=== PATIENT | female | born 1950 | race Hispanic/Latino ===

== ENCOUNTER 2016-07-07 10:51 | Day surgery (SDC) | payer BC ==
[2016-07-06 17:26] LABS: Hemoglobin 7.6 gm/dl (10.1-14.3)
[2016-07-07] MEDS ORDERED: NACL 0.9% 250ML 250 ML IV ONE (11:03)
[2016-07-07] MEDS ORDERED: TYLENOL PO ONE ×2 (11:04→11:33)
[2016-07-07] MEDS ORDERED: BENADRYL PO ONE (11:04)
[2016-07-07 16:21] VITALS: BP 124/46
== END 2016-07-07 16:40 | disposition home or self-care (01) ==
LOC: OPU 10:51
PROVIDERS: ATTEND Internal Medicine Hematology & Oncology
DX: D64.9 Anemia, unspecified (principal)
CPT/HCPCS: 36415; 36430; 85014; 85018; 86850; 86900; 86901; 86920; J7050; P9016

== ENCOUNTER 2016-07-09 19:21 | Emergency (ER) | payer BC ==
[2016-07-09 20:49] LABS: Alanine Aminotransferase 12 units/L (7-56); Albumin 3.3 g/dL (3.9-5); Albumin/Globulin Ratio 0.8 %; Alkaline Phosphatase 36 units/L (35-129); Anion Gap 19 mmol/L; BUN/Creatinine Ratio 11.66; Bilirubin,Total 0.4 mg/dL (0.1-1.2); Blood Urea Nitrogen 7 mg/dL (7-17); Calcium 8.3 mg/dL (8.4-10.2); Carbon Dioxide 25 mmol/L (22-30); Chloride 97.1 mmol/L (98-107); Glucose 100 mg/dL (65-100); Lipase 20 units/L (13-60); Sodium 138 mmol/L (137-145); Total Protein 7.3 g/dL (6.3-8.2)
[2016-07-09 20:59] LABS: Hematocrit 34.3 % (30.3-42.9); Hemoglobin 11.1 gm/dl (10.1-14.3); Mean Corpuscular HGB Conc 33 % (30-34); Mean Corpuscular Volume 77 fl (79-97); Platelet Count 396 K/mm3 (140-440); Red Blood Count 4.46 M/mm3 (3.65-5.03); Red Cell Distribution Width 16.5 % (13.2-15.2); White Blood Count 16.1 K/mm3 (4.5-11.0)
[2016-07-09 21:02] LABS: Mean Corpuscular Hemoglobin 25 pg (28-32)
[2016-07-09 21:05] LABS: Potassium 2.8 mmol/L (3.6-5.0)
[2016-07-09] MEDS ORDERED: NACL 0.9% 1000 ML 1,000 ML IV ONE (21:55)
[2016-07-09] MEDS ORDERED: ZOFRAN IV ONE (21:55)
[2016-07-09] MEDS ORDERED: K-DUR PO ONE (21:59)
[2016-07-09] MEDS ORDERED: NACL ONE (22:01)
--- NOTE | 2016-07-09 22:11 | Emergency Department Report ---
HPI - General Chief Complaint: Nausea/Vomiting/Diarrhea Time Seen by Provider: 07/09/16 21:43 - HPI HPI: Room 6 The patient is 66-year-old female presenting with a chief complaint of nausea. The patient states for the past 4.5 days she has had nausea with occasional vomiting. The patient states she felt too ill to follow-up with her oven builder for her iron transfusion. The patient states she contacted her helicopter pilot instructor over Dr. Merida today who recommended she come to the ED for evaluation. Patient denies abdominal pain or fever. Patient denies dysuria or hematuria but has noticed decreased urinary output due to her lack of appetite and oral intake. Patient states she has rectal bleeding from ulcerative colitis but was started on a new medication 1 month ago which has decreased this bleeding. However the patient states she's had increased rectal bleeding yesterday and today. Location: Gastrointestinal system Duration: 4.5 days Quality: Nausea Severity: Moderate Modifying factors: [see above] Context: [see above] Mode of transportation: [not driving] ED Past Medical Hx - Past Medical History Additional medical history: Left bundle branch block, ulcerative colitis. OSTEOPENIA - Surgical History Additional Surgical History: COLONOSCOPY - Family History Family history: no significant - Social History Smoking Status: Never Smoker Substance Use Type: None - Medications Home Medications: Home Medications Medication Instructions Recorded Confirmed Last Taken Type Mesalamine [Rowasa] 4 gm MI HS 30 Days 03/23/16 07/09/16 07/08/16 Rx Mesalamine [LiALDA] 1.2 gm PO DAILY 07/07/16 07/09/16 07/08/16 History Ciprofloxacin HCl [Ciprofloxacin 500 mg PO Q12HR #14 tab 07/10/16 Unknown Rx TAB] Promethazine [Phenergan TAB] 25 mg PO Q6HR PRN #20 tab 07/10/16 Unknown Rx Promethazine [Phenergan] 25 mg [place] Q6HR PRN #5 supp.rect 07/10/16 Unknown Rx metroNIDAZOLE [Flagyl] 500 mg PO Q8HR #21 tablet 07/10/16 Unknown Rx ED Review of Systems ROS: Stated complaint: NAUSEA X 5 DAYS, NOT EATING Other details as noted in HPI Comment: All other systems reviewed and negative Constitutional: malaise Eyes: denies: eye pain, eye discharge, vision change ENT: denies: ear pain, throat pain Respiratory: denies: cough, shortness of breath, wheezing Cardiovascular: denies: chest pain, palpitations Endocrine: no symptoms reported Gastrointestinal: nausea, vomiting, hematochezia. denies: diarrhea Genitourinary: denies: urgency, dysuria, discharge Musculoskeletal: denies: back pain, joint swelling, arthralgia Skin: denies: rash, lesions Neurological: denies: headache, weakness, paresthesias Psychiatric: denies: anxiety, depression Hematological/Lymphatic: denies: easy bleeding, easy bruising Physical Exam - Physical Exam Vital Signs: Vital Signs 07/09/16 19:56 Temperature 99 F Pulse Rate 89 Respiratory 18 Rate Blood Pressure 122/68 O2 Sat by Pulse 98 Oximetry Physical Exam: GENERAL: The patient is well-developed well-nourished female lying on stretcher not appearing to be in acute distress. [] HEENT: Normocephalic. Atraumatic. Extraocular motions are intact. NECK: Supple. Trachea midline CHEST/LUNGS: Clear to auscultation. There is no respiratory distress noted. HEART/CARDIOVASCULAR: Regular. There is no tachycardia. There is no gallop rub or murmur. ABDOMEN: Abdomen is soft, with mild discomfort to palpation in the epigastric region. Patient has normal bowel sounds. There is no abdominal distention. SKIN: There is no rash. There is no edema. There is no diaphoresis. NEURO: The patient is awake, alert, and oriented. The patient is cooperative. The patient has normal speech MUSCULOSKELETAL: There is no evidence of acute injury. ED Course Vital Signs 07/09/16 19:56 Temperature 99 F Pulse Rate 89 Respiratory 18 Rate Blood Pressure 122/68 O2 Sat by Pulse 98 Oximetry - Reevaluation(s) Reevaluation #1: 07/10/16 02:37 Patient tolerating po and states she feels improved, ready to go home 07/10/16 02:37 - Consultations Consultation #1: 07/09/16 22:11 Gastroenterology called Consultation #2: 07/10/16 01:24 Gastroenterology paged ED Medical Decision Making - Lab Data Result diagrams: 07/09/16 20:14 07/09/16 20:14 Laboratory Tests 07/09/16 07/09/16 07/09/16 20:14 20:14 22:37 WBC 16.1 H RBC 4.46 Hgb 11.1 Hct 34.3 MCV 77 L MCH 25 L MCHC 33 RDW 16.5 H Plt Count 396 Sodium 138 Potassium 2.8 L* Chloride 97.1 L Carbon Dioxide 25 Anion Gap 19 BUN 7 Creatinine 0.6 L Estimated GFR > 60 BUN/Creatinine Ratio 11.66 Glucose 100 Calcium 8.3 L Total Bilirubin 0.4 AST 16 ALT 12 Alkaline Phosphatase 36 Total Protein 7.3 Albumin 3.3 L Albumin/Globulin Ratio 0.8 Lipase 20 Urine Color Jud Urine Turbidity Clear Urine pH 6.0 Ur Specific [place] 1.023 Urine Protein 100 mg/dl Urine Glucose (UA) Neg Urine Ketones 20 Urine Blood Neg Urine Nitrite Neg Urine Bilirubin Neg Urine Urobilinogen < 2.0 Ur Leukocyte Esterase Sm Urine WBC (Auto) 21.0 H Urine RBC (Auto) 2.0 U Epithel Cells (Auto) 1.0 Urine Bacteria (Auto) 1+ Urine Mucus 3+ - Differential Diagnosis ulcerative colitis, SBO, gastritis, UTI Critical care attestation.: If time is entered above; I have spent that time in minutes in the direct care of this critically ill patient, excluding procedure time. ED Disposition Clinical Impression: Nausea & vomiting, Colitis, UTI (urinary tract infection) Disposition: DISCHARGED TO HOME OR SELFCARE Is pt being admited?: No Does the pt Need Aspirin: No Condition: Stable Instructions: Ulcerative Colitis (ED), Rectal Bleeding (ED), Urinary Tract Infection in Women (ED) Additional Instructions: Return to the emergency department immediately should you develop worsening symptoms, fever, inability to tolerate food or liquid or any other concerns. Prescriptions: Ciprofloxacin HCl [Ciprofloxacin TAB] 500 mg PO Q12HR #14 tab metroNIDAZOLE [Flagyl] 500 mg PO Q8HR #21 tablet Promethazine [Phenergan TAB] 25 mg PO Q6HR PRN #20 tab PRN Reason: Nausea Promethazine [Phenergan] 25 mg [place] Q6HR PRN #5 supp.rect PRN Reason: Vomiting Referrals: RHODA REYES [Other] - 3-5 Days LINDA SIMPSON MD [Staff Physician] - 07/11/16 Time of Disposition: 02:44
--- NOTE | 2016-07-09 23:05 | Cat Scan Report ---
FINAL REPORT PROCEDURE: CT ABDOMEN PELVIS W CON TECHNIQUE: Computerized axial tomography of the abdomen and pelvis was performed after the IV injection of iodinated nonionic contrast. HISTORY: epigastric abd pain, nausea vomiting, leukocytosis COMPARISON: No prior studies are available for comparison. FINDINGS: Liver, spleen, pancreas and adrenal glands are within normal limits. Bilateral kidneys demonstrate uniform enhancement without hydronephrosis. Aorta is of normal caliber. There is no free fluid or free air. Gallbladder is unremarkable. Small bowel loops are within normal limits. There is diffuse moderate degree thickening of colonic and rectal slaughter without dilatation. Appendix is normal. Mild degree degenerative changes are noted involving the lumbar spine.. IMPRESSION: Findings are consistent with diffuse colitis
[2016-07-09 23:23] LABS: Bacteria,Urine 1+ /HPF (Negative); Bilirubin,Urine NEG (Negative); Blood,Urine NEG (Negative); Ketones,Urine 20 mg/dL (Negative); Leukocyte Esterase,Urine SM (Negative); Mucus,Urine 3+ /HPF; Nitrite,Urine NEG (Negative); Urobilinogen,Urine < 2.0 mg/dL (<2.0)
[2016-07-10] MEDS ORDERED: K-DUR PO ONE (01:07)
[2016-07-10 03:41] VITALS: BP 116/53
== END 2016-07-10 03:00 | disposition home or self-care (01) ==
LOC: ED 19:21
DX: K52.9 Noninfective gastroenteritis and colitis, unspecified (principal); N39.0 Urinary tract infection, site not specified; K92.1 Melena
CPT/HCPCS: 36415; 74177; 80053; 81001; 83690; 85027; 96361; 96374; 99284; J2405; J7030; Q9967

== ENCOUNTER 2016-07-13 15:47 | Inpatient (IN) | payer BC ==
[2016-07-13 17:05] LABS: Basophils % (Auto) 0.4 % (0.0-1.8); Eosinophils % (Auto) 0.7 % (0.0-4.3); Hematocrit 34.1 % (30.3-42.9); Mean Corpuscular HGB Conc 32 % (30-34); Mean Corpuscular Volume 76 fl (79-97); Platelet Count 428 K/mm3 (140-440); Red Blood Count 4.47 M/mm3 (3.65-5.03); Red Cell Distribution Width 16.4 % (13.2-15.2); White Blood Count 14.6 K/mm3 (4.5-11.0)
[2016-07-13 17:19] LABS: Mean Corpuscular Hemoglobin 25 pg (28-32)
[2016-07-13 17:22] LABS: Anion Gap 19 mmol/L; BUN/Creatinine Ratio 13.33; Blood Urea Nitrogen 8 mg/dL (7-17); Calcium 8.2 mg/dL (8.4-10.2); Carbon Dioxide 26 mmol/L (22-30); Glucose 124 mg/dL (65-100); Sodium 134 mmol/L (137-145)
[2016-07-13 17:30] LABS: Potassium 2.6 mmol/L (3.6-5.0)
[2016-07-13] MEDS ORDERED: K-DUR PO ONE (18:08)
[2016-07-13] MEDS ORDERED: NACL 0.9% 1000 ML 1,000 ML IV ONE ×2 (18:28→18:29)
[2016-07-13] MEDS ORDERED: ZOFRAN IV ONE (18:28)
[2016-07-13] MEDS ORDERED: BENTYL IM ONE (18:28)
[2016-07-13] MEDS ORDERED: LEVAQUIN PO ONE (18:28)
--- NOTE | 2016-07-13 18:30 | Emergency Department Report ---
ED General Adult HPI - General Chief complaint: Urogenital-Female Stated complaint: WEAKNESS/ DEHYDRATION Time Seen by Provider: 07/13/16 18:06 Source: patient Mode of arrival: Ambulatory Limitations: No Limitations - History of Present Illness Initial comments: This is a 66-year-old female. She is previously unknown to me. Her primary care doctor is Dr. Bah. Her furniture servicer is Dr. Luis A Stovall. The patient has a past medical history of ulcerative colitis. She was seen in the hospital on July 08, had a CT scan with IV contrast that demonstrated diffuse colitis. Patient was discharged with ciprofloxacin, Flagyl, and promethazine. She presents to the ER with generalized weakness, nausea, decreased appetite, bloody stools since February. Nausea, decreased appetite, malaise, decreased appetite have been presents for a few weeks, they're gradually getting worse. She denies dysuria, and urinary frequency, but does endorse some urinary hesitancy. She complains of generalized weakness. There is no chest pain. There is no shortness of breath. Symptoms worse with physical exertion and when she attempts to eat. She reports that she is not having any chest pain or abdominal pain at this time. She is endorsing brown/bloody stools. -: Gradual, week(s) Consistency: constant Improves with: rest Worsens with: eating, movement Associated Symptoms: loss of appetite, malaise, weakness - Related Data Home Medications Medication Instructions Recorded Confirmed Last Taken Mesalamine [LiALDA] 1.2 gm PO DAILY 07/07/16 07/09/16 07/08/16 Previous Rx's Medication Instructions Recorded Last Taken Type Mesalamine [Rowasa] 4 gm [place] HS 30 Days 03/23/16 07/08/16 Rx Ciprofloxacin HCl [Ciprofloxacin 500 mg PO Q12HR #14 tab 07/10/16 Unknown Rx TAB] Promethazine [Phenergan TAB] 25 mg PO Q6HR PRN #20 tab 07/10/16 Unknown Rx Promethazine [Phenergan] 25 mg [place] Q6HR PRN #5 supp.rect 07/10/16 Unknown Rx metroNIDAZOLE [Flagyl] 500 mg PO Q8HR #21 tablet 07/10/16 Unknown Rx Allergies Allergy/AdvReac Type Severity Reaction Status Date / Time Latex, Natural Rubber Allergy Itching Verified 03/23/16 09:55 nitrofurantoin Allergy Nausea Verified 01/13/15 19:27 macrocrystalline [From Macrodantin] ED Review of Systems ROS: Stated complaint: WEAKNESS/ DEHYDRATION Other details as noted in HPI Constitutional: malaise, weakness Eyes: denies: eye discharge ENT: denies: epistaxis Respiratory: denies: cough Cardiovascular: denies: chest pain Gastrointestinal: nausea, diarrhea Genitourinary: frequency Musculoskeletal: back pain Skin: denies: lesions Neurological: weakness Psychiatric: anxiety ED Past Medical Hx - Past Medical History Hx Congestive Heart Failure: No Hx Diabetes: No Hx Headaches / Migraines: Yes Hx Asthma: No Hx COPD: No Additional medical history: Left bundle branch block, ulcerative colitis. OSTEOPENIA - Surgical History Additional Surgical History: COLONOSCOPY - Social History Smoking Status: Never Smoker Substance Use Type: None - Medications Home Medications: Home Medications Medication Instructions Recorded Confirmed Last Taken Type Mesalamine [Rowasa] 4 gm IL HS 30 Days 03/23/16 07/09/16 07/08/16 Rx Mesalamine [LiALDA] 1.2 gm PO DAILY 07/07/16 07/09/16 07/08/16 History Ciprofloxacin HCl [Ciprofloxacin 500 mg PO Q12HR #14 tab 07/10/16 Unknown Rx TAB] Promethazine [Phenergan TAB] 25 mg PO Q6HR PRN #20 tab 07/10/16 Unknown Rx Promethazine [Phenergan] 25 mg [place] Q6HR PRN #5 supp.rect 07/10/16 Unknown Rx metroNIDAZOLE [Flagyl] 500 mg PO Q8HR #21 tablet 07/10/16 Unknown Rx ED Physical Exam - General Limitations: No Limitations General appearance: alert, in no apparent distress - Head Head exam: Present: atraumatic, normocephalic - Eye Eye exam: Present: normal appearance, EOMI. Absent: nystagmus - ENT ENT exam: Present: mucous membranes dry - Neck Neck exam: Present: normal inspection, full ROM. Absent: tenderness, meningismus - Respiratory Respiratory exam: Present: normal lung sounds bilaterally. Absent: respiratory distress, wheezes, rales, rhonchi, stridor, decreased breath sounds - Cardiovascular Cardiovascular Exam: Present: normal rhythm, tachycardia, normal heart sounds. Absent: systolic murmur, diastolic murmur, rubs, gallop - GI/Abdominal GI/Abdominal exam: Present: soft, tenderness, normal bowel sounds. Absent: distended, guarding, rebound, rigid, pulsatile mass - Rectal Rectal exam: Present: normal rectal tone, heme (+) stool, bloody stool, other ( during rectal examination, I am escorted by nurse Capri Med[place]) - Extremities Exam Extremities exam: Present: normal inspection, full ROM, normal capillary refill. Absent: pedal edema, joint swelling, calf tenderness - Back Exam Back exam: Present: normal inspection, full ROM. Absent: tenderness, CVA tenderness (R), CVA tenderness (L), muscle spasm, paraspinal tenderness, vertebral tenderness - Neurological Exam Neurological exam: Present: alert, oriented X3, normal gait, other (Extraocular movements intact. Tongue midline. No facial droop. Facial sensation intact to light touch in the V1, V2, V3 distribution bilaterally. 5 and 5 strength in 4 extremities.. Sensation is intact to light touch in 4 extremities.). Absent : motor sensory deficit - Psychiatric Psychiatric exam: Present: normal affect, normal mood - Skin Skin exam: Present: warm, dry, intact, normal color. Absent: rash ED Course Vital Signs 07/13/16 07/13/16 07/13/16 16:18 17:48 17:49 Temperature 97.6 F Pulse Rate 103 H Respiratory 20 Rate Blood Pressure 109/73 112/68 O2 Sat by Pulse 99 98 98 Oximetry 07/13/16 07/13/16 07/13/16 17:51 17:53 17:55 Temperature Pulse Rate 97 H 96 H 90 Respiratory 16 17 7 L Rate Blood Pressure 112/68 112/68 112/68 O2 Sat by Pulse 98 98 97 Oximetry 07/13/16 07/13/16 07/13/16 17:57 17:59 18:00 Temperature Pulse Rate 89 89 88 Respiratory 11 L 10 L 11 L Rate Blood Pressure 112/68 112/68 106/60 O2 Sat by Pulse 95 97 95 Oximetry 07/13/16 07/13/16 07/13/16 18:01 18:03 18:05 Temperature Pulse Rate 94 H 92 H 87 Respiratory 21 15 11 L Rate Blood Pressure 106/60 106/60 106/60 O2 Sat by Pulse 94 98 98 Oximetry 07/13/16 07/13/16 07/13/16 18:07 18:09 18:11 Temperature Pulse Rate 88 93 H 88 Respiratory 11 L 13 11 L Rate Blood Pressure 106/60 106/60 106/60 O2 Sat by Pulse 97 94 97 Oximetry 07/13/16 07/13/16 07/13/16 18:13 18:15 18:17 Temperature Pulse Rate 90 90 94 H Respiratory 10 L 11 L 11 L Rate Blood Pressure 106/60 106/60 106/60 O2 Sat by Pulse 94 95 98 Oximetry 07/13/16 07/13/16 07/13/16 18:19 18:20 18:31 Temperature Pulse Rate 106 H 108 H 94 H Respiratory 19 13 16 Rate Blood Pressure 106/60 106/60 106/60 O2 Sat by Pulse 98 96 97 Oximetry 07/13/16 07/13/16 07/13/16 19:00 19:31 20:00 Temperature Pulse Rate 84 91 H Respiratory 12 13 Rate Blood Pressure 118/58 118/58 115/58 O2 Sat by Pulse 100 98 99 Oximetry 07/13/16 07/13/16 07/13/16 20:31 21:00 21:31 Temperature Pulse Rate 93 H 86 85 Respiratory 18 11 L 12 Rate Blood Pressure 118/58 105/55 105/55 O2 Sat by Pulse 98 96 97 Oximetry 07/13/16 07/13/16 07/13/16 22:00 22:31 23:01 Temperature Pulse Rate 86 90 84 Respiratory 16 12 20 Rate Blood Pressure 99/46 99/46 99/46 O2 Sat by Pulse 94 96 95 Oximetry 07/13/16 23:31 Temperature Pulse Rate 91 H Respiratory 24 Rate Blood Pressure 99/46 O2 Sat by Pulse 96 Oximetry - Reevaluation(s) Reevaluation #1: 07/13/16 19:53 Differential diagnosis: Ulcerative colitis flare, dehydration, electrolyte derangement, orthostasis, urinary tract infection Assessment and plan: 66-year-old female who 4 days ago had a CAT scan at this facility that demonstrated diffuse colitis, with subacute malaise, weakness, fatigue, bloody diarrhea since February, does not require packed red blood cell transfusion at this time. She is afebrile with slight tachycardia. She will be given IV fluids, nausea medication, nonnarcotic pain medication, we will attempt oral challenge, and reassess. Urinalysis is pending at this time. I will also discuss with her furniture servicer. I don't believe she requires admission to the hospital at this time. Reevaluation #2: 07/13/16 20:24 patient actively vomiting, having difficulty tolerating liquid feeds. Case is discussed with gastroenterology on-call, Dr. Pedro. Agrees with plan for admission. Recommend C. difficile assay, this is been ordered. States GI will decide tomorrow whether or not to initiate steroid therapy. Patient has been having persistent weakness, rectal bleeding, nausea, difficulty tolerating liquid feeds. She will be admitted for failure of outpatient therapy. Hospital physician is paged Reevaluation #3: 07/13/16 22:31 Urinalysis consistent with urinary tract infection. Case is discussed with Hospital physician, Dr. Milligan, who accepts the patient to his service. ED Medical Decision Making - Lab Data Result diagrams: 07/15/16 05:45 07/15/16 05:45 Vital Signs 07/13/16 07/13/16 07/13/16 16:18 17:48 17:49 Temperature 97.6 F Pulse Rate 103 H Respiratory 20 Rate Blood Pressure 109/73 112/68 O2 Sat by Pulse 99 98 98 Oximetry 07/13/16 07/13/16 07/13/16 17:51 17:53 17:55 Temperature Pulse Rate 97 H 96 H 90 Respiratory 16 17 7 L Rate Blood Pressure 112/68 112/68 112/68 O2 Sat by Pulse 98 98 97 Oximetry 07/13/16 07/13/16 07/13/16 17:57 17:59 18:00 Temperature Pulse Rate 89 89 88 Respiratory 11 L 10 L 11 L Rate Blood Pressure 112/68 112/68 106/60 O2 Sat by Pulse 95 97 95 Oximetry 07/13/16 07/13/16 07/13/16 18:01 18:03 18:05 Temperature Pulse Rate 94 H 92 H 87 Respiratory 21 15 11 L Rate Blood Pressure 106/60 106/60 106/60 O2 Sat by Pulse 94 98 98 Oximetry 07/13/16 07/13/16 07/13/16 18:07 18:09 18:11 Temperature Pulse Rate 88 93 H 88 Respiratory 11 L 13 11 L Rate Blood Pressure 106/60 106/60 106/60 O2 Sat by Pulse 97 94 97 Oximetry 07/13/16 07/13/16 07/13/16 18:13 18:15 18:17 Temperature Pulse Rate 90 90 94 H Respiratory 10 L 11 L 11 L Rate Blood Pressure 106/60 106/60 106/60 O2 Sat by Pulse 94 95 98 Oximetry 07/13/16 07/13/16 18:19 18:20 Temperature Pulse Rate 106 H 108 H Respiratory 19 13 Rate Blood Pressure 106/60 106/60 O2 Sat by Pulse 98 96 Oximetry Lab Results 07/13/16 07/13/16 07/13/16 Range/Units 16:41 16:41 16:45 WBC 14.6 H (4.5-11.0) K/mm3 RBC 4.47 (3.65-5.03) M/mm3 Hgb 11.0 (10.1-14.3) gm/dl Hct 34.1 (30.3-42.9) % MCV 76 L (79-97) fl MCH 25 L (28-32) pg MCHC 32 (30-34) % RDW 16.4 H (13.2-15.2) % Plt Count 428 (140-440) K/mm3 Lymph % (Auto) 20.1 (13.4-35.0) % [place] % (Auto) 8.2 H (0.0-7.3) % Eos % (Auto) 0.7 (0.0-4.3) % Baso % (Auto) 0.4 (0.0-1.8) % Lymph # 2.9 (1.2-5.4) K/mm3 [place] # 1.2 H (0.0-0.8) K/mm3 Eos # 0.1 (0.0-0.4) K/mm3 Baso # 0.1 (0.0-0.1) K/mm3 Seg Neutrophils % 70.6 H (40.0-70.0) % Seg Neutrophils # 10.3 H (1.8-7.7) K/mm3 Sodium 134 L (137-145) mmol/L Potassium 2.6 L* (3.6-5.0) mmol/L Chloride 92.0 L (98-107) mmol/L Carbon Dioxide 26 (22-30) mmol/L Anion Gap 19 mmol/L BUN 8 (7-17) mg/dL Creatinine 0.6 L (0.7-1.2) mg/dL Estimated GFR > 60 ml/min BUN/Creatinine Ratio 13.33 % Glucose 124 H (65-100) mg/dL Calcium 8.2 L (8.4-10.2) mg/dL Magnesium 1.8 (1.7-2.3) mg/dL Critical care attestation.: If time is entered above; I have spent that time in minutes in the direct care of this critically ill patient, excluding procedure time. ED Disposition Clinical Impression: Rectal bleeding, Colitis, Nausea & vomiting, Lightheadedness Disposition: OP ADMITTED IP TO THIS HOSP Is pt being admited?: Yes Does the pt Need Aspirin: No Condition: Good
[2016-07-13] MEDS: KCL 10MEQ/100ML 10 MEQ/100 ML BAG IV SCH ×4 (19:00→23:57)
[2016-07-13] MEDS ORDERED: NACL 0.9% 500 ML IV SCH (19:00)
[2016-07-13] MEDS ORDERED: FLAGYL 500 MG/100 ML 500 MG/100 ML BAG IV SCH (19:00)
[2016-07-13] MEDS ORDERED: REGLAN IV ONE (20:04)
[2016-07-13] MEDS ORDERED: LEVAQUIN 500MG/100ML 500 MG/100 ML BAG IV ONE (20:05)
[2016-07-13 20:28] LABS: Bilirubin,Urine NEG (Negative); Blood,Urine NEG (Negative); Ketones,Urine 20 mg/dL (Negative); Leukocyte Esterase,Urine TR (Negative); Mucus,Urine 2+ /HPF; Nitrite,Urine POS (Negative); Urobilinogen,Urine < 2.0 mg/dL (<2.0)
--- NOTE | 2016-07-13 20:56 | Admit Criteria Form ---
Admission Criteria Documentation: GASTROENTEROLOGY GRG Clinical Indications for Admission to Inpatient Care (Place 'X' for any and all applicable criteria): Hospital admission is needed for appropriate care of the patient because of ANY ONE of the following: [ ]I. Hemoperitoneum(7) [ ]II. Ascites requiring acute treatment indicated by ANY ONE of the following( 8)(9): [ ]a) Hemodynamic instability remaining after emergency or observation level care (as appropriate) [ ]b) Peritoneal signs present (eg, abdominal rigidity, rebound tenderness, absent bowel sounds) [ ]c) Tachypnea, Hypoxemia, or other respiratory symptoms remain after emergency or observation level care (as appropriate) [ ]d) Suspected infected ascites as indicated by ANY ONE of the following: [ ]i) Temperature greater than 100 degrees F (37.8 degrees C) [ ]ii) Abdominal pain or tenderness not relieved by paracentesis [ ]iii) Systemic signs of infection (eg, elevated WBC count, fever) [ ]iv) Ascitic fluid analysis consistent with infection ( eg, elevated WBC count): [ ]v) Vital sign abnormality [ ]III. Suspected acute intra-abdominal process indicated by ANY ONE of the following(1)(2)(3)(4)(5): [ ]a) Hemodynamic instability [ ]b) Peritoneal signs present (eg, abdominal rigidity, rebound tenderness, absent bowel sounds) [ ]c) Bowel obstruction suspected (eg, severe vomiting, abdominal distension) [ ]d) Suspected mesenteric ischemia or ischemic colitis(6) [ ]e) Other signs or symptoms of acute abdominal disease (eg, severe pain, free air): [ ]IV. Severe liver disease indicated by ANY ONE of the following(8)(9)(10)(11)( 12)(13)(14): [ ]a) Acute hepatitis (eg, transaminase level greater than 1000 IU/L) [ ]b) Acute elevation of prothrombin time to more than 50% above normal or INR greater than 1.5 [ ]c) Bilirubin greater than 20 mg/dL (342 micromoles/L) (15) [ ]d) New-onset or worsening hepatic encephalopathy [ ]e) Acute liver necrosis [ ]f) Vomiting or dehydration that is severe of persistent [ ]g) Hemodynamic instability due to liver disease [ ]h) Acute renal failure [ ]i) Hepatic abscess [ ]j) Dehydration that is severe or persistent [ ]k) Hepatic hydrothorax(21) [ ]l) Other indications of severe liver disease (eg, persistent fever , ingestion of hepatotoxin) [ ]V. Severe diarrhea indicated by ANY ONE of the following(17)(18)(19)(20)(21)( 22)(23): [ ]a) High fever or other high-risk infection situation [ ]b) Intractable bloody diarrhea (eg, more than 6 bloody stools per day) [ ]c) Suspected Clostridium difficile-associated diarrhea(24) [ ]d) Change in mental status that persists after emergency or observation level care (as appropriate) [ ]e) Severe dehydration (eg, greater than 9% loss of body weight in children) [ ]f) Inability to maintain hydration [ ]g) Peritoneal signs present (eg, abdominal rigidity, rebound tenderness, absent bowel sounds) [ ]h) Abdominal ischemia suspected(6) [ ]i) Hemodynamic instability that persists after emergency or observation level care (as appropriate) [ ]j) Severe electrolyte abnormalities requiring inpatient care [ ]k) Acute renal failure [ ]. Suspected toxic megacolon(5)(6) [ ]VII.Severe dysphagia indicated by ANY ONE of the following(25)(26): [ ]a) Suspected esophageal perforation or fistula(27) [ ]b) Suspected cause that requires inpatient care (eg, caustic ingestion, severe esophagitis) (28) [ ]c) Severe dehydration (eg, greater than 9% loss of body weight in children) [ ]d) Inability to manage secretions or maintain hydration [ ]e) Hemodynamic instability that persists after emergency or observation level care (as appropriate) [ ]f) Severe electrolyte abnormalities requiring inpatient care [ ]g) Acute renal failure [ ]VIII.Vomiting and ANY ONE of the following (29)(30)(31)(32): [ ]a) High fever or other high-risk infection situation [ ]b) Change in mental status that persists after emergency or observation level care (as appropriate) [ ]c) Severe dehydration (e.g., greater than 9% loss of body weight in children) [ ]d) Peritoneal signs present (e.g., abdominal rigidity, rebound tenderness, absent bowel sounds) [ ]e) Hemodynamic instability that persists after emergency or observation level care (as appropriate) [ ]f) Severe electrolyte abnormalities requiring inpatient care [ ]g) Acute renal failure [ ]h) Bowel obstruction suspected (e.g., severe vomiting, abdominal distension) [ ]i) Vomiting that is severe or persistent after medical treatment [ ]IX. Significant dehydration indicated by ANY ONE of the following(23)(24)(25) [ ]a) Clinical findings of severe dehydration indicated by ANY ONE of the following: [ ]i) Acute loss of weight from baseline (5% of body weight in adults, 9% in pediatric patients) [ ]ii) Hemodynamic instability [ ]iii) Acute renal failure [ ]iv) Serum sodium greater than 150 mEq/L (mmol/L) [ ]b) Dehydration that is persistent indicated by ALL of the following: [ ]i) Oral rehydration therapy not tolerated or insufficient to adequately correct dehydration [ ]ii) Appropriate intravenous treatment (eg, fluids) does not readily correct dehydration hours of (ie, after 12 to 24 of treatment) [ ]X. Gastroparesis and ANY ONE of the following(37)(38)(39): [ ]a) Dehydration that is severe or persistent [ ]b) Severe electrolyte abnormalities requiring inpatient care [ ]c) Acute renal failure [ ]d) Vomiting that is severe or persistent [ ]XI. Complications of transplanted liver indicated by ANY ONE of the following (40)(41): [ ]a) Acute graft rejection requiring inpatient management (eg, intravenous immunosuppression)(42) [ ]b) Failure of transplanted liver as indicated by ANY ONE of the following: [ ]i) Acute hepatitis (eg, transaminase level greater than 1000 International Units per liter (IU/L)) [ ]ii) Acute elevation of prothrombin time to more than 50% above baseline or INR greater than 1.5 [ ]iii) Bilirubin greater than 20 mg/dL (342 micromoles/L) [ ]iv) New-onset or worsening hepatic encephalopathy [ ]v) Acute elevation of serum ammonia level (eg, greater than 210 mcg/dL (150 micromoles/L)) [ ]vi) Acute liver necrosis [ ]c) Infection requiring inpatient management (eg, Hemodynamic instability, need for intravenous antimicrobial treatment)(43)(44)(45)(46)(47)(48)(49)(50) [ ]d) Other complication of transplanted liver (eg, thrombosis, autoimmune hepatitis, variceal bleeding) requiring inpatient management(51)(52) [ ]XII Complications of transplanted pancreas indicated by ANY ONE of the following(53): [ ]a) Acute graft rejection requiring inpatient management (eg, intravenous immunosuppression)(42)(54) [ ]b) Failure of transplanted pancreas as indicated by ANY ONE of the following: [ ]i) Serum amylase greater than 3 times the upper limit of normal or baseline [ ]ii) Serum lipase greater than 3 times the upper limit of normal or baseline [ ]iii) Imaging findings consistent with pancreatic inflammation or necrosis [ ]c) Infection requiring inpatient management (eg, Hemodynamic instability, need for intravenous antimicrobial treatment)(43)(44)(45)(46)(47)(48)(49)(50) [ ]d) Other complication of transplanted liver (eg, thrombosis, autoimmune hepatitis, variceal bleeding) requiring inpatient management(51)(52) [X ]X. Gastroenterology condition and ALL of the following: [ X]a) Symptom or finding for which emergency and observation care have failed or are not considered appropriate (Also use General Criteria: Observation Care as appropriate) [ X]b) Presence of ANY ONE of the following: [X ]i) A General Admission Criteria [ ]ii) A Pediatric General Admission Criteria. The original [facility] content created by [facility] has been revised. The portions of the content which have been revised are identified through the use of italic text or in bold,and [facility] has neither reviewed nor approved the modified material. All other unmodified content is copyright [facility]. Please see references footnoted in the original [facility] edition 2016 Admission Criteria Met: Yes
[2016-07-13] MEDS ORDERED: NACL 0.9% 1000 ML 1,000 ML ONE (21:31)
[2016-07-13] MEDS ORDERED: MORPHINE IV PRN (21:54)
--- NOTE | 2016-07-13 22:02 | History and Physical Report ---
History of Present Illness Date of examination: 07/13/16 Chief complaint: Nausea and vomiting History of present illness: 66-year-old female with past medical history significant for ulcerative colitis, rectal bleeding, anemia presented to the emergency department because of complaints of generalized weakness, nausea and vomiting. Patient she had abdominal pain that subsided. Patient denied bloody stool on the current presentation. She denied fevers, chills. Patient was discharged from this hospital recently after she was treated for colitis with antibiotics. She has follow-up with GI doctors. GI was consulted in the emergency department and they said they will decide whether to start steroid or not tomorrow. REVIEW OF SYSTEMS: GENERAL: no weight change, no fatigue, no fever HEAD: no head ache EYES: no blurry vision, no acute visual loss EARS: no hearing loss, no discharge, no earache NOSE: no stuffiness, no sneezing, no discharge MOUTH, THROAT AND NECK: no bleeding gums, no sore throat, no swollen neck CARDIAC: no palpitations, no dyspnea on exertion, no orthopnea, no PND, no edema , no chest pain RESPIRATORY: no shortness of breath, no wheeze, no cough, no sputum, no hemoptysis, no asthma GI: + decreased appetite, + nausea, +vomiting, no dysphagia, no diarrhea, no constipation, no abdominal pain URINARY: no change in frequency, no urgency, no polyuria, no hematuria, no incontinence MUSCULOSKELETAL: no muscle weakness, no pain, no joint stiffness NEUROLOGIC: no loss of sensation/numbness, no tingling, no tremors, no weakness/ paralysis HEMATOLOGIC: no anemia, no easy bruising SKIN: no rashes ENDOCRINE: no heat/cold intolerance, no polyuria, no polydipsia, no thyroid problems, no diabetes PSYCHIATRIC: no anxiety, no depression, no suicidal ideations Past History Past Medical History: anemia, other (ulcerative colitis) Past Surgical History: No surgical history Social history: full code. denies: smoking, alcohol abuse, IV drug use Family history: other (mother ulcerative colitis) Medications and Allergies Allergies Allergy/AdvReac Type Severity Reaction Status Date / Time Latex, Natural Rubber Allergy Itching Verified 03/23/16 09:55 nitrofurantoin Allergy Nausea Verified 01/13/15 19:27 macrocrystalline [From Macrodantin] Home Medications Medication Instructions Recorded Confirmed Last Taken Type Mesalamine [Rowasa] 4 gm [place] HS 30 Days 03/23/16 07/09/16 07/08/16 Rx Mesalamine [LiALDA] 1.2 gm PO DAILY 07/07/16 07/09/16 07/08/16 History Ciprofloxacin HCl [Ciprofloxacin 500 mg PO Q12HR #14 tab 07/10/16 Unknown Rx TAB] Promethazine [Phenergan TAB] 25 mg PO Q6HR PRN #20 tab 07/10/16 Unknown Rx Promethazine [Phenergan] 25 mg [place] Q6HR PRN #5 supp.rect 07/10/16 Unknown Rx metroNIDAZOLE [Flagyl] 500 mg PO Q8HR #21 tablet 07/10/16 Unknown Rx Active Meds: Active Medications Potassium Chloride (Kcl 10meq/100ml) 10 meq in 100 mls @ 100 mls/hr IV Q1H TOBI Stop: 07/13/16 22:59 Last Admin: 07/13/16 21:40 Dose: 100 mls/hr Metronidazole (Flagyl 500 Mg/100 Ml) 500 mg in 100 mls @ 200 mls/hr IV ONCE TOBI Levofloxacin/Dextrose (Levaquin 750mg/150ml) 750 mg in 150 mls @ 100 mls/hr IV Q24HR TOBI PRN Reason: Protocol Metronidazole (Flagyl 500 Mg/100 Ml) 500 mg in 100 mls @ 100 mls/hr IV Q8HR TOBI Potassium Chloride/Sodium Chloride (Ns/Kcl 40meq) 40 meq in 1,000 mls @ 100 mls /hr IV DIRECT TOBI Morphine Sulfate (Morphine) 2 mg IV Q4H PRN PRN Reason: Pain, Moderate (4-6) Exam - Physical Exam Narrative exam: Not in cardiopulmonary distress. The patient is emaciated. Vital signs as documented. Head exam is unremarkable. No scleral icterus . Neck is without jugular venous distension, thyromegaly, or carotid bruits. Lungs are clear to auscultation. Cardiac exam reveals regular rate and Rhythm. First and second heart sounds normal. No murmurs, rubs or gallops. Abdominal exam reveals normal bowel sounds, no masses, no organomegaly and no aortic enlargement. Extremities are nonedematous and both femoral and pedal pulses are normal. [employer]: Alert and oriented 3. No focal weakness. - Constitutional Vitals: Temp Pulse Resp BP Pulse Ox 97.6 F 86 11 L 105/55 96 07/13/16 16:18 07/13/16 21:00 07/13/16 21:00 07/13/16 21:00 07/13/16 21:00 Results - Labs CBC & Chem 7: 07/13/16 16:41 07/13/16 16:41 Labs: Laboratory Last Values WBC 14.6 K/mm3 (4.5-11.0) H 07/13/16 16:41 RBC 4.47 M/mm3 (3.65-5.03) 07/13/16 16:41 Hgb 11.0 gm/dl (10.1-14.3) 07/13/16 16:41 Hct 34.1 % (30.3-42.9) 07/13/16 16:41 MCV 76 fl (79-97) L 07/13/16 16:41 MCH 25 pg (28-32) L 07/13/16 16:41 MCHC 32 % (30-34) 07/13/16 16:41 RDW 16.4 % (13.2-15.2) H 07/13/16 16:41 Plt Count 428 K/mm3 (140-440) 07/13/16 16:41 Lymph % (Auto) 20.1 % (13.4-35.0) 07/13/16 16:41 [place] % (Auto) 8.2 % (0.0-7.3) H 07/13/16 16:41 Eos % (Auto) 0.7 % (0.0-4.3) 07/13/16 16:41 Baso % (Auto) 0.4 % (0.0-1.8) 07/13/16 16:41 Lymph # 2.9 K/mm3 (1.2-5.4) 07/13/16 16:41 [place] # 1.2 K/mm3 (0.0-0.8) H 07/13/16 16:41 Eos # 0.1 K/mm3 (0.0-0.4) 07/13/16 16:41 Baso # 0.1 K/mm3 (0.0-0.1) 07/13/16 16:41 Seg Neutrophils % 70.6 % (40.0-70.0) H 07/13/16 16:41 Seg Neutrophils # 10.3 K/mm3 (1.8-7.7) H 07/13/16 16:41 Sodium 134 mmol/L (137-145) L 07/13/16 16:41 Potassium 2.6 mmol/L (3.6-5.0) L* 07/13/16 16:41 Chloride 92.0 mmol/L (98-107) L 07/13/16 16:41 Carbon Dioxide 26 mmol/L (22-30) 07/13/16 16:41 Anion Gap 19 mmol/L 07/13/16 16:41 BUN 8 mg/dL (7-17) 07/13/16 16:41 Creatinine 0.6 mg/dL (0.7-1.2) L 07/13/16 16:41 Estimated GFR > 60 ml/min 07/13/16 16:41 BUN/Creatinine Ratio 13.33 % 07/13/16 16:41 Glucose 124 mg/dL (65-100) H 07/13/16 16:41 Calcium 8.2 mg/dL (8.4-10.2) L 07/13/16 16:41 Magnesium 1.8 mg/dL (1.7-2.3) 07/13/16 16:45 Urine Color Jud (Yellow) 07/13/16 19:30 Urine Turbidity Clear (Clear) 07/13/16 19:30 Urine pH 6.0 (5.0-7.0) 07/13/16 19:30 Ur Specific [place] 1.020 (1.003-1.030) 07/13/16 19:30 Urine Protein 100 mg/dl mg/dL (Negative) 07/13/16 19:30 Urine Glucose (UA) Neg mg/dL (Negative) 07/13/16 19:30 Urine Ketones 20 mg/dL (Negative) 07/13/16 19:30 Urine Blood Neg (Negative) 07/13/16 19:30 Urine Nitrite Pos (Negative) 07/13/16 19:30 Urine Bilirubin Neg (Negative) 07/13/16 19:30 Urine Urobilinogen < 2.0 mg/dL (<2.0) 07/13/16 19:30 Ur Leukocyte Esterase Tr (Negative) 07/13/16 19:30 Urine WBC (Auto) 9.0 /HPF (0.0-6.0) H 07/13/16 19:30 Urine RBC (Auto) 4.0 /HPF (0.0-6.0) 07/13/16 19:30 U Epithel Cells (Auto) 1.0 /HPF (0-13.0) 07/13/16 19:30 Urine Mucus 2+ /HPF 07/13/16 19:30 Assessment and Plan Assessment and plan: Diffuse colitis - Going to start her with IV Levaquin and Flagyl - GI consulted by emergency physician and they said they were going to decide whether to start with steroids tomorrow - Elevated WBC count Intractable nausea and vomiting - IV fluids - Antiemetics Hypokalemia - Repleted - Follow BMP Prophylaxis - SCD because of her previous rectal bleeding Disposition - Admit to the floor Advance Directives: Yes (code) VTE prophylaxis?: Mechanical Plan of care discussed with patient/family: Yes
[2016-07-13] MEDS ORDERED: KCL 10MEQ/100ML 10 MEQ/100 ML BAG IV ONE ×2 (22:30→23:50)
[2016-07-13] MEDS ORDERED: REGLAN IV PRN (22:40)
[2016-07-14] MEDS: NS/KCL 40MEQ 40 MEQ/1,000 ML BAG IV SCH ×2 (02:01→21:54)
[2016-07-14] MEDS: FLAGYL 500 MG/100 ML 500 MG/100 ML BAG IV SCH ×3 (06:33→21:54)
[2016-07-14 06:40] LABS: Basophils % (Auto) 0.3 % (0.0-1.8); Eosinophils % (Auto) 0.7 % (0.0-4.3); Hematocrit 27.3 % (30.3-42.9); Hemoglobin 8.8 gm/dl (10.1-14.3); Mean Corpuscular HGB Conc 32 % (30-34); Mean Corpuscular Volume 76 fl (79-97); Platelet Count 334 K/mm3 (140-440); Red Blood Count 3.59 M/mm3 (3.65-5.03); Red Cell Distribution Width 16.3 % (13.2-15.2); White Blood Count 14.9 K/mm3 (4.5-11.0)
[2016-07-14 06:41] LABS: Mean Corpuscular Hemoglobin 25 pg (28-32)
[2016-07-14 07:03] LABS: Anion Gap 16 mmol/L; Blood Urea Nitrogen 5 mg/dL (7-17); Calcium 6.8 mg/dL (8.4-10.2); Carbon Dioxide 20 mmol/L (22-30); Chloride 101.4 mmol/L (98-107); Glucose 96 mg/dL (65-100); Sodium 135 mmol/L (137-145)
[2016-07-14 07:21] LABS: Potassium 2.5 mmol/L (3.6-5.0)
--- NOTE | 2016-07-14 08:47 | Progress Note ---
Assessment and Plan Assessment and plan: 1. Ulcerative colitis. Continued IV antibiotics and await GI consultation for further recommendations. ?steroids. Continue to follow H&H. 2. Intractable nausea and vomiting. Continue IV fluids and antiemetics. Continue supportive care. 3. Hypokalemia. Replete potassium. Follow-up BMP. 4. Sepsis. Present on admission. Patient with significant leukocytosis and tachycardia. Start sepsis pathway and follow blood cultures/lactic acid levels. 5. Acute blood loss anemia. H&H stable. Transfuse for hemoglobin less than 7.0. 6. DVT prophylaxis. Continue SCDs given the recent rectal bleeding. History Interval history: No new episodes overnight. Hospitalist Physical - Constitutional Vitals: Temp Pulse Resp BP Pulse Ox 98.7 F 91 H 18 94/56 96 07/14/16 00:45 07/14/16 00:45 07/14/16 00:45 07/14/16 00:45 07/14/16 00:45 General appearance: Present: no acute distress, well-nourished - EENT Eyes: Present: PERRL, EOM intact ENT: hearing intact, clear oral mucosa, dentition normal - Neck Neck: Present: supple, normal ROM - Respiratory Respiratory effort: normal Respiratory: bilateral: CTA - Cardiovascular Rhythm: regular Heart Sounds: Present: S1 & S2. Absent: gallop, rub - Extremities Extremities: no ischemia, No edema, Full ROM - Abdominal General gastrointestinal: soft, non-tender, non-distended, normal bowel sounds - Integumentary Integumentary: Present: clear, warm, dry - Neurologic Neurologic: CNII-XII intact, moves all extremities Results - Labs CBC & Chem 7: 07/14/16 05:57 07/14/16 05:57 Labs: Laboratory Last Values WBC 14.9 K/mm3 (4.5-11.0) H 07/14/16 05:57 RBC 3.59 M/mm3 (3.65-5.03) L 07/14/16 05:57 Hgb 8.8 gm/dl (10.1-14.3) L 07/14/16 05:57 Hct 27.3 % (30.3-42.9) L D 07/14/16 05:57 MCV 76 fl (79-97) L 07/14/16 05:57 MCH 25 pg (28-32) L 07/14/16 05:57 MCHC 32 % (30-34) 07/14/16 05:57 RDW 16.3 % (13.2-15.2) H 07/14/16 05:57 Plt Count 334 K/mm3 (140-440) 07/14/16 05:57 Lymph % (Auto) 13.2 % (13.4-35.0) L 07/14/16 05:57 [place] % (Auto) 10.4 % (0.0-7.3) H 07/14/16 05:57 Eos % (Auto) 0.7 % (0.0-4.3) 07/14/16 05:57 Baso % (Auto) 0.3 % (0.0-1.8) 07/14/16 05:57 Lymph # 2.0 K/mm3 (1.2-5.4) 07/14/16 05:57 [place] # 1.5 K/mm3 (0.0-0.8) H 07/14/16 05:57 Eos # 0.1 K/mm3 (0.0-0.4) 07/14/16 05:57 Baso # 0.0 K/mm3 (0.0-0.1) 07/14/16 05:57 Seg Neutrophils % 75.4 % (40.0-70.0) H 07/14/16 05:57 Seg Neutrophils # 11.2 K/mm3 (1.8-7.7) H 07/14/16 05:57 Sodium 135 mmol/L (137-145) L 07/14/16 05:57 Potassium 2.5 mmol/L (3.6-5.0) L* 07/14/16 05:57 Chloride 101.4 mmol/L (98-107) 07/14/16 05:57 Carbon Dioxide 20 mmol/L (22-30) L 07/14/16 05:57 Anion Gap 16 mmol/L 07/14/16 05:57 BUN 5 mg/dL (7-17) L 07/14/16 05:57 Creatinine 0.5 mg/dL (0.7-1.2) L 07/14/16 05:57 Estimated GFR > 60 ml/min 07/14/16 05:57 BUN/Creatinine Ratio 10.00 % 07/14/16 05:57 Glucose 96 mg/dL (65-100) 07/14/16 05:57 Calcium 6.8 mg/dL (8.4-10.2) L D 07/14/16 05:57 Magnesium 1.6 mg/dL (1.7-2.3) L 07/13/16 22:59 Urine Color Jud (Yellow) 07/13/16 19:30 Urine Turbidity Clear (Clear) 07/13/16 19:30 Urine pH 6.0 (5.0-7.0) 07/13/16 19:30 Ur Specific [place] 1.020 (1.003-1.030) 07/13/16 19:30 Urine Protein 100 mg/dl mg/dL (Negative) 07/13/16 19:30 Urine Glucose (UA) Neg mg/dL (Negative) 07/13/16 19:30 Urine Ketones 20 mg/dL (Negative) 07/13/16 19:30 Urine Blood Neg (Negative) 07/13/16 19:30 Urine Nitrite Pos (Negative) 07/13/16 19:30 Urine Bilirubin Neg (Negative) 07/13/16 19:30 Urine Urobilinogen < 2.0 mg/dL (<2.0) 07/13/16 19:30 Ur Leukocyte Esterase Tr (Negative) 07/13/16 19:30 Urine WBC (Auto) 9.0 /HPF (0.0-6.0) H 07/13/16 19:30 Urine RBC (Auto) 4.0 /HPF (0.0-6.0) 07/13/16 19:30 U Epithel Cells (Auto) 1.0 /HPF (0-13.0) 07/13/16 19:30 Urine Mucus 2+ /HPF 07/13/16 19:30
[2016-07-14] MEDS ORDERED: KCL 10MEQ/100ML 10 MEQ/100 ML BAG IV ONE ×2 (09:00→11:00)
[2016-07-14] MEDS: LEVAQUIN 750MG/150ML 750 MG/150 ML BAG IV SCH (11:58)
--- NOTE | 2016-07-14 13:57 | Gastroenterology Consultation ---
History of Present Illness - Reason for Consult Consult date: 07/14/16 UC Requesting physician: KACEY HERCULES - History of Present Illness Ms. Felix is a 36 y/o female admitted with increased N/V, weakness, diarrhea and blood per stool Ms. Felix was diagnosed with UC in 02/2016 per colonoscopy ( Dr Stovall) She has had diarrhea since that time with multiple episodes of blood per stool. She was seen in clinic in 05/2016 and started on Lialda. Previously on Mesalmine enemas, not controlled. She has had extensive N/V since starting Lialda, unable to keep anything down. She presented to the ED on 07/09/[address] notable for diffuse colitis. She was started on Cipro/ Flagyl and discharged. She feels her Lialda is resulting in extreme N/V and took herself off this past weekend. She had blood transfusion 1 week ago and Hgb on admission to ED noted at 11, now 8.8. Past History Past Medical History: anemia, other (ulcerative colitis) Past Surgical History: No surgical history Social history: full code. denies: smoking, alcohol abuse, IV drug use Family history: other (mother ulcerative colitis) Medications and Allergies Allergies Allergy/AdvReac Type Severity Reaction Status Date / Time Latex, Natural Rubber Allergy Itching Verified 03/23/16 09:55 nitrofurantoin Allergy Nausea Verified 01/13/15 19:27 macrocrystalline [From Macrodantin] Home Medications Medication Instructions Recorded Confirmed Last Taken Type Mesalamine [Rowasa] 4 gm [place] HS 30 Days 03/23/16 07/09/16 07/08/16 Rx Mesalamine [LiALDA] 1.2 gm PO DAILY 07/07/16 07/09/16 07/08/16 History Ciprofloxacin HCl [Ciprofloxacin 500 mg PO Q12HR #14 tab 07/10/16 Unknown Rx TAB] Promethazine [Phenergan TAB] 25 mg PO Q6HR PRN #20 tab 07/10/16 Unknown Rx Promethazine [Phenergan] 25 mg [place] Q6HR PRN #5 supp.rect 07/10/16 Unknown Rx metroNIDAZOLE [Flagyl] 500 mg PO Q8HR #21 tablet 07/10/16 Unknown Rx Active Meds: Active Medications Levofloxacin/Dextrose (Levaquin 750mg/150ml) 750 mg in 150 mls @ 100 mls/hr IV Q24HR TOBI PRN Reason: Protocol Last Admin: 07/14/16 11:58 Dose: 100 mls/hr Metronidazole (Flagyl 500 Mg/100 Ml) 500 mg in 100 mls @ 100 mls/hr IV Q8HR [facility] Last Admin: 07/14/16 13:29 Dose: 100 mls/hr Potassium Chloride/Sodium Chloride (Ns/Kcl 40meq) 40 meq in 1,000 mls @ 100 mls /hr IV DIRECT [facility] Last Admin: 07/14/16 02:01 Dose: 100 mls/hr Metoclopramide HCl (Reglan) 10 mg IV Q6H PRN PRN Reason: Nausea And Vomiting Morphine Sulfate (Morphine) 2 mg IV Q4H PRN PRN Reason: Pain, Moderate (4-6) Review of Systems - Review of Systems All systems: negative Constitutional: weakness Gastrointestinal: abdominal pain, nausea, vomiting, diarrhea, BRBPR, loss of appetite Exam - Constitutional Vital Signs: Temp Pulse Resp BP Pulse Ox 98.5 F 89 18 98/49 94 07/14/16 08:00 07/14/16 08:00 07/14/16 08:00 07/14/16 08:00 07/14/16 08:00 General appearance: no acute distress - EENT Eyes: EOM intact ENT: hearing intact - Neck Neck: supple - Respiratory Respiratory: bilateral: CTA - Cardiovascular Rhythm: regular Heart Sounds: Present: S1 & S2 Extremities: No edema, Full ROM - Gastrointestinal General gastrointestinal: Present: soft, non-tender, normal bowel sounds - Integumentary Integumentary: Present: warm, dry, pale - Neurologic Neurological: alert and oriented x3 - Psychiatric Psychiatric: appropriate mood/affect, cooperative - Labs CBC & Chem 7: 07/14/16 05:57 07/14/16 05:57 Lab Results: Laboratory Results - last 24 hr 07/13/16 07/14/16 07/14/16 22:59 05:57 05:57 WBC 14.9 H RBC 3.59 L Hgb 8.8 L Hct 27.3 L D MCV 76 L MCH 25 L MCHC 32 RDW 16.3 H Plt Count 334 Lymph % (Auto) 13.2 L [place] % (Auto) 10.4 H Eos % (Auto) 0.7 Baso % (Auto) 0.3 Lymph # 2.0 [place] # 1.5 H Eos # 0.1 Baso # 0.0 Seg Neutrophils % 75.4 H Seg Neutrophils # 11.2 H Sodium 135 L Potassium 2.5 L* Chloride 101.4 Carbon Dioxide 20 L Anion Gap 16 BUN 5 L Creatinine 0.5 L Estimated GFR > 60 BUN/Creatinine Ratio 10.00 Glucose 96 Lactic Acid Calcium 6.8 L D Magnesium 1.6 L 07/14/16 07/14/16 07/14/16 10:08 10:08 12:05 WBC RBC Hgb Hct MCV MCH MCHC RDW Plt Count Lymph % (Auto) [place] % (Auto) Eos % (Auto) Baso % (Auto) Lymph # [place] # Eos # Baso # Seg Neutrophils % Seg Neutrophils # Sodium Potassium Chloride Carbon Dioxide Anion Gap BUN Creatinine Estimated GFR BUN/Creatinine Ratio Glucose Lactic Acid 0.8 0.9 Calcium Magnesium 1.7 Assessment and Plan 1. N/V/D 2. Abdominal Pain 3. BRBPR -Likely UC excerbation vs adverse reaction to Lialda vs infection. -Patient feels Lialda is causing her N/V. She continues to have diarrhea daily with blood per stool. Currently on Levaquin/ Flagyl IV. -Check Stool studies including C diff. -Hold on steriods until infection ruled out -If infection is ruled out will start on IV steroids. -Ok for clear liquids. -CT on 07/09/16 c/w diffuse colitis. WBC noted at 14K. -Will follow.
[2016-07-15] MEDS: FLAGYL 500 MG/100 ML 500 MG/100 ML BAG IV SCH ×2 (05:17→13:35)
[2016-07-15 06:05] LABS: Basophils % (Auto) 0.3 % (0.0-1.8); Eosinophils % (Auto) 0.9 % (0.0-4.3); Hematocrit 28.5 % (30.3-42.9); Mean Corpuscular HGB Conc 32 % (30-34); Mean Corpuscular Volume 78 fl (79-97); Platelet Count 355 K/mm3 (140-440); Red Blood Count 3.67 M/mm3 (3.65-5.03); Red Cell Distribution Width 16.4 % (13.2-15.2); White Blood Count 15.4 K/mm3 (4.5-11.0)
[2016-07-15 06:06] LABS: Mean Corpuscular Hemoglobin 24 pg (28-32)
[2016-07-15 06:18] LABS: Anion Gap 15 mmol/L; Blood Urea Nitrogen 4 mg/dL (7-17); Calcium 7.1 mg/dL (8.4-10.2); Carbon Dioxide 23 mmol/L (22-30); Chloride 99.8 mmol/L (98-107); Glucose 100 mg/dL (65-100); Sodium 135 mmol/L (137-145)
[2016-07-15 06:39] LABS: Potassium 2.8 mmol/L (3.6-5.0)
[2016-07-15] MEDS: LEVAQUIN 750MG/150ML 750 MG/150 ML BAG IV SCH (09:21)
[2016-07-15] MEDS ORDERED: K-DUR PO ONE ×2 (10:26→14:00)
--- NOTE | 2016-07-15 10:26 | Progress Note ---
Assessment and Plan Assessment and plan: 1. Ulcerative colitis. Continued IV antibiotics and await GI consultation for further recommendations. We will hold on steroids until infection is ruled out per GI recommendations. Continue clear liquids. Check C. difficile. Continue to follow H&H. 2. Intractable nausea and vomiting. Continue IV fluids and antiemetics. Continue supportive care. 3. Hypokalemia. Replete potassium. Follow-up BMP. 4. Sepsis. Present on admission. Patient with significant leukocytosis and tachycardia. Start sepsis pathway and follow blood cultures/lactic acid levels. 5. Acute blood loss anemia. H&H stable. Transfuse for hemoglobin less than 7.0. 6. DVT prophylaxis. Continue SCDs given the recent rectal bleeding. History Interval history: No new episodes overnight. Hospitalist Physical - Constitutional Vitals: Temp Pulse Resp BP Pulse Ox 98.8 F 94 H 18 97/60 95 07/15/16 07:00 07/15/16 07:00 07/15/16 07:00 07/15/16 07:00 07/15/16 07:00 General appearance: Present: no acute distress, well-nourished - EENT Eyes: Present: PERRL, EOM intact ENT: hearing intact, clear oral mucosa, dentition normal - Neck Neck: Present: supple, normal ROM - Respiratory Respiratory effort: normal Respiratory: bilateral: CTA - Cardiovascular Rhythm: regular Heart Sounds: Present: S1 & S2. Absent: gallop, rub - Extremities Extremities: no ischemia, No edema, Full ROM - Abdominal General gastrointestinal: soft, non-tender, non-distended, normal bowel sounds - Integumentary Integumentary: Present: clear, warm, dry - Neurologic Neurologic: CNII-XII intact, moves all extremities Results - Labs CBC & Chem 7: 07/15/16 05:45 07/15/16 05:45 Labs: Laboratory Last Values WBC 15.4 K/mm3 (4.5-11.0) H 07/15/16 05:45 RBC 3.67 M/mm3 (3.65-5.03) 07/15/16 05:45 Hgb 9.0 gm/dl (10.1-14.3) L 07/15/16 05:45 Hct 28.5 % (30.3-42.9) L 07/15/16 05:45 MCV 78 fl (79-97) L 07/15/16 05:45 MCH 24 pg (28-32) L 07/15/16 05:45 MCHC 32 % (30-34) 07/15/16 05:45 RDW 16.4 % (13.2-15.2) H 07/15/16 05:45 Plt Count 355 K/mm3 (140-440) 07/15/16 05:45 Lymph % (Auto) 17.4 % (13.4-35.0) 07/15/16 05:45 [place] % (Auto) 8.4 % (0.0-7.3) H 07/15/16 05:45 Eos % (Auto) 0.9 % (0.0-4.3) 07/15/16 05:45 Baso % (Auto) 0.3 % (0.0-1.8) 07/15/16 05:45 Lymph # 2.7 K/mm3 (1.2-5.4) 07/15/16 05:45 [place] # 1.3 K/mm3 (0.0-0.8) H 07/15/16 05:45 Eos # 0.1 K/mm3 (0.0-0.4) 07/15/16 05:45 Baso # 0.0 K/mm3 (0.0-0.1) 07/15/16 05:45 Seg Neutrophils % 73.0 % (40.0-70.0) H 07/15/16 05:45 Seg Neutrophils # 11.3 K/mm3 (1.8-7.7) H 07/15/16 05:45 Sodium 135 mmol/L (137-145) L 07/15/16 05:45 Potassium 2.8 mmol/L (3.6-5.0) L* 07/15/16 05:45 Chloride 99.8 mmol/L (98-107) 07/15/16 05:45 Carbon Dioxide 23 mmol/L (22-30) 07/15/16 05:45 Anion Gap 15 mmol/L 07/15/16 05:45 BUN 4 mg/dL (7-17) L 07/15/16 05:45 Creatinine 0.5 mg/dL (0.7-1.2) L 07/15/16 05:45 Estimated GFR > 60 ml/min 07/15/16 05:45 BUN/Creatinine Ratio 8.00 % 07/15/16 05:45 Glucose 100 mg/dL (65-100) 07/15/16 05:45 Lactic Acid 0.9 mmol/L (0.7-2.0) 07/14/16 12:05 Calcium 7.1 mg/dL (8.4-10.2) L 07/15/16 05:45 Magnesium 1.7 mg/dL (1.7-2.3) 07/14/16 10:08 Urine Color Jud (Yellow) 07/13/16 19:30 Urine Turbidity Clear (Clear) 07/13/16 19:30 Urine pH 6.0 (5.0-7.0) 07/13/16 19:30 Ur Specific [place] 1.020 (1.003-1.030) 07/13/16 19:30 Urine Protein 100 mg/dl mg/dL (Negative) 07/13/16 19:30 Urine Glucose (UA) Neg mg/dL (Negative) 07/13/16 19: Urine Ketones 20 mg/dL (Negative) 07/13/16 19:30 Urine Blood Neg (Negative) 07/13/16 19:30 Urine Nitrite Pos (Negative) 07/13/16 19:30 Urine Bilirubin Neg (Negative) 07/13/16 19:30 Urine Urobilinogen < 2.0 mg/dL (<2.0) 07/13/16 19:30 Ur Leukocyte Esterase Tr (Negative) 07/13/16 19:30 Urine WBC (Auto) 9.0 /HPF (0.0-6.0) H 07/13/16 19:30 Urine RBC (Auto) 4.0 /HPF (0.0-6.0) 07/13/16 19:30 U Epithel Cells (Auto) 1.0 /HPF (0-13.0) 07/13/16 19:30 Urine Mucus 2+ /HPF 07/13/16 19:30
--- NOTE | 2016-07-15 14:06 | Progress Note ---
Assessment and Plan 1. N/V - ?etiol. May be due to [place] vs. ongoing colitis. - tx symptomatically 2. Ulcerative proctosigmoiditis - poorly controlled. Will give IV steroids as well as abx. - f/u stool studies, jesús C diff Subjective Date of service: 07/15/16 Interval history: Pt had 5 bloody BMs this AM that tapered off, her usual. Less nausea. Mild lower abd pain. Objective - Constitutional Vitals: Vital Signs - 12hr 07/15/16 07:00 Temperature 98.8 F Pulse Rate [ 94 H Left Radial] Respiratory 18 Rate Blood Pressure 97/60 [Left Arm] O2 Sat by Pulse 95 Oximetry General appearance: Present: no acute distress - EENT Eyes: PERRL, EOM intact ENT: hearing intact - Respiratory Respiratory effort: normal Respiratory: bilateral: CTA - Cardiovascular Rhythm: regular Heart Sounds: Present: S1 & S2 - Gastrointestinal General gastrointestinal: Present: soft, tender (Mild jesús in lower abd) - Labs CBC & Chem 7: 07/15/16 05:45 07/15/16 05:45 Labs: Abnormal lab results 07/15/16 07/15/16 Range/Units 05:45 05:45 WBC 15.4 H (4.5-11.0) K/mm3 Hgb 9.0 L (10.1-14.3) gm/dl Hct 28.5 L (30.3-42.9) % MCV 78 L (79-97) fl MCH 24 L (28-32) pg RDW 16.4 H (13.2-15.2) % [place] % (Auto) 8.4 H (0.0-7.3) % [place] # 1.3 H (0.0-0.8) K/mm3 Seg Neutrophils % 73.0 H (40.0-70.0) % Seg Neutrophils # 11.3 H (1.8-7.7) K/mm3 Sodium 135 L (137-145) mmol/L Potassium 2.8 L* (3.6-5.0) mmol/L BUN 4 L (7-17) mg/dL Creatinine 0.5 L (0.7-1.2) mg/dL Calcium 7.1 L (8.4-10.2) mg/dL
[2016-07-15] MEDS: ZOFRAN IV PRN (14:20)
[2016-07-15] MEDS: NS/KCL 40MEQ 40 MEQ/1,000 ML BAG IV SCH (14:39)
[2016-07-16] MEDS: FLAGYL 500 MG/100 ML 500 MG/100 ML BAG IV SCH ×4 (04:47→23:52)
[2016-07-16] MEDS: NS/KCL 40MEQ 40 MEQ/1,000 ML BAG IV SCH ×2 (04:50→17:45)
--- NOTE | 2016-07-16 11:51 | Gastroenterology Progress Note ---
Assessment and Plan GI: h/o UC presented w/ nausea, vomiting now improved - advance diet to soft - change IV to po steroids (prednisone 40mg po qd) - K management per primary team - probably d/c am if stable Subjective Date of service: 07/16/16 Interval history: - reports nausea, vomiting improved, denies other GI symptoms Objective - Constitutional Vitals: Temp Pulse Resp BP Pulse Ox 97.3 F L 71 18 101/64 95 07/16/16 08:00 07/16/16 08:00 07/16/16 08:00 07/16/16 08:00 07/16/16 08:00 General appearance: no acute distress - EENT Eyes: PERRL - Respiratory Respiratory: bilateral: CTA - Cardiovascular Rhythm: regular Heart Sounds: Present: S1 & S2 - Gastrointestinal General gastrointestinal: Present: soft - Labs CBC & Chem 7: 07/15/16 05:45 07/15/16 05:45
--- NOTE | 2016-07-16 15:41 | Progress Note ---
Assessment and Plan Assessment and plan: 1. Ulcerative colitis. Continued IV antibiotics and await GI consultation for further recommendations. Pt. started on steroids yesterday. GI to transition to po prednisone. Continue clear liquids and advance diet as [place]. Check C. difficile. Continue to follow H&H. Check prealbumin 2. Intractable nausea and vomiting. Resolved. Continue IV fluids and antiemetics. Continue supportive care. 3. Hypokalemia. Replete potassium. Follow-up BMP. 4. Sepsis. Present on admission. Patient with significant leukocytosis and tachycardia. Start sepsis pathway and follow blood cultures/lactic acid levels. Improving 5. Acute blood loss anemia. H&H stable. Transfuse for hemoglobin less than 7.0. 6. DVT prophylaxis. Continue SCDs given the recent rectal bleeding. History Interval history: Diarrhea last night but no episodes today. Pt. tolerated [place] Hospitalist Physical - Constitutional Vitals: Temp Pulse Resp BP Pulse Ox 97.3 F L 71 18 101/64 95 07/16/16 08:00 07/16/16 08:00 07/16/16 08:00 07/16/16 08:00 07/16/16 08:00 General appearance: Present: no acute distress - EENT Eyes: Present: PERRL, EOM intact ENT: hearing intact, clear oral mucosa, dentition normal - Neck Neck: Present: supple, normal ROM - Respiratory Respiratory effort: normal Respiratory: bilateral: CTA - Cardiovascular Rhythm: regular Heart Sounds: Present: S1 & S2. Absent: gallop, rub - Extremities Extremities: no ischemia, No edema, Full ROM - Abdominal General gastrointestinal: soft, non-tender, non-distended, normal bowel sounds - Integumentary Integumentary: Present: clear, warm, dry - Neurologic Neurologic: CNII-XII intact, moves all extremities Results - Labs CBC & Chem 7: 07/15/16 05:45 07/15/16 05:45 Labs: Laboratory Last Values WBC 15.4 K/mm3 (4.5-11.0) H 07/15/16 05:45 RBC 3.67 M/mm3 (3.65-5.03) 07/15/16 05:45 Hgb 9.0 gm/dl (10.1-14.3) L 07/15/16 05:45 Hct 28.5 % (30.3-42.9) L 07/15/16 05:45 MCV 78 fl (79-97) L 07/15/16 05:45 MCH 24 pg (28-32) L 07/15/16 05:45 MCHC 32 % (30-34) 07/15/16 05:45 RDW 16.4 % (13.2-15.2) H 07/15/16 05:45 Plt Count 355 K/mm3 (140-440) 07/15/16 05:45 Lymph % (Auto) 17.4 % (13.4-35.0) 07/15/16 05:45 [place] % (Auto) 8.4 % (0.0-7.3) H 07/15/16 05:45 Eos % (Auto) 0.9 % (0.0-4.3) 07/15/16 05:45 Baso % (Auto) 0.3 % (0.0-1.8) 07/15/16 05:45 Lymph # 2.7 K/mm3 (1.2-5.4) 07/15/16 05:45 [place] # 1.3 K/mm3 (0.0-0.8) H 07/15/16 05:45 Eos # 0.1 K/mm3 (0.0-0.4) 07/15/16 05:45 Baso # 0.0 K/mm3 (0.0-0.1) 07/15/16 05:45 Seg Neutrophils % 73.0 % (40.0-70.0) H 07/15/16 05:45 Seg Neutrophils # 11.3 K/mm3 (1.8-7.7) H 07/15/16 05:45 Sodium 135 mmol/L (137-145) L 07/15/16 05:45 Potassium 2.8 mmol/L (3.6-5.0) L* 07/15/16 05:45 Chloride 99.8 mmol/L (98-107) 07/15/16 05:45 Carbon Dioxide 23 mmol/L (22-30) 07/15/16 05:45 Anion Gap 15 mmol/L 07/15/16 05:45 BUN 4 mg/dL (7-17) L 07/15/16 05:45 Creatinine 0.5 mg/dL (0.7-1.2) L 07/15/16 05:45 Estimated GFR > 60 ml/min 07/15/16 05:45 BUN/Creatinine Ratio 8.00 % 07/15/16 05:45 Glucose 100 mg/dL (65-100) 07/15/16 05:45 Lactic Acid 0.9 mmol/L (0.7-2.0) 07/14/16 12:05 Calcium 7.1 mg/dL (8.4-10.2) L 07/15/16 05:45 Magnesium 1.7 mg/dL (1.7-2.3) 07/14/16 10:08 Urine Color Jud (Yellow) 07/13/16 19:30 Urine Turbidity Clear (Clear) 07/13/16 19:30 Urine pH 6.0 (5.0-7.0) 07/13/16 19:30 Ur Specific [place] 1.020 (1.003-1.030) 07/13/16 19:30 Urine Protein 100 mg/dl mg/dL (Negative) 07/13/16 19:30 Urine Glucose (UA) Neg mg/dL (Negative) 07/13/16 19:30 Urine Ketones 20 mg/dL (Negative) 07/13/16 19:30 Urine Blood Neg (Negative) 07/13/16 19:30 Urine Nitrite Pos (Negative) 07/13/16 19:30 Urine Bilirubin Neg (Negative) 07/13/16 19:30 Urine Urobilinogen < 2.0 mg/dL (<2.0) 07/13/16 19:30 Ur Leukocyte Esterase Tr (Negative) 07/13/16 19:30 Urine WBC (Auto) 9.0 /HPF (0.0-6.0) H 07/13/16 19:30 Urine RBC (Auto) 4.0 /HPF (0.0-6.0) 07/13/16 19:30 U Epithel Cells (Auto) 1.0 /HPF (0-13.0) 07/13/16 19:30 Urine Mucus 2+ /HPF 07/13/16 19:30
[2016-07-16] MEDS: LEVAQUIN 750MG/150ML 750 MG/150 ML BAG IV SCH (16:00)
[2016-07-16 17:07] LABS: Anion Gap 13 mmol/L; Basophils % (Auto) 0.2 % (0.0-1.8); Blood Urea Nitrogen 6 mg/dL (7-17); Carbon Dioxide 23 mmol/L (22-30); Chloride 100.9 mmol/L (98-107); Glucose 220 mg/dL (65-100); Hematocrit 31.4 % (30.3-42.9); Hemoglobin 9.9 gm/dl (10.1-14.3); Mean Corpuscular HGB Conc 31 % (30-34); Mean Corpuscular Volume 78 fl (79-97); Platelet Count 465 K/mm3 (140-440); Potassium 3.3 mmol/L (3.6-5.0); Red Blood Count 4.04 M/mm3 (3.65-5.03); Red Cell Distribution Width 16.4 % (13.2-15.2); Sodium 134 mmol/L (137-145); White Blood Count 17.1 K/mm3 (4.5-11.0)
[2016-07-16 17:14] LABS: Mean Corpuscular Hemoglobin 24 pg (28-32)
[2016-07-17 05:45] LABS: Hemoglobin 8.5 gm/dl (10.1-14.3); Mean Corpuscular HGB Conc 31 % (30-34); Mean Corpuscular Volume 78 fl (79-97); Platelet Count 390 K/mm3 (140-440); Red Blood Count 3.48 M/mm3 (3.65-5.03); Red Cell Distribution Width 16.5 % (13.2-15.2); White Blood Count 17.1 K/mm3 (4.5-11.0)
[2016-07-17 05:46] LABS: Mean Corpuscular Hemoglobin 24 pg (28-32)
[2016-07-17] MEDS: FLAGYL 500 MG/100 ML 500 MG/100 ML BAG IV SCH ×3 (05:51→21:38)
[2016-07-17 06:02] LABS: Blood Urea Nitrogen 6 mg/dL (7-17); Calcium 7.4 mg/dL (8.4-10.2); Carbon Dioxide 20 mmol/L (22-30); Chloride 106.6 mmol/L (98-107); Glucose 154 mg/dL (65-100); Sodium 139 mmol/L (137-145)
[2016-07-17 06:56] LABS: Anion Gap 16 mmol/L; Potassium 3.7 mmol/L (3.6-5.0)
[2016-07-17] MEDS: NS/KCL 40MEQ 40 MEQ/1,000 ML BAG IV SCH ×2 (08:15→22:39)
[2016-07-17] MEDS: ZOFRAN IV PRN (08:15)
[2016-07-17 08:49] LABS: Anisocytosis 1+; Basophils % (Manual) 0 % (0.0-1.8); Blastocytes % (Manual) 0 %
[2016-07-17 08:51] LABS: Diff Status Complete; Hypochromasia 1+
--- NOTE | 2016-07-17 10:04 | Progress Note ---
Assessment and Plan Assessment and plan: 1. Ulcerative colitis. Continue IV antibiotics. Cont. po prednisone. Continue clear liquids and advance diet as [place]. C. difficile negative. Continue to follow H&H. 2. Intractable nausea and vomiting. Resolving. Continue IV fluids and antiemetics. Continue supportive care. 3. Hypokalemia. Replete potassium. Follow-up BMP. 4. Sepsis. Present on admission. Patient with significant leukocytosis and tachycardia. Continue sepsis pathway and follow blood cultures/lactic acid levels. Improving 5. Acute blood loss anemia. H&H stable. Transfuse for hemoglobin less than 7.0. 6. Hematochezia. Etiology secondary to #1. 7. DVT prophylaxis. Continue SCDs given the recent rectal bleeding. History Interval history: Diarrhea last night but no episodes today. Pt. a full diet for lunch and dinner. However, patient had 2 episodes of BRBPR this morning at approximately 4 AM and 4:30 AM. Also, she states she had an episode of diarrhea of brown liquid at approximately 7 AM. She denies abdominal pain. Occasional nausea but no vomiting. Hospitalist Physical - Constitutional Vitals: Temp Pulse Resp BP Pulse Ox 98.4 F 83 20 96/58 96 07/17/16 07:54 07/17/16 07:54 07/17/16 07:54 07/17/16 07:54 07/17/16 07:54 General appearance: Present: no acute distress - EENT Eyes: Present: PERRL, EOM intact ENT: hearing intact, clear oral mucosa, dentition normal - Neck Neck: Present: supple, normal ROM - Respiratory Respiratory effort: normal Respiratory: bilateral: CTA - Cardiovascular Rhythm: regular Heart Sounds: Present: S1 & S2. Absent: gallop, rub - Extremities Extremities: no ischemia, No edema, Full ROM - Abdominal General gastrointestinal: soft, non-tender, non-distended, normal bowel sounds - Integumentary Integumentary: Present: clear, warm, dry - Neurologic Neurologic: CNII-XII intact, moves all extremities Results - Labs CBC & Chem 7: 07/17/16 05:04 07/17/16 05:04 Labs: Laboratory Last Values WBC 17.1 K/mm3 (4.5-11.0) H 07/17/16 05:04 RBC 3.48 M/mm3 (3.65-5.03) L 07/17/16 05:04 Hgb 8.5 gm/dl (10.1-14.3) L 07/17/16 05:04 Hct 27.0 % (30.3-42.9) L 07/17/16 05:04 MCV 78 fl (79-97) L 07/17/16 05:04 MCH 24 pg (28-32) L 07/17/16 05:04 MCHC 31 % (30-34) 07/17/16 05:04 RDW 16.5 % (13.2-15.2) H 07/17/16 05:04 Plt Count 390 K/mm3 (140-440) 07/17/16 05:04 Lymph % (Auto) 8.1 % (13.4-35.0) L 07/16/16 16:37 [place] % (Auto) 4.2 % (0.0-7.3) 07/16/16 16:37 Eos % (Auto) 0.0 % (0.0-4.3) 07/16/16 16:37 Baso % (Auto) 0.2 % (0.0-1.8) 07/16/16 16:37 Lymph # 1.4 K/mm3 (1.2-5.4) 07/16/16 16:37 [place] # 0.7 K/mm3 (0.0-0.8) 07/16/16 16:37 Eos # 0.0 K/mm3 (0.0-0.4) 07/16/16 16:37 Baso # 0.0 K/mm3 (0.0-0.1) 07/16/16 16:37 Add Manual Diff Complete 07/17/16 05:04 Total Counted 100 07/17/16 05:04 Seg Neutrophils % 87.5 % (40.0-70.0) H 07/16/16 16:37 Seg Neuts % (Manual) 37.0 % (40.0-70.0) L 07/17/16 05:04 Band Neutrophils % 42.0 % 07/17/16 05:04 Lymphocytes % (Manual) 16.0 % (13.4-35.0) 07/17/16 05:04 Reactive Lymphs % (Man) 0 % 07/17/16 05:04 Monocytes % (Manual) 5.0 % (0.0-7.3) 07/17/16 05:04 Basophils % (Manual) 0 % (0.0-1.8) 07/17/16 05:04 Metamyelocytes % 0 % 07/17/16 05:04 Myelocytes % 0 % 07/17/16 05:04 Promyelocytes % 0 % 07/17/16 05:04 Blast Cells % 0 % 07/17/16 05:04 Nucleated RBC % Not Reportable 07/17/16 05:04 Seg Neutrophils # 15.0 K/mm3 (1.8-7.7) H 07/16/16 16:37 Seg Neutrophils # Man 6.3 K/mm3 (1.8-7.7) 07/17/16 05:04 Band Neutrophils # 7.2 K/mm3 07/17/16 05:04 Lymphocytes # (Manual) 2.7 K/mm3 (1.2-5.4) 07/17/16 05:04 Abs React Lymphs (Man) 0.0 K/mm3 07/17/16 05:04 Monocytes # (Manual) 0.9 K/mm3 (0.0-0.8) H 07/17/16 05:04 Eosinophils # (Manual) 0.0 K/mm3 (0.0-0.4) 07/17/16 05:04 Basophils # (Manual) 0.0 K/mm3 (0.0-0.1) 07/17/16 05:04 Metamyelocytes # 0.0 K/mm3 07/17/16 05:04 Myelocytes # 0.0 K/mm3 07/17/16 05:04 Promyelocytes # 0.0 K/mm3 07/17/16 05:04 Blast Cells # 0.0 K/mm3 07/17/16 05:04 WBC Morphology Not Reportable 07/17/16 05:04 Hypersegmented Neuts Not Reportable 07/17/16 05:04 Hyposegmented Neuts Not Reportable 07/17/16 05:04 Hypogranular Neuts Not Reportable 07/17/16 05:04 Smudge Cells Not Reportable 07/17/16 05:04 Toxic Granulation Not Reportable 07/17/16 05:04 Toxic Vacuolation Not Reportable 07/17/16 05:04 Dohle Bodies Not Reportable 07/17/16 05:04 Pelger-Huet Anomaly Not Reportable 07/17/16 05:04 Sisi Rods Not Reportable 07/17/16 05:04 Platelet Estimate Appears normal 07/17/16 05:04 Clumped Platelets Not Reportable 07/17/16 05:04 Plt Clumps, EDTA Not Reportable 07/17/16 05:04 Large Platelets Not Reportable 07/17/16 05:04 Giant Platelets Not Reportable 07/17/16 05:04 Platelet Satelliting Not Reportable 07/17/16 05:04 Plt Morphology Comment Not Reportable 07/17/16 05:04 RBC Morphology Not Reportable 07/17/16 05:04 Dimorphic RBCs Not Reportable 07/17/16 05:04 Polychromasia Not Reportable 07/17/16 05:04 Hypochromasia 1+ 07/17/16 05:04 Poikilocytosis Not Reportable 07/17/16 05:04 Anisocytosis 1+ 07/17/16 05:04 Microcytosis Not Reportable 07/17/16 05:04 Macrocytosis Not Reportable 07/17/16 05:04 Spherocytes Not Reportable 07/17/16 05:04 Pappenheimer Bodies Not Reportable 07/17/16 05:04 Sickle Cells Not Reportable 07/17/16 05:04 Target Cells Not Reportable 07/17/16 05:04 Tear Drop Cells Not Reportable 07/17/16 05:04 Ovalocytes Not Reportable 07/17/16 05:04 Helmet Cells Not Reportable 07/17/16 05:04 Fung-[place] Bodies Not Reportable 07/17/16 05:04 [place] Rings Not Reportable 07/17/16 05:04 [place] Cells Not Reportable 07/17/16 05:04 Bite Cells Not Reportable 07/17/16 05:04 Crenated Cell Not Reportable 07/17/16 05:04 Elliptocytes Not Reportable 07/17/16 05:04 Acanthocytes (Spur) Not Reportable 07/17/16 05:04 Rouleaux Not Reportable 07/17/16 05:04 Hemoglobin C Crystals Not Reportable 07/17/16 05:04 Schistocytes Not Reportable 07/17/16 05:04 Malaria parasites Not Reportable 07/17/16 05:04 Renny Bodies Not Reportable 07/17/16 05:04 Hem Pathologist Commnt No 07/17/16 05:04 Sodium 139 mmol/L (137-145) 07/17/16 05:04 Potassium 3.7 mmol/L (3.6-5.0) 07/17/16 05:04 Chloride 106.6 mmol/L (98-107) 07/17/16 05:04 Carbon Dioxide 20 mmol/L (22-30) L 07/17/16 05:04 Anion Gap 16 mmol/L 07/17/16 05:04 BUN 6 mg/dL (7-17) L 07/17/16 05:04 Creatinine 0.4 mg/dL (0.7-1.2) L 07/17/16 05:04 Estimated GFR > 60 ml/min 07/17/16 05:04 BUN/Creatinine Ratio 15.00 % 07/17/16 05:04 Glucose 154 mg/dL (65-100) H 07/17/16 05:04 Lactic Acid 0.9 mmol/L (0.7-2.0) 07/14/16 12:05 Calcium 7.4 mg/dL (8.4-10.2) L 07/17/16 05:04 Magnesium 1.7 mg/dL (1.7-2.3) 07/14/16 10:08 Prealbumin 0.050 g/L (0.200-0.400) L 07/16/16 16:37 Urine Color Jud (Yellow) 07/13/16 19:30 Urine Turbidity Clear (Clear) 07/13/16 19:30 Urine pH 6.0 (5.0-7.0) 07/13/16 19:30 Ur Specific [place] 1.020 (1.003-1.030) 07/13/16 19:30 Urine Protein 100 mg/dl mg/dL (Negative) 07/13/16 19:30 Urine Glucose (UA) Neg mg/dL (Negative) 07/13/16 19:30 Urine Ketones 20 mg/dL (Negative) 07/13/16 19:30 Urine Blood Neg (Negative) 07/13/16 19:30 Urine Nitrite Pos (Negative) 07/13/16 19:30 Urine Bilirubin Neg (Negative) 07/13/16 19:30 Urine Urobilinogen < 2.0 mg/dL (<2.0) 07/13/16 19:30 Ur Leukocyte Esterase Tr (Negative) 07/13/16 19:30 Urine WBC (Auto) 9.0 /HPF (0.0-6.0) H 07/13/16 19:30 Urine RBC (Auto) 4.0 /HPF (0.0-6.0) 07/13/16 19:30 U Epithel Cells (Auto) 1.0 /HPF (0-13.0) 07/13/16 19:30 Urine Mucus 2+ /HPF 07/13/16 19:30
[2016-07-17] MEDS: LEVAQUIN 750MG/150ML 750 MG/150 ML BAG IV SCH (10:44)
[2016-07-17] MEDS ORDERED: BENTYL PO PRN (11:34)
--- NOTE | 2016-07-17 11:34 | Gastroenterology Progress Note ---
Assessment and Plan GI: pt slow improvement with some nausea and loose stools overnight - continue clear liquid, advance as tolerated - continue po steroids - add Bentyl 20mg po q8h prn for cramping - hopefully d/c tomorrow Subjective Date of service: 07/17/16 Interval history: - reports some nausea this am, denies other complaints. Overall slow improvement Objective - Constitutional Vitals: Temp Pulse Resp BP Pulse Ox 98.4 F 83 20 96/58 96 07/17/16 07:54 07/17/16 07:54 07/17/16 07:54 07/17/16 07:54 07/17/16 07:54 General appearance: no acute distress - Respiratory Respiratory: bilateral: CTA - Cardiovascular Rhythm: regular Heart Sounds: Present: S1 & S2 - Gastrointestinal General gastrointestinal: Present: soft, non-tender - Labs CBC & Chem 7: 07/17/16 05:04 07/17/16 05:04 Labs: Laboratory Results - last 24 hr 07/16/16 07/16/16 07/16/16 16:37 16:37 16:37 WBC 17.1 H RBC 4.04 Hgb 9.9 L Hct 31.4 MCV 78 L MCH 24 L MCHC 31 RDW 16.4 H Plt Count 465 H Lymph % (Auto) 8.1 L [place] % (Auto) 4.2 Eos % (Auto) 0.0 Baso % (Auto) 0.2 Lymph # 1.4 [place] # 0.7 Eos # 0.0 Baso # 0.0 Add Manual Diff Total Counted Seg Neutrophils % 87.5 H Seg Neuts % (Manual) Band Neutrophils % Lymphocytes % (Manual) Reactive Lymphs % (Man) Monocytes % (Manual) Basophils % (Manual) Metamyelocytes % Myelocytes % Promyelocytes % Blast Cells % Nucleated RBC % Seg Neutrophils # 15.0 H Seg Neutrophils # Man Band Neutrophils # Lymphocytes # (Manual) Abs React Lymphs (Man) Monocytes # (Manual) Eosinophils # (Manual) Basophils # (Manual) Metamyelocytes # Myelocytes # Promyelocytes # Blast Cells # WBC Morphology Hypersegmented Neuts Hyposegmented Neuts Hypogranular Neuts Smudge Cells Toxic Granulation Toxic Vacuolation Dohle Bodies Pelger-Huet Anomaly Sisi Rods Platelet Estimate Clumped Platelets Plt Clumps, EDTA Large Platelets Giant Platelets Platelet Satelliting Plt Morphology Comment RBC Morphology Dimorphic RBCs Polychromasia Hypochromasia Poikilocytosis Anisocytosis Microcytosis Macrocytosis Spherocytes Pappenheimer Bodies Sickle Cells Target Cells Tear Drop Cells Ovalocytes Helmet Cells Fung-[place] Bodies [place] Rings [place] Cells Bite Cells Crenated Cell Elliptocytes Acanthocytes (Spur) Rouleaux Hemoglobin C Crystals Schistocytes Malaria parasites Renny Bodies Hem Pathologist Commnt Sodium 134 L Potassium 3.3 L Chloride 100.9 Carbon Dioxide 23 Anion Gap 13 BUN 6 L Creatinine 0.5 L Estimated GFR > 60 BUN/Creatinine Ratio 12.00 Glucose 220 H Calcium 8.0 L Prealbumin 0.050 L 07/17/16 07/17/16 05:04 05:04 WBC 17.1 H RBC 3.48 L Hgb 8.5 L Hct 27.0 L MCV 78 L MCH 24 L MCHC 31 RDW 16.5 H Plt Count 390 Lymph % (Auto) [place] % (Auto) Eos % (Auto) Baso % (Auto) Lymph # [place] # Eos # Baso # Add Manual Diff Complete Total Counted 100 Seg Neutrophils % Seg Neuts % (Manual) 37.0 L Band Neutrophils % 42.0 Lymphocytes % (Manual) 16.0 Reactive Lymphs % (Man) 0 Monocytes % (Manual) 5.0 Basophils % (Manual) 0 Metamyelocytes % 0 Myelocytes % 0 Promyelocytes % 0 Blast Cells % 0 Nucleated RBC % Not Reportable Seg Neutrophils # Seg Neutrophils # Man 6.3 Band Neutrophils # 7.2 Lymphocytes # (Manual) 2.7 Abs React Lymphs (Man) 0.0 Monocytes # (Manual) 0.9 H Eosinophils # (Manual) 0.0 Basophils # (Manual) 0.0 Metamyelocytes # 0.0 Myelocytes # 0.0 Promyelocytes # 0.0 Blast Cells # 0.0 WBC Morphology Not Reportable Hypersegmented Neuts Not Reportable Hyposegmented Neuts Not Reportable Hypogranular Neuts Not Reportable Smudge Cells Not Reportable Toxic Granulation Not Reportable Toxic Vacuolation Not Reportable Dohle Bodies Not Reportable Pelger-Huet Anomaly Not Reportable Sisi Rods Not Reportable Platelet Estimate Appears normal Clumped Platelets Not Reportable Plt Clumps, EDTA Not Reportable Large Platelets Not Reportable Giant Platelets Not Reportable Platelet Satelliting Not Reportable Plt Morphology Comment Not Reportable RBC Morphology Not Reportable Dimorphic RBCs Not Reportable Polychromasia Not Reportable Hypochromasia 1+ Poikilocytosis Not Reportable Anisocytosis 1+ Microcytosis Not Reportable Macrocytosis Not Reportable Spherocytes Not Reportable Pappenheimer Bodies Not Reportable Sickle Cells Not Reportable Target Cells Not Reportable Tear Drop Cells Not Reportable Ovalocytes Not Reportable Helmet Cells Not Reportable [place] Bodies Not Reportable [place] Rings Not Reportable Elsie Cells Not Reportable Bite Cells Not Reportable Crenated Cell Not Reportable Elliptocytes Not Reportable Acanthocytes ([place]) Not Reportable Rouleaux Not Reportable Hemoglobin C Crystals Not Reportable Schistocytes Not Reportable Malaria parasites Not Reportable Renny Bodies Not Reportable Hem Pathologist Commnt No Sodium 139 Potassium 3.7 Chloride 106.6 Carbon Dioxide 20 L Anion Gap 16 BUN 6 L Creatinine 0.4 L Estimated GFR > 60 BUN/Creatinine Ratio 15.00 Glucose 154 H Calcium 7.4 L Prealbumin
[2016-07-17] MEDS: DELTASONE PO SCH (14:15)
[2016-07-18] MEDS: FLAGYL 500 MG/100 ML 500 MG/100 ML BAG IV SCH (06:00)
[2016-07-18 06:36] LABS: Basophils % (Auto) 0.1 % (0.0-1.8); Hematocrit 25.5 % (30.3-42.9); Hemoglobin 8.1 gm/dl (10.1-14.3); Mean Corpuscular HGB Conc 32 % (30-34); Mean Corpuscular Volume 77 fl (79-97); Platelet Count 353 K/mm3 (140-440); Red Blood Count 3.32 M/mm3 (3.65-5.03); Red Cell Distribution Width 16.6 % (13.2-15.2); White Blood Count 14.1 K/mm3 (4.5-11.0)
[2016-07-18 06:40] LABS: Alanine Aminotransferase 8 units/L (7-56); Albumin 1.9 g/dL (3.9-5); Albumin/Globulin Ratio 0.6 %; Alkaline Phosphatase 33 units/L (35-129); Anion Gap 14 mmol/L; Bilirubin,Total 0.2 mg/dL (0.1-1.2); Blood Urea Nitrogen 3 mg/dL (7-17); Calcium 7.2 mg/dL (8.4-10.2); Carbon Dioxide 23 mmol/L (22-30); Chloride 106.2 mmol/L (98-107); Glucose 139 mg/dL (65-100); Potassium 3.8 mmol/L (3.6-5.0); Sodium 139 mmol/L (137-145); Total Protein 5.3 g/dL (6.3-8.2)
[2016-07-18 06:43] LABS: Anion Gap 14 mmol/L; Blood Urea Nitrogen 3 mg/dL (7-17); Calcium 7.3 mg/dL (8.4-10.2); Carbon Dioxide 23 mmol/L (22-30); Chloride 107.8 mmol/L (98-107); Glucose 140 mg/dL (65-100); Potassium 3.9 mmol/L (3.6-5.0); Sodium 141 mmol/L (137-145)
[2016-07-18 06:49] LABS: Mean Corpuscular Hemoglobin 24 pg (28-32)
[2016-07-18 08:16] VITALS: BP 97/57
[2016-07-18] MEDS: DELTASONE PO SCH (09:08)
[2016-07-18] MEDS: LEVAQUIN 750MG/150ML 750 MG/150 ML BAG IV SCH (09:22)
--- NOTE | 2016-07-18 09:43 | Query- Nutrition ---
Emely Mccain Sidney Date: 07/18/16 Manual Arts Teacher/CDS:___Judyileana Dave Phone#: [phone] Exercise your independent professional judgment when responding to query. Questions asked do not imply a particular answer is desired or expected. We greatly appreciate your clarification on this issue. Clinical Documentation States: 66 year old female was admitted on 07/13/16. The progress note (07/17/16) states " Ulcerative colitis. Continue IV antibiotics. Cont. po prednisone. Continue clear liquids and advance diet as diego. C. difficile negative. Continue to follow H&H. Intractable nausea and vomiting. Resolving. Continue IV fluids and antiemetics. Continue supportive care. " Clinical Findings Show: Albumin: 1.9 Please select the most appropriate option 3 [] Mild Malnutrition [x] Mild - Moderate Malnutrition [] Moderate - Severe Malnutrition [] Severe Malnutrition Serum Albumin 2.8 to 3.4 g/dl or Pre-albumin 5 to 17 mg/dl1,2 Inadequate nutritional intake1,2,3,4 NPO > 5 days Weight loss: 5% in 1 month or 7.5% in 3 months or 10% in 6 months1, 3,4 BMI 16 to 18.4 or Weight <90% of ideal body weight1,2,3,4 Serum Albumin < 2.8 g/ dl1,2 Lymphocytes < 1500/ L2 Inadequate nutritional intake3, high stress e.g. major trauma, sepsis,pancreatitis, mendez etc. Decubitus ulcers1,2, , skin breakdown2, easy hair pluckability2 Weight <80% standard for height2 Triceps skin fold <3 mm2 Mid-arm muscle circumference <15 cm2 Creatinine-height index <60% standard2 [ ] Cachexia [ ] Emaciated w/Malnutrition [ ] Other: [ ] Unable to determine [ ] Comment/Explanation: Present on Admission: [ x] Yes (Y) [ ] Clinically undeterminable (W) [ ] No (N) Please also document response in your Progress Notes and/or Discharge Summary and indicate if the condition was present on admission. ARIC
--- NOTE | 2016-07-18 09:56 | Discharge Summary ---
Providers - Providers Date of Admission: 07/13/16 21:49 Date of discharge: 07/18/16 Attending physician: LILIANA DAVALOS Hospitalization Reason for admission: abd pain Condition: Good Hospital course: Ms. Felix is a 36 y/o female admitted with increased N/V, weakness, diarrhea and blood per stool Ms. Felix was diagnosed with UC in 02/2016 per colonoscopy ( Dr Stovall) She has had diarrhea since that time with multiple episodes of blood per stool. She was seen in clinic in 05/2016 and started on Lialda. Previously on Mesalmine enemas, not controlled. She has had extensive N/V since starting Lialda, unable to keep anything down. She presented to the ED on 07/09/[address] notable for diffuse colitis. She was started on Cipro/ Flagyl and discharged. She feels her Lialda is resulting in extreme N/V and took herself off this past weekend. She had blood transfusion 1 week ago and Hgb on admission to ED noted at 11, now 8.8. Patient was seen by GI in consultation on this hospitalization. Patient has slow improvement with nausea and diarrhea progressing to loose stools. Patient was advance from a clear liquid diet to regular diet which she tolerated. Patient was treated with both IV antibiotics and by mouth steroids. Patient was also noted to have hypokalemia secondary to the diarrhea. Potassium was repleted and normalized at the time of discharge. Patient was felt to have received maximal hospital benefit for discharge. Dedicated discharged home 32 minutes. Disposition: DISCHARGED TO HOME OR SELFCARE Time spent for discharge: 32 - Discharge Diagnoses (1) Colitis Status: Acute (2) Nausea & vomiting Status: Acute Qualifiers: Vomiting type: V Vomiting Intractability: V (3) Rectal bleeding Status: Acute (4) Iron deficiency anemia due to chronic blood loss Status: Acute Core Measure Documentation - Palliative Care Palliative Care/ Comfort Measures: Not Applicable - Core Measures Any of the following diagnoses?: none Exam - Constitutional Vitals: Temp Pulse Resp BP Pulse Ox 97.7 F 68 18 97/57 96 07/18/16 07:30 07/18/16 07:30 07/18/16 07:30 07/18/16 07:30 07/18/16 07:30 General appearance: Present: no acute distress, well-nourished - EENT Eyes: Present: PERRL ENT: hearing intact, clear oral mucosa - Neck Neck: Present: supple, normal ROM - Respiratory Respiratory effort: normal Respiratory: bilateral: CTA - Cardiovascular Heart Sounds: Present: S1 & S2. Absent: rub, click - Extremities Extremities: pulses symmetrical, No edema Peripheral Pulses: within normal limits - Abdominal General gastrointestinal: Present: soft, non-tender, non-distended, normal bowel sounds Female genitourinary: Present: normal - Integumentary Integumentary: Present: clear, warm, dry - Musculoskeletal Musculoskeletal: gait normal, strength equal bilaterally - Psychiatric Psychiatric: appropriate mood/affect, intact judgment & insight - Neurologic Neurologic: CNII-XII intact, moves all extremities Plan Activity: no restrictions Weight Bearing Status: Full Weight Bearing Diet: regular Follow up with: DR RHODA [Other] - 3-5 Days RAUL HINES MD [Staff Physician] - 7 Days Prescriptions: Ciprofloxacin HCl [Ciprofloxacin TAB] 500 mg PO Q12HR #14 tab Dicyclomine [Bentyl] 20 mg PO TID PRN #90 tablet PRN Reason: Gas Pain Ondansetron [Zofran TAB] 4 mg PO Q8HR PRN #30 tablet PRN Reason: Nausea Prednisone [predniSONE 10 mg (6-Day Pack, 21 Tabs)] 10 mg PO .TAPER #1 tab.ds.pk Promethazine [Phenergan TAB] 25 mg PO Q6HR PRN #20 tab PRN Reason: Nausea Promethazine [Phenergan SUPPOS] 25 mg [place] Q6HR PRN #5 supp.rect PRN Reason: Vomiting
--- NOTE | 2016-07-18 13:30 | Gastroenterology Progress Note ---
Assessment and Plan GI: stable overnight, tolerating po - continue po steroids as outpt - ok to d/c w/ follow up Dr. Stovall as outpt Subjective Date of service: 07/18/16 Interval history: pt stable overnight Objective - Constitutional Vitals: Temp Pulse Resp BP Pulse Ox 97.7 F 68 18 97/57 96 07/18/16 07:30 07/18/16 07:30 07/18/16 07:30 07/18/16 07:30 07/18/16 07:30 General appearance: no acute distress - EENT Eyes: PERRL - Respiratory Respiratory: bilateral: CTA - Cardiovascular Rhythm: regular Heart Sounds: Present: S1 & S2 - Gastrointestinal General gastrointestinal: Present: soft, non-tender, non-distended - Labs CBC & Chem 7: 07/18/16 05:39 07/18/16 05:39 Labs: Laboratory Results - last 24 hr 07/18/16 07/18/16 07/18/16 05:39 05:39 05:39 WBC 14.1 H RBC 3.32 L Hgb 8.1 L Hct 25.5 L MCV 77 L MCH 24 L MCHC 32 RDW 16.6 H Plt Count 353 Lymph % (Auto) 9.4 L [place] % (Auto) 6.2 Eos % (Auto) 0.0 Baso % (Auto) 0.1 Lymph # 1.3 Jess[place] # 0.9 H Eos # 0.0 Baso # 0.0 Seg Neutrophils % 84.3 H Seg Neutrophils # 11.9 H Sodium 139 141 Potassium 3.8 3.9 Chloride 106.2 107.8 H Carbon Dioxide 23 23 Anion Gap 14 14 BUN 3 L 3 L Creatinine 0.4 L 0.4 L Estimated GFR > 60 > 60 BUN/Creatinine Ratio 7.50 7.50 Glucose 139 H 140 H Calcium 7.2 L 7.3 L Total Bilirubin 0.2 AST 12 ALT 8 Alkaline Phosphatase 33 L Total Protein 5.3 L Albumin 1.9 L Albumin/Globulin Ratio 0.6
== END 2016-07-18 14:00 | disposition home or self-care (01) | DRG 872 ==
LOC: ED 15:47 → 3A 21:49 → 2B-SURG 23:23
PROVIDERS: ADMIT Internal Medicine; ATTEND Hospitalist
DX: A41.9 Sepsis, unspecified organism (principal); K62.5 Hemorrhage of anus and rectum; D62 Acute posthemorrhagic anemia; K51.90 Ulcerative colitis, unspecified, without complications; E44.0 Moderate protein-calorie malnutrition; K51.30 Ulcerative (chronic) rectosigmoiditis without complications; R11.2 Nausea with vomiting, unspecified; E87.6 Hypokalemia; R19.7 Diarrhea, unspecified; M85.80 Other specified disorders of bone density and structure, unspecified site; G43.909 Migraine, unspecified, not intractable, without status migrainosus; Z91.040 Latex allergy status; Z91.048 Other nonmedicinal substance allergy status; Z79.899 Other long term (current) drug therapy; Z68.21 Body mass index [BMI] 21.0-21.9, adult
CPT/HCPCS: 36415; 80048; 80053; 81001; 82140; 82271; 83735; 84134; 85007; 85025; 85027; 87045; 87086; 87177; 87493; 96372; 96374; 96375; J0500; J1956; J2270; J2405; J2765; J2920; J3480; J7030; J7512

== ENCOUNTER 2016-07-24 12:12 | Inpatient (IN) | payer BC ==
[2016-07-24 13:04] LABS: Albumin 2.5 g/dL (3.9-5); Albumin/Globulin Ratio 0.7 %; Bilirubin,Total 0.5 mg/dL (0.1-1.2); Calcium 7.3 mg/dL (8.4-10.2); Chloride 88.8 mmol/L (98-107); Total Protein 6.1 g/dL (6.3-8.2)
[2016-07-24] MEDS ORDERED: NACL 0.9% 1000 ML 1,000 ML ONE (13:05)
--- NOTE | 2016-07-24 13:07 | Emergency Department Report ---
- General Chief complaint: Weakness Stated complaint: BLOOD TRANSFUSION Time Seen by Provider: 07/24/16 12:56 Source: patient, family Mode of arrival: Wheelchair Limitations: Physical Limitation - History of Present Illness Initial comments: This is a very pleasant 66-year-old female who reports persistent and worsening weakness since Monday. She indicates she was just hospitalized for approximately one week and discharged on Monday. She reports reason for that hospitalization was due to exacerbation of her colitis. She has been recently diagnosed with ulcerative colitis. She has been on a couple of different medications for this. She has not tolerated them well. While she was in the hospital this last admission she was placed on steroids which she indicated were modestly helpful. She indicates throughout the week she continues to have bloody diarrhea approximately every 30 minutes it's only a small amount. She indicates very poor oral intake and increased fatigue. She did follow up with her primary doctor this week he was very upset that she did not receive blood transfusion while in the hospital. She is apparently set up as an outpatient to get blood transfusion tomorrow. Patient states due to her fatigue and weakness she doesn't feel that she can make it until that point however. She is here now for further evaluation and care. She denies significant abdominal pain with this states that she gets some cramping but otherwise the pain is tolerable. She denies nausea as well. MD Complaint: generalized weakness -: Gradual Severity scale (0 -10): 5 Consistency: constant Improves with: none Worsens with: none Associated Symptoms: dark stools. denies: fever/chills - Related Data Previous Rx's Medication Instructions Recorded Last Taken Type Ciprofloxacin HCl [Ciprofloxacin 500 mg PO Q12HR #14 tab 07/18/16 Unknown Rx TAB] Dicyclomine [Bentyl] 20 mg PO TID PRN #90 tablet 07/18/16 Unknown Rx Ondansetron [Zofran TAB] 4 mg PO Q8HR PRN #30 tablet 07/18/16 Unknown Rx Prednisone [predniSONE 10 mg 10 mg PO .TAPER #1 tab.ds.pk 07/18/16 Unknown Rx (6-Day Pack, 21 Tabs)] Promethazine [Phenergan SUPPOS] 25 mg [place] Q6HR PRN #5 supp.rect 07/18/16 Unknown Rx Promethazine [Phenergan TAB] 25 mg PO Q6HR PRN #20 tab 07/18/16 Unknown Rx Allergies Allergy/AdvReac Type Severity Reaction Status Date / Time Latex, Natural Rubber Allergy Itching Verified 03/23/16 09:55 nitrofurantoin Allergy Nausea Verified 01/13/15 19:27 macrocrystalline [From Macrodantin] ED Review of Systems ROS: Stated complaint: BLOOD TRANSFUSION Other details as noted in HPI Comment: All other systems reviewed and negative Constitutional: weakness. denies: chills, fever Eyes: denies: eye pain, eye discharge, vision change ENT: denies: ear pain, throat pain Respiratory: denies: cough, shortness of breath, wheezing Cardiovascular: denies: chest pain, palpitations Endocrine: no symptoms reported Gastrointestinal: diarrhea, hematochezia. denies: abdominal pain, nausea Genitourinary: denies: urgency, dysuria, discharge Musculoskeletal: denies: back pain, joint swelling, arthralgia Skin: denies: rash, lesions Neurological: denies: headache, weakness, paresthesias Psychiatric: denies: anxiety, depression Hematological/Lymphatic: denies: easy bleeding, easy bruising ED Past Medical Hx - Past Medical History Previous Medical History?: Yes Hx Congestive Heart Failure: No Hx Diabetes: No Hx Headaches / Migraines: Yes Hx Asthma: No Hx COPD: No Additional medical history: Left bundle branch block, ulcerative colitis. OSTEOPENIA - Surgical History Past Surgical History?: Yes Additional Surgical History: COLONOSCOPY - Social History Smoking Status: Never Smoker Substance Use Type: Prescribed - Medications Home Medications: Home Medications Medication Instructions Recorded Confirmed Last Taken Type Ciprofloxacin HCl [Ciprofloxacin 500 mg PO Q12HR #14 tab 07/18/16 Unknown Rx TAB] Dicyclomine [Bentyl] 20 mg PO TID PRN #90 tablet 07/18/16 Unknown Rx Ondansetron [Zofran TAB] 4 mg PO Q8HR PRN #30 tablet 07/18/16 Unknown Rx Prednisone [predniSONE 10 mg 10 mg PO .TAPER #1 tab.ds.pk 07/18/16 Unknown Rx (6-Day Pack, 21 Tabs)] Promethazine [Phenergan SUPPOS] 25 mg [place] Q6HR PRN #5 supp.rect 07/18/16 Unknown Rx Promethazine [Phenergan TAB] 25 mg PO Q6HR PRN #20 tab 07/18/16 Unknown Rx ED Physical Exam - General Limitations: Physical Limitation General appearance: alert, in distress, other (frail and weak appearing) - Head Head exam: Present: atraumatic, normocephalic - Eye Eye exam: Present: normal appearance, EOMI, other (conjunctival palor) - ENT ENT exam: Present: normal orophraynx, mucous membranes moist - Neck Neck exam: Present: normal inspection. Absent: tenderness, lymphadenopathy - Respiratory Respiratory exam: Present: normal lung sounds bilaterally. Absent: respiratory distress, wheezes - Cardiovascular Cardiovascular Exam: Present: normal rhythm, tachycardia. Absent: systolic murmur, diastolic murmur, rubs, gallop - GI/Abdominal GI/Abdominal exam: Present: soft, normal bowel sounds. Absent: distended, tenderness, guarding - Extremities Exam Extremities exam: Present: normal inspection, full ROM. Absent: tenderness, joint swelling, calf tenderness - Back Exam Back exam: Present: normal inspection - Neurological Exam Neurological exam: Present: alert, oriented X3, other (global weakness noted). Absent: motor sensory deficit - Psychiatric Psychiatric exam: Present: normal affect, normal mood - Skin Skin exam: Present: warm, dry, intact, pallor. Absent: rash ED Course Vital Signs 07/24/16 07/24/16 07/24/16 12:19 12:34 12:47 Temperature 98 F Pulse Rate 104 H Respiratory 20 Rate Blood Pressure 89/55 O2 Sat by Pulse 100 98 97 Oximetry 07/24/16 07/24/16 07/24/16 13:00 13:15 13:30 Temperature Pulse Rate 85 74 73 Respiratory 10 L 13 8 L Rate Blood Pressure 104/64 101/58 99/53 O2 Sat by Pulse 96 93 Oximetry 07/24/16 07/24/16 07/24/16 13:45 14:00 14:15 Temperature Pulse Rate 67 69 67 Respiratory 9 L 11 L 11 L Rate Blood Pressure 97/58 98/55 98/52 O2 Sat by Pulse 94 99 96 Oximetry 07/24/16 14:21 Temperature Pulse Rate Respiratory 11 L Rate Blood Pressure O2 Sat by Pulse 96 Oximetry - Reevaluation(s) Reevaluation #1: 07/24/16 12:57 ECG at 1250 with normal sinus rhythm at 79 bpm with a normal TN. A large QRS noted at 142 with left bundle branch block noted. Left axis is noted as well otherwise no acute STEMI is noted. Negative for Sgarbosa criteria. Reevaluation #2: 07/24/16 13:54 Hemoglobin noted at 8.8. Patient is mildly hypotensive as well here as well as tachycardic. I feel she will elevate from volume replacement as well as blood replacement. Both been initiated. Y studies to demonstrate significant hypokalemia. CT does not show specific concerning findings for her consistent left bundle branch block. We'll start the patient on a potassium rider. I will contact the hospitalist for admission and continued care. Patient was given oral steroids here well and an effort to try to slow down her colitis. Reevaluation #3: 07/24/16 14:24 Dr. Rosas contacted and accepts pt. ED Medical Decision Making - Lab Data Result diagrams: 07/24/16 12:33 07/24/16 12:33 Critical care attestation.: If time is entered above; I have spent that time in minutes in the direct care of this critically ill patient, excluding procedure time. ED Disposition Clinical Impression: Hypokalemia due to loss of potassium, Colitis, Weakness Anemia Qualifiers: Iron deficiency anemia type: chronic blood loss Disposition: OP ADMITTED IP TO THIS HOSP Is pt being admited?: Yes Does the pt Need Aspirin: No Condition: Stable Time of Disposition: 13:57
[2016-07-24] MEDS ORDERED: NACL 0.9% 500 ML 500 ML IV ONE (13:09)
[2016-07-24] MEDS ORDERED: NACL 0.9% 1000 ML 1,000 ML IV ONE ×2 (13:09→14:23)
[2016-07-24] MEDS ORDERED: DELTASONE PO ONE (13:09)
[2016-07-24 13:10] LABS: Hematocrit 27.5 % (30.3-42.9); Hemoglobin 8.8 gm/dl (10.1-14.3); Mean Corpuscular HGB Conc 32 % (30-34); Mean Corpuscular Volume 76 fl (79-97); Platelet Count 303 K/mm3 (140-440); Red Blood Count 3.62 M/mm3 (3.65-5.03); Red Cell Distribution Width 18.7 % (13.2-15.2); White Blood Count 14.4 K/mm3 (4.5-11.0)
[2016-07-24 13:12] LABS: Mean Corpuscular Hemoglobin 24 pg (28-32)
--- NOTE | 2016-07-24 13:16 | XRay Report ---
Chest 2 views: History: Shortness of breath, anemia. Findings: Normal cardiomediastinal silhouette. Trachea is midline. No consolidation, pneumothorax or pleural effusion. Impression: No acute cardiopulmonary findings.
[2016-07-24 13:21] LABS: Potassium 2.4 mmol/L (3.6-5.0)
[2016-07-24] MEDS: KCL 10MEQ/100ML 10 MEQ/100 ML BAG IV SCH ×4 (14:12→22:40)
[2016-07-24] MEDS ORDERED: BENTYL PO PRN (14:20)
--- NOTE | 2016-07-24 14:37 | History and Physical Report ---
History of Present Illness Date of examination: 07/24/16 Date of admission: 07/24/16 Chief complaint: Rectal bleeding and generalized weakness and fatigue History of present illness: Primary care physician Dr. Stevens Primary general farmer Dr. Luis A Stovall Very pleasant 66-year-old female patient with significant past medical history of ulcerative colitis follows with Dr. Stovall recently was admitted and discharged presented to the emergency room with bloody diarrhea , rectal bleeding and fatigue. patient has been continuously having rectal bleeding Patient did not receive blood transfusion during previous admission and her primary care physician initially recommended outpatient blood transfusion however since the patient was feeling very weak and tired with continuous rectal bleeding patient presented to the emergency room today for further evaluation . Patient's hemoglobin during last admission was 8.8 Patient denies any chest pain or shortness of breath Denies headache dizziness Complains of generalized weakness and fatigue No nausea vomiting or hematemesis. Patient was noted to be hypotensive received 2 fluid boluses with the mild improvement H&H is 8.8 and 27.5, patient received 1 unit transfusion in the emergency room Past History Past Medical History: anemia, other (ulcerative colitis/anemia). denies: diabetes, hyperlipidemia Past Surgical History: Other (colonoscopy) Social history: lives with family, full code. denies: smoking, alcohol abuse, prescription drug abuse Family history: hypertension Medications and Allergies Allergies Allergy/AdvReac Type Severity Reaction Status Date / Time Latex, Natural Rubber Allergy Itching Verified 03/23/16 09:55 nitrofurantoin Allergy Nausea Verified 01/13/15 19:27 macrocrystalline [From Macrodantin] Home Medications Medication Instructions Recorded Confirmed Last Taken Type Ciprofloxacin HCl [Ciprofloxacin 500 mg PO Q12HR #14 tab 07/18/16 07/24/16 Unknown Rx TAB] Dicyclomine [Bentyl] 20 mg PO TID PRN #90 tablet 07/18/16 07/24/16 Unknown Rx Ondansetron [Zofran TAB] 4 mg PO Q8HR PRN #30 tablet 07/18/16 07/24/16 Unknown Rx Prednisone [predniSONE 10 mg 10 mg PO .TAPER #1 tab.ds.pk 07/18/16 07/24/16 Unknown Rx (6-Day Pack, 21 Tabs)] Promethazine [Phenergan SUPPOS] 25 mg [place] Q6HR PRN #5 supp.rect 07/18/16 Unknown Rx Promethazine [Phenergan TAB] 25 mg PO Q6HR PRN #20 tab 07/18/16 07/24/16 Unknown Rx Active Meds: Active Medications Dicyclomine HCl (Bentyl) 20 mg PO TID PRN PRN Reason: Gas pain Potassium Chloride (Kcl 10meq/100ml) 10 meq in 100 mls @ 100 mls/hr IV Q1H TOBI Stop: 07/24/16 17:59 Last Admin: 07/24/16 14:12 Dose: 100 mls/hr Sodium Chloride (Nacl 0.9% 1000 Ml) 1,000 mls @ 999 mls/hr IV BOLUS ONE Stop: 07/24/16 15:23 Review of Systems Constitutional: fatigue, weakness, no weight loss, no weight gain Ears, nose, mouth and throat: no nasal congestion, no nasal discharge Cardiovascular: no chest pain, no orthopnea, no palpitations, no shortness of breath Respiratory: no cough, no shortness of breath Gastrointestinal: nausea, melena, no vomiting, no diarrhea Genitourinary Female: no pelvic pain, no dysuria Rectal: bleeding Musculoskeletal: no myalgias, no arthritis Integumentary: no rash, no lesions Neurological: no seizures, no syncope Psychiatric: no anxiety, no depression Endocrine: no cold intolerance, no heat intolerance Hematologic/Lymphatic: no easy bruising, no easy bleeding Allergic/Immunologic: no urticaria, no allergic rhinitis Exam - Constitutional Vitals: Temp Pulse Resp BP Pulse Ox 98 F 67 11 L 98/52 96 07/24/16 12:19 07/24/16 14:15 07/24/16 14:21 07/24/16 14:15 07/24/16 14:21 General appearance: Present: mild distress, well-nourished, disheveled - EENT Eyes: Present: PERRL, EOM intact, scleral icterus, conjunctival injection ENT: hearing intact, clear oral mucosa - Neck Neck: Present: supple, normal ROM - Respiratory Respiratory effort: normal Respiratory: negative: rales, rhonchi, wheezing - Cardiovascular Rhythm: regular Heart Sounds: Present: S1 & S2 - Extremities Extremities: no ischemia, pulses intact, pulses symmetrical Peripheral Pulses: within normal limits - Abdominal General gastrointestinal: Present: soft, non-tender, non-distended, normal bowel sounds - Integumentary Integumentary: Present: clear, warm - Musculoskeletal Musculoskeletal: strength equal bilaterally, generalized weakness - Psychiatric Psychiatric: appropriate mood/affect, cooperative - Neurologic Neurologic: CNII-XII intact, moves all extremities Results - Labs CBC & Chem 7: 07/24/16 21:55 07/24/16 20:52 Labs: Abnormal lab results 07/22/16 07/24/16 07/24/16 Range/Units 15:48 12:33 12:33 WBC 14.4 H (4.5-11.0) K/mm3 RBC 3.62 L (3.65-5.03) M/mm3 Hgb 8.8 L (10.1-14.3) gm/dl Hct 27.5 L (30.3-42.9) % MCV 76 L (79-97) fl MCH 24 L (28-32) pg RDW 18.7 H (13.2-15.2) % Sodium 130 L (137-145) mmol/L Potassium 2.4 L* (3.6-5.0) mmol/L Chloride 88.8 L (98-107) mmol/L Glucose 124 H (65-100) mg/dL Calcium 7.3 L (8.4-10.2) mg/dL Alkaline Phosphatase 29 L (35-129) units/L Total Protein 6.1 L (6.3-8.2) g/dL Albumin 2.5 L (3.9-5) g/dL Crossmatch See Detail Assessment and Plan --Rectal bleeding Secondary to exacerbation of ulcerative colitis Closely monitor H&H transfuse as needed Pain medications. IV Protonix GI consultation --Acute exacerbation of ulcerative colitis IV Levaquin, Protonix, clear liquid diet advance as tolerated GI consultation --Severe hypokalemia Replenish per protocol and monitor levels, check magnesium and phosphate --Hypo-phophotemia Replace with IV k phos and monitor levels closely --Anemia secondary to chronic blood loss Hemoglobin is 8.8, patient received 1 unit of PRBC Closely monitor H&H and transfuse as needed --Hyponatremia Replacement therapy, closely monitor sodium levels --Hypotension Secondary to hypovolemia and blood loss Fluid boluses, blood transfusion If no improvement consider pressors Encourages plenty oral fluids --DVT prophylaxis No pharmacologic anticoagulation in view of rectal bleeding Will use SCDs --Full CODE STATUS Closely monitor the patient and adjust the management as needed Follow GI evaluation and consultation Patient's condition treatment plan discussed in detail with the patient and family member at the bedside as well as the nurse and ER physician
[2016-07-24] MEDS ORDERED: MORPHINE IV PRN (15:04)
[2016-07-24] MEDS ORDERED: TYLENOL PO PRN (15:04)
[2016-07-24] MEDS ORDERED: AMBIEN PO PRN (15:04)
[2016-07-24 15:17] LABS: Basophils % (Manual) 0 % (0.0-1.8); Blastocytes % (Manual) 0 %; Eosinophils % (Manual) 0 % (0.0-4.3)
[2016-07-24 15:18] LABS: Anisocytosis 1+; Diff Status Complete; Hypochromasia 1+; Platelet Estimate Consistent w Auto
[2016-07-24 16:38] LABS: Magnesium 1.7 mg/dL (1.7-2.3); Phosphorous 1.6 mg/dL (2.5-4.5)
[2016-07-24] MEDS ORDERED: KPHOS 40 MMOL in NACL 0.9% 500 ML 500 ML IV ONE (17:07)
[2016-07-24] MEDS ORDERED: K-DUR PO ONE (17:36)
[2016-07-24] MEDS ORDERED: K-DUR PO STA (17:42)
[2016-07-24] MEDS ORDERED: NACL 0.9% 1000 ML 1,000 ML IV SCH (18:00)
[2016-07-24] MEDS: LEVAQUIN 750MG/150ML 750 MG/150 ML BAG IV SCH (20:33)
[2016-07-24 22:27] LABS: Hematocrit 28.3 % (30.3-42.9); Hemoglobin 9.3 gm/dl (10.1-14.3)
[2016-07-24] MEDS: PROTONIX IV SCH (22:43)
[2016-07-25 08:48] LABS: Anion Gap 15 mmol/L; BUN/Creatinine Ratio 11.42; Blood Urea Nitrogen 8 mg/dL (7-17); Calcium 6.3 mg/dL (8.4-10.2); Carbon Dioxide 24 mmol/L (22-30); Chloride 104.2 mmol/L (98-107); Glucose 136 mg/dL (65-100); Magnesium 1.6 mg/dL (1.7-2.3); Phosphorous 3.9 mg/dL (2.5-4.5); Potassium 3.3 mmol/L (3.6-5.0); Sodium 140 mmol/L (137-145)
[2016-07-25] MEDS ORDERED: LOVENOX SUB-Q SCH (10:00)
[2016-07-25] MEDS: PROTONIX IV SCH ×2 (10:35→22:45)
[2016-07-25 10:45] LABS: Hematocrit 28.4 % (30.3-42.9); Hemoglobin 9.4 gm/dl (10.1-14.3)
--- NOTE | 2016-07-25 11:26 | Admit Criteria Form ---
Admission Criteria Documentation: HYPONATREMIA; HYPERNATREMIA; HYPOKALEMIA; HYPERKALEMIA; HYPOCALCEMIA; HYPERCALCEMIA Clinical Indications for Inpatient Care (Place 'X' for any and all applicable criteria): Ongoing inpatient care may be indicated for ANY ONE of the following [G](1)(2)(3 )(5): [ ]I. Hyponatremia with ANY ONE of the following: [ ]a) Sodium less than 130 mEq/L (mmol/L) (new) (6)(22) [ ]b) Sodium less than 135 mEq/L (mmol/L) with ANY ONE of the following: [ ]i) Severe medical etiology requiring inpatient management (eg, heart failure, hypovolemia) [ ]ii) Altered mental status [ ]iii) Seizures [ ]II. Hypernatremia with ANY ONE of the following: [ ]a) Sodium greater than 155 mEq/L (mmol/L) [ ]b) Sodium greater than 150 mEq/L (mmol/L) with ANY ONE of the following: [ ] i) Altered mental status [ ]ii) Seizures [ ]iii) Severe medical etiology (eg, hypovolemia, diabetes insipidus) [ ]iv) Severe weakness [ ]v) Severe medical etiology (eg, hemolysis, infection, drug overdose) [X]III. Hypokalemia with ANY ONE of the following: [ ]a) Potassium less than 2.5 mEq/L (mmol/L) despite outpatient and emergency treatment [X]b) Potassium less than 3.0 mEq/L (mmol/L) with ANY ONE of the following: [X]i) Weakness [ ]ii) Cardiac abnormality (eg, arrhythmia, conduction disturbance) [ ]iii) Cardiac ischemia [ ]iv) Ileus [ ]v) Ongoing medical cause requiring inpatient management. ( e.g., acute renal wasting, SIADH) [X]vi) Other severe symptoms [ ] IV. Hyperkalemia with ANY ONE of the following: [ ]a) Potassium greater than 6.5 mEq/L (mmol/L) [ ]b) Potassium greater than 5 mEq/L (mmol/L) with ANY ONE of the following: [ ]i) Severe ECG findings [H] [ ]ii) Acute worsening of renal failure (creatinine greater than 2.5 mg/dL (221 micromoles/L) or significant elevation for age and size) [ ] V. Hypocalcemia with ANY ONE of the following: [ ]a) Calcium less than 7 mg/dL (1.75 mmol/L) despite outpatient and emergency treatment(19) [ ]b) Calcium less than 8 mg/dL (2 mmol/L) with significant symptoms or findings; examples include: [ ]i) Cardiac abnormality (eg, arrhythmia or conduction disturbance) [ ]ii) Altered mental status [ ]iii) Seizures [ ]iv) Breathing difficulty [ ]v) Muscle spasms [ ]. Hypercalcemia with ANY ONE of the following: [ ]a) Calcium greater than 14 mg/dL (3.5 mmol/L) [ ]b) Calcium greater than 12 mg/dL (3 mmol/L) with ANY ONE of the following: [ ]i) Significant dehydration or hypovolemia as indicated by ANY ONE of the following(2): [ ]1. Clinically significant dehydration as indicated by ANY ONE of the following: [ ]A. Acute loss of weight from baseline (5% of body weight in adults, 9% in pediatric patients) [ ]B. Hemodynamic instability [ ]C. Acute renal failure [ ]D. Serum sodium greater than 150 mEq/L (mmol/L) [ ]2) Dehydration that is persistent indicated by ALL of the following: [ ]A. Oral rehydration therapy not tolerated or insufficient to adequately correct dehydration [ ]B. Appropriate intravenous treatment (eg, fluids ) does not readily correct dehydration ie, after 12 to 24 hours of treatment) [ ]ii) Significant symptoms or findings; examples include: [ ]1) Altered mental status [ ]2) Cardiac abnormality (eg, arrhythmia, conduction disturbance) [ ]3) Cardiac abnormality (eg, arrhythmia, conduction disturbance) The original [facility] content created by [employer] has been revised. The portions of the content which have been revised are identified through the use of italic text or in bold, and [facility] has neither reviewed nor approved the modified material. All other unmodified content is copyright [facility] Please see references footnoted in the original [facility] edition 2016 Admission Criteria Met: Yes
--- NOTE | 2016-07-25 12:20 | Progress Note ---
Assessment and Plan Assessment and plan: Severe diarrhea due to ulcerative colitis flare. GI on case. Hypokalemia. On admission, K was 2.4. It is now 3.3. Continue potassium replacement. Hypomagnesemia. Mg is 1.6. Replace with 2 g IV magnesium rider Ulcerative colitis flare. GI Physician consulted. Levaquin, iv fluid,steroids. DVT prophylaxis. SCDs only since bleeding per rectum. Full code status History Interval history: Diarrhea, Blood per rectum, Generalized weakness Hospitalist Physical - Physical exam Narrative exam: Gen: Not in acute distress, Neck:supple, no JVD HEENT: Normocephalic, atraumatic Lungs:Clear to auscultation bilaterally, no rales or wheeze Heart:S1 and S2 reg, no murmurs,rubs or gallop Abdomen:soft, mild tender, non distended, normal bowel sounds Ext: No edema, clubbing or cyanosis Neuro:Awake,alert,oriented x 3. no facial asymmetry, normal speech, Psych:normal mood - Constitutional Vitals: Temp Pulse Resp BP Pulse Ox 98.1 F 52 L 18 110/63 97 07/25/16 08:00 07/25/16 08:00 07/25/16 08:00 07/25/16 08:00 07/25/16 08:00 Results - Labs CBC & Chem 7: 07/25/16 10:14 07/25/16 07:53 Labs: Laboratory Last Values WBC 14.4 K/mm3 (4.5-11.0) H 07/24/16 12:33 RBC 3.62 M/mm3 (3.65-5.03) L 07/24/16 12:33 Hgb 9.4 gm/dl (10.1-14.3) L 07/25/16 10:14 Hct 28.4 % (30.3-42.9) L 07/25/16 10:14 MCV 76 fl (79-97) L 07/24/16 12:33 MCH 24 pg (28-32) L 07/24/16 12:33 MCHC 32 % (30-34) 07/24/16 12:33 RDW 18.7 % (13.2-15.2) H 07/24/16 12:33 Plt Count 303 K/mm3 (140-440) 07/24/16 12:33 Add Manual Diff Complete 07/24/16 12:33 Total Counted 100 07/24/16 12:33 Seg Neuts % (Manual) 80.0 % (40.0-70.0) H 07/24/16 12:33 Band Neutrophils % 2.0 % 07/24/16 12:33 Lymphocytes % (Manual) 8.0 % (13.4-35.0) L 07/24/16 12:33 Reactive Lymphs % (Man) 0 % 07/24/16 12:33 Monocytes % (Manual) 10.0 % (0.0-7.3) H 07/24/16 12:33 Eosinophils % (Manual) 0 % (0.0-4.3) 07/24/16 12:33 Basophils % (Manual) 0 % (0.0-1.8) 07/24/16 12:33 Metamyelocytes % 0 % 07/24/16 12:33 Myelocytes % 0 % 07/24/16 12:33 Promyelocytes % 0 % 07/24/16 12:33 Blast Cells % 0 % 07/24/16 12:33 Nucleated RBC % Not Reportable 07/24/16 12:33 Seg Neutrophils # Man 11.5 K/mm3 (1.8-7.7) H 07/24/16 12:33 Band Neutrophils # 0.3 K/mm3 07/24/16 12:33 Lymphocytes # (Manual) 1.2 K/mm3 (1.2-5.4) 07/24/16 12:33 Abs React Lymphs (Man) 0.0 K/mm3 07/24/16 12:33 Monocytes # (Manual) 1.4 K/mm3 (0.0-0.8) H 07/24/16 12:33 Eosinophils # (Manual) 0.0 K/mm3 (0.0-0.4) 07/24/16 12:33 Basophils # (Manual) 0.0 K/mm3 (0.0-0.1) 07/24/16 12:33 Metamyelocytes # 0.0 K/mm3 07/24/16 12:33 Myelocytes # 0.0 K/mm3 07/24/16 12:33 Promyelocytes # 0.0 K/mm3 07/24/16 12:33 Blast Cells # 0.0 K/mm3 07/24/16 12:33 WBC Morphology Not Reportable 07/24/16 12:33 Hypersegmented Neuts Not Reportable 07/24/16 12:33 Hyposegmented Neuts Not Reportable 07/24/16 12:33 Hypogranular Neuts Not Reportable 07/24/16 12:33 Smudge Cells Not Reportable 07/24/16 12:33 Toxic Granulation Not Reportable 07/24/16 12:33 Toxic Vacuolation Not Reportable 07/24/16 12:33 Dohle Bodies Not Reportable 07/24/16 12:33 Pelger-Huet Anomaly Not Reportable 07/24/16 12:33 Sisi Rods Not Reportable 07/24/16 12:33 Platelet Estimate Consistent w auto 07/24/16 12:33 Clumped Platelets Not Reportable 07/24/16 12:33 Plt Clumps, EDTA Not Reportable 07/24/16 12:33 Large Platelets Not Reportable 07/24/16 12:33 Giant Platelets Not Reportable 07/24/16 12:33 Platelet Satelliting Not Reportable 07/24/16 12:33 Plt Morphology Comment Not Reportable 07/24/16 12:33 RBC Morphology Not Reportable 07/24/16 12:33 Dimorphic RBCs Not Reportable 07/24/16 12:33 Polychromasia Not Reportable 07/24/16 12:33 Hypochromasia 1+ 07/24/16 12:33 Poikilocytosis Not Reportable 07/24/16 12:33 Anisocytosis 1+ 07/24/16 12:33 Microcytosis Not Reportable 07/24/16 12:33 Macrocytosis Not Reportable 07/24/16 12:33 Spherocytes Not Reportable 07/24/16 12:33 Pappenheimer Bodies Not Reportable 07/24/16 12:33 Sickle Cells Not Reportable 07/24/16 12:33 Target Cells Not Reportable 07/24/16 12:33 Tear Drop Cells Not Reportable 07/24/16 12:33 Ovalocytes Not Reportable 07/24/16 12:33 Helmet Cells Not Reportable 07/24/16 12:33 Fung-[place] Bodies Not Reportable 07/24/16 12:33 [place] Rings Not Reportable 07/24/16 12:33 Courtney Cells Not Reportable 07/24/16 12:33 Bite Cells Not Reportable 07/24/16 12:33 Crenated Cell Not Reportable 07/24/16 12:33 Elliptocytes Not Reportable 07/24/16 12:33 Acanthocytes (Spur) Not Reportable 07/24/16 12:33 Rouleaux Not Reportable 07/24/16 12:33 Hemoglobin C Crystals Not Reportable 07/24/16 12:33 Schistocytes Not Reportable 07/24/16 12:33 Malaria parasites Not Reportable 07/24/16 12:33 Renny Bodies Not Reportable 07/24/16 12:33 Hem Pathologist Commnt No 07/24/16 12:33 Sodium 140 mmol/L (137-145) D 07/25/16 07:53 Potassium 3.3 mmol/L (3.6-5.0) L 07/25/16 07:53 Chloride 104.2 mmol/L (98-107) 07/25/16 07:53 Carbon Dioxide 24 mmol/L (22-30) 07/25/16 07:53 Anion Gap 15 mmol/L 07/25/16 07:53 BUN 8 mg/dL (7-17) 07/25/16 07:53 Creatinine 0.7 mg/dL (0.7-1.2) 07/25/16 07:53 Estimated GFR > 60 ml/min 07/25/16 07:53 BUN/Creatinine Ratio 11.42 % 07/25/16 07:53 Glucose 136 mg/dL (65-100) H 07/25/16 07:53 Calcium 6.3 mg/dL (8.4-10.2) L 07/25/16 07:53 Phosphorus 3.9 mg/dL (2.5-4.5) D 07/25/16 07:53 Magnesium 1.6 mg/dL (1.7-2.3) L 07/25/16 07:53 Total Bilirubin 0.5 mg/dL (0.1-1.2) 07/24/16 12:33 AST 20 units/L (5-40) 07/24/16 12:33 ALT 15 units/L (7-56) 07/24/16 12:33 Alkaline Phosphatase 29 units/L (35-129) L 07/24/16 12:33 Total Protein 6.1 g/dL (6.3-8.2) L 07/24/16 12:33 Albumin 2.5 g/dL (3.9-5) L 07/24/16 12:33 Albumin/Globulin Ratio 0.7 % 07/24/16 12:33 Blood Type A POSITIVE 07/22/16 15:48 Antibody Screen Negative 07/22/16 15:48 Crossmatch See Detail 07/22/16 15:48
[2016-07-25] MEDS ORDERED: MAGNESIUM SULFATE 2GM/50ML 2 GM/50 ML BAG IV ONE (14:00)
[2016-07-25] MEDS: KCL 10MEQ/100ML 10 MEQ/100 ML BAG IV SCH ×2 (14:28→16:54)
[2016-07-25] MEDS: NS/KCL 20MEQ 20 MEQ/1,000 ML BAG IV SCH (19:13)
[2016-07-25] MEDS: LEVAQUIN 750MG/150ML 750 MG/150 ML BAG IV SCH (20:02)
[2016-07-25 20:58] LABS: Magnesium 1.5 mg/dL (1.7-2.3)
[2016-07-26 06:21] LABS: Hemoglobin 9.6 gm/dl (10.1-14.3); Mean Corpuscular HGB Conc 33 % (30-34); Mean Corpuscular Hemoglobin 26 pg (28-32); Mean Corpuscular Volume 79 fl (79-97); Platelet Count 205 K/mm3 (140-440); Red Blood Count 3.66 M/mm3 (3.65-5.03); Red Cell Distribution Width 19.1 % (13.2-15.2); White Blood Count 9.1 K/mm3 (4.5-11.0)
[2016-07-26 06:31] LABS: Anion Gap 14 mmol/L; BUN/Creatinine Ratio 6.25; Blood Urea Nitrogen 5 mg/dL (7-17); Calcium 6.4 mg/dL (8.4-10.2); Carbon Dioxide 23 mmol/L (22-30); Chloride 101.3 mmol/L (98-107); Glucose 83 mg/dL (65-100); Sodium 135 mmol/L (137-145)
[2016-07-26 06:52] LABS: Potassium 2.9 mmol/L (3.6-5.0)
[2016-07-26] MEDS ORDERED: K-DUR PO ONE ×2 (07:30→12:00)
[2016-07-26] MEDS ORDERED: KCL 10MEQ/100ML 10 MEQ/100 ML BAG IV ONE ×2 (09:00→10:00)
[2016-07-26] MEDS ORDERED: DELTASONE PO SCH (10:00)
--- NOTE | 2016-07-26 10:21 | Query- Nutrition ---
Dear Date:_07/26/16 Osteology Teacher/CDS:Raza Lynne Phone#:[phone] Exercise your independent professional judgment when responding to query. Questions asked do not imply a particular answer is desired or expected. We greatly appreciate your clarification on this issue. Clinical Documentation States: Very pleasant 66-year-old female patient with significant past medical history of ulcerative colitis follows with Dr. Stovall recently was admitted and discharged presented to the emergency room with bloody diarrhea , rectal bleeding and fatigue. Clinical Findings Show: She indicates very poor oral intake and increased fatigue. Albumin: 2.5 Total Protein: 6.1 Lymphocytes: 1200 sodium:130 Potassium: 2.4 Please select the most appropriate option 3 [] Mild Malnutrition [] Mild - Moderate Malnutrition [] Moderate - Severe Malnutrition [x] Severe Malnutrition Serum Albumin 2.8 to 3.4 g/dl or Pre-albumin 5 to 17 mg/dl1,2 Inadequate nutritional intake1,2,3,4 NPO > 5 days Weight loss: 5% in 1 month or 7.5% in 3 months or 10% in 6 months1, 3,4 BMI 16 to 18.4 or Weight <90% of ideal body weight1,2,3,4 Serum Albumin < 2.8 g/ dl1,2 Lymphocytes < 1500/ L2 Inadequate nutritional intake3, high stress e.g. major trauma, sepsis,pancreatitis, mendez etc. Decubitus ulcers1,2, , skin breakdown2, easy hair pluckability2 Weight <80% standard for height2 Triceps skin fold <3 mm2 Mid-arm muscle circumference <15 cm2 Creatinine-height index <60% standard2 [ ] Cachexia [ ] Emaciated w/Malnutrition [ ] Other: [ ] Unable to determine [ ] Comment/Explanation: Present on Admission: [ x] Yes (Y) [ ] Clinically undeterminable (W) [ ] No (N) Please also document response in your Progress Notes and/or Discharge Summary and indicate if the condition was present on admission. MTDD
[2016-07-26] MEDS: NS/KCL 20MEQ 20 MEQ/1,000 ML BAG IV SCH (10:52)
[2016-07-26] MEDS: PROTONIX IV SCH (10:53)
--- NOTE | 2016-07-26 13:18 | Gastroenterology Progress Note ---
Addendum entered and electronically signed by EDMOND MARTIN NP 07/26/16 16:09: Entocort not on formulary. Will restart Prednisone 20 mg daily. Addendum entered and electronically signed by EDMOND MARTIN NP 07/26/16 13:36: Currently on Levaquin, will add Flagyl. Increase diet to full liquids. Original Note: Assessment and Plan 1. UC exacerbation -Recently seen in consult and discharged on steroid taper. Diagnosed per DR. Stovall last year. Tried on Masalamine with no improvement and then Lialda, but was not able to tolerate due to N/V. She returned with continued diarrhea with blood in stool. -Started on 40 mg of prednisone yesterday. Will change to Entocort to try and avoid side effects if possible. -H/H currently stable. She was transfused during last admission -Denies abdominal pain -Stool studies checked during prior admission. 2. Hypokalemia' -Mag and K= being replaced per primary. Subjective Date of service: 07/26/16 Interval history: Patient reports she continues to have diarrhea with blood in stool. Objective - Constitutional Vitals: Temp Pulse Resp BP Pulse Ox 98.2 F 80 18 116/69 95 07/26/16 08:00 07/26/16 08:00 07/26/16 08:00 07/26/16 08:00 07/26/16 08:00 General appearance: no acute distress - EENT ENT: hearing intact - Neck Neck: supple - Respiratory Respiratory: bilateral: CTA - Cardiovascular Rhythm: regular Heart Sounds: Present: S1 & S2 - Extremities Extremities: No edema - Gastrointestinal General gastrointestinal: Present: soft, tender (mild TTP throughout) - Integumentary Integumentary: Present: warm, dry - Neurologic Neurological: alert and oriented x3 - Psychiatric Psychiatric: cooperative - Labs CBC & Chem 7: 07/26/16 05:47 07/26/16 05:47 Labs: Laboratory Results - last 24 hr 07/25/16 07/26/16 07/26/16 20:21 05:47 05:47 WBC 9.1 RBC 3.66 Hgb 9.6 L Hct 29.0 L MCV 79 D MCH 26 L MCHC 33 RDW 19.1 H Plt Count 205 Sodium 135 L Potassium 3.0 L 2.9 L* Chloride 101.3 Carbon Dioxide 23 Anion Gap 14 BUN 5 L Creatinine 0.8 Estimated GFR > 60 BUN/Creatinine Ratio 6.25 Glucose 83 Calcium 6.4 L Magnesium 1.5 L 2.0
--- NOTE | 2016-07-26 13:40 | Progress Note ---
Assessment and Plan Assessment and plan: bloody diarrhea secondary to ulcerative colitis Anemia secondary to bloody diarrhea Severe hypokalemia Weakness - on IV fluids, Zofran - Potassium and magnesium replacement - H&H stable - Continue steroids - GI consult placed Disposition - Continue inpatient care History Interval history: Patient still complains bloody diarrhea. Hospitalist Physical - Physical exam Narrative exam: Not in cardiopulmonary distress. The patient appeared well nourished and normally developed. Vital signs as documented. Head exam is unremarkable. No scleral icterus . Neck is without jugular venous distension, thyromegaly, or carotid bruits. Lungs are clear to auscultation. Cardiac exam reveals regular rate and Rhythm. First and second heart sounds normal. No murmurs, rubs or gallops. Abdominal exam reveals normal bowel sounds, no masses, no organomegaly and no aortic enlargement. Extremities are nonedematous and both femoral and pedal pulses are normal. FINANCIAL PLANNER: Alert and oriented 3. No focal weakness. - Constitutional Vitals: Temp Pulse Resp BP Pulse Ox 98.2 F 80 18 116/69 95 07/26/16 08:00 07/26/16 08:00 07/26/16 08:00 07/26/16 08:00 07/26/16 08:00 General appearance: Present: mild distress, well-nourished, disheveled Results - Labs CBC & Chem 7: 07/26/16 05:47 07/26/16 05:47 Labs: Laboratory Last Values WBC 9.1 K/mm3 (4.5-11.0) 07/26/16 05:47 RBC 3.66 M/mm3 (3.65-5.03) 07/26/16 05:47 Hgb 9.6 gm/dl (10.1-14.3) L 07/26/16 05:47 Hct 29.0 % (30.3-42.9) L 07/26/16 05:47 MCV 79 fl (79-97) D 07/26/16 05:47 MCH 26 pg (28-32) L 07/26/16 05:47 MCHC 33 % (30-34) 07/26/16 05:47 RDW 19.1 % (13.2-15.2) H 07/26/16 05:47 Plt Count 205 K/mm3 (140-440) 07/26/16 05:47 Add Manual Diff Complete 07/24/16 12:33 Total Counted 100 07/24/16 12:33 Seg Neuts % (Manual) 80.0 % (40.0-70.0) H 07/24/16 12:33 Band Neutrophils % 2.0 % 07/24/16 12:33 Lymphocytes % (Manual) 8.0 % (13.4-35.0) L 07/24/16 12:33 Reactive Lymphs % (Man) 0 % 07/24/16 12:33 Monocytes % (Manual) 10.0 % (0.0-7.3) H 07/24/16 12:33 Eosinophils % (Manual) 0 % (0.0-4.3) 07/24/16 12:33 Basophils % (Manual) 0 % (0.0-1.8) 07/24/16 12:33 Metamyelocytes % 0 % 07/24/16 12:33 Myelocytes % 0 % 07/24/16 12:33 Promyelocytes % 0 % 07/24/16 12:33 Blast Cells % 0 % 07/24/16 12:33 Nucleated RBC % Not Reportable 07/24/16 12:33 Seg Neutrophils # Man 11.5 K/mm3 (1.8-7.7) H 07/24/16 12:33 Band Neutrophils # 0.3 K/mm3 07/24/16 12:33 Lymphocytes # (Manual) 1.2 K/mm3 (1.2-5.4) 07/24/16 12:33 Abs React Lymphs (Man) 0.0 K/mm3 07/24/16 12:33 Monocytes # (Manual) 1.4 K/mm3 (0.0-0.8) H 07/24/16 12:33 Eosinophils # (Manual) 0.0 K/mm3 (0.0-0.4) 07/24/16 12:33 Basophils # (Manual) 0.0 K/mm3 (0.0-0.1) 07/24/16 12:33 Metamyelocytes # 0.0 K/mm3 07/24/16 12:33 Myelocytes # 0.0 K/mm3 07/24/16 12:33 Promyelocytes # 0.0 K/mm3 07/24/16 12:33 Blast Cells # 0.0 K/mm3 07/24/16 12:33 WBC Morphology Not Reportable 07/24/16 12:33 Hypersegmented Neuts Not Reportable 07/24/16 12:33 Hyposegmented Neuts Not Reportable 07/24/16 12:33 Hypogranular Neuts Not Reportable 07/24/16 12:33 Smudge Cells Not Reportable 07/24/16 12:33 Toxic Granulation Not Reportable 07/24/16 12:33 Toxic Vacuolation Not Reportable 07/24/16 12:33 Dohle Bodies Not Reportable 07/24/16 12:33 Pelger-Huet Anomaly Not Reportable 07/24/16 12:33 Sisi Rods Not Reportable 07/24/16 12:33 Platelet Estimate Consistent w auto 07/24/16 12:33 Clumped Platelets Not Reportable 07/24/16 12:33 Plt Clumps, EDTA Not Reportable 07/24/16 12:33 Large Platelets Not Reportable 07/24/16 12:33 Giant Platelets Not Reportable 07/24/16 12:33 Platelet Satelliting Not Reportable 07/24/16 12:33 Plt Morphology Comment Not Reportable 07/24/16 12:33 RBC Morphology Not Reportable 07/24/16 12:33 Dimorphic RBCs Not Reportable 07/24/16 12:33 Polychromasia Not Reportable 07/24/16 12:33 Hypochromasia 1+ 07/24/16 12:33 Poikilocytosis Not Reportable 07/24/16 12:33 Anisocytosis 1+ 07/24/16 12:33 Microcytosis Not Reportable 07/24/16 12:33 Macrocytosis Not Reportable 07/24/16 12:33 Spherocytes Not Reportable 07/24/16 12:33 Pappenheimer Bodies Not Reportable 07/24/16 12:33 Sickle Cells Not Reportable 07/24/16 12:33 Target Cells Not Reportable 07/24/16 12:33 Tear Drop Cells Not Reportable 07/24/16 12:33 Ovalocytes Not Reportable 07/24/16 12:33 Helmet Cells Not Reportable 07/24/16 12:33 Fung-[place] Bodies Not Reportable 07/24/16 12:33 [place] Rings Not Reportable 07/24/16 12:33 [place] Cells Not Reportable 07/24/16 12:33 Bite Cells Not Reportable 07/24/16 12:33 Crenated Cell Not Reportable 07/24/16 12:33 Elliptocytes Not Reportable 07/24/16 12:33 Acanthocytes (Spur) Not Reportable 07/24/16 12:33 Rouleaux Not Reportable 07/24/16 12:33 Hemoglobin C Crystals Not Reportable 07/24/16 12:33 Schistocytes Not Reportable 07/24/16 12:33 Malaria parasites Not Reportable 07/24/16 12:33 Renny Bodies Not Reportable 07/24/16 12:33 Hem Pathologist Commnt No 07/24/16 12:33 Sodium 135 mmol/L (137-145) L 07/26/16 05:47 Potassium 2.9 mmol/L (3.6-5.0) L* 07/26/16 05:47 Chloride 101.3 mmol/L (98-107) 07/26/16 05:47 Carbon Dioxide 23 mmol/L (22-30) 07/26/16 05:47 Anion Gap 14 mmol/L 07/26/16 05:47 BUN 5 mg/dL (7-17) L 07/26/16 05:47 Creatinine 0.8 mg/dL (0.7-1.2) 07/26/16 05:47 Estimated GFR > 60 ml/min 07/26/16 05:47 BUN/Creatinine Ratio 6.25 % 07/26/16 05:47 Glucose 83 mg/dL (65-100) 07/26/16 05:47 Calcium 6.4 mg/dL (8.4-10.2) L 07/26/16 05:47 Phosphorus 3.9 mg/dL (2.5-4.5) D 07/25/16 07:53 Magnesium 2.0 mg/dL (1.7-2.3) 07/26/16 05:47 Total Bilirubin 0.5 mg/dL (0.1-1.2) 07/24/16 12:33 AST 20 units/L (5-40) 07/24/16 12:33 ALT 15 units/L (7-56) 07/24/16 12:33 Alkaline Phosphatase 29 units/L (35-129) L 07/24/16 12:33 Total Protein 6.1 g/dL (6.3-8.2) L 07/24/16 12:33 Albumin 2.5 g/dL (3.9-5) L 07/24/16 12:33 Albumin/Globulin Ratio 0.7 % 07/24/16 12:33 Blood Type A POSITIVE 07/22/16 15:48 Antibody Screen Negative 07/22/16 15:48 Crossmatch See Detail 07/22/16 15:48 Hypokalemia
[2016-07-26 14:16] LABS: Anion Gap 14 mmol/L; BUN/Creatinine Ratio 6.25; Blood Urea Nitrogen 5 mg/dL (7-17); Calcium 6.6 mg/dL (8.4-10.2); Carbon Dioxide 23 mmol/L (22-30); Chloride 98.4 mmol/L (98-107); Glucose 107 mg/dL (65-100); Potassium 3.3 mmol/L (3.6-5.0); Sodium 132 mmol/L (137-145)
[2016-07-26] MEDS: NACL 0.9% 1000 ML 1,000 ML IV SCH (14:43)
[2016-07-26] MEDS: FLAGYL 250 MG/50 ML 250 MG in VIAFLEX EMPTY CONTAINER 0 ML IV SCH ×2 (16:13→21:49)
[2016-07-26] MEDS: LEVAQUIN 750MG/150ML 750 MG/150 ML BAG IV SCH (16:14)
[2016-07-26] MEDS: KCL 10MEQ/100ML 10 MEQ/100 ML BAG IV SCH ×3 (17:57→21:48)
[2016-07-26] MEDS ORDERED: MORPHINE IV PRN (19:00)
[2016-07-26] MEDS: PEPCID PO SCH (21:49)
[2016-07-26] MEDS: IMURAN PO SCH (21:56)
[2016-07-27] MEDS: KCL 10MEQ/100ML 10 MEQ/100 ML BAG IV SCH (01:34)
[2016-07-27] MEDS: FLAGYL 250 MG/50 ML 250 MG in VIAFLEX EMPTY CONTAINER 0 ML IV SCH ×3 (06:02→22:06)
[2016-07-27 07:35] LABS: Basophils % (Auto) 0.1 % (0.0-1.8); Hemoglobin 9.6 gm/dl (10.1-14.3); Mean Corpuscular HGB Conc 33 % (30-34); Mean Corpuscular Hemoglobin 26 pg (28-32); Mean Corpuscular Volume 79 fl (79-97); Platelet Count 208 K/mm3 (140-440); Red Blood Count 3.67 M/mm3 (3.65-5.03); Red Cell Distribution Width 19.5 % (13.2-15.2); White Blood Count 9.4 K/mm3 (4.5-11.0)
[2016-07-27 07:54] LABS: Alanine Aminotransferase 11 units/L (7-56); Albumin 2.1 g/dL (3.9-5); Albumin/Globulin Ratio 0.6 %; Anion Gap 14 mmol/L; BUN/Creatinine Ratio 8.57; Bilirubin,Total 0.4 mg/dL (0.1-1.2); Blood Urea Nitrogen 6 mg/dL (7-17); Carbon Dioxide 22 mmol/L (22-30); Glucose 119 mg/dL (65-100); Lipase 17 units/L (13-60); Potassium 3.3 mmol/L (3.6-5.0); Sodium 135 mmol/L (137-145); Total Protein 5.5 g/dL (6.3-8.2)
[2016-07-27 10:15] LABS: Alkaline Phosphatase 38 units/L (35-129)
[2016-07-27] MEDS: PEPCID PO SCH ×2 (10:39→22:03)
[2016-07-27] MEDS: IMURAN PO SCH (10:39)
[2016-07-27] MEDS: DELTASONE PO SCH (10:39)
[2016-07-27] MEDS: NACL 0.9% 1000 ML 1,000 ML IV SCH ×2 (10:43→22:02)
--- NOTE | 2016-07-27 13:04 | Progress Note ---
Assessment and Plan Assessment and plan: bloody diarrhea secondary to ulcerative colitis Anemia secondary to bloody diarrhea Severe hypokalemia Weakness - on IV fluids, Zofran - Potassium and magnesium replacement - H&H stable - Continue steroids - GI consult placed Disposition - Continue inpatient care History Interval history: Patient still complains bloody diarrhea. Hospitalist Physical - Physical exam Narrative exam: Not in cardiopulmonary distress. The patient appeared well nourished and normally developed. Vital signs as documented. Head exam is unremarkable. No scleral icterus . Neck is without jugular venous distension, thyromegaly, or carotid bruits. Lungs are clear to auscultation. Cardiac exam reveals regular rate and Rhythm. First and second heart sounds normal. No murmurs, rubs or gallops. Abdominal exam reveals normal bowel sounds, no masses, no organomegaly and no aortic enlargement. Extremities are nonedematous and both femoral and pedal pulses are normal. HEALTH PROGRAM MANAGER: Alert and oriented 3. No focal weakness. - Constitutional Vitals: Temp Pulse Resp BP Pulse Ox 98.2 F 64 18 113/69 94 07/27/16 07:00 07/27/16 07:00 07/27/16 07:00 07/27/16 07:00 07/27/16 07:00 General appearance: Present: mild distress, well-nourished, disheveled Results - Labs CBC & Chem 7: 07/27/16 06:42 07/27/16 06:42 Labs: Laboratory Last Values WBC 9.4 K/mm3 (4.5-11.0) 07/27/16 06:42 RBC 3.67 M/mm3 (3.65-5.03) 07/27/16 06:42 Hgb 9.6 gm/dl (10.1-14.3) L 07/27/16 06:42 Hct 29.0 % (30.3-42.9) L 07/27/16 06:42 MCV 79 fl (79-97) 07/27/16 06:42 MCH 26 pg (28-32) L 07/27/16 06:42 MCHC 33 % (30-34) 07/27/16 06:42 RDW 19.5 % (13.2-15.2) H 07/27/16 06:42 Plt Count 208 K/mm3 (140-440) 07/27/16 06:42 Lymph % (Auto) 11.2 % (13.4-35.0) L 07/27/16 06:42 [place] % (Auto) 6.6 % (0.0-7.3) 07/27/16 06:42 Eos % (Auto) 0.0 % (0.0-4.3) 07/27/16 06:42 Baso % (Auto) 0.1 % (0.0-1.8) 07/27/16 06:42 Lymph # 1.1 K/mm3 (1.2-5.4) L 07/27/16 06:42 [place] # 0.6 K/mm3 (0.0-0.8) 07/27/16 06:42 Eos # 0.0 K/mm3 (0.0-0.4) 07/27/16 06:42 Baso # 0.0 K/mm3 (0.0-0.1) 07/27/16 06:42 Add Manual Diff Complete 07/24/16 12:33 Total Counted 100 07/24/16 12:33 Seg Neutrophils % 82.1 % (40.0-70.0) H 07/27/16 06:42 Seg Neuts % (Manual) 80.0 % (40.0-70.0) H 07/24/16 12:33 Band Neutrophils % 2.0 % 07/24/16 12:33 Lymphocytes % (Manual) 8.0 % (13.4-35.0) L 07/24/16 12:33 Reactive Lymphs % (Man) 0 % 07/24/16 12:33 Monocytes % (Manual) 10.0 % (0.0-7.3) H 07/24/16 12:33 Eosinophils % (Manual) 0 % (0.0-4.3) 07/24/16 12:33 Basophils % (Manual) 0 % (0.0-1.8) 07/24/16 12:33 Metamyelocytes % 0 % 07/24/16 12:33 Myelocytes % 0 % 07/24/16 12:33 Promyelocytes % 0 % 07/24/16 12:33 Blast Cells % 0 % 07/24/16 12:33 Nucleated RBC % Not Reportable 07/24/16 12:33 Seg Neutrophils # 7.7 K/mm3 (1.8-7.7) 07/27/16 06:42 Seg Neutrophils # Man 11.5 K/mm3 (1.8-7.7) H 07/24/16 12:33 Band Neutrophils # 0.3 K/mm3 07/24/16 12:33 Lymphocytes # (Manual) 1.2 K/mm3 (1.2-5.4) 07/24/16 12:33 Abs React Lymphs (Man) 0.0 K/mm3 07/24/16 12:33 Monocytes # (Manual) 1.4 K/mm3 (0.0-0.8) H 07/24/16 12:33 Eosinophils # (Manual) 0.0 K/mm3 (0.0-0.4) 07/24/16 12:33 Basophils # (Manual) 0.0 K/mm3 (0.0-0.1) 07/24/16 12:33 Metamyelocytes # 0.0 K/mm3 07/24/16 12:33 Myelocytes # 0.0 K/mm3 07/24/16 12:33 Promyelocytes # 0.0 K/mm3 07/24/16 12:33 Blast Cells # 0.0 K/mm3 07/24/16 12:33 WBC Morphology Not Reportable 07/24/16 12:33 Hypersegmented Neuts Not Reportable 07/24/16 12:33 Hyposegmented Neuts Not Reportable 07/24/16 12:33 Hypogranular Neuts Not Reportable 07/24/16 12:33 Smudge Cells Not Reportable 07/24/16 12:33 Toxic Granulation Not Reportable 07/24/16 12:33 Toxic Vacuolation Not Reportable 07/24/16 12:33 Dohle Bodies Not Reportable 07/24/16 12:33 Pelger-Huet Anomaly Not Reportable 07/24/16 12:33 Sisi Rods Not Reportable 07/24/16 12:33 Platelet Estimate Consistent w auto 07/24/16 12:33 Clumped Platelets Not Reportable 07/24/16 12:33 Plt Clumps, EDTA Not Reportable 07/24/16 12:33 Large Platelets Not Reportable 07/24/16 12:33 Giant Platelets Not Reportable 07/24/16 12:33 Platelet Satelliting Not Reportable 07/24/16 12:33 Plt Morphology Comment Not Reportable 07/24/16 12:33 RBC Morphology Not Reportable 07/24/16 12:33 Dimorphic RBCs Not Reportable 07/24/16 12:33 Polychromasia Not Reportable 07/24/16 12:33 Hypochromasia 1+ 07/24/16 12:33 Poikilocytosis Not Reportable 07/24/16 12:33 Anisocytosis 1+ 07/24/16 12:33 Microcytosis Not Reportable 07/24/16 12:33 Macrocytosis Not Reportable 07/24/16 12:33 Spherocytes Not Reportable 07/24/16 12:33 Pappenheimer Bodies Not Reportable 07/24/16 12:33 Sickle Cells Not Reportable 07/24/16 12:33 Target Cells Not Reportable 07/24/16 12:33 Tear Drop Cells Not Reportable 07/24/16 12:33 Ovalocytes Not Reportable 07/24/16 12:33 Helmet Cells Not Reportable 07/24/16 12:33 Fung-[place] Bodies Not Reportable 07/24/16 12:33 [place] Rings Not Reportable 07/24/16 12:33 [place] Cells Not Reportable 07/24/16 12:33 Bite Cells Not Reportable 07/24/16 12:33 Crenated Cell Not Reportable 07/24/16 12:33 Elliptocytes Not Reportable 07/24/16 12:33 Acanthocytes (Spur) Not Reportable 07/24/16 12:33 Rouleaux Not Reportable 07/24/16 12:33 Hemoglobin C Crystals Not Reportable 07/24/16 12:33 Schistocytes Not Reportable 07/24/16 12:33 Malaria parasites Not Reportable 07/24/16 12:33 Renny Bodies Not Reportable 07/24/16 12:33 Hem Pathologist Commnt No 07/24/16 12:33 Sodium 135 mmol/L (137-145) L 07/27/16 06:42 Potassium 3.3 mmol/L (3.6-5.0) L 07/27/16 06:42 Chloride 102.0 mmol/L (98-107) 07/27/16 06:42 Carbon Dioxide 22 mmol/L (22-30) 07/27/16 06:42 Anion Gap 14 mmol/L 07/27/16 06:42 BUN 6 mg/dL (7-17) L 07/27/16 06:42 Creatinine 0.7 mg/dL (0.7-1.2) 07/27/16 06:42 Estimated GFR > 60 ml/min 07/27/16 06:42 BUN/Creatinine Ratio 8.57 % 07/27/16 06:42 Glucose 119 mg/dL (65-100) H 07/27/16 06:42 Calcium 7.0 mg/dL (8.4-10.2) L 07/27/16 06:42 Phosphorus 3.9 mg/dL (2.5-4.5) D 07/25/16 07:53 Magnesium 2.0 mg/dL (1.7-2.3) 07/26/16 05:47 Total Bilirubin 0.4 mg/dL (0.1-1.2) 07/27/16 06:42 AST 12 units/L (5-40) 07/27/16 06:42 ALT 11 units/L (7-56) 07/27/16 06:42 Alkaline Phosphatase 38 units/L (35-129) 07/27/16 06:42 Total Protein 5.5 g/dL (6.3-8.2) L 07/27/16 06:42 Albumin 2.1 g/dL (3.9-5) L 07/27/16 06:42 Albumin/Globulin Ratio 0.6 % 07/27/16 06:42 Lipase 17 units/L (13-60) 07/27/16 06:42 Blood Type A POSITIVE 07/22/16 15:48 Antibody Screen Negative 07/22/16 15:48 Crossmatch See Detail 07/22/16 15:48
[2016-07-27] MEDS ORDERED: ZOFRAN IV PRN (14:36)
--- NOTE | 2016-07-27 14:40 | Gastroenterology Progress Note ---
Assessment and Plan 1. UC exacerbation -Recently seen in consult and discharged on steroid taper. Diagnosed per DR. Stovall last year. Tried on Masalamine with no improvement and then Lialda, but was not able to tolerate due to N/V. She returned with continued diarrhea with blood in stool. -Pt currently on Prednisone 20mg po qd and started Imuran yesterday -H/H currently stable. She was transfused during last admission - reports some nausea today, Zofran prn ordered -Denies abdominal pain - encouraged po - if stable next 1-2 days and tolerating po ok to d/c w/ follow up Dr. Stovall outpt Subjective Date of service: 07/27/16 Interval history: - reports some nausea overnight and today. Reports no bloody diarrhea Objective - Constitutional Vitals: Temp Pulse Resp BP Pulse Ox 98.2 F 64 18 113/69 94 07/27/16 07:00 07/27/16 07:00 07/27/16 07:00 07/27/16 07:00 07/27/16 07:00 General appearance: no acute distress - Neck Neck: supple - Respiratory Respiratory: bilateral: CTA - Cardiovascular Rhythm: regular Heart Sounds: Present: S1 & S2 - Gastrointestinal General gastrointestinal: Present: soft, non-tender, non-distended - Labs CBC & Chem 7: 07/27/16 06:42 07/27/16 06:42 Labs: Laboratory Results - last 24 hr 07/27/16 07/27/16 06:42 06:42 WBC 9.4 RBC 3.67 Hgb 9.6 L Hct 29.0 L MCV 79 MCH 26 L MCHC 33 RDW 19.5 H Plt Count 208 Lymph % (Auto) 11.2 L [place] % (Auto) 6.6 Eos % (Auto) 0.0 Baso % (Auto) 0.1 Lymph # 1.1 L [place] # 0.6 Eos # 0.0 Baso # 0.0 Seg Neutrophils % 82.1 H Seg Neutrophils # 7.7 Sodium 135 L Potassium 3.3 L Chloride 102.0 Carbon Dioxide 22 Anion Gap 14 BUN 6 L Creatinine 0.7 Estimated GFR > 60 BUN/Creatinine Ratio 8.57 Glucose 119 H Calcium 7.0 L Total Bilirubin 0.4 AST 12 ALT 11 Alkaline Phosphatase 38 Total Protein 5.5 L Albumin 2.1 L Albumin/Globulin Ratio 0.6 Lipase 17
[2016-07-27] MEDS: REGLAN IV PRN (22:03)
[2016-07-28 05:36] LABS: Hematocrit 27.8 % (30.3-42.9); Hemoglobin 9.1 gm/dl (10.1-14.3)
[2016-07-28 05:43] LABS: Anion Gap 14 mmol/L; BUN/Creatinine Ratio 7.14; Blood Urea Nitrogen 5 mg/dL (7-17); Calcium 6.9 mg/dL (8.4-10.2); Carbon Dioxide 22 mmol/L (22-30); Chloride 102.6 mmol/L (98-107); Glucose 79 mg/dL (65-100); Sodium 136 mmol/L (137-145)
[2016-07-28] MEDS: FLAGYL 250 MG/50 ML 250 MG in VIAFLEX EMPTY CONTAINER 0 ML IV SCH ×2 (05:53→13:29)
[2016-07-28] MEDS: KCL 10MEQ/100ML 10 MEQ/100 ML BAG IV SCH ×4 (09:53→22:30)
[2016-07-28] MEDS: PEPCID PO SCH ×2 (09:54→22:30)
[2016-07-28] MEDS: IMURAN PO SCH (09:54)
[2016-07-28] MEDS: DELTASONE PO SCH (09:54)
[2016-07-28] MEDS: NACL 0.9% 1000 ML 1,000 ML IV SCH (12:40)
[2016-07-28] MEDS: MIRACLE MIXTURE PO SCH ×2 (13:28→20:44)
[2016-07-28] MEDS ORDERED: MYCELEX MM SCH (14:00)
--- NOTE | 2016-07-28 14:27 | Progress Note ---
Assessment and Plan Assessment and plan: bloody diarrhea secondary to ulcerative colitis Anemia secondary to bloody diarrhea Severe hypokalemia Weakness - on IV fluids, Zofran - Potassium and magnesium replacement - Potassium was 3 this morning and was repleted - We'll check BMP and magnesium level - H&H stable - Continue steroids and added imuran - GI consult appreciated Disposition - Continue inpatient care History Interval history: Patient still complains frequent bloody diarrhea, generalized weakness. Denied any abdominal pain. Hospitalist Physical - Physical exam Narrative exam: Not in cardiopulmonary distress. The patient appeared well nourished and normally developed. Vital signs as documented. Head exam is unremarkable. No scleral icterus . Neck is without jugular venous distension, thyromegaly, or carotid bruits. Lungs are clear to auscultation. Cardiac exam reveals regular rate and Rhythm. First and second heart sounds normal. No murmurs, rubs or gallops. Abdominal exam reveals normal bowel sounds, no masses, no organomegaly and no aortic enlargement. Extremities are nonedematous and both femoral and pedal pulses are normal. CHURN TENDER: Alert and oriented 3. No focal weakness. - Constitutional Vitals: Temp Pulse Resp BP Pulse Ox 97.6 F 73 20 127/72 97 07/28/16 07:35 07/28/16 07:35 07/28/16 07:35 07/28/16 07:35 07/27/16 22:50 General appearance: Present: mild distress, well-nourished, disheveled Results - Labs CBC & Chem 7: 07/28/16 05:05 07/28/16 05:05 Labs: Laboratory Last Values WBC 9.4 K/mm3 (4.5-11.0) 07/27/16 06:42 RBC 3.67 M/mm3 (3.65-5.03) 07/27/16 06:42 Hgb 9.1 gm/dl (10.1-14.3) L 07/28/16 05:05 Hct 27.8 % (30.3-42.9) L 07/28/16 05:05 MCV 79 fl (79-97) 07/27/16 06:42 MCH 26 pg (28-32) L 07/27/16 06:42 MCHC 33 % (30-34) 07/27/16 06:42 RDW 19.5 % (13.2-15.2) H 07/27/16 06:42 Plt Count 208 K/mm3 (140-440) 07/27/16 06:42 Lymph % (Auto) 11.2 % (13.4-35.0) L 07/27/16 06:42 [place] % (Auto) 6.6 % (0.0-7.3) 07/27/16 06:42 Eos % (Auto) 0.0 % (0.0-4.3) 07/27/16 06:42 Baso % (Auto) 0.1 % (0.0-1.8) 07/27/16 06:42 Lymph # 1.1 K/mm3 (1.2-5.4) L 07/27/16 06:42 [place] # 0.6 K/mm3 (0.0-0.8) 07/27/16 06:42 Eos # 0.0 K/mm3 (0.0-0.4) 07/27/16 06:42 Baso # 0.0 K/mm3 (0.0-0.1) 07/27/16 06:42 Add Manual Diff Complete 07/24/16 12:33 Total Counted 100 07/24/16 12:33 Seg Neutrophils % 82.1 % (40.0-70.0) H 07/27/16 06:42 Seg Neuts % (Manual) 80.0 % (40.0-70.0) H 07/24/16 12:33 Band Neutrophils % 2.0 % 07/24/16 12:33 Lymphocytes % (Manual) 8.0 % (13.4-35.0) L 07/24/16 12:33 Reactive Lymphs % (Man) 0 % 07/24/16 12:33 Monocytes % (Manual) 10.0 % (0.0-7.3) H 07/24/16 12:33 Eosinophils % (Manual) 0 % (0.0-4.3) 07/24/16 12:33 Basophils % (Manual) 0 % (0.0-1.8) 07/24/16 12:33 Metamyelocytes % 0 % 07/24/16 12:33 Myelocytes % 0 % 07/24/16 12:33 Promyelocytes % 0 % 07/24/16 12:33 Blast Cells % 0 % 07/24/16 12:33 Nucleated RBC % Not Reportable 07/24/16 12:33 Seg Neutrophils # 7.7 K/mm3 (1.8-7.7) 07/27/16 06:42 Seg Neutrophils # Man 11.5 K/mm3 (1.8-7.7) H 07/24/16 12:33 Band Neutrophils # 0.3 K/mm3 07/24/16 12:33 Lymphocytes # (Manual) 1.2 K/mm3 (1.2-5.4) 07/24/16 12:33 Abs React Lymphs (Man) 0.0 K/mm3 07/24/16 12:33 Monocytes # (Manual) 1.4 K/mm3 (0.0-0.8) H 07/24/16 12:33 Eosinophils # (Manual) 0.0 K/mm3 (0.0-0.4) 07/24/16 12:33 Basophils # (Manual) 0.0 K/mm3 (0.0-0.1) 07/24/16 12:33 Metamyelocytes # 0.0 K/mm3 07/24/16 12:33 Myelocytes # 0.0 K/mm3 07/24/16 12:33 Promyelocytes # 0.0 K/mm3 07/24/16 12:33 Blast Cells # 0.0 K/mm3 07/24/16 12:33 WBC Morphology Not Reportable 07/24/16 12:33 Hypersegmented Neuts Not Reportable 07/24/16 12:33 Hyposegmented Neuts Not Reportable 07/24/16 12:33 Hypogranular Neuts Not Reportable 07/24/16 12:33 Smudge Cells Not Reportable 07/24/16 12:33 Toxic Granulation Not Reportable 07/24/16 12:33 Toxic Vacuolation Not Reportable 07/24/16 12:33 Dohle Bodies Not Reportable 07/24/16 12:33 Pelger-Huet Anomaly Not Reportable 07/24/16 12:33 Sisi Rods Not Reportable 07/24/16 12:33 Platelet Estimate Consistent w auto 07/24/16 12:33 Clumped Platelets Not Reportable 07/24/16 12:33 Plt Clumps, EDTA Not Reportable 07/24/16 12:33 Large Platelets Not Reportable 07/24/16 12:33 Giant Platelets Not Reportable 07/24/16 12:33 Platelet Satelliting Not Reportable 07/24/16 12:33 Plt Morphology Comment Not Reportable 07/24/16 12:33 RBC Morphology Not Reportable 07/24/16 12:33 Dimorphic RBCs Not Reportable 07/24/16 12:33 Polychromasia Not Reportable 07/24/16 12:33 Hypochromasia 1+ 07/24/16 12:33 Poikilocytosis Not Reportable 07/24/16 12:33 Anisocytosis 1+ 07/24/16 12:33 Microcytosis Not Reportable 07/24/16 12:33 Macrocytosis Not Reportable 07/24/16 12:33 Spherocytes Not Reportable 07/24/16 12:33 Pappenheimer Bodies Not Reportable 07/24/16 12:33 Sickle Cells Not Reportable 07/24/16 12:33 Target Cells Not Reportable 07/24/16 12:33 Tear Drop Cells Not Reportable 07/24/16 12:33 Ovalocytes Not Reportable 07/24/16 12:33 Helmet Cells Not Reportable 07/24/16 12:33 Fung-[place] Bodies Not Reportable 07/24/16 12:33 [place] Rings Not Reportable 07/24/16 12:33 [place] Cells Not Reportable 07/24/16 12:33 Bite Cells Not Reportable 07/24/16 12:33 Crenated Cell Not Reportable 07/24/16 12:33 Elliptocytes Not Reportable 07/24/16 12:33 Acanthocytes (Spur) Not Reportable 07/24/16 12:33 Rouleaux Not Reportable 07/24/16 12:33 Hemoglobin C Crystals Not Reportable 07/24/16 12:33 Schistocytes Not Reportable 07/24/16 12:33 Malaria parasites Not Reportable 07/24/16 12:33 [place] Bodies Not Reportable 07/24/16 12:33 Hem Pathologist Commnt No 07/24/16 12:33 Sodium 136 mmol/L (137-145) L 07/28/16 05:05 Potassium 3.0 mmol/L (3.6-5.0) L 07/28/16 05:05 Chloride 102.6 mmol/L (98-107) 07/28/16 05:05 Carbon Dioxide 22 mmol/L (22-30) 07/28/16 05:05 Anion Gap 14 mmol/L 07/28/16 05:05 BUN 5 mg/dL (7-17) L 07/28/16 05:05 Creatinine 0.7 mg/dL (0.7-1.2) 07/28/16 05:05 Estimated GFR > 60 ml/min 07/28/16 05:05 BUN/Creatinine Ratio 7.14 % 07/28/16 05:05 Glucose 79 mg/dL (65-100) 07/28/16 05:05 Calcium 6.9 mg/dL (8.4-10.2) L 07/28/16 05:05 Phosphorus 3.9 mg/dL (2.5-4.5) D 07/25/16 07:53 Magnesium 2.0 mg/dL (1.7-2.3) 07/26/16 05:47 Total Bilirubin 0.4 mg/dL (0.1-1.2) 07/27/16 06:42 AST 12 units/L (5-40) 07/27/16 06:42 ALT 11 units/L (7-56) 07/27/16 06:42 Alkaline Phosphatase 38 units/L (35-129) 07/27/16 06:42 Total Protein 5.5 g/dL (6.3-8.2) L 07/27/16 06:42 Albumin 2.1 g/dL (3.9-5) L 07/27/16 06:42 Albumin/Globulin Ratio 0.6 % 07/27/16 06:42 Lipase 17 units/L (13-60) 07/27/16 06:42 Blood Type A POSITIVE 07/22/16 15:48 Antibody Screen Negative 07/22/16 15:48 Crossmatch See Detail 07/22/16 15:48 Hypokalemia
[2016-07-28 17:38] LABS: Anion Gap 14 mmol/L; BUN/Creatinine Ratio 7.14; Blood Urea Nitrogen 5 mg/dL (7-17); Calcium 7.4 mg/dL (8.4-10.2); Carbon Dioxide 23 mmol/L (22-30); Chloride 97.7 mmol/L (98-107); Glucose 110 mg/dL (65-100); Potassium 3.2 mmol/L (3.6-5.0); Sodium 131 mmol/L (137-145)
--- NOTE | 2016-07-28 17:46 | Gastroenterology Progress Note ---
Assessment and Plan - Patient Problems (1) Ulcerative colitis with rectal bleeding Current Visit: Yes Status: Acute Qualifiers: Ulcerative colitis location: U Plan to address problem: - Dx 2016 and steroid dependent. Did not tolerate Lialda. - Day 3 of Imuran; if labs OK and stable K/hct tomorrow, can d/c home. - If no better or side effect to Imuran, would start Entyvio. - Will also d/c flagyl and mycelex at present Subjective Date of service: 07/28/16 Principal diagnosis: Ulcerative Colitis Interval history: The patient continues to have loose stools with blood, but no worsening, and was able to tolerate a regular diet. No abdominal pain nor vomiting. No F/C. Objective - Constitutional Vitals: Temp Pulse Resp BP Pulse Ox 97.6 F 73 20 127/72 97 07/28/16 07:35 07/28/16 07:35 07/28/16 07:35 07/28/16 07:35 07/27/16 22:50 General appearance: no acute distress - EENT Eyes: PERRL, EOM intact ENT: hearing intact - Respiratory Respiratory effort: normal Respiratory: bilateral: CTA - Cardiovascular Rhythm: regular Heart Sounds: Present: S1 & S2 - Gastrointestinal General gastrointestinal: Present: soft, non-tender, non-distended - Labs CBC & Chem 7: 07/28/16 05:05 07/28/16 15:53 Labs: Laboratory Results - last 24 hr 07/28/16 07/28/16 07/28/16 05:05 05:05 15:53 Hgb 9.1 L Hct 27.8 L Sodium 136 L Potassium 3.0 L Chloride 102.6 Carbon Dioxide 22 Anion Gap 14 BUN 5 L Creatinine 0.7 Estimated GFR > 60 BUN/Creatinine Ratio 7.14 Glucose 79 Calcium 6.9 L Magnesium 1.8 07/28/16 15:53 Hgb Hct Sodium 131 L Potassium 3.2 L Chloride 97.7 L Carbon Dioxide 23 Anion Gap 14 BUN 5 L Creatinine 0.7 Estimated GFR > 60 BUN/Creatinine Ratio 7.14 Glucose 110 H Calcium 7.4 L Magnesium
[2016-07-29 07:38] LABS: Hematocrit 26.6 % (30.3-42.9); Hemoglobin 8.8 gm/dl (10.1-14.3)
[2016-07-29 07:41] LABS: Alanine Aminotransferase 7 units/L (7-56); Albumin/Globulin Ratio 0.6 %; Alkaline Phosphatase 28 units/L (35-129); BUN/Creatinine Ratio 5.71; Bilirubin,Total 0.4 mg/dL (0.1-1.2); Blood Urea Nitrogen 4 mg/dL (7-17); Calcium 7.4 mg/dL (8.4-10.2); Carbon Dioxide 24 mmol/L (22-30); Glucose 85 mg/dL (65-100); Lipase 20 units/L (13-60); Total Protein 5.1 g/dL (6.3-8.2)
[2016-07-29 07:42] LABS: Anion Gap 13 mmol/L; Chloride 95.4 mmol/L (98-107); Sodium 130 mmol/L (137-145)
[2016-07-29 07:45] LABS: Potassium 2.7 mmol/L (3.6-5.0)
[2016-07-29] MEDS ORDERED: K-DUR PO ONE (09:00)
[2016-07-29] MEDS: PEPCID PO SCH ×2 (09:21→16:07)
[2016-07-29] MEDS: THERAGRAN-M Tab PO SCH (09:21)
[2016-07-29] MEDS: DELTASONE PO SCH (09:21)
[2016-07-29] MEDS: REGLAN IV PRN (09:21)
[2016-07-29] MEDS: MIRACLE MIXTURE PO SCH ×3 (09:21→20:32)
[2016-07-29] MEDS: IMURAN PO SCH (09:22)
[2016-07-29] MEDS: K-DUR PO SCH (09:22)
[2016-07-29] MEDS: KCL 10MEQ/100ML 10 MEQ/100 ML BAG IV SCH ×4 (11:17→21:26)
--- NOTE | 2016-07-29 13:30 | Progress Note ---
Assessment and Plan Assessment and plan: bloody diarrhea secondary to ulcerative colitis Anemia secondary to bloody diarrhea Severe hypokalemia Weakness - on IV fluids, Zofran - Potassium and magnesium replacement - Potassium was 2.7 this morning and was repleted with IV and PO - We'll check BMP and magnesium level - H&H stable - Continue steroids and imuran - GI consult appreciated Disposition - Continue inpatient care History Interval history: Patient still complains frequent bloody diarrhea, generalized weakness. Denied any abdominal pain. Hospitalist Physical - Physical exam Narrative exam: Not in cardiopulmonary distress. The patient appeared well nourished and normally developed. Vital signs as documented. Head exam is unremarkable. No scleral icterus . Neck is without jugular venous distension, thyromegaly, or carotid bruits. Lungs are clear to auscultation. Cardiac exam reveals regular rate and Rhythm. First and second heart sounds normal. No murmurs, rubs or gallops. Abdominal exam reveals normal bowel sounds, no masses, no organomegaly and no aortic enlargement. Extremities are nonedematous and both femoral and pedal pulses are normal. FINANCIAL ADVOCATE: Alert and oriented 3. No focal weakness. - Constitutional Vitals: Temp Pulse Resp BP Pulse Ox 98.5 F 70 20 107/55 95 07/29/16 11:20 07/29/16 11:20 07/29/16 11:20 07/29/16 11:20 07/29/16 11:20 General appearance: Present: mild distress, well-nourished, disheveled Results - Labs CBC & Chem 7: 07/29/16 06:26 07/29/16 06:26 Labs: Laboratory Last Values WBC 9.4 K/mm3 (4.5-11.0) 07/27/16 06:42 RBC 3.67 M/mm3 (3.65-5.03) 07/27/16 06:42 Hgb 8.8 gm/dl (10.1-14.3) L 07/29/16 06:26 Hct 26.6 % (30.3-42.9) L 07/29/16 06:26 MCV 79 fl (79-97) 07/27/16 06:42 MCH 26 pg (28-32) L 07/27/16 06:42 MCHC 33 % (30-34) 07/27/16 06:42 RDW 19.5 % (13.2-15.2) H 07/27/16 06:42 Plt Count 208 K/mm3 (140-440) 07/27/16 06:42 Lymph % (Auto) 11.2 % (13.4-35.0) L 07/27/16 06:42 [place] % (Auto) 6.6 % (0.0-7.3) 07/27/16 06:42 Eos % (Auto) 0.0 % (0.0-4.3) 07/27/16 06:42 Baso % (Auto) 0.1 % (0.0-1.8) 07/27/16 06:42 Lymph # 1.1 K/mm3 (1.2-5.4) L 07/27/16 06:42 [place] # 0.6 K/mm3 (0.0-0.8) 07/27/16 06:42 Eos # 0.0 K/mm3 (0.0-0.4) 07/27/16 06:42 Baso # 0.0 K/mm3 (0.0-0.1) 07/27/16 06:42 Add Manual Diff Complete 07/24/16 12:33 Total Counted 100 07/24/16 12:33 Seg Neutrophils % 82.1 % (40.0-70.0) H 07/27/16 06:42 Seg Neuts % (Manual) 80.0 % (40.0-70.0) H 07/24/16 12:33 Band Neutrophils % 2.0 % 07/24/16 12:33 Lymphocytes % (Manual) 8.0 % (13.4-35.0) L 07/24/16 12:33 Reactive Lymphs % (Man) 0 % 07/24/16 12:33 Monocytes % (Manual) 10.0 % (0.0-7.3) H 07/24/16 12:33 Eosinophils % (Manual) 0 % (0.0-4.3) 07/24/16 12:33 Basophils % (Manual) 0 % (0.0-1.8) 07/24/16 12:33 Metamyelocytes % 0 % 07/24/16 12:33 Myelocytes % 0 % 07/24/16 12:33 Promyelocytes % 0 % 07/24/16 12:33 Blast Cells % 0 % 07/24/16 12:33 Nucleated RBC % Not Reportable 07/24/16 12:33 Seg Neutrophils # 7.7 K/mm3 (1.8-7.7) 07/27/16 06:42 Seg Neutrophils # Man 11.5 K/mm3 (1.8-7.7) H 07/24/16 12:33 Band Neutrophils # 0.3 K/mm3 07/24/16 12:33 Lymphocytes # (Manual) 1.2 K/mm3 (1.2-5.4) 07/24/16 12:33 Abs React Lymphs (Man) 0.0 K/mm3 07/24/16 12:33 Monocytes # (Manual) 1.4 K/mm3 (0.0-0.8) H 07/24/16 12:33 Eosinophils # (Manual) 0.0 K/mm3 (0.0-0.4) 07/24/16 12:33 Basophils # (Manual) 0.0 K/mm3 (0.0-0.1) 07/24/16 12:33 Metamyelocytes # 0.0 K/mm3 07/24/16 12:33 Myelocytes # 0.0 K/mm3 07/24/16 12:33 Promyelocytes # 0.0 K/mm3 07/24/16 12:33 Blast Cells # 0.0 K/mm3 07/24/16 12:33 WBC Morphology Not Reportable 07/24/16 12:33 Hypersegmented Neuts Not Reportable 07/24/16 12:33 Hyposegmented Neuts Not Reportable 07/24/16 12:33 Hypogranular Neuts Not Reportable 07/24/16 12:33 Smudge Cells Not Reportable 07/24/16 12:33 Toxic Granulation Not Reportable 07/24/16 12:33 Toxic Vacuolation Not Reportable 07/24/16 12:33 Dohle Bodies Not Reportable 07/24/16 12:33 Pelger-[place]uet Anomaly Not Reportable 07/24/16 12:33 Sisi Rods Not Reportable 07/24/16 12:33 Platelet Estimate Consistent w auto 07/24/16 12:33 Clumped Platelets Not Reportable 07/24/16 12:33 Plt Clumps, EDTA Not Reportable 07/24/16 12:33 Large Platelets Not Reportable 07/24/16 12:33 Giant Platelets Not Reportable 07/24/16 12:33 Platelet Satelliting Not Reportable 07/24/16 12:33 Plt Morphology Comment Not Reportable 07/24/16 12:33 RBC Morphology Not Reportable 07/24/16 12:33 Dimorphic RBCs Not Reportable 07/24/16 12:33 Polychromasia Not Reportable 07/24/16 12:33 Hypochromasia 1+ 07/24/16 12:33 Poikilocytosis Not Reportable 07/24/16 12:33 Anisocytosis 1+ 07/24/16 12:33 Microcytosis Not Reportable 07/24/16 12:33 Macrocytosis Not Reportable 07/24/16 12:33 Spherocytes Not Reportable 07/24/16 12:33 Pappenheimer Bodies Not Reportable 07/24/16 12:33 Sickle Cells Not Reportable 07/24/16 12:33 Target Cells Not Reportable 07/24/16 12:33 Tear Drop Cells Not Reportable 07/24/16 12:33 Ovalocytes Not Reportable 07/24/16 12:33 Helmet Cells Not Reportable 07/24/16 12:33 Fung-[place] Bodies Not Reportable 07/24/16 12:33 [place] Rings Not Reportable 07/24/16 12:33 [place] Cells Not Reportable 07/24/16 12:33 Bite Cells Not Reportable 07/24/16 12:33 Crenated Cell Not Reportable 07/24/16 12:33 Elliptocytes Not Reportable 07/24/16 12:33 Acanthocytes (Spur) Not Reportable 07/24/16 12:33 Rouleaux Not Reportable 07/24/16 12:33 Hemoglobin C Crystals Not Reportable 07/24/16 12:33 Schistocytes Not Reportable 07/24/16 12:33 Malaria parasites Not Reportable 07/24/16 12:33 Renny Bodies Not Reportable 07/24/16 12:33 Hem Pathologist Commnt No 07/24/16 12:33 Sodium 130 mmol/L (137-145) L 07/29/16 06:26 Potassium 2.7 mmol/L (3.6-5.0) L* 07/29/16 06:26 Chloride 95.4 mmol/L (98-107) L 07/29/16 06:26 Carbon Dioxide 24 mmol/L (22-30) 07/29/16 06:26 Anion Gap 13 mmol/L 07/29/16 06:26 BUN 4 mg/dL (7-17) L 07/29/16 06:26 Creatinine 0.7 mg/dL (0.7-1.2) 07/29/16 06:26 Estimated GFR > 60 ml/min 07/29/16 06:26 BUN/Creatinine Ratio 5.71 % 07/29/16 06:26 Glucose 85 mg/dL (65-100) 07/29/16 06:26 Calcium 7.4 mg/dL (8.4-10.2) L 07/29/16 06:26 Phosphorus 3.9 mg/dL (2.5-4.5) D 07/25/16 07:53 Magnesium 1.8 mg/dL (1.7-2.3) 07/28/16 15:53 Total Bilirubin 0.4 mg/dL (0.1-1.2) 07/29/16 06:26 AST 8 units/L (5-40) 07/29/16 06:26 ALT 7 units/L (7-56) 07/29/16 06:26 Alkaline Phosphatase 28 units/L (35-129) L 07/29/16 06:26 Total Protein 5.1 g/dL (6.3-8.2) L 07/29/16 06:26 Albumin 2.0 g/dL (3.9-5) L 07/29/16 06:26 Albumin/Globulin Ratio 0.6 % 07/29/16 06:26 Lipase 20 units/L (13-60) 07/29/16 06:26 Blood Type A POSITIVE 07/22/16 15:48 Antibody Screen Negative 07/22/16 15:48 Crossmatch See Detail 07/22/16 15:48 Hypokalemia
[2016-07-29] MEDS ORDERED: REGLAN IV PRN (13:57)
[2016-07-29] MEDS ORDERED: MAGNESIUM SULFATE 2GM/50ML 2 GM/50 ML BAG IV ONE (14:00)
--- NOTE | 2016-07-29 16:05 | Gastroenterology Progress Note ---
Assessment and Plan - Patient Problems (1) Ulcerative colitis with rectal bleeding Current Visit: Yes Status: Acute Qualifiers: Ulcerative colitis location: U Plan to address problem: - LFTs and lipase OK on new Imuran (may increase tomorrow to 100mg if labs OK). - Will continue prednisone at 40mg/day. - Will add sulfasalazine 500 BID (did not tolerate Lialda). - Continue nutritional support. Strongly encouraged PO. - Stool studies negative; waiting on CMV PCR but doubt as was not on immunosuppression other than steroids. - Consider Entyvio per Dr Stovall. Subjective Date of service: 07/29/16 Principal diagnosis: Ulcerative Colitis Interval history: The patient continues to eat very poorly (not because of pain or nausea, but because she is "has no appetite.") No fevers of chills. The BMs are still loose and streaked with blood. The patient has no CP or SOB. Not ambulating much. Objective - Constitutional Vitals: Temp Pulse Resp BP Pulse Ox 98.5 F 70 20 107/55 95 07/29/16 11:20 07/29/16 11:20 07/29/16 11:20 07/29/16 11:20 07/29/16 11:20 General appearance: no acute distress - EENT Eyes: PERRL, EOM intact ENT: hearing intact - Respiratory Respiratory effort: normal Respiratory: bilateral: CTA - Cardiovascular Rhythm: regular Heart Sounds: Present: S1 & S2 - Gastrointestinal General gastrointestinal: Present: soft, non-tender, non-distended - Labs CBC & Chem 7: 07/29/16 06:26 07/29/16 06:26 Labs: Laboratory Results - last 24 hr 07/28/16 07/28/16 07/29/16 15:53 15:53 06:26 Hgb 8.8 L Hct 26.6 L Sodium 131 L Potassium 3.2 L Chloride 97.7 L Carbon Dioxide 23 Anion Gap 14 BUN 5 L Creatinine 0.7 Estimated GFR > 60 BUN/Creatinine Ratio 7.14 Glucose 110 H Calcium 7.4 L Magnesium 1.8 Total Bilirubin AST ALT Alkaline Phosphatase Total Protein Albumin Albumin/Globulin Ratio Lipase 07/29/16 06:26 Hgb Hct Sodium 130 L Potassium 2.7 L* Chloride 95.4 L Carbon Dioxide 24 Anion Gap 13 BUN 4 L Creatinine 0.7 Estimated GFR > 60 BUN/Creatinine Ratio 5.71 Glucose 85 Calcium 7.4 L Magnesium Total Bilirubin 0.4 AST 8 ALT 7 Alkaline Phosphatase 28 L Total Protein 5.1 L Albumin 2.0 L Albumin/Globulin Ratio 0.6 Lipase 20
[2016-07-29] MEDS: MEGACE PO SCH (16:07)
[2016-07-29] MEDS: AZULFIDINE PO SCH (21:27)
[2016-07-30 08:00] LABS: Hematocrit 29.7 % (30.3-42.9); Hemoglobin 9.8 gm/dl (10.1-14.3); Mean Corpuscular HGB Conc 33 % (30-34); Mean Corpuscular Hemoglobin 26 pg (28-32); Mean Corpuscular Volume 79 fl (79-97); Platelet Count 197 K/mm3 (140-440); Red Blood Count 3.76 M/mm3 (3.65-5.03); White Blood Count 6.6 K/mm3 (4.5-11.0)
[2016-07-30 08:03] LABS: Alanine Aminotransferase 7 units/L (7-56); Albumin 2.2 g/dL (3.9-5); Albumin/Globulin Ratio 0.6 %; Alkaline Phosphatase 30 units/L (35-129); Anion Gap 16 mmol/L; BUN/Creatinine Ratio 5.71; Bilirubin,Total 0.4 mg/dL (0.1-1.2); Blood Urea Nitrogen 4 mg/dL (7-17); Calcium 7.3 mg/dL (8.4-10.2); Carbon Dioxide 23 mmol/L (22-30); Chloride 95.5 mmol/L (98-107); Glucose 102 mg/dL (65-100); Sodium 131 mmol/L (137-145); Total Protein 5.7 g/dL (6.3-8.2)
[2016-07-30 08:04] LABS: Red Cell Distribution Width 20.2 % (13.2-15.2)
[2016-07-30] MEDS ORDERED: K-DUR PO ONE (08:11)
[2016-07-30] MEDS: MIRACLE MIXTURE PO SCH ×3 (08:30→22:03)
--- NOTE | 2016-07-30 09:05 | Gastroenterology Progress Note ---
Assessment and Plan - Patient Problems (1) Left sided ulcerative colitis with rectal bleeding Current Visit: Yes Status: Acute Plan to address problem: Very slow to improve. Patient has not communicated the preceived lack of efficacy and sideffects in taking Lialda and mesalamine enemas in the past few months and stopped taking these. Appetite is poor, but no vomiting. I discussed with her that the hypokalemia was due to poor intake. Now on prednisone 40mg daily and Imuran 50mg daily. Sulfasalazine was started. She has a very depressed affect and feels amenable to starting an antidepressant for at least a few months. The endpoint of care is less bloody stools and improved PO intake at this point. Hopefully 1-2 days. (2) Iron deficiency anemia due to chronic blood loss Current Visit: No Status: Acute Plan to address problem: Previously recommended to shop service technician for IV iron as she was not taking her oral iron. (3) Nausea & vomiting Current Visit: No Status: Acute Qualifiers: Vomiting type: V Vomiting Intractability: V Plan to address problem: No real nausea or vomiting at present. Just poor appetite which may be due to depression vs colitis. Subjective Date of service: 07/30/16 Principal diagnosis: Ulcerative Colitis Interval history: Reports passage of multiple loose stools with blood overnight. Feels depressed that she is not getting better. Objective - Constitutional Vitals: Temp Pulse Resp BP Pulse Ox 98.1 F 69 18 108/61 98 07/29/16 23:00 07/29/16 23:00 07/29/16 23:00 07/29/16 23:00 07/29/16 23:00 General appearance: mild distress, other (Tearful) - EENT ENT: hearing intact, clear oral mucosa, dentition normal - Respiratory Respiratory effort: normal Respiratory: bilateral: CTA - Cardiovascular Rhythm: regular - Gastrointestinal General gastrointestinal: Present: soft, non-tender, non-distended, normal bowel sounds - Neurologic Neurological: alert and oriented x3 - Psychiatric Psychiatric: intact judgment & insight, cooperative, depressed - Labs CBC & Chem 7: 07/30/16 07:11 07/30/16 07:11 Labs: Laboratory Results - last 24 hr 07/30/16 07/30/16 07:11 07:11 WBC 6.6 RBC 3.76 Hgb 9.8 L Hct 29.7 L MCV 79 MCH 26 L MCHC 33 RDW 20.2 H Plt Count 197 Sodium 131 L Potassium 3.0 L Chloride 95.5 L Carbon Dioxide 23 Anion Gap 16 BUN 4 L Creatinine 0.7 Estimated GFR > 60 BUN/Creatinine Ratio 5.71 Glucose 102 H Calcium 7.3 L Total Bilirubin 0.4 AST 9 ALT 7 Alkaline Phosphatase 30 L Total Protein 5.7 L Albumin 2.2 L Albumin/Globulin Ratio 0.6
[2016-07-30 09:40] LABS: Basophils % (Manual) 0 % (0.0-1.8); Blastocytes % (Manual) 0 %; Eosinophils % (Manual) 0 % (0.0-4.3)
[2016-07-30 09:41] LABS: Anisocytosis 1+; Diff Status Complete
[2016-07-30] MEDS: PEPCID PO SCH (10:52)
[2016-07-30] MEDS: K-DUR PO SCH (10:52)
[2016-07-30] MEDS: THERAGRAN-M Tab PO SCH (10:52)
[2016-07-30] MEDS: DELTASONE PO SCH (10:52)
[2016-07-30] MEDS: AZULFIDINE PO SCH ×2 (10:52→22:01)
[2016-07-30] MEDS: IMURAN PO SCH (10:53)
[2016-07-30] MEDS: MEGACE PO SCH (10:53)
[2016-07-30] MEDS: ZOLOFT PO SCH (10:59)
--- NOTE | 2016-07-30 14:31 | Progress Note ---
Assessment and Plan Assessment and plan: bloody diarrhea secondary to ulcerative colitis Anemia secondary to bloody diarrhea Severe hypokalemia Weakness - on IV fluids, Zofran - Potassium and magnesium replacement - Potassium was 3 this morning and was repleted - We'll check BMP and magnesium level - H&H stable - Continue steroids and imuran - GI consult appreciated Disposition - Continue inpatient care History Interval history: Patient's frequency of diarrhea is getting better, still the appetite is poor. Hospitalist Physical - Physical exam Narrative exam: Not in cardiopulmonary distress. The patient appeared well nourished and normally developed. Vital signs as documented. Head exam is unremarkable. No scleral icterus . Neck is without jugular venous distension, thyromegaly, or carotid bruits. Lungs are clear to auscultation. Cardiac exam reveals regular rate and Rhythm. First and second heart sounds normal. No murmurs, rubs or gallops. Abdominal exam reveals normal bowel sounds, no masses, no organomegaly and no aortic enlargement. Extremities are nonedematous and both femoral and pedal pulses are normal. PET AMBASSADOR: Alert and oriented 3. No focal weakness. - Constitutional Vitals: Temp Pulse Resp BP Pulse Ox 98.3 F 89 18 116/58 96 07/30/16 12:30 07/30/16 08:00 07/30/16 08:00 07/30/16 08:00 07/30/16 08:00 General appearance: Present: mild distress, well-nourished, disheveled Results - Labs CBC & Chem 7: 07/30/16 07:11 07/30/16 07:11 Labs: Laboratory Last Values WBC 6.6 K/mm3 (4.5-11.0) 07/30/16 07:11 RBC 3.76 M/mm3 (3.65-5.03) 07/30/16 07:11 Hgb 9.8 gm/dl (10.1-14.3) L 07/30/16 07:11 Hct 29.7 % (30.3-42.9) L 07/30/16 07:11 MCV 79 fl (79-97) 07/30/16 07:11 MCH 26 pg (28-32) L 07/30/16 07:11 MCHC 33 % (30-34) 07/30/16 07:11 RDW 20.2 % (13.2-15.2) H 07/30/16 07:11 Plt Count 197 K/mm3 (140-440) 07/30/16 07:11 Lymph % (Auto) 11.2 % (13.4-35.0) L 07/27/16 06:42 [place] % (Auto) 6.6 % (0.0-7.3) 07/27/16 06:42 Eos % (Auto) 0.0 % (0.0-4.3) 07/27/16 06:42 Baso % (Auto) 0.1 % (0.0-1.8) 07/27/16 06:42 Lymph # 1.1 K/mm3 (1.2-5.4) L 07/27/16 06:42 [place] # 0.6 K/mm3 (0.0-0.8) 07/27/16 06:42 Eos # 0.0 K/mm3 (0.0-0.4) 07/27/16 06:42 Baso # 0.0 K/mm3 (0.0-0.1) 07/27/16 06:42 Add Manual Diff Complete 07/30/16 07:11 Total Counted 100 07/30/16 07:11 Seg Neutrophils % 82.1 % (40.0-70.0) H 07/27/16 06:42 Seg Neuts % (Manual) 50.0 % (40.0-70.0) 07/30/16 07:11 Band Neutrophils % 24.0 % 07/30/16 07:11 Lymphocytes % (Manual) 16 % (13.4-35.0) 07/30/16 07:11 Reactive Lymphs % (Man) 0 % 07/30/16 07:11 Monocytes % (Manual) 10 % (0.0-7.3) H 07/30/16 07:11 Eosinophils % (Manual) 0 % (0.0-4.3) 07/30/16 07:11 Basophils % (Manual) 0 % (0.0-1.8) 07/30/16 07:11 Metamyelocytes % 0 % 07/30/16 07:11 Myelocytes % 0 % 07/30/16 07:11 Promyelocytes % 0 % 07/30/16 07:11 Blast Cells % 0 % 07/30/16 07:11 Nucleated RBC % Not Reportable 07/30/16 07:11 Seg Neutrophils # 7.7 K/mm3 (1.8-7.7) 07/27/16 06:42 Seg Neutrophils # Man 3.3 K/mm3 (1.8-7.7) 07/30/16 07:11 Band Neutrophils # 1.6 K/mm3 07/30/16 07:11 Lymphocytes # (Manual) 0.7 K/mm3 (1.2-5.4) L 07/30/16 07:11 Abs React Lymphs (Man) 0.0 K/mm3 07/30/16 07:11 Monocytes # (Manual) 1.1 K/mm3 (0.0-0.8) H 07/30/16 07:11 Eosinophils # (Manual) 0.0 K/mm3 (0.0-0.4) 07/30/16 07:11 Basophils # (Manual) 0.0 K/mm3 (0.0-0.1) 07/30/16 07:11 Metamyelocytes # 0.0 K/mm3 07/30/16 07:11 Myelocytes # 0.0 K/mm3 07/30/16 07:11 Promyelocytes # 0.0 K/mm3 07/30/16 07:11 Blast Cells # 0.0 K/mm3 07/30/16 07:11 WBC Morphology Not Reportable 07/30/16 07:11 Hypersegmented Neuts Not Reportable 07/30/16 07:11 Hyposegmented Neuts Not Reportable 07/30/16 07:11 Hypogranular Neuts Not Reportable 07/30/16 07:11 Smudge Cells Not Reportable 07/30/16 07:11 Toxic Granulation Not Reportable 07/30/16 07:11 Toxic Vacuolation Not Reportable 07/30/16 07:11 Dohle Bodies Not Reportable 07/30/16 07:11 Pelger-Huet Anomaly Not Reportable 07/30/16 07:11 Sisi Rods Not Reportable 07/30/16 07:11 Platelet Estimate Not Reportable 07/30/16 07:11 Clumped Platelets Not Reportable 07/30/16 07:11 Plt Clumps, EDTA Not Reportable 07/30/16 07:11 Large Platelets Not Reportable 07/30/16 07:11 Giant Platelets Not Reportable 07/30/16 07:11 Platelet Satelliting Not Reportable 07/30/16 07:11 Plt Morphology Comment Not Reportable 07/30/16 07:11 RBC Morphology Not Reportable 07/30/16 07:11 Dimorphic RBCs Not Reportable 07/30/16 07:11 Polychromasia Not Reportable 07/30/16 07:11 Hypochromasia Not Reportable 07/30/16 07:11 Poikilocytosis Not Reportable 07/30/16 07:11 Anisocytosis 1+ 07/30/16 07:11 Microcytosis Not Reportable 07/30/16 07:11 Macrocytosis Not Reportable 07/30/16 07:11 Spherocytes Not Reportable 07/30/16 07:11 Pappenheimer Bodies Not Reportable 07/30/16 07:11 Sickle Cells Not Reportable 07/30/16 07:11 Target Cells Not Reportable 07/30/16 07:11 Tear Drop Cells Not Reportable 07/30/16 07:11 Ovalocytes Not Reportable 07/30/16 07:11 Helmet Cells Not Reportable 07/30/16 07:11 Fung-[place] Bodies Not Reportable 07/30/16 07:11 [place] Rings Not Reportable 07/30/16 07:11 [place] Cells Not Reportable 07/30/16 07:11 Bite Cells Not Reportable 07/30/16 07:11 Crenated Cell Not Reportable 07/30/16 07:11 Elliptocytes Not Reportable 07/30/16 07:11 Acanthocytes (Spur) Not Reportable 07/30/16 07:11 Rouleaux Not Reportable 07/30/16 07:11 Hemoglobin C Crystals Not Reportable 07/30/16 07:11 Schistocytes Not Reportable 07/30/16 07:11 Malaria parasites Not Reportable 07/30/16 07:11 Renny Bodies Not Reportable 07/30/16 07:11 Hem Pathologist Commnt No 07/30/16 07:11 Sodium 131 mmol/L (137-145) L 07/30/16 07:11 Potassium 3.0 mmol/L (3.6-5.0) L 07/30/16 07:11 Chloride 95.5 mmol/L (98-107) L 07/30/16 07:11 Carbon Dioxide 23 mmol/L (22-30) 07/30/16 07:11 Anion Gap 16 mmol/L 07/30/16 07:11 BUN 4 mg/dL (7-17) L 07/30/16 07:11 Creatinine 0.7 mg/dL (0.7-1.2) 07/30/16 07:11 Estimated GFR > 60 ml/min 07/30/16 07:11 BUN/Creatinine Ratio 5.71 % 07/30/16 07:11 Glucose 102 mg/dL (65-100) H 07/30/16 07:11 Calcium 7.3 mg/dL (8.4-10.2) L 07/30/16 07:11 Phosphorus 3.9 mg/dL (2.5-4.5) D 07/25/16 07:53 Magnesium 1.8 mg/dL (1.7-2.3) 07/28/16 15:53 Total Bilirubin 0.4 mg/dL (0.1-1.2) 07/30/16 07:11 AST 9 units/L (5-40) 07/30/16 07:11 ALT 7 units/L (7-56) 07/30/16 07:11 Alkaline Phosphatase 30 units/L (35-129) L 07/30/16 07:11 Total Protein 5.7 g/dL (6.3-8.2) L 07/30/16 07:11 Albumin 2.2 g/dL (3.9-5) L 07/30/16 07:11 Albumin/Globulin Ratio 0.6 % 07/30/16 07:11 Lipase 20 units/L (13-60) 07/29/16 06:26 Blood Type A POSITIVE 07/22/16 15:48 Antibody Screen Negative 07/22/16 15:48 Crossmatch See Detail 07/22/16 15:48
[2016-07-30] MEDS: REGLAN IV PRN (22:00)
[2016-07-31 05:35] LABS: Hematocrit 27.9 % (30.3-42.9); Hemoglobin 9.1 gm/dl (10.1-14.3)
[2016-07-31 06:39] LABS: Anion Gap 17 mmol/L; Blood Urea Nitrogen 9 mg/dL (7-17); Calcium 7.6 mg/dL (8.4-10.2); Carbon Dioxide 22 mmol/L (22-30); Chloride 97.6 mmol/L (98-107); Glucose 117 mg/dL (65-100); Sodium 133 mmol/L (137-145)
[2016-07-31] MEDS: MEGACE PO SCH (09:02)
[2016-07-31] MEDS: DELTASONE PO SCH (09:03)
[2016-07-31] MEDS: ZOLOFT PO SCH (09:03)
[2016-07-31] MEDS: THERAGRAN-M Tab PO SCH (09:03)
[2016-07-31] MEDS: K-DUR PO SCH (09:03)
[2016-07-31] MEDS: PEPCID PO SCH (09:06)
[2016-07-31] MEDS: IMURAN PO SCH (09:06)
[2016-07-31] MEDS: MIRACLE MIXTURE PO SCH ×3 (09:06→20:44)
[2016-07-31] MEDS: AZULFIDINE PO SCH ×2 (09:07→22:07)
--- NOTE | 2016-07-31 15:05 | Progress Note ---
Assessment and Plan Assessment and plan: bloody diarrhea secondary to ulcerative colitis Anemia secondary to bloody diarrhea Severe hypokalemia Weakness - on IV fluids, Zofran - Potassium and magnesium replacement - Potassium was 4 this morning - We'll check BMP in the morning - H&H stable - Continue steroids and imuran - GI consult appreciated Disposition - Continue inpatient care History Interval history: Patient's frequency of diarrhea is getting better, still the appetite is poor. Complains Nausea. Hospitalist Physical - Physical exam Narrative exam: Not in cardiopulmonary distress. The patient appeared well nourished and normally developed. Vital signs as documented. Head exam is unremarkable. No scleral icterus . Neck is without jugular venous distension, thyromegaly, or carotid bruits. Lungs are clear to auscultation. Cardiac exam reveals regular rate and Rhythm. First and second heart sounds normal. No murmurs, rubs or gallops. Abdominal exam reveals normal bowel sounds, no masses, no organomegaly and no aortic enlargement. Extremities are nonedematous and both femoral and pedal pulses are normal. QUALITY LIAISON: Alert and oriented 3. No focal weakness. - Constitutional Vitals: Temp Pulse Resp BP Pulse Ox 98.6 F 80 18 113/63 97 07/31/16 07:45 07/31/16 09:12 07/31/16 09:12 07/31/16 07:45 07/31/16 07:45 General appearance: Present: mild distress, well-nourished, disheveled Results - Labs CBC & Chem 7: 07/31/16 05:06 07/31/16 05:06 Labs: Laboratory Last Values WBC 6.6 K/mm3 (4.5-11.0) 07/30/16 07:11 RBC 3.76 M/mm3 (3.65-5.03) 07/30/16 07:11 Hgb 9.1 gm/dl (10.1-14.3) L 07/31/16 05:06 Hct 27.9 % (30.3-42.9) L 07/31/16 05:06 MCV 79 fl (79-97) 07/30/16 07:11 MCH 26 pg (28-32) L 07/30/16 07:11 MCHC 33 % (30-34) 07/30/16 07:11 RDW 20.2 % (13.2-15.2) H 07/30/16 07:11 Plt Count 197 K/mm3 (140-440) 07/30/16 07:11 Lymph % (Auto) 11.2 % (13.4-35.0) L 07/27/16 06:42 [place] % (Auto) 6.6 % (0.0-7.3) 07/27/16 06:42 Eos % (Auto) 0.0 % (0.0-4.3) 07/27/16 06:42 Baso % (Auto) 0.1 % (0.0-1.8) 07/27/16 06:42 Lymph # 1.1 K/mm3 (1.2-5.4) L 07/27/16 06:42 [place] # 0.6 K/mm3 (0.0-0.8) 07/27/16 06:42 Eos # 0.0 K/mm3 (0.0-0.4) 07/27/16 06:42 Baso # 0.0 K/mm3 (0.0-0.1) 07/27/16 06:42 Add Manual Diff Complete 07/30/16 07:11 Total Counted 100 07/30/16 07:11 Seg Neutrophils % 82.1 % (40.0-70.0) H 07/27/16 06:42 Seg Neuts % (Manual) 50.0 % (40.0-70.0) 07/30/16 07:11 Band Neutrophils % 24.0 % 07/30/16 07:11 Lymphocytes % (Manual) 16 % (13.4-35.0) 07/30/16 07:11 Reactive Lymphs % (Man) 0 % 07/30/16 07:11 Monocytes % (Manual) 10 % (0.0-7.3) H 07/30/16 07:11 Eosinophils % (Manual) 0 % (0.0-4.3) 07/30/16 07:11 Basophils % (Manual) 0 % (0.0-1.8) 07/30/16 07:11 Metamyelocytes % 0 % 07/30/16 07:11 Myelocytes % 0 % 07/30/16 07:11 Promyelocytes % 0 % 07/30/16 07:11 Blast Cells % 0 % 07/30/16 07:11 Nucleated RBC % Not Reportable 07/30/16 07:11 Seg Neutrophils # 7.7 K/mm3 (1.8-7.7) 07/27/16 06:42 Seg Neutrophils # Man 3.3 K/mm3 (1.8-7.7) 07/30/16 07:11 Band Neutrophils # 1.6 K/mm3 07/30/16 07:11 Lymphocytes # (Manual) 0.7 K/mm3 (1.2-5.4) L 07/30/16 07:11 Abs React Lymphs (Man) 0.0 K/mm3 07/30/16 07:11 Monocytes # (Manual) 1.1 K/mm3 (0.0-0.8) H 07/30/16 07:11 Eosinophils # (Manual) 0.0 K/mm3 (0.0-0.4) 07/30/16 07:11 Basophils # (Manual) 0.0 K/mm3 (0.0-0.1) 07/30/16 07:11 Metamyelocytes # 0.0 K/mm3 07/30/16 07:11 Myelocytes # 0.0 K/mm3 07/30/16 07:11 Promyelocytes # 0.0 K/mm3 07/30/16 07:11 Blast Cells # 0.0 K/mm3 07/30/16 07:11 WBC Morphology Not Reportable 07/30/16 07:11 Hypersegmented Neuts Not Reportable 07/30/16 07:11 Hyposegmented Neuts Not Reportable 07/30/16 07:11 Hypogranular Neuts Not Reportable 07/30/16 07:11 Smudge Cells Not Reportable 07/30/16 07:11 Toxic Granulation Not Reportable 07/30/16 07:11 Toxic Vacuolation Not Reportable 07/30/16 07:11 Dohle Bodies Not Reportable 07/30/16 07:11 Pelger-Huet Anomaly Not Reportable 07/30/16 07:11 Sisi Rods Not Reportable 07/30/16 07:11 Platelet Estimate Not Reportable 07/30/16 07:11 Clumped Platelets Not Reportable 07/30/16 07:11 Plt Clumps, EDTA Not Reportable 07/30/16 07:11 Large Platelets Not Reportable 07/30/16 07:11 Giant Platelets Not Reportable 07/30/16 07:11 Platelet Satelliting Not Reportable 07/30/16 07:11 Plt Morphology Comment Not Reportable 07/30/16 07:11 RBC Morphology Not Reportable 07/30/16 07:11 Dimorphic RBCs Not Reportable 07/30/16 07:11 Polychromasia Not Reportable 07/30/16 07:11 Hypochromasia Not Reportable 07/30/16 07:11 Poikilocytosis Not Reportable 07/30/16 07:11 Anisocytosis 1+ 07/30/16 07:11 Microcytosis Not Reportable 07/30/16 07:11 Macrocytosis Not Reportable 07/30/16 07:11 Spherocytes Not Reportable 07/30/16 07:11 Pappenheimer Bodies Not Reportable 07/30/16 07:11 Sickle Cells Not Reportable 07/30/16 07:11 Target Cells Not Reportable 07/30/16 07:11 Tear Drop Cells Not Reportable 07/30/16 07:11 Ovalocytes Not Reportable 07/30/16 07:11 Helmet Cells Not Reportable 07/30/16 07:11 Fung-[place] Bodies Not Reportable 07/30/16 07:11 [place] Rings Not Reportable 07/30/16 07:11 [place] Cells Not Reportable 07/30/16 07:11 Bite Cells Not Reportable 07/30/16 07:11 Crenated Cell Not Reportable 07/30/16 07:11 Elliptocytes Not Reportable 07/30/16 07:11 Acanthocytes (Spur) Not Reportable 07/30/16 07:11 Rouleaux Not Reportable 07/30/16 07:11 Hemoglobin C Crystals Not Reportable 07/30/16 07:11 Schistocytes Not Reportable 07/30/16 07:11 Malaria parasites Not Reportable 07/30/16 07:11 Renny Bodies Not Reportable 07/30/16 07:11 Hem Pathologist Commnt No 07/30/16 07:11 Sodium 133 mmol/L (137-145) L 07/31/16 05:06 Potassium 4.0 mmol/L (3.6-5.0) D 07/31/16 05:06 Chloride 97.6 mmol/L (98-107) L 07/31/16 05:06 Carbon Dioxide 22 mmol/L (22-30) 07/31/16 05:06 Anion Gap 17 mmol/L 07/31/16 05:06 BUN 9 mg/dL (7-17) 07/31/16 05:06 Creatinine 0.6 mg/dL (0.7-1.2) L 07/31/16 05:06 Estimated GFR > 60 ml/min 07/31/16 05:06 BUN/Creatinine Ratio 15.00 % 07/31/16 05:06 Glucose 117 mg/dL (65-100) H 07/31/16 05:06 Calcium 7.6 mg/dL (8.4-10.2) L 07/31/16 05:06 Phosphorus 3.9 mg/dL (2.5-4.5) D 07/25/16 07:53 Magnesium 1.8 mg/dL (1.7-2.3) 07/28/16 15:53 Total Bilirubin 0.4 mg/dL (0.1-1.2) 07/30/16 07:11 AST 9 units/L (5-40) 07/30/16 07:11 ALT 7 units/L (7-56) 07/30/16 07:11 Alkaline Phosphatase 30 units/L (35-129) L 07/30/16 07:11 Total Protein 5.7 g/dL (6.3-8.2) L 07/30/16 07:11 Albumin 2.2 g/dL (3.9-5) L 07/30/16 07:11 Albumin/Globulin Ratio 0.6 % 07/30/16 07:11 Lipase 20 units/L (13-60) 07/29/16 06:26 Blood Type A POSITIVE 07/22/16 15:48 Antibody Screen Negative 07/22/16 15:48 Crossmatch See Detail 07/22/16 15:48
[2016-07-31] MEDS: REGLAN IV PRN (15:50)
--- NOTE | 2016-07-31 15:57 | Gastroenterology Progress Note ---
Assessment and Plan - Patient Problems (1) Left sided ulcerative colitis with rectal bleeding Current Visit: Yes Status: Acute Plan to address problem: Failing to improve and failing to thrive. Very poor PO intake. Patient complains that Zofran is causing nausea and that Lialda caused nausea and iron caused nausea. She appears depressed and was started on Zoloft. Will try Ativan for nausea, place on higher dose IV steroids. Stool c. diff was ordered yesterday. (2) Iron deficiency anemia due to chronic blood loss Current Visit: No Status: Acute (3) Nausea & vomiting Current Visit: No Status: Acute Qualifiers: Vomiting type: V Vomiting Intractability: V Subjective Date of service: 07/31/16 Principal diagnosis: Ulcerative Colitis Interval history: The patient reports feeling extremely weak and not eating anything. C/o nausea and continued diarrhea with blood, approximately 12/past 24 hours. Objective - Constitutional Vitals: Temp Pulse Resp BP Pulse Ox 98.6 F 80 18 113/63 97 07/31/16 07:45 07/31/16 09:12 07/31/16 09:12 07/31/16 07:45 07/31/16 07:45 General appearance: no acute distress - EENT ENT: hearing intact, clear oral mucosa, dentition normal - Respiratory Respiratory effort: normal Respiratory: bilateral: CTA - Cardiovascular Rhythm: regular - Gastrointestinal General gastrointestinal: Present: soft, non-tender, non-distended, normal bowel sounds - Neurologic Neurological: alert and oriented x3 - Psychiatric Psychiatric: depressed - Labs CBC & Chem 7: 07/31/16 05:06 07/31/16 05:06 Labs: Laboratory Results - last 24 hr 07/31/16 07/31/16 05:06 05:06 Hgb 9.1 L Hct 27.9 L Sodium 133 L Potassium 4.0 D Chloride 97.6 L Carbon Dioxide 22 Anion Gap 17 BUN 9 Creatinine 0.6 L Estimated GFR > 60 BUN/Creatinine Ratio 15.00 Glucose 117 H Calcium 7.6 L
[2016-07-31] MEDS ORDERED: ATIVAN PO PRN (16:06)
[2016-08-01 05:41] LABS: Hematocrit 30.7 % (30.3-42.9); Hemoglobin 9.8 gm/dl (10.1-14.3)
[2016-08-01 05:55] LABS: Anion Gap 19 mmol/L; BUN/Creatinine Ratio 16.66; Blood Urea Nitrogen 10 mg/dL (7-17); Carbon Dioxide 22 mmol/L (22-30); Chloride 94.8 mmol/L (98-107); Glucose 116 mg/dL (65-100); Potassium 4.5 mmol/L (3.6-5.0); Sodium 131 mmol/L (137-145)
[2016-08-01] MEDS: MIRACLE MIXTURE PO SCH ×3 (10:10→21:10)
[2016-08-01] MEDS: PEPCID PO SCH (10:44)
[2016-08-01] MEDS: MEGACE PO SCH (10:44)
[2016-08-01] MEDS: IMURAN PO SCH (10:44)
[2016-08-01] MEDS: K-DUR PO SCH (10:45)
[2016-08-01] MEDS: ZOLOFT PO SCH (10:45)
[2016-08-01] MEDS: THERAGRAN-M Tab PO SCH (10:45)
--- NOTE | 2016-08-01 10:45 | Gastroenterology Progress Note ---
Assessment and Plan - Patient Problems (1) Left sided ulcerative colitis with rectal bleeding Current Visit: Yes Status: Acute Plan to address problem: Improving with IV solumedrol. Stool C. diff is negative. Possibly home tomorrow if stable. Outpatient Remicade will be planned. (2) Iron deficiency anemia due to chronic blood loss Current Visit: No Status: Acute (3) Nausea & vomiting Current Visit: No Status: Acute Qualifiers: Vomiting type: V Vomiting Intractability: V Subjective Date of service: 08/01/16 Principal diagnosis: Ulcerative Colitis Interval history: The patient reports less frequent stools and less bleeding. No appetite still Objective - Constitutional Vitals: Temp Pulse Resp BP Pulse Ox 98.5 F 66 18 109/62 96 08/01/16 07:56 08/01/16 07:56 08/01/16 07:56 08/01/16 07:56 08/01/16 07:56 General appearance: no acute distress - EENT ENT: hearing intact, clear oral mucosa, dentition normal - Respiratory Respiratory effort: normal Respiratory: bilateral: CTA - Cardiovascular Rhythm: regular - Gastrointestinal General gastrointestinal: Present: soft, non-tender, non-distended, normal bowel sounds - Neurologic Neurological: alert and oriented x3 - Labs CBC & Chem 7: 08/01/16 05:01 08/01/16 05:01 Labs: Laboratory Results - last 24 hr 08/01/16 08/01/16 05:01 05:01 Hgb 9.8 L Hct 30.7 Sodium 131 L Potassium 4.5 Chloride 94.8 L Carbon Dioxide 22 Anion Gap 19 BUN 10 Creatinine 0.6 L Estimated GFR > 60 BUN/Creatinine Ratio 16.66 Glucose 116 H Calcium 8.0 L
[2016-08-01] MEDS ORDERED: NACL 0.45% 500 ML IV SCH (11:00)
[2016-08-01] MEDS: AZULFIDINE PO SCH ×2 (11:05→21:10)
--- NOTE | 2016-08-01 12:56 | Progress Note ---
Assessment and Plan Assessment and plan: bloody diarrhea secondary to ulcerative colitis Anemia secondary to bloody diarrhea Severe hypokalemia Weakness Depression - on IV fluids, Zofran - Potassium supplement - Potassium was 4 this morning - We'll check BMP in the morning - H&H stable - Continue solumedrol,sulfasalazine and imuran - GI consult appreciated - Patient is on sertraline and magace Disposition - Continue inpatient care - If continue to improve discharge tomorrow. History Interval history: Patient is getting slightly better, still has nausea, diarrhea is getting better. Hospitalist Physical - Physical exam Narrative exam: Not in cardiopulmonary distress. The patient appeared well nourished and normally developed. Vital signs as documented. Head exam is unremarkable. No scleral icterus . Neck is without jugular venous distension, thyromegaly, or carotid bruits. Lungs are clear to auscultation. Cardiac exam reveals regular rate and Rhythm. First and second heart sounds normal. No murmurs, rubs or gallops. Abdominal exam reveals normal bowel sounds, no masses, no organomegaly and no aortic enlargement. Extremities are nonedematous and both femoral and pedal pulses are normal. BOAT FUELER: Alert and oriented 3. No focal weakness. - Constitutional Vitals: Temp Pulse Resp BP Pulse Ox 98.5 F 66 18 109/62 96 08/01/16 07:56 08/01/16 07:56 08/01/16 07:56 08/01/16 07:56 08/01/16 07:56 General appearance: Present: mild distress, well-nourished, disheveled Results - Labs CBC & Chem 7: 08/01/16 05:01 08/01/16 05:01 Labs: Laboratory Last Values WBC 6.6 K/mm3 (4.5-11.0) 07/30/16 07:11 RBC 3.76 M/mm3 (3.65-5.03) 07/30/16 07:11 Hgb 9.8 gm/dl (10.1-14.3) L 08/01/16 05:01 Hct 30.7 % (30.3-42.9) 08/01/16 05:01 MCV 79 fl (79-97) 07/30/16 07:11 MCH 26 pg (28-32) L 07/30/16 07:11 MCHC 33 % (30-34) 07/30/16 07:11 RDW 20.2 % (13.2-15.2) H 07/30/16 07:11 Plt Count 197 K/mm3 (140-440) 07/30/16 07:11 Lymph % (Auto) 11.2 % (13.4-35.0) L 07/27/16 06:42 [place] % (Auto) 6.6 % (0.0-7.3) 07/27/16 06:42 Eos % (Auto) 0.0 % (0.0-4.3) 07/27/16 06:42 Baso % (Auto) 0.1 % (0.0-1.8) 07/27/16 06:42 Lymph # 1.1 K/mm3 (1.2-5.4) L 07/27/16 06:42 [place] # 0.6 K/mm3 (0.0-0.8) 07/27/16 06:42 Eos # 0.0 K/mm3 (0.0-0.4) 07/27/16 06:42 Baso # 0.0 K/mm3 (0.0-0.1) 07/27/16 06:42 Add Manual Diff Complete 07/30/16 07:11 Total Counted 100 07/30/16 07:11 Seg Neutrophils % 82.1 % (40.0-70.0) H 07/27/16 06:42 Seg Neuts % (Manual) 50.0 % (40.0-70.0) 07/30/16 07:11 Band Neutrophils % 24.0 % 07/30/16 07:11 Lymphocytes % (Manual) 16 % (13.4-35.0) 07/30/16 07:11 Reactive Lymphs % (Man) 0 % 07/30/16 07:11 Monocytes % (Manual) 10 % (0.0-7.3) H 07/30/16 07:11 Eosinophils % (Manual) 0 % (0.0-4.3) 07/30/16 07:11 Basophils % (Manual) 0 % (0.0-1.8) 07/30/16 07:11 Metamyelocytes % 0 % 07/30/16 07:11 Myelocytes % 0 % 07/30/16 07:11 Promyelocytes % 0 % 07/30/16 07:11 Blast Cells % 0 % 07/30/16 07:11 Nucleated RBC % Not Reportable 07/30/16 07:11 Seg Neutrophils # 7.7 K/mm3 (1.8-7.7) 07/27/16 06:42 Seg Neutrophils # Man 3.3 K/mm3 (1.8-7.7) 07/30/16 07:11 Band Neutrophils # 1.6 K/mm3 07/30/16 07:11 Lymphocytes # (Manual) 0.7 K/mm3 (1.2-5.4) L 07/30/16 07:11 Abs React Lymphs (Man) 0.0 K/mm3 07/30/16 07:11 Monocytes # (Manual) 1.1 K/mm3 (0.0-0.8) H 07/30/16 07:11 Eosinophils # (Manual) 0.0 K/mm3 (0.0-0.4) 07/30/16 07:11 Basophils # (Manual) 0.0 K/mm3 (0.0-0.1) 07/30/16 07:11 Metamyelocytes # 0.0 K/mm3 07/30/16 07:11 Myelocytes # 0.0 K/mm3 07/30/16 07:11 Promyelocytes # 0.0 K/mm3 07/30/16 07:11 Blast Cells # 0.0 K/mm3 07/30/16 07:11 WBC Morphology Not Reportable 07/30/16 07:11 Hypersegmented Neuts Not Reportable 07/30/16 07:11 Hyposegmented Neuts Not Reportable 07/30/16 07:11 Hypogranular Neuts Not Reportable 07/30/16 07:11 Smudge Cells Not Reportable 07/30/16 07:11 Toxic Granulation Not Reportable 07/30/16 07:11 Toxic Vacuolation Not Reportable 07/30/16 07:11 Dohle Bodies Not Reportable 07/30/16 07:11 Pelger-Huet Anomaly Not Reportable 07/30/16 07:11 Sisi Rods Not Reportable 07/30/16 07:11 Platelet Estimate Not Reportable 07/30/16 07:11 Clumped Platelets Not Reportable 07/30/16 07:11 Plt Clumps, EDTA Not Reportable 07/30/16 07:11 Large Platelets Not Reportable 07/30/16 07:11 Giant Platelets Not Reportable 07/30/16 07:11 Platelet Satelliting Not Reportable 07/30/16 07:11 Plt Morphology Comment Not Reportable 07/30/16 07:11 RBC Morphology Not Reportable 07/30/16 07:11 Dimorphic RBCs Not Reportable 07/30/16 07:11 Polychromasia Not Reportable 07/30/16 07:11 Hypochromasia Not Reportable 07/30/16 07:11 Poikilocytosis Not Reportable 07/30/16 07:11 Anisocytosis 1+ 07/30/16 07:11 Microcytosis Not Reportable 07/30/16 07:11 Macrocytosis Not Reportable 07/30/16 07:11 Spherocytes Not Reportable 07/30/16 07:11 Pappenheimer Bodies Not Reportable 07/30/16 07:11 Sickle Cells Not Reportable 07/30/16 07:11 Target Cells Not Reportable 07/30/16 07:11 Tear Drop Cells Not Reportable 07/30/16 07:11 Ovalocytes Not Reportable 07/30/16 07:11 Helmet Cells Not Reportable 07/30/16 07:11 Fugn-Kittredge Bodies Not Reportable 07/30/16 07:11 [place] Rings Not Reportable 07/30/16 07:11 Courtney Cells Not Reportable 07/30/16 07:11 Bite Cells Not Reportable 07/30/16 07:11 Crenated Cell Not Reportable 07/30/16 07:11 Elliptocytes Not Reportable 07/30/16 07:11 Acanthocytes (Spur) Not Reportable 07/30/16 07:11 Rouleaux Not Reportable 07/30/16 07:11 Hemoglobin C Crystals Not Reportable 07/30/16 07:11 Schistocytes Not Reportable 07/30/16 07:11 Malaria parasites Not Reportable 07/30/16 07:11 Renny Bodies Not Reportable 07/30/16 07:11 Hem Pathologist Commnt No 07/30/16 07:11 Sodium 131 mmol/L (137-145) L 08/01/16 05:01 Potassium 4.5 mmol/L (3.6-5.0) 08/01/16 05:01 Chloride 94.8 mmol/L (98-107) L 08/01/16 05:01 Carbon Dioxide 22 mmol/L (22-30) 08/01/16 05:01 Anion Gap 19 mmol/L 08/01/16 05:01 BUN 10 mg/dL (7-17) 08/01/16 05:01 Creatinine 0.6 mg/dL (0.7-1.2) L 08/01/16 05:01 Estimated GFR > 60 ml/min 08/01/16 05:01 BUN/Creatinine Ratio 16.66 % 08/01/16 05:01 Glucose 116 mg/dL (65-100) H 08/01/16 05:01 Calcium 8.0 mg/dL (8.4-10.2) L 08/01/16 05:01 Phosphorus 3.9 mg/dL (2.5-4.5) D 07/25/16 07:53 Magnesium 1.8 mg/dL (1.7-2.3) 07/28/16 15:53 Total Bilirubin 0.4 mg/dL (0.1-1.2) 07/30/16 07:11 AST 9 units/L (5-40) 07/30/16 07:11 ALT 7 units/L (7-56) 07/30/16 07:11 Alkaline Phosphatase 30 units/L (35-129) L 07/30/16 07:11 Total Protein 5.7 g/dL (6.3-8.2) L 07/30/16 07:11 Albumin 2.2 g/dL (3.9-5) L 07/30/16 07:11 Albumin/Globulin Ratio 0.6 % 07/30/16 07:11 Lipase 20 units/L (13-60) 07/29/16 06:26 Blood Type A POSITIVE 07/22/16 15:48 Antibody Screen Negative 07/22/16 15:48 Crossmatch See Detail 07/22/16 15:48
[2016-08-01] MEDS: NACL 0.45% 1000 ML 1,000 ML IV SCH (14:23)
[2016-08-02] MEDS: NACL 0.45% 1000 ML 1,000 ML IV SCH (04:24)
[2016-08-02 06:14] LABS: Basophils % (Auto) 0.2 % (0.0-1.8); Hematocrit 28.8 % (30.3-42.9); Hemoglobin 9.3 gm/dl (10.1-14.3); Mean Corpuscular HGB Conc 32 % (30-34); Mean Corpuscular Hemoglobin 26 pg (28-32); Mean Corpuscular Volume 81 fl (79-97); Platelet Count 193 K/mm3 (140-440); Red Blood Count 3.55 M/mm3 (3.65-5.03); White Blood Count 10.6 K/mm3 (4.5-11.0)
[2016-08-02 06:21] LABS: Anion Gap 17 mmol/L; BUN/Creatinine Ratio 18.33; Blood Urea Nitrogen 11 mg/dL (7-17); Calcium 8.1 mg/dL (8.4-10.2); Carbon Dioxide 22 mmol/L (22-30); Chloride 95.5 mmol/L (98-107); Glucose 120 mg/dL (65-100); Potassium 4.3 mmol/L (3.6-5.0); Sodium 130 mmol/L (137-145)
[2016-08-02 06:30] LABS: Red Cell Distribution Width 20.4 % (13.2-15.2)
[2016-08-02] MEDS: PEPCID PO SCH (10:00)
[2016-08-02] MEDS: MIRACLE MIXTURE PO SCH (10:00)
[2016-08-02] MEDS: K-DUR PO SCH (10:01)
[2016-08-02] MEDS: MEGACE PO SCH (10:02)
--- NOTE | 2016-08-02 10:07 | Discharge Summary ---
Providers - Providers Date of Admission: 07/24/16 14:24 Attending physician: LOVELY TOBIAS MD 07/24/16 15:01 Consult to Physician [CONS] Routine Consulting Provider: RAUL HINES Reason For Exam: rectal bleeding/ulcerative colitis Place consult to:: DR.C. HINES Notified:: [facility] Phone number called:: [phone] Was contact made?: Yes If yes, spoke with:: IKE Time called:: 08:38 Comment:: LINDA NOTIFIED 07/28/16 14:28 Consult to Dietitian/Nutrition [CONS] Routine Physician Instructions: Reason For Exam: Reason for Consult: Malnutrition Primary care physician: MANAGER [employer] Hospitalization Condition: Stable Hospital course: bloody diarrhea secondary to ulcerative colitis Anemia secondary to bloody diarrhea Severe hypokalemia Weakness Depression - on IV fluids, Zofran - Potassium supplement - Potassium was 4 this morning - We'll check BMP in the morning - H&H stable - Continue solumedrol,sulfasalazine and imuran - GI consult appreciated - Patient is on sertraline and magace Disposition - Continue inpatient care - If continue to improve discharge tomorrow. Disposition: DISCHARGED TO HOME OR SELFCARE Time spent for discharge: 35 minutes Core Measure Documentation - Palliative Care Palliative Care/ Comfort Measures: Not Applicable - Core Measures Any of the following diagnoses?: none Exam - Constitutional Vitals: Temp Pulse Resp BP Pulse Ox 98.3 F 77 18 114/64 97 08/02/16 07:17 08/02/16 07:17 08/02/16 07:17 08/02/16 07:17 08/02/16 07:17 General appearance: Present: no acute distress, well-nourished - EENT Eyes: Present: PERRL ENT: hearing intact, clear oral mucosa - Neck Neck: Present: supple, normal ROM - Respiratory Respiratory effort: normal Respiratory: bilateral: CTA - Cardiovascular Heart Sounds: Present: S1 & S2. Absent: rub, click - Extremities Extremities: pulses symmetrical, No edema Peripheral Pulses: within normal limits - Abdominal General gastrointestinal: Present: soft, non-tender, non-distended, normal bowel sounds Female genitourinary: Present: normal - Integumentary Integumentary: Present: clear, warm, dry - Musculoskeletal Musculoskeletal: gait normal, strength equal bilaterally - Psychiatric Psychiatric: appropriate mood/affect, intact judgment & insight - Neurologic Neurologic: CNII-XII intact, moves all extremities Plan Follow up with: PRIMARY CARE,MD [Primary Care Provider] - 3-5 Days Prescriptions: azaTHIOprine [Imuran] 50 mg PO QDAY #30 tablet Megestrol [Megace] 400 mg PO QDAY #30 oral.liqd Multivitamin Tab W-MINERAL [Multiple Vitamin/Mineral (Theragran M)] 1 each PO QDAY #30 tablet Ondansetron [Zofran Odt] 4 mg PO Q8H PRN #30 tab.rapdis PRN Reason: Nausea Prednisone [predniSONE 10 mg (6-Day Pack, 21 Tabs)] 10 mg PO .TAPER #1 tab.ds.pk sulfaSALAzine [Azulfidine] 500 mg PO Q12HR #60 tablet
[2016-08-02] MEDS: AZULFIDINE PO SCH (11:22)
[2016-08-02] MEDS: THERAGRAN-M Tab PO SCH (11:22)
[2016-08-02] MEDS: ZOLOFT PO SCH (11:22)
[2016-08-02] MEDS: IMURAN PO SCH (11:23)
--- NOTE | 2016-08-02 11:53 | Gastroenterology Progress Note ---
Assessment and Plan - Patient Problems (1) Left sided ulcerative colitis with rectal bleeding Current Visit: Yes Status: Acute Plan to address problem: Improved. Care discussed with patient and hospitalist. She will go home today on Prednisone 40mg daily, Imuran 50mg daily, Azulfidine 500mg BID. Office f/u in 2 weeks. Remicade will be arranged from office visit. (2) Iron deficiency anemia due to chronic blood loss Current Visit: No Status: Acute (3) Nausea & vomiting Current Visit: No Status: Acute Qualifiers: Vomiting type: V Vomiting Intractability: V Subjective Date of service: 08/02/16 Principal diagnosis: Ulcerative Colitis Interval history: The patient reports a little improvement in intake, less diarrhea and bleeding. Appetite is still poor, but no vomiting. Objective - Constitutional Vitals: Temp Pulse Resp BP Pulse Ox 98.3 F 77 18 114/64 97 08/02/16 07:17 08/02/16 07:17 08/02/16 07:17 08/02/16 07:17 08/02/16 07:17 General appearance: no acute distress - EENT ENT: hearing intact, clear oral mucosa, dentition normal - Neck Neck: supple, normal ROM - Respiratory Respiratory effort: normal Respiratory: bilateral: CTA - Cardiovascular Rhythm: regular - Gastrointestinal General gastrointestinal: Present: soft, non-tender, non-distended, normal bowel sounds - Neurologic Neurological: alert and oriented x3 - Labs CBC & Chem 7: 08/02/16 05:41 08/02/16 05:41 Labs: Laboratory Results - last 24 hr 07/27/16 08/02/16 08/02/16 06:42 05:41 05:41 WBC 10.6 RBC 3.55 L Hgb 9.3 L Hct 28.8 L MCV 81 MCH 26 L MCHC 32 RDW 20.4 H Plt Count 193 Lymph % (Auto) 8.6 L [place] % (Auto) 5.5 Eos % (Auto) 0.0 Baso % (Auto) 0.2 Lymph # 0.9 L [place] # 0.6 Eos # 0.0 Baso # 0.0 Seg Neutrophils % 85.7 H Seg Neutrophils # 9.1 H Sodium 130 L Potassium 4.3 Chloride 95.5 L Carbon Dioxide 22 Anion Gap 17 BUN 11 Creatinine 0.6 L Estimated GFR > 60 BUN/Creatinine Ratio 18.33 Glucose 120 H Calcium 8.1 L CMV DNA PCR log pipe fitter soft copper/mL See scanned report
[2016-08-02 13:09] VITALS: BP 101/59
== END 2016-08-02 14:25 | disposition home or self-care (01) | DRG 385 ==
LOC: ED 12:12 → 3A 14:24 → EEVIPCON 14:24 → 3A 16:47
PROVIDERS: ADMIT Internal Medicine; ATTEND Internal Medicine
PROC: 30233N1 Transfusion of Nonautologous Red Blood Cells into Peripheral Vein, Percutaneous Approach (ICD-10-PCS; principal; 2016-07-24)
DX: K51.911 Ulcerative colitis, unspecified with rectal bleeding (principal); E43 Unspecified severe protein-calorie malnutrition; E87.1 Hypo-osmolality and hyponatremia; D62 Acute posthemorrhagic anemia; Z68.1 Body mass index [BMI] 19.9 or less, adult; I95.9 Hypotension, unspecified; R62.7 Adult failure to thrive; E87.6 Hypokalemia; M85.80 Other specified disorders of bone density and structure, unspecified site; E83.39 Other disorders of phosphorus metabolism; E83.42 Hypomagnesemia; F32.9 Major depressive disorder, single episode, unspecified; Z88.8 Allergy status to other drugs, medicaments and biological substances; Z91.040 Latex allergy status; Z82.49 Family history of ischemic heart disease and other diseases of the circulatory system; Z91.048 Other nonmedicinal substance allergy status; Z79.899 Other long term (current) drug therapy; T45.0X5A Adverse effect of antiallergic and antiemetic drugs, initial encounter; Y92.89 Other specified places as the place of occurrence of the external cause
CPT/HCPCS: 36415; 71020; 80048; 80053; 83690; 83735; 84100; 84132; 85007; 85014; 85018; 85025; 85027; 86850; 86900; 86901; 86920; 87493; 87497; 93005; 93010; 96360; 96361; C9113; J1956; J2405; J2765; J2920; J3475; J3480; J7030; J7040; J7500; J7512; P9040

== ENCOUNTER 2016-07-25 08:00 | Outpatient (CLI) | payer BC ==
[2016-07-22 15:52] LABS: Hematocrit 27.2 % (30.3-42.9); Hemoglobin 8.8 gm/dl (10.1-14.3)
[~2016-07-25 08:00] MED LIST: NACL 0.9% 1000 ML 1,000 ML ONE
--- NOTE | 2016-07-26 03:29 | Consultation ---
REFERRING PHYSICIAN: Antonio Johnson MD INDICATIONS: 1. Rectal bleeding. 2. Ulcerative colitis. HISTORY OF PRESENT ILLNESS: The patient is a 66-year-old white female with a history of ulcerative colitis and has been seen by Dr. Stovall in the past. The patient reports last colonoscopy was in March of last year. At that time, the patient was started on Lialda. Lialda seemingly helped with symptoms, but the patient developed nausea and vomiting, which she ascribed to the medications. She was recently admitted and discharged last week. The patient reports that she has continued to have some rectal bleeding with bowel movements. She reports about 5-10 bowel movements per day. The patient was discharged on prednisone taper which she tapered over 1 week to off. The initial plan was for her to taper by 10 mg per week. The patient subsequently came to Emergency Room because she felt weak and dizzy. Her hemoglobin was found to be 8.8. She was subsequently admitted and GI consulted. She reports her main concern right now for low potassium. She denies any fevers or chills. She reports no other specific complaints. PAST MEDICAL HISTORY: 1. Ulcerative colitis. 2. Anemia. MEDICATIONS: See chart. ALLERGIES: No known drug allergies. SOCIAL HISTORY: Denies alcohol, tobacco, or IV drug abuse. FAMILY HISTORY: Negative for colon cancer, IBD, or liver disease. REVIEW OF SYSTEMS: GENERAL: Reports mild weakness. HEENT: No visual complaints or tinnitus. PULMONARY: No shortness of breath. CARDIOVASCULAR: No chest pain. GASTROINTESTINAL: Reports rectal bleeding. All points of 13-point review of systems otherwise negative. PHYSICAL EXAMINATION: VITAL SIGNS: Temperature of 98.1, pulse 62, respirations 18, blood pressure 110/53. GENERAL: Fairly thin concerned-appearing white female, in no acute distress. HEENT: Pupils equal, round, reactive to light and accommodation. Extraocular muscles intact. PULMONARY: Clear to auscultation bilaterally. CARDIOVASCULAR: Regular rate and rhythm. Normal S1, S2. ABDOMEN: Positive bowel sounds. Soft. Mild lower abdominal discomfort, no guarding, no rebound. SKIN: No obvious rashes LABORATORY DATA: Pertinent for white count of 14.4, hemoglobin and hematocrit of 8.8 and 27.5, platelet count of 303. Chem-7 pertinent for initial potassium of 2.4, now 3.3, otherwise within normal limits. LFTs within normal limits. ASSESSMENT AND PLAN: A 66-year-old female with a history of ulcerative colitis who was admitted recently for complaints of nausea, vomiting which she ascribed to Lialda, now presents with weakness and continued rectal bleeding. The patient's rectal bleeding seems to be fairly stable. Her hemoglobin and hematocrit has not decreased, but has actually increased since being admitted. The patient may still be in a UC flare up. Management as noted below. PLAN: 1. We will review office chart especially for previous colonoscopy. 2. Continue current diet. 3. We would restart prednisone 40 mg p.o. daily. 4. Potassium management per primary team. 5. No plans to scope at this time. 6. Advance diet based on progress. 7. Continue Bentyl 12 mg p.o. q.8h. p.r.n. 8. Further recommendation based on progress. JOB# [id number] NADINE/JAVI CORBETT
== END 2016-07-25 15:13 | disposition home or self-care (01) ==
LOC: LAB 08:00
PROVIDERS: ATTEND Internal Medicine Hematology & Oncology
DX: D64.9 Anemia, unspecified (principal)
CPT/HCPCS: 36415; 85014; 85018; 86850; 86900; 86901; 86920; J7030

== ENCOUNTER 2016-08-08 19:38 | Emergency (ER) | payer BC ==
[2016-08-08 20:58] VITALS: BP 92/64
[2016-08-08 22:05] LABS: Alanine Aminotransferase 44 units/L (7-56); Albumin 2.5 g/dL (3.9-5); Albumin/Globulin Ratio 0.6 %; Alkaline Phosphatase 72 units/L (35-129); Anion Gap 21 mmol/L; Bilirubin,Total 0.4 mg/dL (0.1-1.2); Blood Urea Nitrogen 18 mg/dL (7-17); Calcium 8.5 mg/dL (8.4-10.2); Carbon Dioxide 23 mmol/L (22-30); Chloride 82.8 mmol/L (98-107); Glucose 130 mg/dL (65-100); Lipase 26 units/L (13-60); Potassium 3.8 mmol/L (3.6-5.0); Sodium 123 mmol/L (137-145); Total Protein 6.8 g/dL (6.3-8.2)
[2016-08-08 22:06] LABS: Basophils % (Auto) 0.1 % (0.0-1.8); Hematocrit 27.1 % (30.3-42.9); Hemoglobin 8.9 gm/dl (10.1-14.3); Mean Corpuscular HGB Conc 33 % (30-34); Mean Corpuscular Hemoglobin 26 pg (28-32); Mean Corpuscular Volume 79 fl (79-97); Platelet Count 243 K/mm3 (140-440); Red Blood Count 3.42 M/mm3 (3.65-5.03); Red Cell Distribution Width 21.1 % (13.2-15.2); White Blood Count 9.5 K/mm3 (4.5-11.0)
--- NOTE | 2016-08-09 14:14 | ED Elopement Review ---
ED Pt Elopement review - Results review Lab results: Laboratory Tests 08/08/16 08/08/16 21:11 21:11 WBC 9.5 RBC 3.42 L Hgb 8.9 L Hct 27.1 L MCV 79 MCH 26 L MCHC 33 RDW 21.1 H Plt Count 243 Lymph % (Auto) 11.0 L [place] % (Auto) 3.1 Eos % (Auto) 0.0 Baso % (Auto) 0.1 Lymph # 1.0 L [place] # 0.3 Eos # 0.0 Baso # 0.0 Seg Neutrophils % 85.8 H Seg Neutrophils # 8.2 H Sodium 123 L Potassium 3.8 Chloride 82.8 L Carbon Dioxide 23 Anion Gap 21 BUN 18 H Creatinine 0.8 Estimated GFR > 60 BUN/Creatinine Ratio 22.50 Glucose 130 H Calcium 8.5 Total Bilirubin 0.4 AST 25 ALT 44 Alkaline Phosphatase 72 Total Protein 6.8 Albumin 2.5 L Albumin/Globulin Ratio 0.6 Lipase 26 - Call Back decision Pt Call Back Decision: Call pt to return to ED [facility] (hypotension and hyponatremia should be addressed)
== END 2016-08-09 01:35 | disposition left against medical advice (07) ==
LOC: ED 19:38 → EEVIPCON 19:38 → ED 08-09 01:35
DX: R53.1 Weakness (principal); R06.02 Shortness of breath; Z53.21 Procedure and treatment not carried out due to patient leaving prior to being seen by health care provider
CPT/HCPCS: 36415; 80053; 83690; 85025

== ENCOUNTER 2016-10-14 10:46 | Outpatient (CLI) | payer BC ==
[2016-10-14 11:43] LABS: Mean Corpuscular HGB Conc 33 % (30-34); Mean Corpuscular Hemoglobin 31 pg (28-32); Mean Corpuscular Volume 93 fl (79-97); Platelet Count 402 K/mm3 (140-440); Red Blood Count 3.56 M/mm3 (3.65-5.03); White Blood Count 8.4 K/mm3 (4.5-11.0)
[2016-10-14 11:56] LABS: Alanine Aminotransferase 26 units/L (7-56); Albumin 2.6 g/dL (3.9-5); Albumin/Globulin Ratio 0.7 %; Alkaline Phosphatase 81 units/L (35-129); Anion Gap 16 mmol/L; Blood Urea Nitrogen 9 mg/dL (7-17); Calcium 8.2 mg/dL (8.4-10.2); Carbon Dioxide 22 mmol/L (22-30); Chloride 99.3 mmol/L (98-107); Glucose 85 mg/dL (65-100); Potassium 3.9 mmol/L (3.6-5.0); Sodium 133 mmol/L (137-145); Total Protein 6.3 g/dL (6.3-8.2)
== END 2016-10-14 10:47 | disposition home or self-care (01) ==
LOC: LAB 10:46
PROVIDERS: ATTEND Internal Medicine
DX: K52.9 Noninfective gastroenteritis and colitis, unspecified (principal); D64.9 Anemia, unspecified; Z79.899 Other long term (current) drug therapy
CPT/HCPCS: 36415; 80053; 84443; 85027

== ENCOUNTER 2016-10-31 12:47 | Outpatient (CLI) | payer BC ==
[2016-10-31 13:29] LABS: INR 0.87 (0.87-1.13)
[2016-10-31 13:30] LABS: Partial Thromboplastin Time 30.8 Sec. (24.2-36.6); Potassium 3.9 mmol/L (3.6-5.0)
== END 2016-10-31 12:48 | disposition home or self-care (01) ==
LOC: LAB 12:47
PROVIDERS: ATTEND Internal Medicine
DX: E11.65 Type 2 diabetes mellitus with hyperglycemia (principal); E87.6 Hypokalemia; E89.1 Postprocedural hypoinsulinemia; D64.9 Anemia, unspecified; Z79.01 Long term (current) use of anticoagulants
CPT/HCPCS: 36415; 83036; 84132; 84295; 85610; 85730

== ENCOUNTER 2016-11-21 09:07 | Outpatient (CLI) | payer BC ==
[2016-11-21 09:46] LABS: Hematocrit 28.9 % (30.3-42.9); Hemoglobin 9.8 gm/dl (10.1-14.3); Mean Corpuscular HGB Conc 34 % (30-34); Mean Corpuscular Hemoglobin 32 pg (28-32); Mean Corpuscular Volume 95 fl (79-97); Platelet Count 371 K/mm3 (140-440); Red Blood Count 3.05 M/mm3 (3.65-5.03); White Blood Count 8.9 K/mm3 (4.5-11.0)
[2016-11-21 09:56] LABS: Anion Gap 19 mmol/L; BUN/Creatinine Ratio 11.66; Blood Urea Nitrogen 7 mg/dL (7-17); Calcium 8.7 mg/dL (8.4-10.2); Carbon Dioxide 24 mmol/L (22-30); Chloride 95.9 mmol/L (98-107); Glucose 129 mg/dL (65-100); Potassium 3.8 mmol/L (3.6-5.0); Sodium 135 mmol/L (137-145)
== END 2016-11-21 09:08 | disposition home or self-care (01) ==
LOC: LAB 09:07
PROVIDERS: ATTEND Internal Medicine
DX: I82.402 Acute embolism and thrombosis of unspecified deep veins of left lower extremity (principal); E87.0 Hyperosmolality and hypernatremia; R53.83 Other fatigue; R19.7 Diarrhea, unspecified; D64.9 Anemia, unspecified
CPT/HCPCS: 36415; 80048; 85027; 85730

== ENCOUNTER 2016-12-02 20:26 | Inpatient (IN) | payer BC, OTHER ==
[2016-12-02] MEDS ORDERED: NACL 0.9% 1000 ML 1,000 ML IV ONE ×2 (20:53→20:54)
--- NOTE | 2016-12-02 21:00 | Emergency Department Report ---
HPI - General Chief Complaint: Weakness Time Seen by Provider: 12/02/16 20:40 - HPI HPI: This is a 66-year-old female presents to the emergency department from home with complaint of a low blood pressure, dizziness as if she is going to pass out, generalized weakness. Patient says she has a history of ulcerative colitis and it causes some chronic rectal bleeding. She also has a history of lower extremity DVT and is on Eloquist. Patient says that she has required multiple transfusions. She says she has been admitted about 7 times since June between [facility] and [facility] for different complaints and/or diagnosis. Her primary care physician is Dr. Luis and her sourcing associate is Dr. Stovall. She did not take anything for symptoms prior to presentation. No recent travel or sick contacts at home. ED Past Medical Hx - Past Medical History Hx Congestive Heart Failure: No Hx Diabetes: No Hx Headaches / Migraines: Yes Hx Asthma: No Hx COPD: No Additional medical history: Left bundle branch block, ulcerative colitis. OSTEOPENIA - Surgical History Additional Surgical History: COLONOSCOPY - Social History Smoking Status: Never Smoker Substance Use Type: None - Medications Home Medications: Home Medications Medication Instructions Recorded Confirmed Last Taken Type Megestrol [Megace] 400 mg PO QDAY #30 oral.liqd 08/02/16 10/06/16 Unknown Rx Multivitamin Tab W-MINERAL 1 each PO QDAY #30 tablet 08/02/16 10/06/16 Unknown Rx [Multiple Vitamin/Mineral (Theragran M)] Ondansetron [Zofran Odt] 4 mg PO Q8H PRN #30 tab.rapdis 08/02/16 10/06/16 Unknown Rx Sertraline [Zoloft] 25 mg PO QDAY tablet 08/02/16 10/06/16 Unknown Rx azaTHIOprine [Imuran] 50 mg PO QDAY #30 tablet 08/02/16 10/06/16 Unknown Rx sulfaSALAzine [Azulfidine] 500 mg PO Q12HR #60 tablet 08/02/16 10/06/16 Unknown Rx Cholecalciferol Vit D3 [Vitamin D3] 800 unit PO QDAY 09/29/16 10/06/16 1 Day Ago History 2 tab Dicyclomine [Bentyl] 10 mg PO QID PRN 09/29/16 10/06/16 1 Day Ago History metroNIDAZOLE [Flagyl TAB] 500 mg PO Q8HR #14 day 09/29/16 10/06/16 Unknown Rx predniSONE [Deltasone] 40 mg PO QDAY tablet 10/09/16 Unknown Rx Apixaban [Eliquis] 5 mg PO Q12HR #60 tablet 10/18/16 Unknown Rx ED Review of Systems ROS: Stated complaint: LOW B/P, NAUSEA, WEAK Other details as noted in HPI Comment: All other systems reviewed and negative Constitutional: weakness. denies: fever Eyes: denies: eye pain, eye discharge, vision change ENT: denies: ear pain, throat pain Respiratory: denies: cough, shortness of breath, wheezing Cardiovascular: denies: chest pain, palpitations Gastrointestinal: nausea, vomiting Genitourinary: denies: hematuria, discharge Musculoskeletal: denies: back pain, joint swelling, arthralgia Skin: denies: rash, lesions Neurological: weakness, other (dizziness). denies: headache, numbness, paresthesias Physical Exam - Physical Exam Vital Signs: Vital Signs 12/02/16 20:39 Temperature 97.4 F L Pulse Rate 132 H Respiratory 18 Rate Blood Pressure 109/66 Physical Exam: GENERAL: Patient appears frail and older than stated age. HEENT: Normocephalic. Atraumatic. Extraocular motions are intact. Patient has moist mucous membranes. Pupils equal reactive to light bilaterally. No nystagmus. NECK: Supple. Trachea is midline. CHEST/LUNGS: Clear to auscultation. There is no respiratory distress noted. HEART/CARDIOVASCULAR: Regular. There is mild to moderate tachycardia. There is no gallop rub or murmur. ABDOMEN: Abdomen is soft, nontender. Patient has normal bowel sounds. There is no abdominal distention. SKIN: Skin is warm and dry. NEURO: The patient is awake, alert, and oriented. The patient is cooperative. The patient has no focal neurologic deficits. The patient has normal speech. Cranial nerves II through XII grossly intact. MUSCULOSKELETAL: There is no tenderness or deformity. There is no limitation range of motion. There is no evidence of acute injury. Radial pulses 2 over 4 bilaterally. ED Course Vital Signs 12/02/16 20:39 Temperature 97.4 F L Pulse Rate 132 H Respiratory 18 Rate Blood Pressure 109/66 ED Medical Decision Making - Lab Data Result diagrams: 12/03/16 04:05 12/03/16 04:05 - EKG Data -: EKG Interpreted by Me EKG shows normal: sinus rhythm, axis (LAD), intervals, QRS complexes ( incomplete left bundle branch block) Rate: tachycardia (134 bpm) - EKG Data When compared to previous EKG there are: no significant change Interpretation: unchanged when compared t (10/16/16) - Radiology Data Radiology results: report reviewed, image reviewed interpreted by me: Chest x-ray did not show any acute process. Heart is normal shape and size. No effusions. No pneumothorax. No signs of pneumonia seen. CT of the head does not show any acute process including no hemorrhage, mass, shift, diffuse edema or skull fracture. - Medical Decision Making This is a 66-year-old female who presents to the emergency department with hypotension, tachycardia and complaints of some generalized weakness and dizziness. EKG does not show any signs of ST elevation [place], ischemia or dysrhythmia. CT of the head does not show any acute process. Her labs show a mild leukocytosis, anemia with hemoglobin of 9, hyponatremia, hypokalemia, lactic acidosis and eventually her urinalysis showed a very mild urinary tract infection. She presents with a fever and with the abnormal vitals and labs, the patient is Sirs criteria and his sepsis if you consider her urinary tract infection to be the source. Blood and urine cultures were sent and the patient was started on antibiotics. She was given multiple liters of IV fluid resuscitation for hypotension and for sepsis. The patient continued to have a labile blood pressure. Sometimes she will go into the high 70s and other time she will be in the high 90s but she never had any decreased mentation. The patient has been getting up multiple times to continue having a bowel movement secondary to her ulcerative colitis. The plan was going to be to place a central line for pressors but each time I spoke to the patient about it or went to sit up for the procedure, the patient's blood pressure was up in the high 90s with a map greater than 65 and given the patient's mentation it was not indicated to do a central line at this time. A repeat CBC was done around 4 AM that showed a hemoglobin of around 6.8. This is partially from dilution secondary to the 3 L of IV fluid given but also may be due to the patient's ulcerative colitis. 3 units of packed red blood cells were ordered by the hospitalist to be transfused that will most likely help with the patient's hypotension. She will go to the ICU for further evaluation. - Differential Diagnosis sepsis, Sirs criteria, UTI, pneumonia, TIA, [place] Critical Care Time: Yes Critical care time in (mins) excluding proc time.: 35 Critical care attestation.: If time is entered above; I have spent that time in minutes in the direct care of this critically ill patient, excluding procedure time. Critical care time spent on this patient and doing her initial evaluation, multiple re-evaluations , ordering and interpretation of labs, ordering and interpretation of imaging, IV fluid resuscitation, multiple discussions with the admitting hospitalist, discussions with the patient and family and disposition planning. Critical Care Time: 35 mins ED Disposition Clinical Impression: Dehydration, Hyponatremia, Hypokalemia, Dizziness Hypotension Qualifiers: Hypotension type: unspecified hypotension type Qualified Code(s): I95.9 - Hypotension, unspecified Sepsis Qualifiers: Sepsis type: sepsis due to unspecified organism Qualified Code(s): A41.9 - Sepsis, unspecified organism Anemia Qualifiers: Anemia type: unspecified type Qualified Code(s): D64.9 - Anemia, unspecified Ulcerative colitis Qualifiers: Ulcerative colitis location: unspecified ulcerative colitis location Digestive disease complication type: unspecified complication Qualified Code(s): K51.919 - Ulcerative colitis, unspecified with unspecified complications UTI (urinary tract infection) Qualifiers: Urinary tract infection type: acute cystitis Hematuria presence: without hematuria Qualified Code(s): N30.00 - Acute cystitis without hematuria Disposition: OP ADMIT IP TO THIS HOSP Is pt being admited?: Yes Condition: Serious Time of Disposition: 06:40
[2016-12-02 21:22] LABS: Hematocrit 27.6 % (30.3-42.9); Hemoglobin 9.2 gm/dl (10.1-14.3); Mean Corpuscular HGB Conc 33 % (30-34); Mean Corpuscular Hemoglobin 31 pg (28-32); Mean Corpuscular Volume 93 fl (79-97); Platelet Count 445 K/mm3 (140-440); Red Blood Count 2.98 M/mm3 (3.65-5.03); Red Cell Distribution Width 13.9 % (13.2-15.2); White Blood Count 12.9 K/mm3 (4.5-11.0)
[2016-12-02 21:36] LABS: Alanine Aminotransferase 11 units/L (7-56); Albumin 2.8 g/dL (3.9-5); Albumin/Globulin Ratio 0.6 %; Alkaline Phosphatase 114 units/L (35-129); Anion Gap 22 mmol/L; Blood Urea Nitrogen 10 mg/dL (7-17); Calcium 8.2 mg/dL (8.4-10.2); Carbon Dioxide 22 mmol/L (22-30); Chloride 84.1 mmol/L (98-107); Creatine Kinase 111 units/L (30-135); Glucose 135 mg/dL (65-100); Potassium 3.2 mmol/L (3.6-5.0); Sodium 125 mmol/L (137-145); Total Protein 7.2 g/dL (6.3-8.2)
[2016-12-02] MEDS ORDERED: K-DUR PO ONE (21:45)
[2016-12-02 21:58] LABS: Basophils % (Manual) 0 % (0.0-1.8); Blastocytes % (Manual) 0 %; Eosinophils % (Manual) 0 % (0.0-4.3)
[2016-12-02 21:59] LABS: Diff Status Complete; Platelet Estimate Consistent w Auto; RBC Morphology Normal
--- NOTE | 2016-12-02 22:03 | Cat Scan Report ---
FINAL REPORT EXAM: CT HEAD/BRAIN WO CON HISTORY: Dizzy TECHNIQUE: Noncontrast serial axial images from skull base to vertex PRIORS: None. FINDINGS: There is moderate atrophy. There is no mass effect or midline shift. There are no abnormal intra or extra-axial fluid collections. Lateral ventricles are within normal limits for size and configuration. Basilar cisterns are patent. No acute intracranial hemorrhage is identified. Areas of relative hypodensity are seen in the periventricular white matter. Atherosclerotic changes are noted. Some of the mastoid air cells on the left side are opacified. This may represent fluid or inflammatory debris. No osseous erosion seen associated with this time. No acute osseous abnormality is identified. IMPRESSION: 1. No abnormal mass or acute intracranial hemorrhage is identified. 2. Areas of relative hypodensity are seen in the periventricular white matter. This is a nonspecific finding. It may be related to chronic ischemic change from small vessel disease.
[2016-12-02] MEDS ORDERED: D5NS 1,000 ML IV SCH (23:00)
[2016-12-02] MEDS ORDERED: NACL 0.9% 1000 ML 2,000 ML IV ONE (23:20)
[2016-12-02] MEDS ORDERED: DULCOLAX PR PRN (23:21)
[2016-12-02] MEDS ORDERED: MORPHINE IV PRN (23:21)
[2016-12-02] MEDS ORDERED: ZOFRAN IV PRN (23:21)
[2016-12-02] MEDS ORDERED: TYLENOL PO PRN (23:21)
[2016-12-02] MEDS ORDERED: VANCOMYCIN VIAL IV ONE (23:26)
--- NOTE | 2016-12-02 23:31 | History and Physical Report ---
History of Present Illness Date of examination: 12/02/16 Date of admission: 12/02/16 Chief complaint: nausea, vomiting,diarrhea low blood pressure History of present illness: Is 66-year-old with history of severe ulcerative colitis. She presents with nausea vomiting diarrhea and low blood pressure. She has been ill for several days. She has been getting weaker and weaker. On day of admission it went to her blood pressure is low less than 90. Different therefore came to the emergency department for evaluation. In ED initial BP was 109/66 but few hours later blood pressure systolic less than's 80. Consult social hypernatremia hypokalemia and elevated lactic acidosis. Past History Past Medical History: DVT (left leg), other (ulcerative colitis) Past Surgical History: No surgical history Social history: full code. denies: smoking, alcohol abuse Family history: hypertension Medications and Allergies Allergies Allergy/AdvReac Type Severity Reaction Status Date / Time Latex, Natural Rubber Allergy Itching Verified 03/23/16 09:55 mesalamine [From Lialda] Allergy Nausea Verified 08/08/16 20:53 nitrofurantoin Allergy Nausea Verified 01/13/15 19:27 macrocrystalline [From Macrodantin] rivaroxaban [From Xarelto] Allergy Unknown Verified 12/02/16 20:39 warfarin Allergy Rash Verified 10/17/16 10:36 Home Medications Medication Instructions Recorded Confirmed Last Taken Type Megestrol [Megace] 400 mg PO QDAY #30 oral.liqd 08/02/16 10/06/16 Unknown Rx Multivitamin Tab W-MINERAL 1 each PO QDAY #30 tablet 08/02/16 10/06/16 Unknown Rx [Multiple Vitamin/Mineral (Theragran M)] Ondansetron [Zofran Odt] 4 mg PO Q8H PRN #30 tab.rapdis 08/02/16 10/06/16 Unknown Rx Sertraline [Zoloft] 25 mg PO QDAY tablet 08/02/16 10/06/16 Unknown Rx azaTHIOprine [Imuran] 50 mg PO QDAY #30 tablet 08/02/16 10/06/16 Unknown Rx sulfaSALAzine [Azulfidine] 500 mg PO Q12HR #60 tablet 08/02/16 10/06/16 Unknown Rx Cholecalciferol Vit D3 [Vitamin D3] 800 unit PO QDAY 09/29/16 10/06/16 1 Day Ago History 2 tab Dicyclomine [Bentyl] 10 mg PO QID PRN 09/29/16 10/06/16 1 Day Ago History metroNIDAZOLE [Flagyl TAB] 500 mg PO Q8HR #14 day 09/29/16 10/06/16 Unknown Rx predniSONE [Deltasone] 40 mg PO QDAY tablet 10/09/16 Unknown Rx Apixaban [Eliquis] 5 mg PO Q12HR #60 tablet 10/18/16 Unknown Rx Active Meds: Active Medications Acetaminophen (Tylenol) 650 mg PO Q4H PRN PRN Reason: Pain MILD(1-3)/Fever >100.5/DANIELS Bisacodyl (Dulcolax) 10 mg [place] QDAY PRN PRN Reason: Constipation unrelieved by MOM Sodium Chloride (Nacl 0.9% 1000 Ml) 1,000 mls @ 250 mls/hr IV ONCE ONE Stop: 12/03/16 00:53 Last Admin: 12/02/16 21:11 Dose: 250 mls/hr Sodium Chloride (Nacl 0.9% 1000 Ml) 2,000 mls @ 999 mls/hr IV BOLUS ONE Stop: 12/03/16 01:20 Last Admin: 12/02/16 23:30 Dose: 999 mls/hr Morphine Sulfate (Morphine) 2 mg IV Q4H PRN PRN Reason: Pain, Moderate (4-6) Ondansetron HCl (Zofran) 4 mg IV Q6H PRN PRN Reason: nausea or vomiting Review of Systems All systems: negative (no fever, no headache, no abdominal pain, or cough. All other systems reviewed and negative) Exam - Physical Exam Narrative exam: Gen appearance: Ill looking HEENT:tongue and mouth dry,head atraumatic Neck:supple, no JVD, Lungs: clear to auscultation bilaterally, no crackles or wheezes Heart :S1 and S2 regular, no murmurs, rubs or gallop Abdomen: Soft, non tender, non distended, normal bowel sounds Extremities :no edema no clubbing or cyanosis Neuro: Awake, alert oriented 3, normal speech,no focal neurological signs - Constitutional Vitals: Temp Pulse Resp BP Pulse Ox 97.4 F L 91 H 10 L 87/48 100 12/02/16 20:39 12/02/16 23:00 12/02/16 23:00 12/02/16 23:00 12/02/16 22:30 Results - Labs CBC & Chem 7: 12/03/16 04:05 12/03/16 04:05 Labs: Abnormal lab results 12/02/16 12/02/16 12/02/16 Range/Units 20:50 20:50 21:44 WBC 12.9 H (4.5-11.0) K/mm3 RBC 2.98 L (3.65-5.03) M/mm3 Hgb 9.2 L (10.1-14.3) gm/dl Hct 27.6 L (30.3-42.9) % Plt Count 445 H (140-440) K/mm3 Seg Neuts % (Manual) 29.0 L (40.0-70.0) % Monocytes % (Manual) 8.0 H (0.0-7.3) % Monocytes # (Manual) 1.0 H (0.0-0.8) K/mm3 Sodium 125 L (137-145) mmol/L Potassium 3.2 L (3.6-5.0) mmol/L Chloride 84.1 L (98-107) mmol/L Glucose 135 H (65-100) mg/dL Lactic Acid 3.40 H* (0.7-2.0) mmol/L Calcium 8.2 L (8.4-10.2) mg/dL Albumin 2.8 L (3.9-5) g/dL Assessment and Plan Sepsis,possibly. Admit to intensive care unit. Start sepsis protocol. Blood cultures ordered. Started on IV antibiotics. Lactic acid level elevated, will repeat. Hypotension. Patient has been given several of bolus of IV fluid. Levophed has been ordered and central line requested however patient has been reluctant to have central line placed Leukocytosis may be due to ulcerative colitis or sepsis Ulcerative colitis. Severe vomiting diarrhea. Continue IV fluids. Consult GI physician, Dr. Stovall Hyponatremia. Na 125 Started on iv fluids. Repeat later Hypokalemia. K 3.2Replace iv and repeat. History of DVT left leg. Resume Eliquis. Full code status
[2016-12-02] MEDS ORDERED: VANCOMYCIN PHARMACY TO DOSE IV SCH (23:45)
[2016-12-02 23:56] LABS: Magnesium 1.7 mg/dL (1.7-2.3); Phosphorous 3.2 mg/dL (2.5-4.5)
[2016-12-03] MEDS ORDERED: ZOSYN/NS 4.5GM/100ML 4.5 GM/100 ML VIAL IV ONE ×2 (00:19→09:16)
[2016-12-03] MEDS ORDERED: PEPCID IV ONE ×2 (00:19→10:56)
[2016-12-03] MEDS ORDERED: NACL 0.9% 1000 ML 1,000 ML ONE ×3 (00:19→10:55)
[2016-12-03] MEDS: PEPCID IV SCH ×3 (00:28→22:48)
[2016-12-03] MEDS: ZOSYN/NS 4.5GM/100ML 4.5 GM/100 ML VIAL IV SCH ×4 (00:28→23:57)
[2016-12-03] MEDS ORDERED: LEVOPHED DRIP 4 MG/NS 250 ML 4 MG/250 ML BAG IV SCH (02:00)
[2016-12-03] MEDS ORDERED: BENTYL PO PRN (02:46)
[2016-12-03] MEDS ORDERED: VANCOMYCIN/NS 1 GM/250 ML 1 GM/250 ML BAG IV ONE ×2 (02:58)
[2016-12-03 03:24] LABS: Bacteria,Urine 1+ /HPF (Negative); Bilirubin,Urine NEG (Negative); Blood,Urine NEG (Negative); Ketones,Urine NEG (Negative); Leukocyte Esterase,Urine NEG (Negative); Mucus,Urine 3+ /HPF; Nitrite,Urine POS (Negative)
[2016-12-03 04:20] LABS: Basophils % (Auto) 0.3 % (0.0-1.8); Eosinophils % (Auto) 0.3 % (0.0-4.3); Hematocrit 20.1 % (30.3-42.9); Hemoglobin 6.8 gm/dl (10.1-14.3); Mean Corpuscular HGB Conc 34 % (30-34); Mean Corpuscular Hemoglobin 31 pg (28-32); Mean Corpuscular Volume 91 fl (79-97); Platelet Count 313 K/mm3 (140-440); Red Cell Distribution Width 13.6 % (13.2-15.2); White Blood Count 8.1 K/mm3 (4.5-11.0)
[2016-12-03 04:52] LABS: Anion Gap 17 mmol/L; Blood Urea Nitrogen 7 mg/dL (7-17); Calcium 6.5 mg/dL (8.4-10.2); Carbon Dioxide 20 mmol/L (22-30); Chloride 98.4 mmol/L (98-107); Glucose 99 mg/dL (65-100); Sodium 132 mmol/L (137-145)
[2016-12-03] MEDS ORDERED: NACL 0.9% 500 ML 500 ML IV ONE ×2 (05:32→11:18)
[2016-12-03] MEDS ORDERED: KETALAR ONE (05:32)
[2016-12-03] MEDS ORDERED: KETALAR IV ONE (05:33)
[2016-12-03] MEDS ORDERED: KCL 10MEQ/100ML 10 MEQ/100 ML BAG IV ONE ×3 (06:01→14:48)
[2016-12-03] MEDS: KCL 10MEQ/100ML 10 MEQ/100 ML BAG IV SCH ×4 (06:03→14:52)
--- NOTE | 2016-12-03 09:18 | XRay Report ---
Single view chest: Compared to 10/06/16. History: Dizziness, low blood pressure. Findings: Normal cardiomediastinal silhouette. Trachea is midline. No consolidation, pneumothorax or pleural effusion. Impression: No acute cardiopulmonary findings.
[2016-12-03] MEDS ORDERED: DELTASONE PO SCH (10:00)
[2016-12-03] MEDS ORDERED: ELIQUIS PO SCH (10:00)
[2016-12-03] MEDS ORDERED: NACL 0.9% 500 ML 500 ML ONE (10:08)
[2016-12-03] MEDS ORDERED: DELTASONE ONE (10:55)
[2016-12-03] MEDS ORDERED: THERAGRAN Tab PO ONE (10:55)
[2016-12-03] MEDS ORDERED: TYLENOL ONE (10:56)
[2016-12-03] MEDS: THERAGRAN-M Tab PO SCH (11:05)
[2016-12-03] MEDS ORDERED: ZOFRAN ONE (11:11)
[2016-12-03] MEDS: AZULFIDINE PO SCH ×2 (12:10→22:47)
[2016-12-03] MEDS: IMURAN PO SCH (12:10)
[2016-12-03] MEDS: VITAMIN D3 PO SCH (12:11)
[2016-12-03] MEDS ORDERED: XYLOCAINE 1% 20 mL ONE (12:28)
[2016-12-03] MEDS: MEGACE PO SCH (12:40)
--- NOTE | 2016-12-03 13:05 | Consultation ---
History of Present Illness Consult date: 12/03/16 Requesting physician: JUSTICE ALANIS Reason for consult: other (Severe Sepsis) History of present illness: PULMONARY/CCM CONSULT NOTE (Full dictation # [id number]) Please see dictated notes for full details Past History Past Medical History: DVT (left leg), other (ulcerative colitis) Past Surgical History: No surgical history Social history: full code. denies: smoking, alcohol abuse Family history: hypertension Medications and Allergies Allergies Allergy/AdvReac Type Severity Reaction Status Date / Time Latex, Natural Rubber Allergy Itching Verified 03/23/16 09:55 mesalamine [From Lialda] Allergy Nausea Verified 08/08/16 20:53 nitrofurantoin Allergy Nausea Verified 01/13/15 19:27 macrocrystalline [From Macrodantin] rivaroxaban [From Xarelto] Allergy Unknown Verified 12/02/16 20:39 warfarin Allergy Rash Verified 10/17/16 10:36 Home Medications Medication Instructions Recorded Confirmed Last Taken Type Megestrol [Megace] 400 mg PO QDAY #30 oral.liqd 08/02/16 10/06/16 Unknown Rx Multivitamin Tab W-MINERAL 1 each PO QDAY #30 tablet 08/02/16 10/06/16 Unknown Rx [Multiple Vitamin/Mineral (Theragran M)] Ondansetron [Zofran Odt] 4 mg PO Q8H PRN #30 tab.rapdis 08/02/16 10/06/16 Unknown Rx Sertraline [Zoloft] 25 mg PO QDAY tablet 08/02/16 10/06/16 Unknown Rx azaTHIOprine [Imuran] 50 mg PO QDAY #30 tablet 08/02/16 10/06/16 Unknown Rx sulfaSALAzine [Azulfidine] 500 mg PO Q12HR #60 tablet 08/02/16 10/06/16 Unknown Rx Cholecalciferol Vit D3 [Vitamin D3] 800 unit PO QDAY 09/29/16 10/06/16 1 Day Ago History 2 tab Dicyclomine [Bentyl] 10 mg PO QID PRN 09/29/16 10/06/16 1 Day Ago History metroNIDAZOLE [Flagyl TAB] 500 mg PO Q8HR #14 day 09/29/16 10/06/16 Unknown Rx predniSONE [Deltasone] 40 mg PO QDAY tablet 10/09/16 Unknown Rx Apixaban [Eliquis] 5 mg PO Q12HR #60 tablet 10/18/16 Unknown Rx Active Meds: Active Medications Acetaminophen (Tylenol) 650 mg PO Q4H PRN PRN Reason: Pain MILD(1-3)/Fever >100.5/DANIELS Last Admin: 12/03/16 11:05 Dose: 650 mg Azathioprine (Imuran) 50 mg PO QDAY [facility] Last Admin: 12/03/16 12:10 Dose: 50 mg Bisacodyl (Dulcolax) 10 mg [place] QDAY PRN PRN Reason: Constipation unrelieved by MOM Cholecalciferol (Vitamin D3) 800 unit PO QDAY [facility] Last Admin: 12/03/16 12:11 Dose: 800 unit Dicyclomine HCl (Bentyl) 10 mg PO QID PRN PRN Reason: Gas pain Famotidine (Pepcid) 20 mg IV BID [facility] Last Admin: 12/03/16 00:28 Dose: 20 mg Piperacillin Sod/Tazobactam Sod (Zosyn/Ns 4.5gm/100ml) 4.5 gm in 100 mls @ 200 mls/hr IV Q8H TOBI PRN Reason: Protocol Last Admin: 12/03/16 09:37 Dose: 200 mls/hr Vancomycin HCl 750 mg/ Sodium (Chloride) 257.5 mls @ 166.667 mls/hr IV Q12H [facility] Norepinephrine (Levophed Drip 4 Mg/Ns 250 Ml) 4 mg in 250 mls @ 7.5 mls/hr IV TITR TOBI; 2 MCG/MIN PRN Reason: Protocol Sodium Chloride (Nacl 0.9% 1000 Ml) 1,000 mls @ 125 mls/hr IV DIRECT [facility]BI Potassium Chloride (Kcl 10meq/100ml) 10 meq in 100 mls @ 100 mls/hr IV Q1H [facility] Stop: 12/03/16 14:59 Megestrol Acetate (Megace) 400 mg PO QDAY [facility] Last Admin: 12/03/16 12:40 Dose: Not Given Morphine Sulfate (Morphine) 2 mg IV Q4H PRN PRN Reason: Pain, Moderate (4-6) Multivitamins/Minerals (Theragran-M Tab) 1 each PO QDAY [facility] Last Admin: 12/03/16 11:05 Dose: 1 each Ondansetron HCl (Zofran) 4 mg IV Q6H PRN PRN Reason: nausea or vomiting Prednisone (Deltasone) 40 mg PO QDAY [facility] Last Admin: 12/03/16 11:05 Dose: 40 mg Sulfasalazine (Azulfidine) 500 mg PO Q12HR [facility] Last Admin: 12/03/16 12:10 Dose: 500 mg Vancomycin HCl (Vancomycin Pharmacy To Dose) 1 each IV PKCONSULT [facility] PRN Reason: Protocol Physical Examination Vital signs: Vital Signs Temp Pulse Resp BP 97.4 F L 132 H 18 109/66 12/02/16 20:39 12/02/16 20:39 12/02/16 20:39 12/02/16 20:39 Results - Laboratory Findings CBC and BMP: 12/03/16 04:05 12/03/16 04:05 Abnormal lab findings: Abnormal Labs 12/03/16 12/03/16 12/03/16 04:05 04:05 04:05 RBC 2.20 L Hgb 6.8 L Hct 20.1 L D [place] % (Auto) 8.9 H Sodium 132 L D Potassium 3.0 L Carbon Dioxide 20 L Creatinine 0.5 L Lactic Acid 2.60 H* Calcium 6.5 L D Crossmatch 12/03/16 06:15 RBC Hgb Hct [place] % (Auto) Sodium Potassium Carbon Dioxide Creatinine Lactic Acid Calcium Crossmatch See Detail
[2016-12-03] MEDS: NACL 0.9% 1000 ML 1,000 ML IV SCH ×2 (13:45→23:57)
--- NOTE | 2016-12-03 14:18 | Emergency Department Report ---
Blank Doc - Documentation Documentation: I was asked by the nurse first assist to place a central line on this patient. Indications: Poor venous access. Transfusion in progress. Persistent hypotension. Need for pressors. Procedure: Triple-lumen placement right femoral vein The right inguinal area was prepped and draped in usual sterile fashion. Using Seldinger technique the femoral vein was cannulated without difficulty. There was no significant bleeding. The vein was dilated. A triple-lumen catheter was placed. Dark venous blood was identified. There was no pulsation or hematoma formation. The line was sutured to the skin in 2 places. Antibiotic disc and OpSite dressing was applied. The procedure was well-tolerated.
[2016-12-03] MEDS ORDERED: LEVOPHED DRIP 4 MG/NS 250 ML 4 MG/250 ML BAG IV ONE (14:25)
--- NOTE | 2016-12-03 14:55 | Progress Note ---
Assessment and Plan Sepsis, possibly from ulcerative colitis flare. Continue on sepsis protocol. Blood cultures ordered. Started on IV antibiotics. Monitor lactic acid level Septic shock. Patient has been given several of bolus of IV fluid. Levophed has been ordered and central line requested however patient was reluctant to have central line placed She was counseled and agreed to have central line placed Severe anemia likely from GI loss - Transfuse 2 units of packed RBC - Monitor H&H Leukocytosis - may be due to ulcerative colitis and underlying sepsis - Continue to monitor white count Ulcerative colitis. - Presented with Severe vomiting diarrhea. - Continue IV fluids. - Consulted GI physician, Dr. Stovall Hyponatremia. Na was 125 on admission Continue on iv fluids. Sodium level 130 today Hypokalemia. - K 3.o - Replace iv and repeat. History of DVT left leg. -We'll hold Eliquis for now for anemia. - We will get repeat Doppler ultrasound of the left leg Full code status Subjective Date of service: 12/03/16 Interval history: Patient seen and examined. Medical records and medication list reviewed. Her hemoglobin noted to be 6.6 and blood pressure also no. Patient denies any abdominal pain. States that she has continued to have bloody diarrhea Discussed plan of care at bedside with patient. Objective - Exam Narrative Exam: GENERAL: Malnourished frail white lady lying on bed appeared to be in no discomfort. HEENT: Normocephalic. Atraumatic. No conjunctival congestion or icterus. Patient has moist mucous membranes. NECK: Supple. Trachea midline. CHEST/LUNGS: Clear to auscultated bilaterally, breathing nonlabored. No wheezes crackles or rhonchi. HEART/CARDIOVASCULAR: Regular in rate and rhythm. S1 and S2 positive. ABDOMEN: Abdomen is soft, positive diffuse mild tenderness. Patient has hyperactive bowel sounds. SKIN: There is no rash. Warm and dry. NEURO: No focal motor deficit. Follows command. MUSCULOSKELETAL: No joint effusion or tenderness. EXTRIMITY: No edema, no cyanosis or clubbing. PSYCH: Cooperative. - Constitutional Vitals: Vital Signs - 12hr 12/03/16 12/03/16 12/03/16 03:00 03:30 04:00 Temperature Pulse Rate 87 83 85 Respiratory 13 20 19 Rate Blood Pressure 77/41 90/49 80/42 O2 Sat by Pulse 98 100 Oximetry 12/03/16 12/03/16 12/03/16 04:30 05:00 05:30 Temperature Pulse Rate 80 103 H 91 H Respiratory 15 15 13 Rate Blood Pressure 79/43 85/51 95/49 O2 Sat by Pulse 100 100 100 Oximetry 12/03/16 12/03/16 12/03/16 06:00 06:30 07:00 Temperature Pulse Rate 89 90 103 H Respiratory 16 17 11 L Rate Blood Pressure 83/39 95/45 102/54 O2 Sat by Pulse 100 100 Oximetry 12/03/16 12/03/16 12/03/16 07:16 07:30 07:46 Temperature Pulse Rate 91 H 95 H 87 Respiratory 15 19 15 Rate Blood Pressure 95/45 91/46 85/49 O2 Sat by Pulse 100 100 100 Oximetry 12/03/16 12/03/16 12/03/16 08:00 08:16 08:30 Temperature Pulse Rate 87 88 91 H Respiratory 13 23 16 Rate Blood Pressure 85/41 85/41 89/41 O2 Sat by Pulse 100 100 99 Oximetry 12/03/16 12/03/16 12/03/16 08:46 09:00 09:16 Temperature Pulse Rate 107 H 94 H 84 Respiratory 12 18 21 Rate Blood Pressure 85/41 98/48 98/48 O2 Sat by Pulse 100 99 Oximetry 12/03/16 12/03/16 12/03/16 09:30 09:46 10:00 Temperature Pulse Rate 88 98 H 91 H Respiratory 13 23 14 Rate Blood Pressure 89/44 89/44 92/39 O2 Sat by Pulse 99 100 100 Oximetry 12/03/16 12/03/16 12/03/16 10:15 10:30 10:39 Temperature 98.3 F Pulse Rate 90 89 92 H Respiratory 21 14 16 Rate Blood Pressure 81/41 79/44 69/38 O2 Sat by Pulse 100 97 100 Oximetry 12/03/16 12/03/16 12/03/16 11:00 11:30 12:00 Temperature Pulse Rate 97 H 88 86 Respiratory 23 12 16 Rate Blood Pressure 77/42 71/45 90/55 O2 Sat by Pulse 99 100 100 Oximetry 12/03/16 12/03/16 12/03/16 12:30 13:00 13:30 Temperature Pulse Rate 97 H 86 74 Respiratory 24 23 10 L Rate Blood Pressure 79/44 91/54 81/42 O2 Sat by Pulse 100 99 98 Oximetry 12/03/16 12/03/16 14:00 14:30 Temperature Pulse Rate 65 67 Respiratory 16 12 Rate Blood Pressure 79/42 85/47 O2 Sat by Pulse 98 99 Oximetry - Labs CBC & Chem 7: 12/04/16 04:50 12/04/16 04:50 Labs: Abnormal lab results 12/03/16 12/03/16 12/03/16 Range/Units 04:05 04:05 04:05 RBC 2.20 L (3.65-5.03) M/mm3 Hgb 6.8 L (10.1-14.3) gm/dl Hct 20.1 L D (30.3-42.9) % [place] % (Auto) 8.9 H (0.0-7.3) % Sodium 132 L D (137-145) mmol/L Potassium 3.0 L (3.6-5.0) mmol/L Carbon Dioxide 20 L (22-30) mmol/L Creatinine 0.5 L (0.7-1.2) mg/dL Lactic Acid 2.60 H* (0.7-2.0) mmol/L Calcium 6.5 L D (8.4-10.2) mg/dL Crossmatch 12/03/16 Range/Units 06:15 RBC (3.65-5.03) M/mm3 Hgb (10.1-14.3) gm/dl Hct (30.3-42.9) % [place] % (Auto) (0.0-7.3) % Sodium (137-145) mmol/L Potassium (3.6-5.0) mmol/L Carbon Dioxide (22-30) mmol/L Creatinine (0.7-1.2) mg/dL Lactic Acid (0.7-2.0) mmol/L Calcium (8.4-10.2) mg/dL Crossmatch See Detail
[2016-12-03] MEDS: VANCOMYCIN 750 MG in NACL 0.9% 250ML 250 ML IV SCH ×2 (17:08→23:58)
[2016-12-03] MEDS ORDERED: NACL 0.9% 500 ML 500 ML IV NR (18:25)
--- NOTE | 2016-12-03 22:55 | Consultation ---
PULMONARY CRITICAL CARE CONSULT NOTE CONSULTING PHYSICIAN: Dr. Johnson. REASON FOR CONSULTATION: Sepsis with hypotension, need for ICU admission. CHIEF COMPLAINT AND HISTORY OF PRESENT ILLNESS: As follows: The patient is a 66-year-old female with past medical history again significant amongst other things for a diagnosis of ulcerative colitis, which may imply some element of immunosuppression, unclear how she is being treated, came to the Emergency Room complaining of low blood pressures as well as dizziness, feeling like she was going to pass out. She also complained of generalized malaise. She does have a history of ulcerative colitis and it causes some chronic rectal bleeding. She has lower extremity DVT also and is on Eliquis. She stated she had had multiple transfusions in the past. According to her history, she has been admitted about 7 times this year and at [facility] for different complaints or diagnoses. She was evaluated, found to be hypotensive and Intensive Care Unit admission was asked for. , she was anemic, hemoglobin was 6.8, but she also remained persistently hypotensive. When I stopped by to see her, she was actually just trying to get back into bed from the bedside commode. She admitted to dizziness. She was hypotensive at the time I saw her, MAPs were in the low 50s. I helped her into the bed and told her to please not get up or go to the commode without getting a nurse into the room. She admitted to being still feeling weak. She denied any cough or expectoration. She denied any chest pain. She denied any fevers or chills prior to admission. Now with regards to tobacco use/abuse history, she is a never smoker. That really is as much of the history of presentation as I have. PAST MEDICAL HISTORY: Again, ulcerative colitis, DVT in the left lower extremity, a history of relatively low blood pressures according to her, a history of migraines, a history of left bundle branch block and osteopenia. PAST SURGICAL HISTORY: She has had colonoscopies in the past. MEDICATIONS: She was on at the time I stopped by to see her in the ER included the following: Tylenol 650 mg p.o. q. 4 hours p.r.n. mild pain, Imuran 50 mg p.o. daily, Dulcolax 10 mg per rectum p.r.n., vitamin D3 800 units p.o. daily, Bentyl 10 mg p.o. q.i.d., Pepcid 20 mg IV b.i.d., Megace 400 mg p.o. daily, morphine 2 mg IV q. 4 hours p.r.n. moderate pain, daily multivitamin. I had just requested a Levophed drip be started at 2 mcg per minute and titrated to keep mean arterial pressures greater than 60 mmHg. Zofran 4 mg IV q. 6 hours p.r.n. nausea and vomiting, Zosyn 4.5 g IV q. 8 hours, prednisone 40 mg p.o. daily. She had received about 3 liters of sodium chloride and had sodium chloride 125 mL an hour. She is also on sulfasalazine 500 mg p.o. q. 12 hours, vancomycin 750 mg IV q. 12 hours. Elibrendais, I believe is on hold. ALLERGIES: TO LATEX, TO NATURAL RUBBER, TO MESALAMINE. Nature of this allergy is unknown. DIET: Petite lady. She however denies significant weight loss or gain in the preceding few weeks to months. FAMILY AND SOCIAL HISTORY: Lives in the community. Denies alcohol, tobacco, or illicit drug use or abuse. There is a family history of hypertension. REVIEW OF SYSTEMS: She has a near syncope, but no overt loss of consciousness. No new onset seizures. No new onset focal weakness. No gross hematochezia, recently she has had this in the past or melena. No gross hematemesis. No hemoptysis. No palpitations. Complete 13-system review of systems was obtained. Pertinent positives and/or negatives as in the body of history above, otherwise they are noncontributory. PHYSICAL EXAMINATION: VITAL SIGNS: At presentation, she was afebrile, temperature was 97.4 Fahrenheit with a pulse of 132, respiratory rate of 18, blood pressure was 109/66, oxygen sats were 100%, inspired oxygen concentration was not recorded, blood pressure had dropped to about 77/33 at a point. HEAD, EYES, EARS, NOSE AND THROAT: Pupils are equal, round, about 3-4 mm, reactive to light. Extraocular muscle movements are intact. Oropharynx is a Mallampati #2 oropharynx. No significant posterior oropharyngeal erythema. NECK: No gross jugular venous distention. Grossly, there were no palpable lymph nodes in the supraclavicular or submandibular lymph node chains. LUNGS: Auscultation of both lung singh was unremarkable. Lungs were clear bilaterally. HEART: Heart sounds 1 and 2 are heard. They were regular in rate and rhythm at time of my evaluation. ABDOMEN: Soft, full, bowel sounds are positive, mildly tender. EXTREMITIES: Without overt digital clubbing, cyanosis, or pedal edema. She had a right femoral central line that had just been placed. NEUROLOGIC: The exam was grossly nonfocal. LABORATORY DATA: From my review are as follows: Admission white cell count 12,900 with a hemoglobin of 9.3, hematocrit of 27.6, platelet count 445. About 43% band neutrophils. Serum sodium was 125, potassium 3.2, chloride 84, bicarbonate 22, BUN was 10, creatinine was 0.8, glucose was 135. Lactic acid was 3.4, trending down, now 2.6 most recent. Magnesium, phosphorus within normal limits. LFTs essentially within normal limits except for albumin of 2.8. Troponin was within normal limits. Urinalysis was positive for nitrites and 18 white cells per high power field with 1+ bacteria. Blood cultures were sent, no growth to date. Radiographic studies have been reviewed. I am pulling up the interpretation I am. I will review the films. A CT of the brain did not show any acute intracranial process, but evidence of chronic small vessel disease. A chest x-ray was also done, it was read as no acute cardiopulmonary findings. I do agree with the chest x-ray, I am just reviewing it. ASSESSMENT AND PLAN: We have an elderly lady in with severe sepsis requiring vasopressors. She is anemic. It will seem like this may all be related to her ulcerative colitis. I do feel there also is an element of relative adrenal insufficiency. From a respiratory standpoint, she is doing well, oxygen will be given if her O2 sats drop below 90%. Aspiration precautions will be maintained. Bronchodilators will be p.r.n. From a cardiovascular standpoint, she has had volume resuscitation. Her BUN and creatinine does not suggest overt intravascular volume depletion or prerenal azotemia, but we will continue the IV fluids. I will keep 125 per hour. No additional boluses. A 2D echocardiogram will be ordered to better understand her cardiac function. The chest x-ray does not suggest cardiomegaly thankfully. I will get a BNP level also and continue gentle volume rehydration. Unfortunately, we were not able to measure central venous pressures, but I think that was due to the difficulty in placing the central line. We will follow her clinically and make further determinations down the road. I will plan to get a PICC line in place and then we will get an estimated SvO2 from that standpoint. From a GI and nutritional standpoint, blood transfusions have been ordered appropriately. It is unclear how blood dropped and if this is, it does seem to be chronic. GI evaluation certainly will be in order. She will be continued on GI prophylaxis, stool will be sent for occult blood. At this point, we will not be keeping her n.p.o. There is no evidence of gross acute GI bleeding except for the numbers and we will follow her clinically otherwise and as mentioned, I will put her on. She is on GI prophylaxis. From an infectious disease standpoint, we will continue empiric antibiotic therapy. I will start stress dose steroids, discontinue the prednisone and begin her on Solu-Cortef 100 mg IV q. 8 hours Anti-infectives will ultimately be deescalated based on results of clinical and microbiologic data. I will get a CRP level. We will trend lactic acid levels. From a WOMEN SPECIALIST standpoint, the exam is grossly nonfocal. Neuro imaging was relatively unremarkable. We will follow her clinically, treat the sepsis and expect her to improve. From a general and hospital-healthcare maintenance standpoint, she is on GI prophylaxis. DVT prophylaxis is going to be on the form of SCDs. Flu and pneumonia vaccination will be per protocol. Thank you very much for the consult, Dr. Johnson. We will follow along and make further recommendations as picture progresses/becomes clearer. At this point, I have spent about 35-40 minutes of critical care time without overlap, excluding any procedural time that may be necessary. She is critically ill on life-sustaining interventions including vasopressors at high risk for further deterioration including , especially with regards to her immunosuppressive state. JOB# [id number] LUIS/JAVI
[2016-12-04 05:09] LABS: Basophils % (Auto) 0.2 % (0.0-1.8); Hematocrit 29.6 % (30.3-42.9); Hemoglobin 10.1 gm/dl (10.1-14.3); Mean Corpuscular HGB Conc 34 % (30-34); Mean Corpuscular Hemoglobin 29 pg (28-32); Mean Corpuscular Volume 85 fl (79-97); Platelet Count 318 K/mm3 (140-440); Red Cell Distribution Width 19.7 % (13.2-15.2); White Blood Count 8.9 K/mm3 (4.5-11.0)
[2016-12-04 05:32] LABS: Anion Gap 15 mmol/L; Blood Urea Nitrogen 3 mg/dL (7-17); Calcium 6.5 mg/dL (8.4-10.2); Carbon Dioxide 19 mmol/L (22-30); Chloride 105.6 mmol/L (98-107); Glucose 148 mg/dL (65-100); Sodium 137 mmol/L (137-145)
[2016-12-04] MEDS: ZOSYN/NS 4.5GM/100ML 4.5 GM/100 ML VIAL IV SCH ×2 (08:34→15:35)
[2016-12-04] MEDS: KCL 10MEQ/100ML 10 MEQ/100 ML BAG IV SCH ×3 (08:46→10:38)
[2016-12-04] MEDS: PEPCID IV SCH ×2 (09:13→22:36)
[2016-12-04] MEDS: MEGACE PO SCH ×2 (09:13→09:23)
[2016-12-04] MEDS: AZULFIDINE PO SCH ×2 (09:13→22:36)
[2016-12-04] MEDS: IMURAN PO SCH (09:13)
[2016-12-04] MEDS: THERAGRAN-M Tab PO SCH (09:14)
[2016-12-04] MEDS: VITAMIN D3 PO SCH (09:21)
--- NOTE | 2016-12-04 11:29 | Consultation ---
History of Present Illness - Reason for Consult Consult date: 12/04/16 - History of Present Illness See Dictated Note. Past History Past Medical History: DVT (left leg), other (ulcerative colitis) Past Surgical History: No surgical history Social history: full code. denies: smoking, alcohol abuse Family history: hypertension Medications and Allergies Allergies Allergy/AdvReac Type Severity Reaction Status Date / Time Latex, Natural Rubber Allergy Itching Verified 03/23/16 09:55 mesalamine [From Lialda] Allergy Nausea Verified 08/08/16 20:53 nitrofurantoin Allergy Nausea Verified 01/13/15 19:27 macrocrystalline [From Macrodantin] rivaroxaban [From Xarelto] Allergy Unknown Verified 12/02/16 20:39 warfarin Allergy Rash Verified 10/17/16 10:36 Home Medications Medication Instructions Recorded Confirmed Last Taken Type Megestrol [Megace] 400 mg PO QDAY #30 oral.liqd 08/02/16 12/04/16 12/02/16 Rx Multivitamin Tab W-MINERAL 1 each PO QDAY #30 tablet 08/02/16 12/04/16 11/24/16 Rx [Multiple Vitamin/Mineral (Theragran M)] Sertraline [Zoloft] 25 mg PO QDAY tablet 08/02/16 12/04/16 11/27/16 Rx Cholecalciferol Vit D3 [Vitamin D3] 800 unit PO QDAY 09/29/16 12/04/16 11/20/16 History Apixaban [Eliquis] 5 mg PO Q12HR #60 tablet 10/18/16 12/04/16 12/03/16 10:00 Rx Active Meds: Active Medications Acetaminophen (Tylenol) 650 mg PO Q4H PRN PRN Reason: Pain MILD(1-3)/Fever >100.5/DANIELS Last Admin: 12/03/16 11:05 Dose: 650 mg Azathioprine (Imuran) 50 mg PO QDAY [facility] Last Admin: 12/04/16 09:13 Dose: 50 mg Bisacodyl (Dulcolax) 10 mg AK QDAY PRN PRN Reason: Constipation unrelieved by MOM Cholecalciferol (Vitamin D3) 800 unit PO QDAY [facility] Last Admin: 12/04/16 09:21 Dose: 800 unit Dicyclomine HCl (Bentyl) 10 mg PO QID PRN PRN Reason: Gas pain Famotidine (Pepcid) 20 mg IV BID [facility] Last Admin: 12/04/16 09:13 Dose: 20 mg Hydrocortisone Sodium Succinate (Solu-Cortef) 100 mg IV Q8HR [facility] Last Admin: 12/04/16 05:00 Dose: 100 mg Piperacillin Sod/Tazobactam Sod (Zosyn/Ns 4.5gm/100ml) 4.5 gm in 100 mls @ 200 mls/hr IV Q8H TOBI PRN Reason: Protocol Last Admin: 12/04/16 08:34 Dose: 200 mls/hr Vancomycin HCl 750 mg/ Sodium (Chloride) 257.5 mls @ 166.667 mls/hr IV Q12H [facility] Last Admin: 12/03/16 23:58 Dose: 166.667 mls/hr Norepinephrine (Levophed Drip 4 Mg/Ns 250 Ml) 4 mg in 250 mls @ 7.5 mls/hr IV TITR TOBI; 2 MCG/MIN PRN Reason: Protocol Last Titration: 12/04/16 09:39 Dose: 1 mcg/min, 3.75 mls/hr Sodium Chloride (Nacl 0.9% 1000 Ml) 1,000 mls @ 125 mls/hr IV DIRECT [facility] Last Admin: 12/03/16 23:57 Dose: 125 mls/hr Potassium Chloride (Kcl 10meq/100ml) 10 meq in 100 mls @ 100 mls/hr IV Q1H [facility] Stop: 12/04/16 11:59 Last Admin: 12/04/16 10:38 Dose: 100 mls/hr Megestrol Acetate (Megace) 400 mg PO QDAY [facility] Last Admin: 12/04/16 09:23 Dose: Not Given Morphine Sulfate (Morphine) 2 mg IV Q4H PRN PRN Reason: Pain, Moderate (4-6) Multivitamins/Minerals (Theragran-M Tab) 1 each PO QDAY [facility] Last Admin: 12/04/16 09:14 Dose: 1 each Ondansetron HCl (Zofran) 4 mg IV Q6H PRN PRN Reason: nausea or vomiting Last Admin: 12/03/16 13:48 Dose: 4 mg Sulfasalazine (Azulfidine) 500 mg PO Q12HR [facility] Last Admin: 12/04/16 09:13 Dose: 500 mg Vancomycin HCl (Vancomycin Pharmacy To Dose) 1 each IV PKCONSULT TOBI PRN Reason: Protocol Exam - Constitutional Vitals: Temp Pulse Resp BP Pulse Ox 97.4 F L 86 27 H 109/65 100 12/04/16 08:00 12/04/16 11:00 12/04/16 11:00 12/04/16 11:00 12/04/16 11:00 Results - Labs CBC & Chem 7: 12/04/16 04:50 12/04/16 04:50 Labs: Abnormal lab results 12/03/16 12/04/16 12/04/16 Range/Units 06:15 00:00 00:00 RBC (3.65-5.03) M/mm3 Hct (30.3-42.9) % RDW (13.2-15.2) % Seg Neutrophils % (40.0-70.0) % Potassium (3.6-5.0) mmol/L Carbon Dioxide (22-30) mmol/L BUN (7-17) mg/dL Creatinine (0.7-1.2) mg/dL Glucose (65-100) mg/dL Calcium (8.4-10.2) mg/dL C-Reactive Protein 3.90 H (0.00-1.30) mg/dL NT-Pro-B Natriuret Pep 1922 H (0-900) pg/mL Crossmatch See Detail 12/04/16 12/04/16 Range/Units 04:50 04:50 RBC 3.50 L (3.65-5.03) M/mm3 Hct 29.6 L D (30.3-42.9) % RDW 19.7 H (13.2-15.2) % Seg Neutrophils % 80.6 H (40.0-70.0) % Potassium 3.0 L (3.6-5.0) mmol/L Carbon Dioxide 19 L (22-30) mmol/L BUN 3 L (7-17) mg/dL Creatinine 0.4 L (0.7-1.2) mg/dL Glucose 148 H (65-100) mg/dL Calcium 6.5 L (8.4-10.2) mg/dL C-Reactive Protein (0.00-1.30) mg/dL NT-Pro-B Natriuret Pep (0-900) pg/mL Crossmatch Assessment and Plan Pt with UC x 1.5 yrs, poorly controlled on Remicade, with active diarrhea and bleeding, also on a blood thinner for DVT, who got sick over the last 2 wks with weakness, dizziness, admitted with N/V/D and anemia. Feeling much better now post transfusion. - would reevaluate need for anticoagulation, and possibly consider IVC filter if needed, as pt should not be on anticoagulation in face of active UC and GI bleeding. - as regards UC, pt received 3rd dose Remicade on 11/08/16, albeit delayed by 5 wks. She is no better, with upto 12 BMs/d. She did have C diff in past, though negative recently. Would recheck C diff, and then, as outpatient, may need to increase Remicade or check for efficacy. Ultimately, if pt continues to have problems with UC control and medical management is ineffective, colectomy may be the best option.
[2016-12-04] MEDS: VANCOMYCIN 750 MG in NACL 0.9% 250ML 250 ML IV SCH (12:14)
--- NOTE | 2016-12-04 12:21 | Progress Note ---
Assessment and Plan Sepsis, possibly from ulcerative colitis flare. Continue on sepsis protocol. follow Blood cultures Started on IV antibiotics. Monitor lactic acid level Septic shock. Patient has been given several of bolus of IV fluid. Levophed has been ordered wean off pressor as needed Severe anemia likely from GI loss - Transfused 2 units of packed RBC - Monitor H&H Leukocytosis - may be due to ulcerative colitis and underlying sepsis - Continue to monitor white count Ulcerative colitis. - Presented with Severe vomiting diarrhea. - Continue IV fluids. - GI FOLLOWING Hyponatremia. Na was 125 on admission Continue on iv fluids. Sodium level 137 today Hypokalemia. - K 3.o - Replace iv and repeat. History of DVT left leg. -We'll hold Eliquis for now for anemia. - We will get repeat Doppler ultrasound of the left leg and CTA chest - plan for ivc filter placement Full code status Subjective Date of service: 12/04/16 Interval history: Patient seen and examined. Medical records and medication list reviewed. Patient denies any abdominal pain. States that she has continued to have bloody diarrhea Discussed plan of care at bedside with patient. Objective - Exam Narrative Exam: GENERAL: Malnourished frail white lady lying on bed appeared to be in no discomfort. HEENT: Normocephalic. Atraumatic. No conjunctival congestion or icterus. Patient has moist mucous membranes. NECK: Supple. Trachea midline. CHEST/LUNGS: Clear to auscultated bilaterally, breathing nonlabored. No wheezes crackles or rhonchi. HEART/CARDIOVASCULAR: Regular in rate and rhythm. S1 and S2 positive. ABDOMEN: Abdomen is soft, positive diffuse mild tenderness. Patient has hyperactive bowel sounds. SKIN: There is no rash. Warm and dry. NEURO: No focal motor deficit. Follows command. MUSCULOSKELETAL: No joint effusion or tenderness. EXTRIMITY: No edema, no cyanosis or clubbing. PSYCH: Cooperative. - Constitutional Vitals: Vital Signs - 12hr 12/04/16 12/04/16 12/04/16 00:30 00:45 01:00 Temperature Pulse Rate 84 51 L 49 L Respiratory 15 13 17 Rate Blood Pressure 109/65 106/61 106/61 O2 Sat by Pulse 96 99 99 Oximetry 12/04/16 12/04/16 12/04/16 01:16 01:30 01:45 Temperature Pulse Rate 51 L 46 L 48 L Respiratory 16 17 14 Rate Blood Pressure 106/61 106/61 113/60 O2 Sat by Pulse 98 98 98 Oximetry 12/04/16 12/04/16 12/04/16 02:00 02:15 02:30 Temperature Pulse Rate 49 L 50 L 49 L Respiratory 16 15 11 L Rate Blood Pressure 113/60 105/70 109/64 O2 Sat by Pulse 98 99 98 Oximetry 12/04/16 12/04/16 12/04/16 02:45 03:00 03:16 Temperature Pulse Rate 45 L 44 L 48 L Respiratory 16 15 16 Rate Blood Pressure 107/64 114/61 113/63 O2 Sat by Pulse 100 98 99 Oximetry 12/04/16 12/04/16 12/04/16 03:30 03:45 04:00 Temperature 97.1 F L Pulse Rate 98 H 73 53 L Respiratory 26 H 16 11 L Rate Blood Pressure 113/63 121/72 114/63 O2 Sat by Pulse 91 100 100 Oximetry 12/04/16 12/04/16 12/04/16 04:15 04:30 04:45 Temperature Pulse Rate 51 L Respiratory 12 9 L 12 Rate Blood Pressure 110/61 114/64 118/55 O2 Sat by Pulse 100 99 100 Oximetry 12/04/16 12/04/16 12/04/16 05:00 05:15 05:30 Temperature Pulse Rate 51 L 49 L 50 L Respiratory 15 13 17 Rate Blood Pressure 120/57 118/52 101/58 O2 Sat by Pulse 100 98 97 Oximetry 12/04/16 12/04/16 12/04/16 05:45 06:00 06:15 Temperature Pulse Rate 48 L 48 L 47 L Respiratory 16 17 16 Rate Blood Pressure 102/57 100/53 102/56 O2 Sat by Pulse 97 97 97 Oximetry 12/04/16 12/04/16 12/04/16 06:30 06:45 07:00 Temperature Pulse Rate 67 53 L 47 L Respiratory 15 12 20 Rate Blood Pressure 115/66 109/61 109/61 O2 Sat by Pulse 98 99 100 Oximetry 12/04/16 12/04/16 12/04/16 07:15 07:30 07:45 Temperature Pulse Rate 45 L 45 L 47 L Respiratory 11 L 16 11 L Rate Blood Pressure 98/52 96/55 106/47 O2 Sat by Pulse 100 100 100 Oximetry 12/04/16 12/04/16 12/04/16 08:00 08:15 08:30 Temperature 97.4 F L Pulse Rate 49 L 47 L 69 Respiratory 12 20 19 Rate Blood Pressure 99/51 103/55 99/51 O2 Sat by Pulse 100 100 100 Oximetry 12/04/16 12/04/16 12/04/16 08:45 09:00 09:15 Temperature Pulse Rate 70 86 91 H Respiratory 18 20 23 Rate Blood Pressure 94/41 92/44 84/47 O2 Sat by Pulse 100 99 98 Oximetry 12/04/16 12/04/16 12/04/16 09:30 09:45 10:00 Temperature Pulse Rate 76 69 73 Respiratory 12 14 27 H Rate Blood Pressure 73/38 92/44 95/54 O2 Sat by Pulse 100 90 90 Oximetry 12/04/16 12/04/16 12/04/16 10:16 10:30 10:46 Temperature Pulse Rate 65 81 99 H Respiratory 18 21 24 Rate Blood Pressure 99/54 99/54 95/39 O2 Sat by Pulse 97 94 91 Oximetry 12/04/16 12/04/16 12/04/16 11:00 11:16 11:30 Temperature Pulse Rate 86 111 H 96 H Respiratory 27 H 35 H 26 H Rate Blood Pressure 109/65 109/65 115/73 O2 Sat by Pulse 100 100 100 Oximetry 12/04/16 12/04/16 11:45 12:00 Temperature Pulse Rate 77 81 Respiratory 13 16 Rate Blood Pressure 108/57 108/62 O2 Sat by Pulse 99 Oximetry - Labs CBC & Chem 7: 12/04/16 04:50 12/04/16 04:50 Labs: Abnormal lab results 12/03/16 12/04/16 12/04/16 Range/Units 06:15 00:00 00:00 RBC (3.65-5.03) M/mm3 Hct (30.3-42.9) % RDW (13.2-15.2) % Seg Neutrophils % (40.0-70.0) % Potassium (3.6-5.0) mmol/L Carbon Dioxide (22-30) mmol/L BUN (7-17) mg/dL Creatinine (0.7-1.2) mg/dL Glucose (65-100) mg/dL Calcium (8.4-10.2) mg/dL C-Reactive Protein 3.90 H (0.00-1.30) mg/dL NT-Pro-B Natriuret Pep 1922 H (0-900) pg/mL Crossmatch See Detail 12/04/16 12/04/16 Range/Units 04:50 04:50 RBC 3.50 L (3.65-5.03) M/mm3 Hct 29.6 L D (30.3-42.9) % RDW 19.7 H (13.2-15.2) % Seg Neutrophils % 80.6 H (40.0-70.0) % Potassium 3.0 L (3.6-5.0) mmol/L Carbon Dioxide 19 L (22-30) mmol/L BUN 3 L (7-17) mg/dL Creatinine 0.4 L (0.7-1.2) mg/dL Glucose 148 H (65-100) mg/dL Calcium 6.5 L (8.4-10.2) mg/dL C-Reactive Protein (0.00-1.30) mg/dL NT-Pro-B Natriuret Pep (0-900) pg/mL Crossmatch
--- NOTE | 2016-12-04 13:47 | Progress Note ---
Subjective Date of service: 12/04/16 Principal diagnosis: Severe Sepsis with Hypotension; Symptomatic Anemia Interval history: Seen and examined at bedside; 24 hour events reviewed; nursing and respiratory care staff consulted; no adverse overnight events reported to me; resting peacefully in bed; remains on low dose levophed; denies acute chest pains or increased SOB; no gross GI re-bleeding Objective Vital Signs - 12hr 12/04/16 12/04/16 12/04/16 02:00 02:15 02:30 Temperature Pulse Rate 49 L 50 L 49 L Respiratory 16 15 11 L Rate Blood Pressure 113/60 105/70 109/64 O2 Sat by Pulse 98 99 98 Oximetry 12/04/16 12/04/16 12/04/16 02:45 03:00 03:16 Temperature Pulse Rate 45 L 44 L 48 L Respiratory 16 15 16 Rate Blood Pressure 107/64 114/61 113/63 O2 Sat by Pulse 100 98 99 Oximetry 12/04/16 12/04/16 12/04/16 03:30 03:45 04:00 Temperature 97.1 F L Pulse Rate 98 H 73 53 L Respiratory 26 H 16 11 L Rate Blood Pressure 113/63 121/72 114/63 O2 Sat by Pulse 91 100 100 Oximetry 12/04/16 12/04/16 12/04/16 04:15 04:30 04:45 Temperature Pulse Rate 51 L Respiratory 12 9 L 12 Rate Blood Pressure 110/61 114/64 118/55 O2 Sat by Pulse 100 99 100 Oximetry 12/04/16 12/04/16 12/04/16 05:00 05:15 05:30 Temperature Pulse Rate 51 L 49 L 50 L Respiratory 15 13 17 Rate Blood Pressure 120/57 118/52 101/58 O2 Sat by Pulse 100 98 97 Oximetry 12/04/16 12/04/16 12/04/16 05:45 06:00 06:15 Temperature Pulse Rate 48 L 48 L 47 L Respiratory 16 17 16 Rate Blood Pressure 102/57 100/53 102/56 O2 Sat by Pulse 97 97 97 Oximetry 12/04/16 12/04/16 12/04/16 06:30 06:45 07:00 Temperature Pulse Rate 67 53 L 47 L Respiratory 15 12 20 Rate Blood Pressure 115/66 109/61 109/61 O2 Sat by Pulse 98 99 100 Oximetry 12/04/16 12/04/16 12/04/16 07:15 07:30 07:45 Temperature Pulse Rate 45 L 45 L 47 L Respiratory 11 L 16 11 L Rate Blood Pressure 98/52 96/55 106/47 O2 Sat by Pulse 100 100 100 Oximetry 12/04/16 12/04/16 12/04/16 08:00 08:15 08:30 Temperature 97.4 F L Pulse Rate 49 L 47 L 69 Respiratory 12 20 19 Rate Blood Pressure 99/51 103/55 99/51 O2 Sat by Pulse 100 100 100 Oximetry 12/04/16 12/04/16 12/04/16 08:45 09:00 09:15 Temperature Pulse Rate 70 86 91 H Respiratory 18 20 23 Rate Blood Pressure 94/41 92/44 84/47 O2 Sat by Pulse 100 99 98 Oximetry 12/04/16 12/04/16 12/04/16 09:30 09:45 10:00 Temperature Pulse Rate 76 69 73 Respiratory 12 14 27 H Rate Blood Pressure 73/38 92/44 95/54 O2 Sat by Pulse 100 90 90 Oximetry 12/04/16 12/04/16 12/04/16 10:16 10:30 10:46 Temperature Pulse Rate 65 81 99 H Respiratory 18 21 24 Rate Blood Pressure 99/54 99/54 95/39 O2 Sat by Pulse 97 94 91 Oximetry 12/04/16 12/04/16 12/04/16 11:00 11:16 11:30 Temperature Pulse Rate 86 111 H 96 H Respiratory 27 H 35 H 26 H Rate Blood Pressure 109/65 109/65 115/73 O2 Sat by Pulse 100 100 100 Oximetry 12/04/16 12/04/16 11:45 12:00 Temperature 97.5 F L Pulse Rate 77 81 Respiratory 13 16 Rate Blood Pressure 108/57 108/62 O2 Sat by Pulse 99 Oximetry Constitutional: no acute distress, alert Eyes: non-icteric ENT: oropharynx moist Neck: supple, no lymphadenopathy Effort: normal Ascultation: Bilateral: clear Cardiovascular: regular rate and rhythm, other (bradycardia) Gastrointestinal: normoactive bowel sounds, soft, non-tender, non-distended Integumentary: normal Extremities: no cyanosis, no edema, pink and warm, pulses normal Neurologic: normal mental status, non-focal exam, pupils equal and round, motor strength normal and Psychiatric: mood appropriate, affect normal CBC and BMP: 12/07/16 04:59 12/07/16 04:59 Abnormal lab findings: Abnormal Labs 12/03/16 12/03/16 12/03/16 04:05 04:05 04:05 RBC 2.20 L Hgb 6.8 L Hct 20.1 L D RDW Finney % (Auto) 8.9 H Seg Neutrophils % Sodium 132 L D Potassium 3.0 L Carbon Dioxide 20 L BUN Creatinine 0.5 L Glucose Lactic Acid 2.60 H* Calcium 6.5 L D C-Reactive Protein NT-Pro-B Natriuret Pep Crossmatch 12/03/16 12/04/16 12/04/16 06:15 00:00 00:00 RBC Hgb Hct RDW Finney % (Auto) Seg Neutrophils % Sodium Potassium Carbon Dioxide BUN Creatinine Glucose Lactic Acid Calcium C-Reactive Protein 3.90 H NT-Pro-B Natriuret Pep 1922 H Crossmatch See Detail 12/04/16 12/04/16 04:50 04:50 RBC 3.50 L Hgb Hct 29.6 L D RDW 19.7 H Finney % (Auto) Seg Neutrophils % 80.6 H Sodium Potassium 3.0 L Carbon Dioxide 19 L BUN 3 L Creatinine 0.4 L Glucose 148 H Lactic Acid Calcium 6.5 L C-Reactive Protein NT-Pro-B Natriuret Pep Crossmatch Chest x-ray: image reviewed
--- NOTE | 2016-12-04 13:59 | Consultation ---
History of Present Illness - Reason for Consult Consult date: 12/04/16 - History of Present Illness Asked to see patient with history of UC. Recent daily GI bledding without cramping or bloating. On anticoagulation for 7 weeks for treatment of Left LE DVT. No CP or SOB. IVC filter requested. Past History Past Medical History: DVT (left leg), other (ulcerative colitis) Past Surgical History: No surgical history Social history: full code. denies: smoking, alcohol abuse Family history: hypertension Medications and Allergies Allergies Allergy/AdvReac Type Severity Reaction Status Date / Time Latex, Natural Rubber Allergy Itching Verified 03/23/16 09:55 mesalamine [From Lialda] Allergy Nausea Verified 08/08/16 20:53 nitrofurantoin Allergy Nausea Verified 01/13/15 19:27 macrocrystalline [From Macrodantin] rivaroxaban [From Xarelto] Allergy Unknown Verified 12/02/16 20:39 warfarin Allergy Rash Verified 10/17/16 10:36 Home Medications Medication Instructions Recorded Confirmed Last Taken Type Megestrol [Megace] 400 mg PO QDAY #30 oral.liqd 08/02/16 12/04/16 12/02/16 Rx Multivitamin Tab W-MINERAL 1 each PO QDAY #30 tablet 08/02/16 12/04/16 11/24/16 Rx [Multiple Vitamin/Mineral (Theragran M)] Sertraline [Zoloft] 25 mg PO QDAY tablet 08/02/16 12/04/16 11/27/16 Rx Cholecalciferol Vit D3 [Vitamin D3] 800 unit PO QDAY 09/29/16 12/04/16 11/20/16 History Apixaban [Eliquis] 5 mg PO Q12HR #60 tablet 10/18/16 12/04/16 12/03/16 10:00 Rx Active Meds: Active Medications Acetaminophen (Tylenol) 650 mg PO Q4H PRN PRN Reason: Pain MILD(1-3)/Fever >100.5/DANIELS Last Admin: 12/03/16 11:05 Dose: 650 mg Azathioprine (Imuran) 50 mg PO QDAY TOBI Last Admin: 12/04/16 09:13 Dose: 50 mg Bisacodyl (Dulcolax) 10 mg GA QDAY PRN PRN Reason: Constipation unrelieved by MOM Cholecalciferol (Vitamin D3) 800 unit PO QDAY [facility] Last Admin: 12/04/16 09:21 Dose: 800 unit Dicyclomine HCl (Bentyl) 10 mg PO QID PRN PRN Reason: Gas pain Famotidine (Pepcid) 20 mg IV BID [facility] Last Admin: 12/04/16 09:13 Dose: 20 mg Hydrocortisone Sodium Succinate (Solu-Cortef) 100 mg IV Q8HR [facility] Last Admin: 12/04/16 05:00 Dose: 100 mg Piperacillin Sod/Tazobactam Sod (Zosyn/Ns 4.5gm/100ml) 4.5 gm in 100 mls @ 200 mls/hr IV Q8H TOBI PRN Reason: Protocol Last Admin: 12/04/16 08:34 Dose: 200 mls/hr Vancomycin HCl 750 mg/ Sodium (Chloride) 257.5 mls @ 166.667 mls/hr IV Q12H [facility] Last Admin: 12/04/16 12:14 Dose: 166.667 mls/hr Norepinephrine (Levophed Drip 4 Mg/Ns 250 Ml) 4 mg in 250 mls @ 7.5 mls/hr IV TITR TOBI; 2 MCG/MIN PRN Reason: Protocol Last Titration: 12/04/16 12:19 Dose: 0.5 mcg/min, 1.875 mls/hr Sodium Chloride (Nacl 0.9% 1000 Ml) 1,000 mls @ 125 mls/hr IV DIRECT [facility] Last Admin: 12/03/16 23:57 Dose: 125 mls/hr Megestrol Acetate (Megace) 400 mg PO QDAY [facility] Last Admin: 12/04/16 09:23 Dose: Not Given Morphine Sulfate (Morphine) 2 mg IV Q4H PRN PRN Reason: Pain, Moderate (4-6) Multivitamins/Minerals (Theragran-M Tab) 1 each PO QDAY [facility] Last Admin: 12/04/16 09:14 Dose: 1 each Ondansetron HCl (Zofran) 4 mg IV Q6H PRN PRN Reason: nausea or vomiting Last Admin: 12/03/16 13:48 Dose: 4 mg Sulfasalazine (Azulfidine) 500 mg PO Q12HR [facility] Last Admin: 12/04/16 09:13 Dose: 500 mg Vancomycin HCl (Vancomycin Pharmacy To Dose) 1 each IV PKCONSULT TOBI PRN Reason: Protocol Review of Systems Constitutional: weight loss, weight gain Ears, nose, mouth and throat: no ear pain, no ear discharge, no tinnitis, no epistaxis, no bleeding gums Breasts: deferred Cardiovascular: edema, no chest pain Respiratory: no congestion Gastrointestinal: BRBPR, no abdominal pain Musculoskeletal: no neck stiffness, no neck pain Exam - Constitutional Vitals: Temp Pulse Resp BP Pulse Ox 97.5 F L 81 16 108/62 99 12/04/16 12:00 12/04/16 12:00 12/04/16 12:00 12/04/16 12:00 12/04/16 12:00 General appearance: Present: no acute distress - EENT Eyes: Present: PERRL ENT: hearing intact, clear oral mucosa - Neck Neck: Present: supple, normal ROM - Respiratory Respiratory effort: normal Respiratory: bilateral: CTA - Cardiovascular Rhythm: regular Heart Sounds: Present: S1 & S2 - Extremities Extremities: no ischemia, pulses intact, pulses symmetrical, normal temperature , normal color Extremity abnormal: edema Peripheral Pulses: within normal limits - Abdominal General gastrointestinal: Present: soft, non-tender, non-distended Female genitourinary: Present: deferred - Rectal Rectal Exam: deferred - Integumentary Integumentary: Present: clear, warm, dry - Musculoskeletal Musculoskeletal: strength equal bilaterally - Psychiatric Psychiatric: intact judgment & insight, memory intact, cooperative Results - Labs CBC & Chem 7: 12/04/16 04:50 12/04/16 04:50 Labs: Abnormal lab results 12/03/16 12/04/16 12/04/16 Range/Units 06:15 00:00 00:00 RBC (3.65-5.03) M/mm3 Hct (30.3-42.9) % RDW (13.2-15.2) % Seg Neutrophils % (40.0-70.0) % Potassium (3.6-5.0) mmol/L Carbon Dioxide (22-30) mmol/L BUN (7-17) mg/dL Creatinine (0.7-1.2) mg/dL Glucose (65-100) mg/dL Calcium (8.4-10.2) mg/dL C-Reactive Protein 3.90 H (0.00-1.30) mg/dL NT-Pro-B Natriuret Pep 1922 H (0-900) pg/mL Crossmatch See Detail 12/04/16 12/04/16 Range/Units 04:50 04:50 RBC 3.50 L (3.65-5.03) M/mm3 Hct 29.6 L D (30.3-42.9) % RDW 19.7 H (13.2-15.2) % Seg Neutrophils % 80.6 H (40.0-70.0) % Potassium 3.0 L (3.6-5.0) mmol/L Carbon Dioxide 19 L (22-30) mmol/L BUN 3 L (7-17) mg/dL Creatinine 0.4 L (0.7-1.2) mg/dL Glucose 148 H (65-100) mg/dL Calcium 6.5 L (8.4-10.2) mg/dL C-Reactive Protein (0.00-1.30) mg/dL NT-Pro-B Natriuret Pep (0-900) pg/mL Crossmatch - Imaging and Cardiology Venous US: pending Assessment and Plan - Patient Problems (1) Anemia Current Visit: Yes Status: Acute Qualifiers: Anemia type: unspecified type Iron deficiency anemia type: I Vitamin B12 deficiency anemia type: V Folate deficiency anemia type: F Bone marrow failure anemia type: B Hemolytic anemia type: H Other causes of anemia: O Chronic kidney disease stage: C Qualified Code(s): D64.9 - Anemia, unspecified Plan to address problem: Observation, recently transfused. (2) Ulcerative colitis Current Visit: Yes Status: Acute Qualifiers: Ulcerative colitis location: unspecified ulcerative colitis location Digestive disease complication type: unspecified complication Qualified Code(s ): K51.919 - Ulcerative colitis, unspecified with unspecified complications Plan to address problem: Medical therapy, GI following. (3) Deep vein thrombosis (DVT) of left lower extremity Current Visit: No Status: Acute Qualifiers: Affected thrombotic vein of extremity: A Chronicity: C Plan to address problem: Patient is a candidate for IVC filter placement. Ultrasound not viewed. Repeat duplex today per patient. Will discuss final decision with primary team. Findings discussed with patient.
[2016-12-04] MEDS ORDERED: NACL ONE (16:13)
--- NOTE | 2016-12-04 18:47 | Cat Scan Report ---
FINAL REPORT EXAM: CT ANGIO CHEST HISTORY: possible PE TECHNIQUE: CT chest CT angiogram with reconstructions PRIORS: None. FINDINGS: There is no evidence of filling defect within the central pulmonary vasculature to suggest the presence of acute pulmonary embolus. No evidence of mediastinal pathologic lymph node enlargement Heart and great vessels are unremarkable. The aorta is normal in caliber. No focal pulmonary infiltrate identified. No pleural fluid collection seen. No acute pulmonary abnormality noted. Visualized portion of the upper abdomen demonstrates no acute change. IMPRESSION: Negative. No CT evidence of acute pulmonary embolus
[2016-12-05] MEDS: VANCOMYCIN 750 MG in NACL 0.9% 250ML 250 ML IV SCH (00:30)
[2016-12-05] MEDS: ZOSYN/NS 4.5GM/100ML 4.5 GM/100 ML VIAL IV SCH ×2 (00:52→08:38)
--- NOTE | 2016-12-05 01:19 | Admit Criteria Form ---
Admission Criteria Documentation: SEPSIS and OTHER FEBRILE ILLNESS, W/O FOCAL INFECTION Clinical Indications for Admission to Inpatient Care ( Place 'X' for any and all applicable criteria): Admission to inpatient status for two midnights or more is indicated for ANY ONE of the following (1)(2)(3): [ ] I. Bacteremia [X]II. Suspected or identified specific infection requiring hospitalization (eg, meningitis, endocarditis) [ ]III. Hemodynamic instability [ ]IV. Temperature > 104.9 0F (40.5 0C) (oral) [ ]V. Core (rectal) temperature < 95 0F (35 0C) (eg, thought to be due to infection) [ ]. Altered mental status that is severe or persistent [ ]VII. Failure or unavailability of outpatient antimicrobial treatment [ ]VIII. Hypoxemia [ ]IX. Seizures [ ]X. New coagulopathy (eg, reduced platelet count consistent with disseminated intravascular coagulation) [ ]XI. Inpatient admission required [B] rather than observation care because of 1 or more of the following 1) Tachypnea not responsive to outpatient or observation treatment 2) Metabolic disorder (eg, hypoglycemia, hyperglycemia, metabolic acidosis ) that persists despite outpatient and observation care treatment 3) Evidence of end-organ dysfunction (eg, rising creatinine, myocardial ischemia, rising liver function tests) that is severe or persists despite observation care treatment 4) Temperature > 103.1 0F (39.5 0C) (oral) that is not responsive to observation care treatment 5) Dehydration that is severe or persistent 6) Parenteral antimicrobial regimen that must be implemented on inpatient basis (eg, infusion or monitoring needs beyond capabilities of outpatient parenteral therapy) 7) Strict or protective (eg, laminar flow) isolation 8) Other condition, treatment or monitoring requiring inpatient admission Extended stay beyond goal length of stay may be needed for(1)(3) [ ]a) Persistent Hypotension [ ]b) Positive blood cultures [ ]c) Lack of improvement on antimicrobial treatment (eg, continued fever) [ ]d) Active comorbid illness (eg, heart failure, renal failure) [ ]e) High-risk febrile neutropenia [ ]f) Insufficient oral intake [ ]g) insufficient oral intake The original [employer] content created by [employer] has been revised. The portions of the content which have been revised are identified through the use of italic text or in bold, and [employer] has neither reviewed nor approved the modified material. All other unmodified content is copyright [facility] (formerly [facility])[3]. Please see references footnoted in the original [facility] 2017 Admission Criteria Met: Yes
--- NOTE | 2016-12-05 07:22 | Consultation ---
REASON FOR CONSULTATION: Ulcerative colitis and GI bleed. HISTORY OF PRESENT ILLNESS: The patient has a history of distal ulcerative colitis diagnosed in 02/[address] Stovall. She has had ongoing problems with control ever since then and has had numerous admissions here as well as apparently at [place]. Her course has been complicated with C. diff colitis in August. She has been on Remicade and after her first 2 doses, there was a delay of approximately 5 weeks due to C. diff infection. She received her last dose of Remicade on 11/08. Unfortunately, she continues to have problems with diarrhea up to 10-12 times a day with nocturnal symptoms as well. She notes that she has been having a lot of blood in her stool as she is on Eliquis. She has a reported history of a DVT and has been on anticoagulation since October 06 at least. There was a preliminary duplex Doppler showing acute DVT in the left popliteal vein. Regardless, the patient has been on anticoagulation since then and has dropped her hemoglobin. Over the last 2 weeks, the patient notes that she has been weak and dizzy and primarily bedbound. She developed nausea and vomiting as well and therefore presented to the hospital where she was noted to be anemic. She was found to be volume depleted and had low blood pressure. She was therefore admitted to the Intensive Care Unit for monitoring. Of note, the patient states that she was doing much better after her first 2 doses of Remicade with apparently no blood in the stool. However, potentially with a delay in the Remicade dose and with the anticoagulation that was started on October 06, she has had ongoing bleeding. Her hemoglobin has dropped approximately of 9 prior to the Eliquis to 6.8 on admission here after volume repletion. She has been transfused now at a hemoglobin of 10. The patient denies abdominal pain. She has had no hematemesis. She is feeling better now. ALLERGIES: SHE IS ALLERGIC TO MESALAMINE, NITROFURANTOIN, WARFARIN AND POSSIBLY XARELTO. MEDICATIONS: At home, she is on sertraline, Megace, Eliquis and Remicade - last dose November 08. PAST MEDICAL HISTORY: She has a history of: 1. Ulcerative colitis. 2. DVT of left lower extremity. 3. History of Clostridium difficile in the past. 4. Depression - worse after of her father on October 19 of this year. FAMILY HISTORY: Noncontributory. Maternal mother had UC. SOCIAL HISTORY: Negative for tobacco or ethanol. REVIEW OF SYSTEMS: Otherwise noncontributory. PHYSICAL EXAMINATION: GENERAL: This is a pale, middle-aged white female sitting in chair, in no apparent distress. She is afebrile with pulse of 86. VITAL SIGNS: Blood pressure 109/65. HEENT: She is anicteric. Pupils are round and reactive. Oropharynx is clear. ABDOMEN: Benign. EXTREMITIES: Reveal no edema. HEART AND LUNGS: Were not examined. LABORATORY DATA: White count is 8.9, hemoglobin 10.1, hematocrit 29.6, MCV of 85, platelet count of 318,000 - after transfusion. Sodium 137, potassium 3.0, chloride 106, bicarbonate 19, BUN 3, creatinine 0.4, glucose is 148. C-reactive protein is 3.9. AST and ALT are 20 and 11, alkaline phosphatase 114 and total bilirubin 0.3, albumin is 2.8. IMPRESSION: 1. Rectal bleed - due to known ulcerative colitis, which is not well controlled at present with bleeding due to anticoagulation. The patient is clearly not a good candidate for anticoagulation and alternative approach such as IVC filter should be considered. Meantime, monitor H and H and transfuse as needed. 2. Ulcerative colitis - currently poorly controlled. We will recheck C. diff. However, I suspect this will be negative. If it is, the Remicade may not be working as well, possibly due to delay. In that case, checking for antibodies and levels would be appropriate to decide whether or not to increase her to a 10 mg/kilo dosage versus switching to a different medication. Also, repeat evaluation of mucosa and then consideration of colectomy as a curative may be appropriate given the multiple complications the patient has had and the difficulties in getting her disease under control. These are considerations for an outpatient basis; however. If C. diff is negative, and prednisone has worked in the past for her, then I would put her on a prednisone taper at discharge. We will await C. diff levels. JOB# [id number] C/NTS
[2016-12-05 07:38] LABS: Blood Urea Nitrogen 2 mg/dL (7-17); Calcium 6.6 mg/dL (8.4-10.2); Carbon Dioxide 19 mmol/L (22-30); Glucose 154 mg/dL (65-100)
[2016-12-05 07:39] LABS: Anion Gap 15 mmol/L; Chloride 109.4 mmol/L (98-107); Sodium 141 mmol/L (137-145)
[2016-12-05 07:43] LABS: Potassium 2.6 mmol/L (3.6-5.0)
--- NOTE | 2016-12-05 07:46 | Vascular Lab Report ---
Left Lower Extremity Venous Duplex Study: Reason for Exam: Pain and swelling of the left lower extremity. Comments on the Right: A limited duplex study was done of the proximal veins of the right lower extremity. All veins visualized are freely compressible without evidence of internal echogenicity. Flow is spontaneous and phasic throughout. No evidence of acute or chronic thrombus is seen in any of the vessels visualized. Comments on the Left: Chronic recanalize clot is noted in the left posterior tibial vein. The remaining veins visualized are freely compressible without evidence of internal echogenicity. Spontaneous and phasic flow is present proximally. Impression: Chronic deep venous thrombosis in the left lower extremity
--- NOTE | 2016-12-05 10:26 | Consultation ---
History of Present Illness - Reason for Consult Consult date: 12/05/16 DVT - History of Present Illness Patient with a history of ulcerative colitis as well as a history of a left lower extremity DVT 7 weeks ago. By history, the patient states that DVT was extensive. She attributes her DVT to prolonged immobility. A repeat ultrasound performed during this hospitalization demonstrates only residual neck thrombus in her posterior tibial vein below the knee. The remaining veins are widely patent. A CTA of the chest was performed which demonstrates no evidence of pulmonary embolus. The patient had been on Eliquis but presented with symptomatic anemia. Past History Past Medical History: DVT (left leg), other (ulcerative colitis) Past Surgical History: No surgical history Social history: full code. denies: smoking, alcohol abuse Family history: hypertension Medications and Allergies Allergies Allergy/AdvReac Type Severity Reaction Status Date / Time Latex, Natural Rubber Allergy Itching Verified 03/23/16 09:55 mesalamine [From Lialda] Allergy Nausea Verified 08/08/16 20:53 nitrofurantoin Allergy Nausea Verified 01/13/15 19:27 macrocrystalline [From Macrodantin] rivaroxaban [From Xarelto] Allergy Unknown Verified 12/02/16 20:39 warfarin Allergy Rash Verified 10/17/16 10:36 Home Medications Medication Instructions Recorded Confirmed Last Taken Type Megestrol [Megace] 400 mg PO QDAY #30 oral.liqd 08/02/16 12/04/16 12/02/16 Rx Multivitamin Tab W-MINERAL 1 each PO QDAY #30 tablet 08/02/16 12/04/16 11/24/16 Rx [Multiple Vitamin/Mineral (Theragran M)] Sertraline [Zoloft] 25 mg PO QDAY tablet 08/02/16 12/04/16 11/27/16 Rx Cholecalciferol Vit D3 [Vitamin D3] 800 unit PO QDAY 09/29/16 12/04/16 11/20/16 History Apixaban [Eliquis] 5 mg PO Q12HR #60 tablet 10/18/16 12/04/16 12/03/16 10:00 Rx Active Meds: Active Medications Acetaminophen (Tylenol) 650 mg PO Q4H PRN PRN Reason: Pain MILD(1-3)/Fever >100.5/DANIELS Last Admin: 12/03/16 11:05 Dose: 650 mg Azathioprine (Imuran) 50 mg PO QDAY [facility] Last Admin: 12/04/16 09:13 Dose: 50 mg Bisacodyl (Dulcolax) 10 mg [place] QDAY PRN PRN Reason: Constipation unrelieved by MOM Cholecalciferol (Vitamin D3) 800 unit PO QDAY [facility] Last Admin: 12/04/16 09:21 Dose: 800 unit Dicyclomine HCl (Bentyl) 10 mg PO QID PRN PRN Reason: Gas pain Famotidine (Pepcid) 20 mg IV BID [facility] Last Admin: 12/04/16 22:36 Dose: 20 mg Hydrocortisone Sodium Succinate (Solu-Cortef) 100 mg IV Q8HR [facility] Last Admin: 12/05/16 05:43 Dose: 100 mg Piperacillin Sod/Tazobactam Sod (Zosyn/Ns 4.5gm/100ml) 4.5 gm in 100 mls @ 200 mls/hr IV Q8H TOBI PRN Reason: Protocol Last Admin: 12/05/16 08:38 Dose: 200 mls/hr Vancomycin HCl 750 mg/ Sodium (Chloride) 257.5 mls @ 166.667 mls/hr IV Q12H [facility] Last Admin: 12/05/16 00:30 Dose: 166.667 mls/hr Norepinephrine (Levophed Drip 4 Mg/Ns 250 Ml) 4 mg in 250 mls @ 7.5 mls/hr IV TITR TOBI; 2 MCG/MIN PRN Reason: Protocol Last Titration: 12/04/16 12:19 Dose: 0.5 mcg/min, 1.875 mls/hr Potassium Chloride/Dextrose/Sod Cl (D5w/0.45% Nacl/Kcl 30 Meq) 30 meq in 1,000 mls @ 75 mls/hr IV DIRECT TOBI Potassium Chloride (Kcl 10meq/100ml) 10 meq in 100 mls @ 100 mls/hr IV Q1H [facility] Stop: 12/05/16 13:59 Megestrol Acetate (Megace) 400 mg PO QDAY [facility] Last Admin: 12/04/16 09:23 Dose: Not Given Morphine Sulfate (Morphine) 2 mg IV Q4H PRN PRN Reason: Pain, Moderate (4-6) Multivitamins/Minerals (Theragran-M Tab) 1 each PO QDAY [facility] Last Admin: 12/04/16 09:14 Dose: 1 each Ondansetron HCl (Zofran) 4 mg IV Q6H PRN PRN Reason: nausea or vomiting Last Admin: 12/03/16 13:48 Dose: 4 mg Sulfasalazine (Azulfidine) 500 mg PO Q12HR [facility] Last Admin: 12/04/16 22:36 Dose: 500 mg Vancomycin HCl (Vancomycin Pharmacy To Dose) 1 each IV PKCONSULT [facility] PRN Reason: Protocol Review of Systems All systems: negative Exam - Constitutional Vitals: Temp Pulse Resp BP Pulse Ox 98.5 F 44 L 10 L 105/50 99 12/05/16 04:00 12/05/16 06:00 12/05/16 06:00 12/05/16 06:15 12/05/16 06:15 General appearance: Present: no acute distress - EENT Eyes: Present: PERRL, EOM intact ENT: hearing intact - Neck Neck: Present: supple, normal ROM - Respiratory Respiratory effort: normal - Extremities Extremities: no ischemia, No edema - Abdominal General gastrointestinal: Present: deferred Female genitourinary: Present: deferred - Rectal Rectal Exam: deferred - Psychiatric Psychiatric: appropriate mood/affect, cooperative Results - Labs CBC & Chem 7: 12/04/16 04:50 12/05/16 06:30 Labs: Abnormal lab results 12/05/16 Range/Units 06:30 Potassium 2.6 L* (3.6-5.0) mmol/L Carbon Dioxide 19 L (22-30) mmol/L BUN 2 L (7-17) mg/dL Creatinine 0.5 L (0.7-1.2) mg/dL Glucose 154 H (65-100) mg/dL Calcium 6.6 L (8.4-10.2) mg/dL - Imaging and Cardiology CT scan - chest: report reviewed Venous US: report reviewed Assessment and Plan Patient with left lower extremity DVT 7 weeks ago with cessation of anticoagulation secondary to symptomatic anemia attributed to bleeding secondary to ulcerative colitis. The patient at this time does not need a IVC filter for embolic protection as there is no acute thrombus. During her hospitalization, the patient may be placed in SCDs. On discharge, the patient will need further evaluation with a venous ultrasound with reflux. (This test not performed here). She may have a component of May Thurner which combined with immobility will predispose her to left-sided clots. On discharge, would recommend that the patient follow-up with our office for further evaluation and possible treatment.
[2016-12-05] MEDS: PEPCID IV SCH ×2 (10:43→23:52)
[2016-12-05] MEDS: AZULFIDINE PO SCH ×2 (10:43→23:51)
[2016-12-05] MEDS: VITAMIN D3 PO SCH (10:44)
[2016-12-05] MEDS: MEGACE PO SCH ×2 (10:44→10:47)
[2016-12-05] MEDS: THERAGRAN-M Tab PO SCH (10:44)
[2016-12-05] MEDS: KCL 10MEQ/100ML 10 MEQ/100 ML BAG IV SCH ×4 (10:45→14:54)
[2016-12-05] MEDS: IMURAN PO SCH (10:45)
[2016-12-05] MEDS: D5W/0.45% NACL/KCL 30 MEQ 30 MEQ/1,000 ML BAG IV SCH (11:02)
[2016-12-05] MEDS: LEVAQUIN 750MG/150ML 750 MG/150 ML BAG IV SCH (12:14)
--- NOTE | 2016-12-05 12:43 | Progress Note ---
Subjective Date of service: 12/05/16 Principal diagnosis: Severe Sepsis with Hypotension; Symptomatic Anemia Interval history: Seen and examined at bedside; 24 hour events reviewed; nursing and respiratory care staff consulted; no adverse overnight events reported to me; Objective Vital Signs - 12hr 12/05/16 12/05/16 12/05/16 00:45 01:00 01:15 Temperature Pulse Rate 49 L 45 L 45 L Respiratory 10 L 15 16 Rate Blood Pressure 99/55 99/58 99/55 O2 Sat by Pulse 99 98 96 Oximetry 12/05/16 12/05/16 12/05/16 01:30 01:45 02:00 Temperature Pulse Rate 47 L 45 L 42 L Respiratory 13 15 11 L Rate Blood Pressure 91/51 99/58 92/48 O2 Sat by Pulse 96 96 96 Oximetry 12/05/16 12/05/16 12/05/16 02:15 02:30 02:45 Temperature Pulse Rate 40 L 44 L 65 Respiratory 13 14 15 Rate Blood Pressure 91/51 91/47 98/52 O2 Sat by Pulse 99 96 100 Oximetry 12/05/16 12/05/16 12/05/16 03:00 03:15 03:30 Temperature Pulse Rate 41 L 47 L 43 L Respiratory 13 15 15 Rate Blood Pressure 99/58 91/47 98/57 O2 Sat by Pulse 98 98 97 Oximetry 12/05/16 12/05/16 12/05/16 03:45 04:00 04:01 Temperature 98.5 F Pulse Rate 41 L 48 L Respiratory 11 L 14 Rate Blood Pressure 98/57 118/60 O2 Sat by Pulse 98 97 Oximetry 12/05/16 12/05/16 12/05/16 04:15 04:30 04:45 Temperature Pulse Rate 49 L 48 L 47 L Respiratory 13 14 14 Rate Blood Pressure 118/60 103/56 103/56 O2 Sat by Pulse 96 96 95 Oximetry 12/05/16 12/05/16 12/05/16 05:00 05:15 05:30 Temperature Pulse Rate 49 L 53 L 41 L Respiratory 15 11 L 10 L Rate Blood Pressure 93/54 93/54 101/53 O2 Sat by Pulse 96 98 98 Oximetry 12/05/16 12/05/16 12/05/16 05:45 06:00 06:15 Temperature Pulse Rate 62 44 L Respiratory 14 10 L Rate Blood Pressure 101/53 105/50 105/50 O2 Sat by Pulse 100 100 99 Oximetry CBC and BMP: 12/04/16 04:50 12/05/16 06:30 Abnormal lab findings: Abnormal Labs 12/03/16 12/03/16 12/03/16 04:05 04:05 04:05 RBC 2.20 L Hgb 6.8 L Hct 20.1 L D RDW [place] % (Auto) 8.9 H Seg Neutrophils % Sodium 132 L D Potassium 3.0 L Carbon Dioxide 20 L BUN Creatinine 0.5 L Glucose Lactic Acid 2.60 H* Calcium 6.5 L D C-Reactive Protein NT-Pro-B Natriuret Pep Crossmatch 12/03/16 12/04/16 12/04/16 06:15 00:00 00:00 RBC Hgb Hct RDW [place] % (Auto) Seg Neutrophils % Sodium Potassium Carbon Dioxide BUN Creatinine Glucose Lactic Acid Calcium C-Reactive Protein 3.90 H NT-Pro-B Natriuret Pep 1922 H Crossmatch See Detail 12/04/16 12/04/16 12/05/16 04:50 04:50 06:30 RBC 3.50 L Hgb Hct 29.6 L D RDW 19.7 H [place] % (Auto) Seg Neutrophils % 80.6 H Sodium Potassium 3.0 L 2.6 L* Carbon Dioxide 19 L 19 L BUN 3 L 2 L Creatinine 0.4 L 0.5 L Glucose 148 H 154 H Lactic Acid Calcium 6.5 L 6.6 L C-Reactive Protein NT-Pro-B Natriuret Pep Crossmatch
--- NOTE | 2016-12-05 13:55 | Consultation ---
History of Present Illness Consult date: 12/05/16 Consult reason: hypotension, other (cardiomyopathy) History of present illness: The patient states 66-year-old woman who was admitted with diarrhea, poor appetite, and severe anemia with a hematocrit of 20, symptoms of ongoing flareup of her chronic ulcerative colitis. On presentation, she was found with low normal systolic blood pressures of 85-90. She has since been stabilized with fluids and blood transfusions. Her recent medical history also notable for acute lower extremity deep vein thrombosis, for which she was on Eliquis. Eliquis is currently on hold due to ongoing anemia. Cardiology consultation is requested for incidental finding of an abnormal echocardiogram. Echocardiogram was ordered due to the hypotension on presentation. The echo reports a mild cardiomyopathy with left ventricular ejection fraction estimated at 40%. No significant valvular lesions within noted. During my visit, the patient reports that the cardiomyopathy is not new. Her ejection fraction had previously been reported as 40% when she was at another hospital several weeks ago. She was at that time recommended for an outpatient stress test, which she has not yet completed before her current admission. Currently, she has no chest pain, no shortness of breath, no palpitations and no lower extremity edema. Cardiac status is asymptomatic. Her ECG is abnormal. She has a normal sinus rhythm with left bundle branch block. The left bundle branch block is chronic, as confirmed by her primary outpatient barrel charrer helper Dr. Burroughs. Past History Past Medical History: DVT (left leg), other (ulcerative colitis) Past Surgical History: No surgical history Social history: full code. denies: smoking, alcohol abuse Family history: hypertension Medications and Allergies Allergies Allergy/AdvReac Type Severity Reaction Status Date / Time Latex, Natural Rubber Allergy Itching Verified 03/23/16 09:55 mesalamine [From Lialda] Allergy Nausea Verified 08/08/16 20:53 nitrofurantoin Allergy Nausea Verified 01/13/15 19:27 macrocrystalline [From Macrodantin] rivaroxaban [From Xarelto] Allergy Unknown Verified 12/02/16 20:39 warfarin Allergy Rash Verified 10/17/16 10:36 Home Medications Medication Instructions Recorded Confirmed Last Taken Type Megestrol [Megace] 400 mg PO QDAY #30 oral.liqd 08/02/16 12/04/16 12/02/16 Rx Multivitamin Tab W-MINERAL 1 each PO QDAY #30 tablet 08/02/16 12/04/16 11/24/16 Rx [Multiple Vitamin/Mineral (Theragran M)] Sertraline [Zoloft] 25 mg PO QDAY tablet 08/02/16 12/04/16 11/27/16 Rx Cholecalciferol Vit D3 [Vitamin D3] 800 unit PO QDAY 09/29/16 12/04/16 11/20/16 History Apixaban [Eliquis] 5 mg PO Q12HR #60 tablet 10/18/16 12/04/16 12/03/16 10:00 Rx Active Meds: Active Medications Acetaminophen (Tylenol) 650 mg PO Q4H PRN PRN Reason: Pain MILD(1-3)/Fever >100.5/DANIELS Last Admin: 12/03/16 11:05 Dose: 650 mg Azathioprine (Imuran) 50 mg PO QDAY [facility] Last Admin: 12/05/16 10:45 Dose: 50 mg Bisacodyl (Dulcolax) 10 mg [place] QDAY PRN PRN Reason: Constipation unrelieved by MOM Cholecalciferol (Vitamin D3) 800 unit PO QDAY [facility] Last Admin: 12/05/16 10:44 Dose: 800 unit Dicyclomine HCl (Bentyl) 10 mg PO QID PRN PRN Reason: Gas pain Famotidine (Pepcid) 20 mg IV BID [facility] Last Admin: 12/05/16 10:43 Dose: 20 mg Hydrocortisone Sodium Succinate (Solu-Cortef) 100 mg IV Q8HR [facility] Last Admin: 12/05/16 13:17 Dose: 100 mg Norepinephrine (Levophed Drip 4 Mg/Ns 250 Ml) 4 mg in 250 mls @ 7.5 mls/hr IV TITR TOBI; 2 MCG/MIN PRN Reason: Protocol Last Titration: 12/04/16 12:19 Dose: 0.5 mcg/min, 1.875 mls/hr Potassium Chloride/Dextrose/Sod Cl (D5w/0.45% Nacl/Kcl 30 Meq) 30 meq in 1,000 mls @ 75 mls/hr IV DIRECT TOBI Last Admin: 12/05/16 11:02 Dose: 75 mls/hr Potassium Chloride (Kcl 10meq/100ml) 10 meq in 100 mls @ 100 mls/hr IV Q1H TOBI Stop: 12/05/16 13:59 Last Admin: 12/05/16 13:16 Dose: 100 mls/hr Levofloxacin/Dextrose (Levaquin 750mg/150ml) 750 mg in 150 mls @ 100 mls/hr IV Q24HR TOBI PRN Reason: Protocol Last Admin: 12/05/16 12:14 Dose: 100 mls/hr Megestrol Acetate (Megace) 400 mg PO QDAY [facility] Last Admin: 12/05/16 10:47 Dose: Not Given Midodrine (Proamatine) 5 mg PO Q8H [facility] Morphine Sulfate (Morphine) 2 mg IV Q4H PRN PRN Reason: Pain, Moderate (4-6) Multivitamins/Minerals (Theragran-M Tab) 1 each PO QDAY [facility] Last Admin: 12/05/16 10:44 Dose: 1 each Ondansetron HCl (Zofran) 4 mg IV Q6H PRN PRN Reason: nausea or vomiting Last Admin: 12/03/16 13:48 Dose: 4 mg Sulfasalazine (Azulfidine) 500 mg PO Q12HR [facility] Last Admin: 12/05/16 10:43 Dose: 500 mg Review of Systems Cardiovascular: no chest pain, no orthopnea, no palpitations, no rapid/ irregular heart beat, no edema, no syncope, no lightheadedness, no shortness of breath Physical Examination Vital Signs Temp Pulse Resp BP 97.4 F L 132 H 18 109/66 12/02/16 20:39 12/02/16 20:39 12/02/16 20:39 12/02/16 20:39 General appearance: no acute distress HEENT: Positive: PERRL Neck: Positive: neck supple Cardiac: Positive: Reg Rate and Rhythm Lungs: Positive: clear to auscultation Neuro: Positive: Grossly Intact Abdomen: Positive: Soft Female genitourinary: deferred Skin: Positive: Clear Extremities: Absent: edema Results 12/04/16 04:50 12/05/16 06:30 Comprehensive Metabolic Panel 12/05/16 Range/Units 06:30 Potassium 2.6 L* (3.6-5.0) mmol/L Carbon Dioxide 19 L (22-30) mmol/L BUN 2 L (7-17) mg/dL Creatinine 0.5 L (0.7-1.2) mg/dL Glucose 154 H (65-100) mg/dL Calcium 6.6 L (8.4-10.2) mg/dL EKG interpretations - Telemetry EKG Rhythm: Sinus Rhythm (with left bundle-branch block) Assessment and Plan - Patient Problems (1) Hypotension Current Visit: Yes Status: Acute Qualifiers: Hypotension type: unspecified hypotension type Trimester: T Qualified Code(s): I95.9 - Hypotension, unspecified Plan to address problem: Hypotension on presentation was likely due to hypovolemia from the GI bleeding, severe anemia, diarrhea and poor oral intake. The low blood pressure is not cardiogenic. (2) Cardiomyopathy Current Visit: Yes Status: Acute Qualifiers: Cardiomyopathy type: C Plan to address problem: Patient has a mild asymptomatic cardiomyopathy. In the outpatient setting, once she is stable from her acute medical problems, a Persantine thallium stress test will be recommended for further assessment of the cardiomyopathy. (3) Abnormal EKG Current Visit: Yes Status: Acute Plan to address problem: Left bundle-branch block on EKG is likely associated with the underlying mild cardiomyopathy.
[2016-12-05] MEDS: PROAMATINE PO SCH ×2 (14:54→22:00)
--- NOTE | 2016-12-05 18:06 | Progress Note ---
Assessment and Plan 66-year-old with history of severe ulcerative colitis. She presented with nausea vomiting diarrhea, low blood pressure and low H/H. Sepsis, possibly from ulcerative colitis flare. Continue on sepsis protocol. Blood cultures negative, stool cx pending Started on IV antibiotics. Monitor lactic acid level, trended down Septic vs hypovolumic shock. likely from UC flare and volume loss with GI bleed, diarrhea and nausea Patient has been given several of bolus of IV fluid. Levophed has been ordered wean off pressor as needed Severe anemia likely from GI loss - s/p 2 units of packed RBC transfusion - Monitor H&H Leukocytosis - may be due to ulcerative colitis and underlying sepsis - Continue to monitor white count Ulcerative colitis. - Presented with Severe vomiting diarrhea. - Continue IV fluids. - GI FOLLOWING Hyponatremia. Na was 125 on admission Continue on iv fluids. Sodium level improved Hypokalemia. - K 2.6, likely from GI loss - Replace iv and repeat. History of DVT left leg. -We'll hold Eliquis for now for anemia and GI loss. -Repeat Doppler ultrasound of the left leg showed chronic LLE DVT and CTA chest negative - per vascular the patient at this time does not need a IVC filter for embolic protection as there is no acute thrombus. On discharge, the patient will need further evaluation with a venous ultrasound with reflux. (This test not performed here). She may have a component of May Thurner which combined with immobility will predispose her to left-sided clots. the patient follow-up need to f/u for further evaluation and possible treatment with vascular. Cardiomyopathy with Ef 40% - cardiology consulted, stress test as outpt Full code status The high probability of a clinically significant, sudden or life threatening deterioration of the system(s) required my full and direct attention, intervention and personal management. The aggregate critical care time was [35] minutes. This time is in addition to time spent performing reported procedures but includes the following: [x] Data Review and interpretation [x] Patient assessment and monitoring of vital signs [x] Documentation [x] Medication orders and management Subjective Date of service: 12/05/16 Principal diagnosis: Severe Sepsis with Hypotension; Symptomatic Anemia Interval history: Patient seen and examined. Medical records and medication list reviewed. Patient denies any abdominal pain. States that she has continued to have diarrhea had to go 5 times last night Discussed plan of care at bedside with patient. Objective - Exam Narrative Exam: GENERAL: Malnourished frail white lady lying on bed appeared to be in no discomfort. HEENT: Normocephalic. Atraumatic. No conjunctival congestion or icterus. Patient has moist mucous membranes. NECK: Supple. Trachea midline. CHEST/LUNGS: Clear to auscultated bilaterally, breathing nonlabored. No wheezes crackles or rhonchi. HEART/CARDIOVASCULAR: Regular in rate and rhythm. S1 and S2 positive. ABDOMEN: Abdomen is soft, positive diffuse mild tenderness. Patient has hyperactive bowel sounds. SKIN: There is no rash. Warm and dry. NEURO: No focal motor deficit. Follows command. MUSCULOSKELETAL: No joint effusion or tenderness. EXTRIMITY: No edema, no cyanosis or clubbing. PSYCH: Cooperative. - Constitutional Vitals: Vital Signs - 12hr 12/05/16 12/05/16 12/05/16 06:15 06:30 06:45 Temperature Pulse Rate Pulse Rate [ Apical] Pulse Rate [ From Monitor] Pulse Rate [ Left Radial] Respiratory Rate Blood Pressure 105/50 97/53 97/53 O2 Sat by Pulse 99 98 98 Oximetry 12/05/16 12/05/16 12/05/16 07:00 07:15 07:30 Temperature Pulse Rate 58 L Pulse Rate [ Apical] Pulse Rate [ From Monitor] Pulse Rate [ Left Radial] Respiratory 11 L Rate Blood Pressure 107/52 107/52 106/43 O2 Sat by Pulse 98 98 99 Oximetry 12/05/16 12/05/16 12/05/16 07:45 08:00 08:15 Temperature 97.9 F Pulse Rate 44 L 44 L 82 Pulse Rate [ Apical] Pulse Rate [ 44 L From Monitor] Pulse Rate [ Left Radial] Respiratory 17 16 13 Rate Blood Pressure 106/43 88/51 88/51 O2 Sat by Pulse 97 97 96 Oximetry 12/05/16 12/05/16 12/05/16 08:31 08:45 09:00 Temperature Pulse Rate 76 86 78 Pulse Rate [ Apical] Pulse Rate [ From Monitor] Pulse Rate [ Left Radial] Respiratory 15 12 15 Rate Blood Pressure 104/56 104/56 104/56 O2 Sat by Pulse 99 98 99 Oximetry 12/05/16 12/05/16 12/05/16 09:15 09:31 09:45 Temperature Pulse Rate 69 73 70 Pulse Rate [ Apical] Pulse Rate [ From Monitor] Pulse Rate [ Left Radial] Respiratory 13 12 13 Rate Blood Pressure 109/52 106/42 106/42 O2 Sat by Pulse 98 100 99 Oximetry 12/05/16 12/05/16 12/05/16 10:00 10:15 10:31 Temperature Pulse Rate 73 85 72 Pulse Rate [ Apical] Pulse Rate [ From Monitor] Pulse Rate [ Left Radial] Respiratory 17 13 14 Rate Blood Pressure 114/58 114/58 116/50 O2 Sat by Pulse 100 100 100 Oximetry 12/05/16 12/05/16 12/05/16 10:45 11:01 11:15 Temperature Pulse Rate 63 68 54 L Pulse Rate [ Apical] Pulse Rate [ From Monitor] Pulse Rate [ Left Radial] Respiratory 12 13 14 Rate Blood Pressure 116/50 126/45 126/45 O2 Sat by Pulse 100 100 98 Oximetry 12/05/16 12/05/16 12/05/16 11:31 11:45 12:00 Temperature Pulse Rate 46 L 53 L 49 L Pulse Rate [ Apical] Pulse Rate [ From Monitor] Pulse Rate [ Left Radial] Respiratory 10 L 15 11 L Rate Blood Pressure 120/48 120/48 116/50 O2 Sat by Pulse 98 99 100 Oximetry 12/05/16 12/05/16 12/05/16 12:15 12:30 12:45 Temperature Pulse Rate 43 L 55 L 69 Pulse Rate [ Apical] Pulse Rate [ From Monitor] Pulse Rate [ Left Radial] Respiratory 10 L 13 18 Rate Blood Pressure 116/50 108/48 108/48 O2 Sat by Pulse 99 100 98 Oximetry 12/05/16 12/05/16 12/05/16 13:00 13:15 13:30 Temperature Pulse Rate 51 L 73 72 Pulse Rate [ Apical] Pulse Rate [ From Monitor] Pulse Rate [ Left Radial] Respiratory 11 L 16 11 L Rate Blood Pressure 96/36 96/36 91/41 O2 Sat by Pulse 99 100 95 Oximetry 12/05/16 12/05/16 12/05/16 13:45 14:00 14:15 Temperature Pulse Rate 62 66 55 L Pulse Rate [ Apical] Pulse Rate [ From Monitor] Pulse Rate [ Left Radial] Respiratory 15 15 15 Rate Blood Pressure 91/41 103/58 103/58 O2 Sat by Pulse 90 99 100 Oximetry 12/05/16 12/05/16 12/05/16 14:31 14:45 15:00 Temperature Pulse Rate 76 55 L 59 L Pulse Rate [ Apical] Pulse Rate [ From Monitor] Pulse Rate [ Left Radial] Respiratory 20 16 17 Rate Blood Pressure 103/58 119/49 92/52 O2 Sat by Pulse 99 100 98 Oximetry 12/05/16 12/05/16 12/05/16 15:15 15:30 15:45 Temperature Pulse Rate 72 48 L 53 L Pulse Rate [ Apical] Pulse Rate [ From Monitor] Pulse Rate [ Left Radial] Respiratory 18 12 10 L Rate Blood Pressure 92/52 98/45 92/52 O2 Sat by Pulse 99 100 100 Oximetry 12/05/16 12/05/16 12/05/16 16:00 16:15 16:31 Temperature 97.6 F Pulse Rate 53 L 50 L 54 L Pulse Rate [ 48 L Apical] Pulse Rate [ 63 From Monitor] Pulse Rate [ 48 L Left Radial] Respiratory 15 15 12 Rate Blood Pressure 105/46 98/45 116/53 O2 Sat by Pulse 100 98 100 Oximetry 12/05/16 12/05/16 12/05/16 16:45 17:00 17:15 Temperature Pulse Rate 51 L 62 57 L Pulse Rate [ Apical] Pulse Rate [ From Monitor] Pulse Rate [ Left Radial] Respiratory 12 10 L 10 L Rate Blood Pressure 116/53 105/69 105/69 O2 Sat by Pulse 99 99 98 Oximetry - Labs CBC & Chem 7: 12/04/16 04:50 12/05/16 06:30 Labs: Abnormal lab results 12/05/16 Range/Units 06:30 Potassium 2.6 L* (3.6-5.0) mmol/L Carbon Dioxide 19 L (22-30) mmol/L BUN 2 L (7-17) mg/dL Creatinine 0.5 L (0.7-1.2) mg/dL Glucose 154 H (65-100) mg/dL Calcium 6.6 L (8.4-10.2) mg/dL
[2016-12-06] MEDS: D5W/0.45% NACL/KCL 30 MEQ 30 MEQ/1,000 ML BAG IV SCH ×2 (04:42→21:41)
[2016-12-06] MEDS: PROAMATINE PO SCH ×3 (06:22→21:43)
[2016-12-06 07:35] LABS: Anion Gap 16 mmol/L; Blood Urea Nitrogen 2 mg/dL (7-17); Carbon Dioxide 23 mmol/L (22-30); Chloride 106.9 mmol/L (98-107); Glucose 157 mg/dL (65-100); Sodium 143 mmol/L (137-145)
[2016-12-06 07:44] LABS: Potassium 2.5 mmol/L (3.6-5.0)
[2016-12-06] MEDS ORDERED: K-DUR PO SCH (08:00)
[2016-12-06] MEDS ORDERED: MAGNESIUM SULFATE 4GM/100ML 4 GM/100 ML BAG IV ONE (08:00)
[2016-12-06] MEDS: KCL 20MEQ/100ML 20 MEQ/100 ML BAG IV SCH ×2 (08:59→10:17)
[2016-12-06] MEDS: LEVAQUIN 750MG/150ML 750 MG/150 ML BAG IV SCH (09:11)
[2016-12-06] MEDS: THERAGRAN-M Tab PO SCH (09:11)
[2016-12-06] MEDS: AZULFIDINE PO SCH ×2 (09:17→21:42)
[2016-12-06] MEDS: MEGACE PO SCH ×2 (09:17→09:21)
[2016-12-06] MEDS: IMURAN PO SCH (09:18)
[2016-12-06] MEDS: VITAMIN D3 PO SCH (09:18)
[2016-12-06] MEDS: PEPCID IV SCH (09:19)
[2016-12-06] MEDS ORDERED: POTASSIUM CHLORIDE FEEDTUBE ONE (10:00)
--- NOTE | 2016-12-06 11:02 | Gastroenterology Progress Note ---
<MICHELE SMITH - Last Filed: 12/06/16 11:17> Assessment and Plan 1.ulcerative colitis 2.rectal bleeding -afebrile -WBC-WNL -stool c-diff negative -HGB 10.1 today- stable -cotinue to monitor H/H and transfuse as needed -continue to hold blood thinning medications -repeat doppler u/s revealed chronic LLE DVT- per vascular pt does not need IVC filter -diarrhea and rectal bleeding improving per pt -continue current medications and supportive care -h/o UC poorly controlled, currently on Remicade with last dose on 11/08/16- outpatient considerations would include checking for efficacy or increasing dose of Remicade vs changing to another medication vs colectomy if medical management continues to be ineffective -will follow Subjective Date of service: 12/06/16 Principal diagnosis: UC Interval history: Patient sitting up in bed. No acute distress noted. Reports diarrhea and rectal bleeding is improving. Tolerating diet. Objective - Constitutional Vitals: Temp Pulse Resp BP Pulse Ox 97.7 F 41 L 14 107/54 97 12/06/16 04:00 12/06/16 08:00 12/06/16 08:00 12/06/16 08:00 12/06/16 08:00 General appearance: no acute distress - EENT Eyes: PERRL, EOM intact ENT: hearing intact - Respiratory Respiratory: bilateral: CTA - Cardiovascular Rhythm: regular Heart Sounds: Present: S1 & S2 - Extremities Extremities: No edema - Gastrointestinal General gastrointestinal: Present: soft, non-tender, non-distended, normal bowel sounds - Integumentary Integumentary: Present: warm, dry - Neurologic Neurological: alert and oriented x3 - Labs CBC & Chem 7: 12/04/16 04:50 12/06/16 06:30 Labs: Laboratory Results - last 24 hr 12/06/16 06:30 Sodium 143 Potassium 2.5 L* Chloride 106.9 Carbon Dioxide 23 Anion Gap 16 BUN 2 L Creatinine 0.4 L Estimated GFR > 60 BUN/Creatinine Ratio 5.00 Glucose 157 H Calcium 7.0 L Magnesium 1.60 L <RENITA PAYNE - Last Filed: 12/06/16 15:26> Assessment and Plan Pt is equivocal re: diarrhea improvement, but notes decreased bleeding. Continue with management, and will change steroids. Objective - Constitutional Vitals: Temp Pulse Resp BP Pulse Ox 97.7 F 41 L 14 107/54 97 12/06/16 04:00 12/06/16 08:00 12/06/16 08:00 12/06/16 08:00 12/06/16 08:00 - Labs CBC & Chem 7: 12/04/16 04:50 12/06/16 06:30 Labs: Laboratory Results - last 24 hr 12/06/16 06:30 Sodium 143 Potassium 2.5 L* Chloride 106.9 Carbon Dioxide 23 Anion Gap 16 BUN 2 L Creatinine 0.4 L Estimated GFR > 60 BUN/Creatinine Ratio 5.00 Glucose 157 H Calcium 7.0 L Magnesium 1.60 L
--- NOTE | 2016-12-06 11:20 | Progress Note ---
Subjective Date of service: 12/06/16 Principal diagnosis: UC Interval history: Seen and examined at bedside; 24 hour events reviewed; nursing and respiratory care staff consulted; no adverse overnight events reported to me; Objective Vital Signs - 12hr 12/05/16 12/05/16 12/06/16 23:30 23:45 00:00 Temperature 97.5 F L Pulse Rate 44 L 44 L 41 L Respiratory 12 11 L 11 L Rate Blood Pressure 102/56 102/56 95/49 O2 Sat by Pulse 99 100 100 Oximetry 12/06/16 12/06/16 12/06/16 00:15 00:30 00:45 Temperature Pulse Rate 72 41 L 40 L Respiratory 16 10 L 9 L Rate Blood Pressure 102/56 103/57 103/57 O2 Sat by Pulse 100 98 98 Oximetry 12/06/16 12/06/16 12/06/16 01:00 01:15 01:30 Temperature Pulse Rate 41 L 71 41 L Respiratory 9 L 14 14 Rate Blood Pressure 102/59 102/59 112/61 O2 Sat by Pulse 97 97 97 Oximetry 12/06/16 12/06/16 12/06/16 01:45 02:01 02:15 Temperature Pulse Rate 42 L 44 L 48 L Respiratory 15 15 15 Rate Blood Pressure 112/61 127/58 127/58 O2 Sat by Pulse 96 95 95 Oximetry 12/06/16 12/06/16 12/06/16 02:31 02:45 03:01 Temperature Pulse Rate 53 L 41 L 42 L Respiratory 16 13 9 L Rate Blood Pressure 76/50 76/50 115/57 O2 Sat by Pulse 95 99 99 Oximetry 12/06/16 12/06/16 12/06/16 03:15 03:30 03:45 Temperature Pulse Rate 47 L 40 L 45 L Respiratory 15 14 13 Rate Blood Pressure 115/57 118/55 118/55 O2 Sat by Pulse 97 95 97 Oximetry 12/06/16 12/06/16 12/06/16 04:00 04:15 04:30 Temperature 97.7 F Pulse Rate 46 L 62 42 L Respiratory 13 18 14 Rate Blood Pressure 126/61 126/61 123/54 O2 Sat by Pulse 96 97 98 Oximetry 12/06/16 12/06/16 12/06/16 04:45 05:00 05:15 Temperature Pulse Rate 41 L 40 L 43 L Respiratory 14 14 14 Rate Blood Pressure 123/54 141/57 141/57 O2 Sat by Pulse 97 97 99 Oximetry 12/06/16 12/06/16 12/06/16 05:30 05:45 06:01 Temperature Pulse Rate 44 L 82 71 Respiratory 15 18 18 Rate Blood Pressure 124/56 124/56 97/67 O2 Sat by Pulse 98 97 Oximetry 12/06/16 12/06/16 12/06/16 06:15 06:30 06:45 Temperature Pulse Rate 54 L 41 L 40 L Respiratory 19 12 14 Rate Blood Pressure 97/67 110/53 110/53 O2 Sat by Pulse 99 99 96 Oximetry 12/06/16 12/06/16 12/06/16 07:01 07:15 07:31 Temperature Pulse Rate 41 L 45 L 88 Respiratory 13 14 24 Rate Blood Pressure 101/53 101/53 97/55 O2 Sat by Pulse 98 97 98 Oximetry 12/06/16 12/06/16 07:45 08:00 Temperature Pulse Rate 64 41 L Respiratory 22 14 Rate Blood Pressure 97/55 107/54 O2 Sat by Pulse 98 97 Oximetry CBC and BMP: 12/04/16 04:50 12/06/16 06:30 Abnormal lab findings: Abnormal Labs 12/03/16 12/03/16 12/03/16 04:05 04:05 04:05 RBC 2.20 L Hgb 6.8 L Hct 20.1 L D RDW [place] % (Auto) 8.9 H Seg Neutrophils % Sodium 132 L D Potassium 3.0 L Carbon Dioxide 20 L BUN Creatinine 0.5 L Glucose Lactic Acid 2.60 H* Calcium 6.5 L D Magnesium C-Reactive Protein NT-Pro-B Natriuret Pep Crossmatch 12/03/16 12/04/16 12/04/16 06:15 00:00 00:00 RBC Hgb Hct RDW [place] % (Auto) Seg Neutrophils % Sodium Potassium Carbon Dioxide BUN Creatinine Glucose Lactic Acid Calcium Magnesium C-Reactive Protein 3.90 H NT-Pro-B Natriuret Pep 1922 H Crossmatch See Detail 12/04/16 12/04/16 12/05/16 04:50 04:50 06:30 RBC 3.50 L Hgb Hct 29.6 L D RDW 19.7 H [place] % (Auto) Seg Neutrophils % 80.6 H Sodium Potassium 3.0 L 2.6 L* Carbon Dioxide 19 L 19 L BUN 3 L 2 L Creatinine 0.4 L 0.5 L Glucose 148 H 154 H Lactic Acid Calcium 6.5 L 6.6 L Magnesium C-Reactive Protein NT-Pro-B Natriuret Pep Crossmatch 12/06/16 06:30 RBC Hgb Hct RDW [place] % (Auto) Seg Neutrophils % Sodium Potassium 2.5 L* Carbon Dioxide BUN 2 L Creatinine 0.4 L Glucose 157 H Lactic Acid Calcium 7.0 L Magnesium 1.60 L C-Reactive Protein NT-Pro-B Natriuret Pep Crossmatch
--- NOTE | 2016-12-06 11:35 | Progress Note ---
<VASQUEZ TRAVIS - Last Filed: 12/06/16 11:28> Assessment and Plan Diarrhea symptoms of ongoing flareup of her chronic ulcerative colitis Severe anemia requiring blood transfusion Hypotensive -has since been stabilized on midodrine therapy Hypokalemia Hx of deep vein thrombosis on Eliquis as an outpatient. Eliquis is currently on hold due to ongoing anemia. Hx of Mild Cardiomyopathy Echocardiogram reports a left ventricular ejection fraction estimated at 40% . No significant valvular lesions within noted. She has not yet completed her outpatient stress test before her current admission. Left bundle branch block, chronic Subjective Date of service: 12/06/16 Principal diagnosis: UC Interval history: Patient has no complaints. She denies diarrhea. Objective Vital Signs Temp Pulse Pulse Pulse Pulse Pulse Pulse 12/06/16 08:00 41 L 12/06/16 07:45 64 12/06/16 07:31 88 12/06/16 07:15 45 L 12/06/16 07:01 41 L 12/06/16 06:45 40 L 12/06/16 06:30 41 L 12/06/16 06:15 54 L 12/06/16 06:01 71 12/06/16 05:45 82 12/06/16 05:30 44 L 12/06/16 05:15 43 L 12/06/16 05:00 40 L 12/06/16 04:45 41 L 12/06/16 04:30 42 L 12/06/16 04:15 62 12/06/16 04:00 97.7 F 46 L 12/06/16 03:45 45 L 12/06/16 03:30 40 L 12/06/16 03:15 47 L 12/06/16 03:01 42 L 12/06/16 02:45 41 L 12/06/16 02:31 53 L 12/06/16 02:15 48 L 12/06/16 02:01 44 L 12/06/16 01:45 42 L 12/06/16 01:30 41 L 12/06/16 01:15 71 12/06/16 01:00 41 L 12/06/16 00:45 40 L 12/06/16 00:30 41 L 12/06/16 00:15 72 12/06/16 00:00 97.5 F L 41 L 12/05/16 23:45 44 L 12/05/16 23:30 44 L 12/05/16 23:15 49 L 12/05/16 23:01 52 L 12/05/16 22:45 44 L 12/05/16 22:30 44 L 12/05/16 22:15 43 L 12/05/16 22:01 50 L 12/05/16 21:45 52 L 12/05/16 21:30 49 L 12/05/16 21:15 44 L 12/05/16 21:01 51 L 12/05/16 20:45 42 L 12/05/16 20:30 70 12/05/16 20:15 47 L 12/05/16 20:00 98.1 F 46 L 45 L 45 L 45 L 45 L 45 L 12/05/16 19:45 44 L 12/05/16 19:30 45 L 12/05/16 19:15 45 L 12/05/16 19:00 48 L 12/05/16 18:45 45 L 12/05/16 18:37 45 L 12/05/16 18:30 46 L 12/05/16 18:15 50 L 12/05/16 18:01 71 12/05/16 17:45 74 12/05/16 17:31 53 L 12/05/16 17:15 57 L 12/05/16 17:00 62 12/05/16 16:45 51 L 12/05/16 16:31 54 L 12/05/16 16:15 50 L 12/05/16 16:00 97.6 F 53 L 48 L 63 48 L 12/05/16 15:45 53 L 12/05/16 15:30 48 L 12/05/16 15:15 72 12/05/16 15:00 59 L 12/05/16 14:45 55 L 12/05/16 14:31 76 12/05/16 14:15 55 L 12/05/16 14:00 46 L 12/05/16 13:45 62 12/05/16 13:30 72 12/05/16 13:15 73 12/05/16 13:00 51 L 12/05/16 12:45 69 12/05/16 12:30 55 L 12/05/16 12:15 43 L 12/05/16 12:00 49 L 12/05/16 11:45 53 L 12/05/16 11:31 46 L Pulse Resp BP Pulse Ox 12/06/16 08:00 14 107/54 97 12/06/16 07:45 22 97/55 98 12/06/16 07:31 24 97/55 98 12/06/16 07:15 14 101/53 97 12/06/16 07:01 13 101/53 98 12/06/16 06:45 14 110/53 96 12/06/16 06:30 12 110/53 99 12/06/16 06:15 19 97/67 99 12/06/16 06:01 18 97/67 12/06/16 05:45 18 124/56 97 12/06/16 05:30 15 124/56 98 12/06/16 05:15 14 141/57 99 12/06/16 05:00 14 141/57 97 12/06/16 04:45 14 123/54 97 12/06/16 04:30 14 123/54 98 12/06/16 04:15 18 126/61 97 12/06/16 04:00 13 126/61 96 12/06/16 03:45 13 118/55 97 12/06/16 03:30 14 118/55 95 12/06/16 03:15 15 115/57 97 12/06/16 03:01 9 L 115/57 99 12/06/16 02:45 13 76/50 99 12/06/16 02:31 16 76/50 95 12/06/16 02:15 15 127/58 95 12/06/16 02:01 15 127/58 95 12/06/16 01:45 15 112/61 96 12/06/16 01:30 14 112/61 97 12/06/16 01:15 14 102/59 97 12/06/16 01:00 9 L 102/59 97 12/06/16 00:45 9 L 103/57 98 12/06/16 00:30 10 L 103/57 98 12/06/16 00:15 16 102/56 100 12/06/16 00:00 11 L 95/49 100 12/05/16 23:45 11 L 102/56 100 12/05/16 23:30 12 102/56 99 12/05/16 23:15 17 109/40 97 12/05/16 23:01 8 L 109/40 100 12/05/16 22:45 17 113/44 100 12/05/16 22:30 15 99/48 99 12/05/16 22:15 11 L 113/44 100 12/05/16 22:01 10 L 113/44 100 12/05/16 21:45 12 113/47 98 12/05/16 21:30 13 113/47 100 12/05/16 21:15 17 108/42 99 12/05/16 21:01 11 L 108/42 100 12/05/16 20:45 13 102/63 98 12/05/16 20:30 16 102/63 97 12/05/16 20:15 13 106/57 97 12/05/16 20:00 45 L 12 106/57 97 12/05/16 19:45 15 105/58 96 12/05/16 19:30 15 105/58 97 12/05/16 19:15 12 112/61 99 12/05/16 19:00 11 L 112/61 99 12/05/16 18:45 9 L 104/52 99 12/05/16 18:37 11 L 104/52 99 12/05/16 18:30 12 104/52 99 12/05/16 18:15 14 102/56 99 12/05/16 18:01 19 102/56 100 12/05/16 17:45 14 108/63 100 12/05/16 17:31 12 108/63 99 12/05/16 17:15 10 L 105/69 98 12/05/16 17:00 10 L 105/69 99 12/05/16 16:45 12 116/53 99 12/05/16 16:31 12 116/53 100 12/05/16 16:15 15 98/45 98 12/05/16 16:00 15 105/46 100 12/05/16 15:45 10 L 92/52 100 12/05/16 15:30 12 98/45 100 12/05/16 15:15 18 92/52 99 12/05/16 15:00 17 92/52 98 12/05/16 14:45 16 119/49 100 12/05/16 14:31 20 103/58 99 12/05/16 14:15 15 103/58 100 12/05/16 14:00 15 103/58 99 12/05/16 13:45 15 91/41 90 12/05/16 13:30 11 L 91/41 95 12/05/16 13:15 16 96/36 100 12/05/16 13:00 11 L 96/36 99 12/05/16 12:45 18 108/48 98 12/05/16 12:30 13 108/48 100 12/05/16 12:15 10 L 116/50 99 12/05/16 12:00 11 L 116/50 100 12/05/16 11:45 15 120/48 99 12/05/16 11:31 10 L 120/48 98 - Physical Examination General: No Apparent Distress HEENT: Positive: PERRL Neck: Positive: neck supple Cardiac: Positive: Reg Rate and Rhythm Neuro: Positive: Grossly Intact - Labs and Meds Comprehensive Metabolic Panel 12/06/16 Range/Units 06:30 Sodium 143 (137-145) mmol/L Potassium 2.5 L* (3.6-5.0) mmol/L Chloride 106.9 (98-107) mmol/L Carbon Dioxide 23 (22-30) mmol/L BUN 2 L (7-17) mg/dL Creatinine 0.4 L (0.7-1.2) mg/dL Glucose 157 H (65-100) mg/dL Calcium 7.0 L (8.4-10.2) mg/dL <ZANE RICHMOND - Last Filed: 12/06/16 12:38> Assessment and Plan - Patient Problems (1) Hypotension Current Visit: Yes Status: Acute Qualifiers: Hypotension type: unspecified hypotension type Trimester: T Qualified Code(s): I95.9 - Hypotension, unspecified Plan to address problem: Patient's blood pressure is likely borderline low at baseline, and systolic levels of 85-90 and above acceptable. (2) Cardiomyopathy Current Visit: Yes Status: Acute Qualifiers: Cardiomyopathy type: C Plan to address problem: Incidental finding of a mild cardiomyopathy with ejection fraction 40%, and chronic left bundle branch block. Further cardiac evaluation will be done as an outpatient. (3) Abnormal EKG Current Visit: Yes Status: Acute Plan to address problem: Chronic left bundle branch block, associated with a mild cardiomyopathy. Objective Vital Signs Temp Pulse Pulse Pulse Pulse Pulse Pulse 12/06/16 08:00 41 L 12/06/16 07:45 64 12/06/16 07:31 88 12/06/16 07:15 45 L 12/06/16 07:01 41 L 12/06/16 06:45 40 L 12/06/16 06:30 41 L 12/06/16 06:15 54 L 12/06/16 06:01 71 12/06/16 05:45 82 12/06/16 05:30 44 L 12/06/16 05:15 43 L 12/06/16 05:00 40 L 12/06/16 04:45 41 L 12/06/16 04:30 42 L 12/06/16 04:15 62 12/06/16 04:00 97.7 F 46 L 12/06/16 03:45 45 L 12/06/16 03:30 40 L 12/06/16 03:15 47 L 12/06/16 03:01 42 L 12/06/16 02:45 41 L 12/06/16 02:31 53 L 12/06/16 02:15 48 L 12/06/16 02:01 44 L 12/06/16 01:45 42 L 12/06/16 01:30 41 L 12/06/16 01:15 71 12/06/16 01:00 41 L 12/06/16 00:45 40 L 12/06/16 00:30 41 L 12/06/16 00:15 72 12/06/16 00:00 97.5 F L 41 L 12/05/16 23:45 44 L 12/05/16 23:30 44 L 12/05/16 23:15 49 L 12/05/16 23:01 52 L 12/05/16 22:45 44 L 12/05/16 22:30 44 L 12/05/16 22:15 43 L 12/05/16 22:01 50 L 12/05/16 21:45 52 L 12/05/16 21:30 49 L 12/05/16 21:15 44 L 12/05/16 21:01 51 L 12/05/16 20:45 42 L 12/05/16 20:30 70 12/05/16 20:15 47 L 12/05/16 20:00 98.1 F 46 L 45 L 45 L 45 L 45 L 45 L 12/05/16 19:45 44 L 12/05/16 19:30 45 L 12/05/16 19:15 45 L 12/05/16 19:00 48 L 12/05/16 18:45 45 L 12/05/16 18:37 45 L 12/05/16 18:30 46 L 12/05/16 18:15 50 L 12/05/16 18:01 71 12/05/16 17:45 74 12/05/16 17:31 53 L 12/05/16 17:15 57 L 12/05/16 17:00 62 12/05/16 16:45 51 L 12/05/16 16:31 54 L 12/05/16 16:15 50 L 12/05/16 16:00 97.6 F 53 L 48 L 63 48 L 12/05/16 15:45 53 L 12/05/16 15:30 48 L 12/05/16 15:15 72 12/05/16 15:00 59 L 12/05/16 14:45 55 L 12/05/16 14:31 76 12/05/16 14:15 55 L 12/05/16 14:00 46 L 12/05/16 13:45 62 12/05/16 13:30 72 12/05/16 13:15 73 12/05/16 13:00 51 L 12/05/16 12:45 69 Pulse Resp BP Pulse Ox 12/06/16 08:00 14 107/54 97 12/06/16 07:45 22 97/55 98 12/06/16 07:31 24 97/55 98 12/06/16 07:15 14 101/53 97 12/06/16 07:01 13 101/53 98 12/06/16 06:45 14 110/53 96 12/06/16 06:30 12 110/53 99 12/06/16 06:15 19 97/67 99 12/06/16 06:01 18 97/67 12/06/16 05:45 18 124/56 97 12/06/16 05:30 15 124/56 98 12/06/16 05:15 14 141/57 99 12/06/16 05:00 14 141/57 97 12/06/16 04:45 14 123/54 97 12/06/16 04:30 14 123/54 98 12/06/16 04:15 18 126/61 97 12/06/16 04:00 13 126/61 96 12/06/16 03:45 13 118/55 97 12/06/16 03:30 14 118/55 95 12/06/16 03:15 15 115/57 97 12/06/16 03:01 9 L 115/57 99 12/06/16 02:45 13 76/50 99 12/06/16 02:31 16 76/50 95 12/06/16 02:15 15 127/58 95 12/06/16 02:01 15 127/58 95 12/06/16 01:45 15 112/61 96 12/06/16 01:30 14 112/61 97 12/06/16 01:15 14 102/59 97 12/06/16 01:00 9 L 102/59 97 12/06/16 00:45 9 L 103/57 98 12/06/16 00:30 10 L 103/57 98 12/06/16 00:15 16 102/56 100 12/06/16 00:00 11 L 95/49 100 12/05/16 23:45 11 L 102/56 100 12/05/16 23:30 12 102/56 99 12/05/16 23:15 17 109/40 97 12/05/16 23:01 8 L 109/40 100 12/05/16 22:45 17 113/44 100 12/05/16 22:30 15 99/48 99 12/05/16 22:15 11 L 113/44 100 12/05/16 22:01 10 L 113/44 100 12/05/16 21:45 12 113/47 98 12/05/16 21:30 13 113/47 100 12/05/16 21:15 17 108/42 99 12/05/16 21:01 11 L 108/42 100 12/05/16 20:45 13 102/63 98 12/05/16 20:30 16 102/63 97 12/05/16 20:15 13 106/57 97 12/05/16 20:00 45 L 12 106/57 97 12/05/16 19:45 15 105/58 96 12/05/16 19:30 15 105/58 97 12/05/16 19:15 12 112/61 99 12/05/16 19:00 11 L 112/61 99 12/05/16 18:45 9 L 104/52 99 08/14/17 18:37 11 L 104/52 99 12/05/16 18:30 12 104/52 99 12/05/16 18:15 14 102/56 99 12/05/16 18:01 19 102/56 100 12/05/16 17:45 14 108/63 100 12/05/16 17:31 12 108/63 99 12/05/16 17:15 10 L 105/69 98 12/05/16 17:00 10 L 105/69 99 12/05/16 16:45 12 116/53 99 12/05/16 16:31 12 116/53 100 12/05/16 16:15 15 98/45 98 12/05/16 16:00 15 105/46 100 12/05/16 15:45 10 L 92/52 100 12/05/16 15:30 12 98/45 100 12/05/16 15:15 18 92/52 99 12/05/16 15:00 17 92/52 98 12/05/16 14:45 16 119/49 100 12/05/16 14:31 20 103/58 99 12/05/16 14:15 15 103/58 100 12/05/16 14:00 15 103/58 99 12/05/16 13:45 15 91/41 90 12/05/16 13:30 11 L 91/41 95 12/05/16 13:15 16 96/36 100 12/05/16 13:00 11 L 96/36 99 12/05/16 12:45 18 108/48 98 - Labs and Meds Comprehensive Metabolic Panel 12/06/16 Range/Units 06:30 Sodium 143 (137-145) mmol/L Potassium 2.5 L* (3.6-5.0) mmol/L Chloride 106.9 (98-107) mmol/L Carbon Dioxide 23 (22-30) mmol/L BUN 2 L (7-17) mg/dL Creatinine 0.4 L (0.7-1.2) mg/dL Glucose 157 H (65-100) mg/dL Calcium 7.0 L (8.4-10.2) mg/dL
[2016-12-06] MEDS ORDERED: POTASSIUM CHLORIDE ONE (16:08)
--- NOTE | 2016-12-06 18:12 | Progress Note ---
Assessment and Plan Assessment and plan: 66-year-old with history of severe ulcerative colitis. She presented with nausea vomiting diarrhea, low blood pressure and low H/H. Sepsis, possibly from ulcerative colitis flare. Continue on sepsis protocol. Blood cultures negative Started on IV antibiotics c. diff negative Septic vs hypovolumic shock. - resolving Severe anemia likely from GI loss - h/h stable after transfusion of 2 units of blood Leukocytosis - resolved Ulcerative colitis. - GI recommend colectomy but she refused - Needs o/p f/u Hyponatremia. - resolved Severe Hypokalemia. - K 2.5, likely from GI loss - Replace iv and PO potassium repeat K pending History of DVT left leg. - Vascular consult appreciated - Eliquis discontinued Cardiomyopathy with Ef 40% - cardiology consulted, stress test as outpt Full code status Disposition - to the floor - Possible D/C if V/S and electrolytes stable in the morning. History Interval history: Patient was seen and evaluated this morning, she said she had 7 episodes of diarrhea since midnight. Hospitalist Physical - Physical exam Narrative exam: Not in cardiopulmonary distress. The patient appeared emaciated. Vital signs as documented. Head exam is unremarkable. No scleral icterus . Neck is without jugular venous distension, thyromegaly, or carotid bruits. Lungs are clear to auscultation. Cardiac exam reveals regular rate and Rhythm. First and second heart sounds normal. No murmurs, rubs or gallops. Abdominal exam reveals normal bowel sounds, no masses, no organomegaly and no aortic enlargement. Extremities are nonedematous and both femoral and pedal pulses are normal. COMPLIANCE VICE PRESIDENT: Alert and oriented 3. No focal weakness. - Constitutional Vitals: Temp Pulse Resp BP Pulse Ox 97 F L 96 H 21 120/57 99 12/06/16 16:00 12/06/16 17:01 12/06/16 17:01 12/06/16 17:01 12/06/16 17:01 General appearance: Present: no acute distress Results - Labs CBC & Chem 7: 12/04/16 04:50 12/06/16 06:30 Labs: Laboratory Last Values WBC 8.9 K/mm3 (4.5-11.0) 12/04/16 04:50 RBC 3.50 M/mm3 (3.65-5.03) L 12/04/16 04:50 Hgb 10.1 gm/dl (10.1-14.3) D 12/04/16 04:50 Hct 29.6 % (30.3-42.9) L D 12/04/16 04:50 MCV 85 fl (79-97) 12/04/16 04:50 MCH 29 pg (28-32) 12/04/16 04:50 MCHC 34 % (30-34) 12/04/16 04:50 RDW 19.7 % (13.2-15.2) H 12/04/16 04:50 Plt Count 318 K/mm3 (140-440) 12/04/16 04:50 Lymph % (Auto) 16.8 % (13.4-35.0) 12/04/16 04:50 [place] % (Auto) 2.4 % (0.0-7.3) 12/04/16 04:50 Eos % (Auto) 0.0 % (0.0-4.3) 12/04/16 04:50 Baso % (Auto) 0.2 % (0.0-1.8) 12/04/16 04:50 Lymph # 1.5 K/mm3 (1.2-5.4) 12/04/16 04:50 [place] # 0.2 K/mm3 (0.0-0.8) 12/04/16 04:50 Eos # 0.0 K/mm3 (0.0-0.4) 12/04/16 04:50 Baso # 0.0 K/mm3 (0.0-0.1) 12/04/16 04:50 Add Manual Diff Complete 12/02/16 20:50 Total Counted 100 12/02/16 20:50 Seg Neutrophils % 80.6 % (40.0-70.0) H 12/04/16 04:50 Seg Neuts % (Manual) 29.0 % (40.0-70.0) L 12/02/16 20:50 Band Neutrophils % 43.0 % 12/02/16 20:50 Lymphocytes % (Manual) 18.0 % (13.4-35.0) 12/02/16 20:50 Reactive Lymphs % (Man) 2.0 % 12/02/16 20:50 Monocytes % (Manual) 8.0 % (0.0-7.3) H 12/02/16 20:50 Eosinophils % (Manual) 0 % (0.0-4.3) 12/02/16 20:50 Basophils % (Manual) 0 % (0.0-1.8) 12/02/16 20:50 Metamyelocytes % 0 % 12/02/16 20:50 Myelocytes % 0 % 12/02/16 20:50 Promyelocytes % 0 % 12/02/16 20:50 Blast Cells % 0 % 12/02/16 20:50 Nucleated RBC % Not Reportable 12/02/16 20:50 Seg Neutrophils # 7.2 K/mm3 (1.8-7.7) 12/04/16 04:50 Seg Neutrophils # Man 3.7 K/mm3 (1.8-7.7) 12/02/16 20:50 Band Neutrophils # 5.5 K/mm3 12/02/16 20:50 Lymphocytes # (Manual) 2.3 K/mm3 (1.2-5.4) 12/02/16 20:50 Abs React Lymphs (Man) 0.3 K/mm3 12/02/16 20:50 Monocytes # (Manual) 1.0 K/mm3 (0.0-0.8) H 12/02/16 20:50 Eosinophils # (Manual) 0.0 K/mm3 (0.0-0.4) 12/02/16 20:50 Basophils # (Manual) 0.0 K/mm3 (0.0-0.1) 12/02/16 20:50 Metamyelocytes # 0.0 K/mm3 12/02/16 20:50 Myelocytes # 0.0 K/mm3 12/02/16 20:50 Promyelocytes # 0.0 K/mm3 12/02/16 20:50 Blast Cells # 0.0 K/mm3 12/02/16 20:50 WBC Morphology Not Reportable 12/02/16 20:50 Hypersegmented Neuts Not Reportable 12/02/16 20:50 Hyposegmented Neuts Not Reportable 12/02/16 20:50 Hypogranular Neuts Not Reportable 12/02/16 20:50 Smudge Cells Not Reportable 12/02/16 20:50 Toxic Granulation Not Reportable 12/02/16 20:50 Toxic Vacuolation Not Reportable 12/02/16 20:50 Dohle Bodies Not Reportable 12/02/16 20:50 Pelger-Huet Anomaly Not Reportable 12/02/16 20:50 Sisi Rods Not Reportable 12/02/16 20:50 Platelet Estimate Consistent w auto 12/02/16 20:50 Clumped Platelets Not Reportable 12/02/16 20:50 Plt Clumps, EDTA Not Reportable 12/02/16 20:50 Large Platelets Not Reportable 12/02/16 20:50 Giant Platelets Not Reportable 12/02/16 20:50 Platelet Satelliting Not Reportable 12/02/16 20:50 Plt Morphology Comment Not Reportable 12/02/16 20:50 RBC Morphology Normal 12/02/16 20:50 Dimorphic RBCs Not Reportable 12/02/16 20:50 Polychromasia Not Reportable 12/02/16 20:50 Hypochromasia Not Reportable 12/02/16 20:50 Poikilocytosis Not Reportable 12/02/16 20:50 Anisocytosis Not Reportable 12/02/16 20:50 Microcytosis Not Reportable 12/02/16 20:50 Macrocytosis Not Reportable 12/02/16 20:50 Spherocytes Not Reportable 12/02/16 20:50 Pappenheimer Bodies Not Reportable 12/02/16 20:50 Sickle Cells Not Reportable 12/02/16 20:50 Target Cells Not Reportable 12/02/16 20:50 Tear Drop Cells Not Reportable 12/02/16 20:50 Ovalocytes Not Reportable 12/02/16 20:50 Helmet Cells Not Reportable 12/02/16 20:50 Fung-[place] Bodies Not Reportable 12/02/16 20:50 [place] Rings Not Reportable 12/02/16 20:50 [place] Cells Not Reportable 12/02/16 20:50 Bite Cells Not Reportable 12/02/16 20:50 Crenated Cell Not Reportable 12/02/16 20:50 Elliptocytes Not Reportable 12/02/16 20:50 Acanthocytes (Spur) Not Reportable 12/02/16 20:50 Rouleaux Not Reportable 12/02/16 20:50 Hemoglobin C Crystals Not Reportable 12/02/16 20:50 Schistocytes Not Reportable 12/02/16 20:50 Malaria parasites Not Reportable 12/02/16 20:50 Renny Bodies Not Reportable 12/02/16 20:50 Hem Pathologist Commnt No 12/02/16 20:50 Sodium 143 mmol/L (137-145) 12/06/16 06:30 Potassium 2.5 mmol/L (3.6-5.0) L* 12/06/16 06:30 Chloride 106.9 mmol/L (98-107) 12/06/16 06:30 Carbon Dioxide 23 mmol/L (22-30) 12/06/16 06:30 Anion Gap 16 mmol/L 12/06/16 06:30 BUN 2 mg/dL (7-17) L 12/06/16 06:30 Creatinine 0.4 mg/dL (0.7-1.2) L 12/06/16 06:30 Estimated GFR > 60 ml/min 12/06/16 06:30 BUN/Creatinine Ratio 5.00 % 12/06/16 06:30 Glucose 157 mg/dL (65-100) H 12/06/16 06:30 Lactic Acid 1.30 mmol/L (0.7-2.0) 12/04/16 04:50 Calcium 7.0 mg/dL (8.4-10.2) L 12/06/16 06:30 Phosphorus 3.20 mg/dL (2.5-4.5) 12/02/16 20:50 Magnesium 1.60 mg/dL (1.7-2.3) L 12/06/16 06:30 Total Bilirubin 0.30 mg/dL (0.1-1.2) 12/02/16 20:50 AST 20 units/L (5-40) 12/02/16 20:50 ALT 11 units/L (7-56) 12/02/16 20:50 Alkaline Phosphatase 114 units/L (35-129) 12/02/16 20:50 Total Creatine Kinase 111 units/L (30-135) 12/02/16 20:50 Troponin T < 0.010 ng/mL (0.00-0.029) 12/02/16 20:50 C-Reactive Protein 3.90 mg/dL (0.00-1.30) H 12/04/16 00:00 NT-Pro-B Natriuret Pep 1922 pg/mL (0-900) H 12/04/16 00:00 Total Protein 7.2 g/dL (6.3-8.2) 12/02/16 20:50 Albumin 2.8 g/dL (3.9-5) L 12/02/16 20:50 Albumin/Globulin Ratio 0.6 % 12/02/16 20:50 TSH 1.030 mlU/mL (0.270-4.200) 12/02/16 21:44 Urine Color Jud (Yellow) 12/02/16 03:05 Urine Turbidity Clear (Clear) 12/02/16 03:05 Urine pH 6.0 (5.0-7.0) 12/02/16 03:05 Ur Specific [place] 1.019 (1.003-1.030) 12/02/16 03:05 Urine Protein 30 mg/dl mg/dL (Negative) 12/02/16 03:05 Urine Glucose (UA) Neg mg/dL (Negative) 12/02/16 03:05 Urine Ketones Neg mg/dL (Negative) 12/02/16 03:05 Urine Blood Neg (Negative) 12/02/16 03:05 Urine Nitrite Pos (Negative) 12/02/16 03:05 Urine Bilirubin Neg (Negative) 12/02/16 03:05 Urine Urobilinogen 4.0 mg/dL (<2.0) 12/02/16 03:05 Ur Leukocyte Esterase Neg (Negative) 12/02/16 03:05 Urine WBC (Auto) 18.0 /HPF (0.0-6.0) H 12/02/16 03:05 Urine RBC (Auto) 1.0 /HPF (0.0-6.0) 12/02/16 03:05 U Epithel Cells (Auto) 1.0 /HPF (0-13.0) 12/02/16 03:05 Urine Bacteria (Auto) 1+ /HPF (Negative) 12/02/16 03:05 Ur Transition Epith Cell 1 /HPF 12/02/16 03:05 Hyaline Casts 47 /LPF 12/02/16 03:05 Urine Mucus 3+ /HPF 12/02/16 03:05 Blood Type A POSITIVE 12/03/16 06:15 Antibody Screen Negative 12/03/16 06:15 Crossmatch See Detail 12/03/16 06:15 Potassium 2.5
[2016-12-06] MEDS: K-DUR PO SCH (21:43)
[2016-12-06] MEDS: PEPCID PO SCH (21:43)
[2016-12-07] MEDS: PROAMATINE PO SCH (05:07)
[2016-12-07 06:25] LABS: Basophils % (Auto) 0.1 % (0.0-1.8); Hemoglobin 8.9 gm/dl (10.1-14.3); Mean Corpuscular HGB Conc 34 % (30-34); Mean Corpuscular Hemoglobin 29 pg (28-32); Mean Corpuscular Volume 84 fl (79-97); Platelet Count 250 K/mm3 (140-440); Red Blood Count 3.09 M/mm3 (3.65-5.03); Red Cell Distribution Width 19.4 % (13.2-15.2); White Blood Count 5.7 K/mm3 (4.5-11.0)
[2016-12-07 06:36] LABS: Anion Gap 16 mmol/L; BUN/Creatinine Ratio 6.66; Blood Urea Nitrogen 2 mg/dL (7-17); Calcium 7.3 mg/dL (8.4-10.2); Carbon Dioxide 24 mmol/L (22-30); Chloride 105.6 mmol/L (98-107); Glucose 166 mg/dL (65-100); Potassium 3.1 mmol/L (3.6-5.0); Sodium 142 mmol/L (137-145)
[2016-12-07] MEDS ORDERED: K-DUR PO ONE (08:30)
[2016-12-07] MEDS: LEVAQUIN 750MG/150ML 750 MG/150 ML BAG IV SCH (10:00)
[2016-12-07] MEDS: PEPCID PO SCH (10:00)
[2016-12-07] MEDS: THERAGRAN-M Tab PO SCH (10:00)
[2016-12-07] MEDS: K-DUR PO SCH (10:01)
--- NOTE | 2016-12-07 10:17 | Progress Note ---
Assessment and Plan Diarrhea symptoms of ongoing flareup of her chronic ulcerative colitis Severe anemia requiring blood transfusion Hypotensive -has since been stabilized on midodrine therapy Hypokalemia Hypomagnesemia Hx of deep vein thrombosis Eliquis now discontinued due to anemia requiring blood transfusion Hx of Mild Cardiomyopathy Echocardiogram reports a left ventricular ejection fraction estimated at 40% . No significant valvular lesions noted. She has not yet completed her outpatient stress test before her current admission. Left bundle branch block, chronic Conservative cardiac management. Subjective Date of service: 12/07/16 Principal diagnosis: Severe Sepsis with Hypotension; Symptomatic Anemia Interval history: Patient has no complaints. Objective Vital Signs Temp Pulse Resp BP Pulse Ox 12/07/16 06:00 45 L 12/07/16 04:00 97.7 F 48 L 18 108/53 97 12/07/16 00:00 98.0 F 46 L 18 110/59 97 12/06/16 22:00 50 L 12/06/16 20:00 18 98 12/06/16 17:01 96 H 21 120/57 99 12/06/16 16:45 80 23 120/57 99 12/06/16 16:30 70 16 120/57 100 12/06/16 16:15 83 12 123/51 98 12/06/16 16:00 97 F L 57 L 12 109/61 100 12/06/16 15:45 65 14 123/51 100 12/06/16 15:30 93 H 13 123/51 100 12/06/16 15:15 74 12 115/55 100 12/06/16 15:01 89 20 115/55 100 12/06/16 14:45 59 L 14 105/50 95 12/06/16 14:30 62 14 105/50 99 12/06/16 14:15 68 16 101/44 98 12/06/16 14:00 73 12 99/54 100 12/06/16 13:45 71 22 91/48 99 12/06/16 13:30 67 24 101/44 100 12/06/16 13:15 84 25 H 91/48 97 12/06/16 13:00 63 15 91/48 99 12/06/16 12:45 73 13 103/53 99 12/06/16 12:30 67 12 103/53 99 12/06/16 12:15 97 H 21 110/65 95 12/06/16 12:00 97.8 F 49 L 12 95/57 99 12/06/16 11:45 58 L 19 113/60 99 12/06/16 11:30 70 17 110/65 99 12/06/16 11:15 63 17 113/60 97 12/06/16 11:00 80 15 113/60 97 12/06/16 10:45 81 15 117/62 99 12/06/16 10:30 74 14 117/62 99 - Physical Examination General: No Apparent Distress HEENT: Positive: PERRL Neck: Positive: trachea midline Cardiac: Positive: Reg Rate and Rhythm Lungs: Positive: Decreased Breath Sounds Neuro: Positive: Grossly Intact - Labs and Meds CBC 12/07/16 Range/Units 04:59 WBC 5.7 (4.5-11.0) K/mm3 RBC 3.09 L (3.65-5.03) M/mm3 Hgb 8.9 L (10.1-14.3) gm/dl Hct 26.0 L (30.3-42.9) % Plt Count 250 (140-440) K/mm3 Lymph # 1.5 (1.2-5.4) K/mm3 [place] # 0.3 (0.0-0.8) K/mm3 Eos # 0.0 (0.0-0.4) K/mm3 Baso # 0.0 (0.0-0.1) K/mm3 Comprehensive Metabolic Panel 12/06/16 12/07/16 Range/Units 20:37 04:59 Sodium 142 (137-145) mmol/L Potassium 3.2 L D 3.1 L (3.6-5.0) mmol/L Chloride 105.6 (98-107) mmol/L Carbon Dioxide 24 (22-30) mmol/L BUN 2 L (7-17) mg/dL Creatinine 0.3 L (0.7-1.2) mg/dL Glucose 166 H (65-100) mg/dL Calcium 7.3 L (8.4-10.2) mg/dL
--- NOTE | 2016-12-07 10:43 | Discharge Summary ---
Providers - Providers Date of Admission: 12/02/16 23:21 Date of discharge: 12/07/16 Attending physician: KACEY HERCULES MD 12/03/16 01:37 Consult to Physician [CONS] Routine Consulting Provider: HANNAH SHAW Reason For Exam: ICU Admission Place consult to:: answering service Notified:: Y Was contact made?: Yes If yes, spoke with:: VIRGINIE Schmid/Kate Time called:: 07:55 12/04/16 12:09 Consult to Physician [CONS] Routine Consulting Provider: BRIDGET CONDON Reason For Exam: ivc filter placement Place consult to:: Roseanna Notified:: yes Was contact made?: Yes If yes, spoke with:: DR Condon Time called:: 13:00 Comment:: on the unit/spoke with him in person 12/05/16 16:06 Consult to Physician [CONS] Routine Consulting Provider: ZANE RICHMOND Reason For Exam: bradycardia Place consult to:: [facility] Notified:: Dr Richmond Was contact made?: Yes Primary care physician: MARKETING OPERATIONS SPECIALIST Hospitalization Reason for admission: ulcerative colitis flareup, severe anemia, GI bleed, diarrhea Condition: Serious Pertinent studies: CTA no PE identified. Echo showed fraction 40% and no valvular abnormalities identified Venous Doppler ultrasound chronic DVT in the left lower extremity, nonobstructing Hospital course: Patient was admitted to ICU and was treated with IV fluids, IV antibiotics, blood transfusion and midodrine. GI was consulted and recommended cordectomy because of her recurrent flare up of ulcerative colitis. Patient has been admitted to this hospital may times with the same syptoms. GI recommend O/P follow up with Dr simpson. Patient has history of DVT and was on eliquis. Vascular surgery was consulted and recommended is okay to discontinue the anticoagulation because the DVT is a stable and is not obstructing. Patient has been having electrolyte abnormalities and was repleted. Patient has cardiomyopathy and she knows her ejection fraction was 40% at another hospital and she has been scheduled to have outpatient cardiac workup before admission and cardiology recommended to finish her workup as an outpatient. Patient was given steroids and midodrine at the time of discharge. Dr. Slade is her primary care doctor and I have discussed her admission workup and management with him. He will follow her as an outpatient in one week. Disposition: DC-01 TO HOME OR SELFCARE Time spent for discharge: 31 minutes - Discharge Diagnoses (1) Anemia Status: Acute Qualifiers: Anemia type: unspecified type Iron deficiency anemia type: I Vitamin B12 deficiency anemia type: V Folate deficiency anemia type: F Bone marrow failure anemia type: B Hemolytic anemia type: H Other causes of anemia: O Chronic kidney disease stage: C Qualified Code(s): D64.9 - Anemia, unspecified (2) Hypokalemia Status: Acute (3) Hyponatremia Status: Acute (4) Hypotension Status: Acute Qualifiers: Hypotension type: unspecified hypotension type Trimester: T Qualified Code(s): I95.9 - Hypotension, unspecified (5) UTI (urinary tract infection) Status: Acute Qualifiers: Urinary tract infection type: acute cystitis Hematuria presence: without hematuria Indwelling urinary catheter type: I Encounter type: E Qualified Code(s): N30.00 - Acute cystitis without hematuria (6) Ulcerative colitis Status: Acute Qualifiers: Ulcerative colitis location: unspecified ulcerative colitis location Digestive disease complication type: unspecified complication Qualified Code(s ): K51.919 - Ulcerative colitis, unspecified with unspecified complications Core Measure Documentation - Palliative Care Palliative Care/ Comfort Measures: Not Applicable - Core Measures Any of the following diagnoses?: history only (dvt) Exam - Physical Exam Narrative exam: Not in cardiopulmonary distress. The patient appeared emaciated. Vital signs as documented. Head exam is unremarkable. No scleral icterus . Neck is without jugular venous distension, thyromegaly, or carotid bruits. Lungs are clear to auscultation. Cardiac exam reveals regular rate and Rhythm. First and second heart sounds normal. No murmurs, rubs or gallops. Abdominal exam reveals normal bowel sounds, no masses, no organomegaly and no aortic enlargement. Extremities are nonedematous and both femoral and pedal pulses are normal. RADIAGRAPH OPERATOR: Alert and oriented 3. No focal weakness. - Constitutional Vitals: Temp Pulse Resp BP Pulse Ox 97.7 F 45 L 18 108/53 97 12/07/16 04:00 12/07/16 06:00 12/07/16 04:00 12/07/16 04:00 12/07/16 04:00 Plan Activity: no restrictions Weight Bearing Status: Full Weight Bearing Diet: regular, advance as tolerated Follow up with: SUNI ZALDIVAR MD [Primary Care Provider] - 3-5 Days CHEYANNE SLADE MD [Staff Physician] - 7 Days LINDA SIMPSON MD [Staff Physician] - 14 Days Prescriptions: Midodrine [Proamatine] 5 mg PO Q8H #90 tablet Prednisone [predniSONE 10 mg (6-Day Pack, 21 Tabs)] 10 mg PO .TAPER #1 tab.ds.pk
[2016-12-07 10:45] VITALS: BP 137/61
[2016-12-07] MEDS: AZULFIDINE PO SCH (11:34)
[2016-12-07] MEDS: IMURAN PO SCH (11:35)
[2016-12-07] MEDS: VITAMIN D3 PO SCH (11:35)
[2016-12-07] MEDS: MEGACE PO SCH (11:36)
[2016-12-08] MEDS ORDERED: LEVAQUIN PO SCH (10:00)
== END 2016-12-07 13:37 | disposition home or self-care (01) | DRG 871 ==
LOC: ED 20:26 → 4A 23:21 → CC1 12-03 03:07 → 4A 12-06 18:22
PROVIDERS: ADMIT Internal Medicine; ATTEND Internal Medicine
PROC: 30233N1 Transfusion of Nonautologous Red Blood Cells into Peripheral Vein, Percutaneous Approach (ICD-10-PCS; principal; 2016-12-03)
DX: A41.9 Sepsis, unspecified organism (principal); R65.21 Severe sepsis with septic shock; E87.1 Hypo-osmolality and hyponatremia; K51.90 Ulcerative colitis, unspecified, without complications; N39.0 Urinary tract infection, site not specified; I42.9 Cardiomyopathy, unspecified; E86.0 Dehydration; E87.6 Hypokalemia; D64.9 Anemia, unspecified; Z88.8 Allergy status to other drugs, medicaments and biological substances; Z82.49 Family history of ischemic heart disease and other diseases of the circulatory system
CPT/HCPCS: 36415; 70450; 71010; 71275; 80048; 80053; 81001; 82140; 82270; 82550; 83735; 83880; 84100; 84132; 84443; 84484; 85007; 85025; 86140; 86850; 86900; 86901; 86920; 87040; 87045; 87086; 87493; 93005; 93010; 93306; 96361; 96374; 96375; J1720; J1956; J2405; J2543; J2920; J3370; J3475; J3480; J7030; J7040; J7050; J7500; J7512; P9040; Q9967

== ENCOUNTER 2017-01-06 15:42 | Inpatient (IN) | payer BC ==
[2017-01-06] MEDS ORDERED: PROVENTIL IH PRN (16:08)
[2017-01-06] MEDS ORDERED: MILK OF MAGNESIA PO PRN (16:08)
[2017-01-06] MEDS ORDERED: TYLENOL PO PRN (16:08)
[2017-01-06] MEDS ORDERED: DULCOLAX PR PRN (16:08)
--- NOTE | 2017-01-06 16:12 | History and Physical Report ---
History of Present Illness Date of admission: 01/06/17 16:02 Chief complaint: My stomach hurts, and i have diarrhea Medications and Allergies Allergies Allergy/AdvReac Type Severity Reaction Status Date / Time enoxaparin Allergy Unknown Verified 12/22/16 23:34 Latex, Natural Rubber Allergy Itching Verified 03/23/16 09:55 mesalamine [From Lialda] Allergy Nausea Verified 08/08/16 20:53 nitrofurantoin Allergy Nausea Verified 01/13/15 19:27 macrocrystalline [From Macrodantin] rivaroxaban [From Xarelto] Allergy Unknown Verified 12/02/16 20:39 warfarin Allergy Rash Verified 10/17/16 10:36 Home Medications Medication Instructions Recorded Confirmed Last Taken Type Megestrol [Megace] 400 mg PO QDAY #30 oral.liqd 08/02/16 01/06/17 12/02/16 Rx Multivitamin Tab W-MINERAL 1 each PO QDAY #30 tablet 08/02/16 01/06/17 11/24/16 Rx [Multiple Vitamin/Mineral (Theragran M)] Cholecalciferol Vit D3 [Vitamin D3] 800 unit PO QDAY 09/29/16 01/06/17 11/20/16 History Midodrine [Proamatine] 5 mg PO Q8H #90 tablet 12/07/16 01/06/17 Unknown Rx HYDROcodone/APAP 5-325 [Encinal 2 each PO Q6H PRN #14 tablet 12/22/16 01/06/17 Unknown Rx 5-325 mg TAB] Ondansetron [Zofran Odt] 4 mg PO Q6H PRN #30 tab.rapdis 12/22/16 01/06/17 14:00 Rx Magnesium Chloride [Slow-Mag] 64 mg PO DAILY #30 tablet.er 12/24/16 01/06/17 Unknown Rx Vancomycin Po 125 mg PO Q6HR #70 dose 12/24/16 01/06/17 01/05/17 12:00 Rx Potassium Chloride 40 meq PO BID #14 packet 12/25/16 01/06/17 Unknown Rx Active Meds: Active Medications Acetaminophen (Tylenol) 650 mg PO Q4H PRN PRN Reason: Pain MILD(1-3)/Fever >100.5/DANIELS Albuterol (Proventil) 2.5 mg IH Q4HRT PRN PRN Reason: Shortness Of Breath Bisacodyl (Dulcolax) 10 mg [place] QDAY PRN PRN Reason: Const[place] [facility] [place] Chloride (Nacl 0.45% 1000 Ml) 1,000 mls @ 100 mls/hr IV DIRECT TOBI Magnesium Hydroxide (Milk Of Magnesia) 30 ml PO Q4H PRN PRN Reason: Constipation Ondansetron HCl (Zofran) 4 mg IV Q8H PRN PRN Reason: N/V unrelieved by Reglan Results - Labs CBC & Chem 7: 01/07/17 07:16 01/07/17 07:16
[2017-01-06 17:57] LABS: Basophils % (Auto) 0.3 % (0.0-1.8); Hematocrit 31.7 % (30.3-42.9); Hemoglobin 10.1 gm/dl (10.1-14.3); Mean Corpuscular HGB Conc 32 % (30-34); Mean Corpuscular Hemoglobin 28 pg (28-32); Mean Corpuscular Volume 87 fl (79-97); Platelet Count 292 K/mm3 (140-440); Red Blood Count 3.66 M/mm3 (3.65-5.03); Red Cell Distribution Width 17.6 % (13.2-15.2)
[2017-01-06 18:15] LABS: Alanine Aminotransferase 15 units/L (7-56); Albumin/Globulin Ratio 0.6 %; Alkaline Phosphatase 165 units/L (35-129); Anion Gap 22 mmol/L; BUN/Creatinine Ratio 12.22; Blood Urea Nitrogen 11 mg/dL (7-17); Calcium 7.5 mg/dL (8.4-10.2); Carbon Dioxide 22 mmol/L (22-30); Chloride 83.6 mmol/L (98-107); Glucose 153 mg/dL (65-100); Potassium 3.2 mmol/L (3.6-5.0); Sodium 124 mmol/L (137-145); Total Protein 5.3 g/dL (6.3-8.2)
[2017-01-06] MEDS: NACL 0.45% 1000 ML 1,000 ML IV SCH (19:44)
[2017-01-07] MEDS ORDERED: K-DUR PO ONE (04:17)
[2017-01-07] MEDS: NACL 0.45% 1000 ML 1,000 ML IV SCH ×3 (04:36→23:40)
[2017-01-07] MEDS: ZOFRAN IV PRN (04:37)
[2017-01-07 07:39] LABS: Hematocrit 26.7 % (30.3-42.9); Hemoglobin 8.7 gm/dl (10.1-14.3); Mean Corpuscular HGB Conc 33 % (30-34); Mean Corpuscular Hemoglobin 27 pg (28-32); Mean Corpuscular Volume 84 fl (79-97); Platelet Count 242 K/mm3 (140-440); Red Blood Count 3.16 M/mm3 (3.65-5.03); Red Cell Distribution Width 17.7 % (13.2-15.2); White Blood Count 7.7 K/mm3 (4.5-11.0)
[2017-01-07 07:56] LABS: Anion Gap 12 mmol/L; Blood Urea Nitrogen 9 mg/dL (7-17); Calcium 6.7 mg/dL (8.4-10.2); Carbon Dioxide 27 mmol/L (22-30); Chloride 92.5 mmol/L (98-107); Glucose 136 mg/dL (65-100); Potassium 3.7 mmol/L (3.6-5.0); Sodium 128 mmol/L (137-145)
--- NOTE | 2017-01-07 10:07 | XRay Report ---
AP CHEST :01/06/17 16:02:00 CLINICAL: Difficulty breathing. COMPARISON:12/02/16 FINDINGS: Normal heart and pulmonary vasculature. The lungs are hyperexpanded and hyperlucent. No airspace disease or pleural effusion. The bones and soft tissues are normal.No tubes or lines. IMPRESSION: COPD. No CHF or pneumonia.
--- NOTE | 2017-01-07 16:46 | Consultation ---
CONCLUSIONS: 1. Severe flare of Crohn's disease versus persistent Clostridium difficile colitis. 2. Dehydration with poor intake and failure to thrive. 3. Clostridium difficile colitis. RECOMMENDATIONS: Repeat C. diff studies. IV fluid support, IV steroids. The patient may be a candidate for fecal microbiota transplant versus other rather alternative antibiotic therapy for her C. diff such as fidaxomicin if this is persistent. She may benefit from an ID consult if her repeat C. diff is positive. The patient may also be a candidate for consideration of total colectomy with J-pouch, which may require transfer elsewhere. DISCUSSION: The patient is a 66-year-old patient known to me, who was diagnosed with severe left-sided ulcerative colitis approximately one year ago. She has never been well controlled and has been inconsistently compliant with medications over this timeframe. She has had multiple hospitalizations for flares of her disease and has had a bout of C. diff several months ago and another bout of C. diff, which occurred 3 weeks ago for which she was rehospitalized at [facility], [place]. The patient was placed on vancomycin, which she appeared to be responding to. The patient, however, after discharge, began having worsening of her symptoms, which has included severe diarrhea, fatigue, nausea and extremely poor intake to the point of dehydration and poor ability to ambulate due to her fatigue. She did not go home; however, taking her mesalamine enemas and was not placed on prednisone at discharge. The patient has been on Remicade monotherapy recently because she would not take Lialda due to nausea and vomiting. She had been on mesalamine enemas, but had not restarted this for reasons that are unclear. The patient was referred from my office for readmission because of her failure to thrive and inability to tolerate oral intake. PAST MEDICAL HISTORY: Severe left-sided ulcerative colitis, osteopenia. Lactose intolerance. MEDICATIONS: Ondansetron, midodrine, hydrocodone-acetaminophen, Slow-Mag, vancomycin 125 mg q.i.d. ALLERGIES: She is allergic to LATEX. FAMILY HISTORY: Positive for grandmother with breast cancer. Mother had colon polyps. Father had diabetes. Grandfather had stomach cancer. Mother may have had ulcerative colitis. SOCIAL HISTORY: No history of alcohol or tobacco use. REVIEW OF SYSTEMS: History of weight loss, persistent diarrhea, nausea, vomiting. No chest pain or shortness of breath. Mild lower abdominal crampy pain. PHYSICAL EXAMINATION: GENERAL: Thin, gaunt, and ill appearing white female, who is pasty. VITAL SIGNS: BP 94/64, pulse 102, temperature 94.3. SKIN: Warm, no rashes or icterus. LYMPHATICS: No cervical, supraclavicular, or axillary adenopathy. HEENT: Mild temporal wasting. PERRLA. Mouth and pharynx unremarkable. NECK: Supple. No thyromegaly. Trachea midline. CHEST: Clear to auscultation and percussion. CARDIAC: Normal S1 and S2. No murmurs or gallops. ABDOMEN: Soft, flat, active bowel sounds, nontender. No organomegaly or masses. RECTAL: Not performed. EXTREMITIES: Full range of motion. Pulses intact. No edema. NEUROLOGIC: Alert and oriented. Motor and sensory nonfocal, generalized weakness with poor ability to ambulate. LABORATORY: Pending. Thank you very much, Dr. Cook for asking me to see the patient in consultation. I will follow with you. JOB# [id number] NATE/JAVI
--- NOTE | 2017-01-07 17:30 | Progress Note ---
Assessment and Plan Assessment and plan: 66 years old female weight CVA or left-sided ulcerative colitis and multiple episodes of C. difficile colitis in the last year, the last being 3 weeks ago, significantly malnourished, admitted for persistent, severe diarrhea and inability to tolerate by mouth intake 1. Ulcerative colitis flare versus recurrent C. difficile colitis Restarted on corticosteroids IV Await results of C. difficile assay and stool culture GI following 2. Cachexia/malnutrition/failure to thrive Due to above conditions Discuss with GI/dietitian consider parenteral nutrition 3. Anemia Due to poor po intake Monitor H&H 4. Hyponatremia Due to poor po intake Monitor 5. Hypotension Due to significantly decreased by mouth intake/dehydration Workup in progress to exclude sepsis/infection Give IV fluids 6. DVT/GI prophylaxis History Interval history: having diarrhea, c/o severe weakness, fatique and inability to tolerated po intake Hospitalist Physical - Constitutional Vitals: Temp Pulse Resp BP Pulse Ox 98.0 F 70 18 83/56 100 01/07/17 16:50 01/07/17 16:50 01/07/17 16:50 01/07/17 16:50 01/07/17 16:50 General appearance: Present: mild distress, cachectic, other (chronically ill- appearing, very frail) - EENT Eyes: Present: PERRL, EOM intact - Neck Neck: Present: supple. Absent: enlarged thyroid, masses or JVD - Respiratory Respiratory effort: normal Respiratory: bilateral: CTA, negative: rhonchi, wheezing - Cardiovascular Rhythm: regular Heart Sounds: Present: S1 & S2. Absent: systolic murmur - Extremities Extremities: no ischemia - Abdominal General gastrointestinal: soft, non-tender, non-distended, normal bowel sounds - Integumentary Integumentary: Present: dry, pale, decreased turgor. Absent: rash - Psychiatric Psychiatric: cooperative, depressed - Neurologic Neurologic: CNII-XII intact, no focal deficits Results - Labs CBC & Chem 7: 01/07/17 07:16 01/07/17 07:16 Labs: Laboratory Last Values WBC 7.7 K/mm3 (4.5-11.0) 01/07/17 07:16 RBC 3.16 M/mm3 (3.65-5.03) L 01/07/17 07:16 Hgb 8.7 gm/dl (10.1-14.3) L 01/07/17 07:16 Hct 26.7 % (30.3-42.9) L 01/07/17 07:16 MCV 84 fl (79-97) 01/07/17 07:16 MCH 27 pg (28-32) L 01/07/17 07:16 MCHC 33 % (30-34) 01/07/17 07:16 RDW 17.7 % (13.2-15.2) H 01/07/17 07:16 Plt Count 242 K/mm3 (140-440) 01/07/17 07:16 Lymph % (Auto) 18.0 % (13.4-35.0) 01/06/17 17:32 [place] % (Auto) 4.2 % (0.0-7.3) 01/06/17 17:32 Eos % (Auto) 0.0 % (0.0-4.3) 01/06/17 17:32 Baso % (Auto) 0.3 % (0.0-1.8) 01/06/17 17:32 Lymph # 2.5 K/mm3 (1.2-5.4) 01/06/17 17:32 [place] # 0.6 K/mm3 (0.0-0.8) 01/06/17 17:32 Eos # 0.0 K/mm3 (0.0-0.4) 01/06/17 17:32 Baso # 0.0 K/mm3 (0.0-0.1) 01/06/17 17:32 Seg Neutrophils % 77.5 % (40.0-70.0) H 01/06/17 17:32 Seg Neutrophils # 10.9 K/mm3 (1.8-7.7) H 01/06/17 17:32 Sodium 128 mmol/L (137-145) L 01/07/17 07:16 Potassium 3.7 mmol/L (3.6-5.0) 01/07/17 07:16 Chloride 92.5 mmol/L (98-107) L 01/07/17 07:16 Carbon Dioxide 27 mmol/L (22-30) 01/07/17 07:16 Anion Gap 12 mmol/L 01/07/17 07:16 BUN 9 mg/dL (7-17) 01/07/17 07:16 Creatinine 0.5 mg/dL (0.7-1.2) L 01/07/17 07:16 Estimated GFR > 60 ml/min 01/07/17 07:16 BUN/Creatinine Ratio 18.00 % 01/07/17 07:16 Glucose 136 mg/dL (65-100) H 01/07/17 07:16 Calcium 6.7 mg/dL (8.4-10.2) L 01/07/17 07:16 Total Bilirubin 0.30 mg/dL (0.1-1.2) 01/06/17 17:32 AST 16 units/L (5-40) 01/06/17 17:32 ALT 15 units/L (7-56) 01/06/17 17:32 Alkaline Phosphatase 165 units/L (35-129) H 01/06/17 17:32 Total Protein 5.3 g/dL (6.3-8.2) L 01/06/17 17:32 Albumin 2.0 g/dL (3.9-5) L 01/06/17 17:32 Albumin/Globulin Ratio 0.6 % 01/06/17 17:32
--- NOTE | 2017-01-07 19:29 | Gastroenterology Progress Note ---
Assessment and Plan GI: IBD vs C. diff - awaiting stool cx's - continue steroids and antibiotics - hydrate - no need colonoscopy - consider IV nutrition based on progress - soft diet - will follow closely Subjective Date of service: 01/07/17 Interval history: - reports diarrhea and rectal bleeding improved. Reports still with some weakness Objective - Constitutional Vitals: Temp Pulse Resp BP Pulse Ox 98.0 F 70 18 83/56 100 01/07/17 16:50 01/07/17 16:50 01/07/17 16:50 01/07/17 16:50 01/07/17 16:50 General appearance: no acute distress - Respiratory Respiratory: bilateral: CTA - Cardiovascular Rhythm: regular Heart Sounds: Present: S1 & S2 - Gastrointestinal General gastrointestinal: Present: soft, non-tender, non-distended - Labs CBC & Chem 7: 01/07/17 07:16 01/07/17 07:16 Labs: Laboratory Results - last 24 hr 01/07/17 01/07/17 07:16 07:16 WBC 7.7 RBC 3.16 L Hgb 8.7 L Hct 26.7 L MCV 84 MCH 27 L MCHC 33 RDW 17.7 H Plt Count 242 Sodium 128 L Potassium 3.7 Chloride 92.5 L Carbon Dioxide 27 Anion Gap 12 BUN 9 Creatinine 0.5 L Estimated GFR > 60 BUN/Creatinine Ratio 18.00 Glucose 136 H Calcium 6.7 L
[2017-01-08 05:20] LABS: Basophils % (Auto) 0.7 % (0.0-1.8); Hematocrit 25.5 % (30.3-42.9); Hemoglobin 8.6 gm/dl (10.1-14.3); Mean Corpuscular HGB Conc 34 % (30-34); Mean Corpuscular Hemoglobin 29 pg (28-32); Mean Corpuscular Volume 85 fl (79-97); Platelet Count 238 K/mm3 (140-440); Red Cell Distribution Width 17.6 % (13.2-15.2); White Blood Count 9.6 K/mm3 (4.5-11.0)
[2017-01-08 05:33] LABS: Anion Gap 13 mmol/L; Blood Urea Nitrogen 6 mg/dL (7-17); Calcium 6.7 mg/dL (8.4-10.2); Carbon Dioxide 26 mmol/L (22-30); Chloride 95.4 mmol/L (98-107); Glucose 123 mg/dL (65-100); Potassium 3.5 mmol/L (3.6-5.0); Sodium 131 mmol/L (137-145)
[2017-01-08] MEDS: NACL 0.45% 1000 ML 1,000 ML IV SCH ×2 (10:30→21:04)
--- NOTE | 2017-01-08 11:10 | Gastroenterology Progress Note ---
Assessment and Plan GI: pt h/o IBD and recent C. diff now with weakness - pt improving, tolerating soft diet - C. diff negative at this time - consider IV nutrition based on progress - continue IV steroids - Electrolyte management per primary team - hopefully d/c soon - will follow Subjective Date of service: 01/08/17 Interval history: - pt reports tolerating soft diet but wants to still consider IV nutrition. Denies other specific complaints Objective - Constitutional Vitals: Temp Pulse Resp BP Pulse Ox 97.6 F 65 18 87/56 92 01/08/17 07:12 01/08/17 07:12 01/08/17 07:12 01/08/17 07:12 01/08/17 07:12 General appearance: no acute distress - Respiratory Respiratory: bilateral: CTA - Cardiovascular Rhythm: regular Heart Sounds: Present: S1 & S2 - Gastrointestinal General gastrointestinal: Present: soft, non-tender, non-distended - Labs CBC & Chem 7: 01/08/17 04:29 01/08/17 04:29 Labs: Laboratory Results - last 24 hr 01/08/17 01/08/17 04:29 04:29 WBC 9.6 RBC 3.00 L Hgb 8.6 L Hct 25.5 L MCV 85 MCH 29 MCHC 34 RDW 17.6 H Plt Count 238 Lymph % (Auto) 18.6 [place] % (Auto) 2.7 Eos % (Auto) 0.0 Baso % (Auto) 0.7 Lymph # 1.8 [place] # 0.3 Eos # 0.0 Baso # 0.1 Seg Neutrophils % 78.0 H Seg Neutrophils # 7.5 Sodium 131 L Potassium 3.5 L Chloride 95.4 L Carbon Dioxide 26 Anion Gap 13 BUN 6 L Creatinine 0.5 L Estimated GFR > 60 BUN/Creatinine Ratio 12.00 Glucose 123 H Calcium 6.7 L Phosphorus 2.70 Magnesium 1.80 Prealbumin 0.050 L
[2017-01-08] MEDS: ZOFRAN IV PRN (15:17)
--- NOTE | 2017-01-08 18:36 | Progress Note ---
Assessment and Plan Assessment and plan: 66 years old female weight CVA or left-sided ulcerative colitis and multiple episodes of C. difficile colitis in the last year, the last being 3 weeks ago, significantly malnourished, admitted for persistent, severe diarrhea and inability to tolerate by mouth intake 1. Ulcerative colitis flare versus recurrent C. difficile colitis Restarted on corticosteroids IV C. difficile negative; stool culture pending final result GI following 2. Cachexia/malnutrition/failure to thrive Due to above conditions Discuss with GI/dietitian consider parenteral nutrition; diet supplementation 3. Anemia Due to poor po intake Monitor H&H 4. Hyponatremia Due to poor po intake Monitor 5. Hypotension Due to significantly decreased by mouth intake/dehydration Workup in progress to exclude sepsis/infection Give IV fluids 6. DVT/GI prophylaxis History Interval history: less diarrhea, feeling slightly better; family present, updated Hospitalist Physical - Constitutional Vitals: Temp Pulse Resp BP Pulse Ox 97.5 F L 73 18 81/55 98 01/08/17 15:55 01/08/17 15:55 01/08/17 15:55 01/08/17 15:55 01/08/17 15:55 General appearance: Present: no acute distress, cachectic, other (frail, pale) - Neck Neck: Present: supple, normal ROM. Absent: masses or JVD - Respiratory Respiratory effort: normal Respiratory: bilateral: CTA, negative: rales, rhonchi - Cardiovascular Rhythm: regular Heart Sounds: Present: S1 & S2. Absent: systolic murmur - Extremities Extremities: no ischemia - Abdominal General gastrointestinal: soft, non-tender, non-distended, normal bowel sounds - Neurologic Neurologic: CNII-XII intact, no focal deficits Results - Labs CBC & Chem 7: 01/08/17 04:29 01/08/17 04:29 Labs: Laboratory Last Values WBC 9.6 K/mm3 (4.5-11.0) 01/08/17 04:29 RBC 3.00 M/mm3 (3.65-5.03) L 01/08/17 04:29 Hgb 8.6 gm/dl (10.1-14.3) L 01/08/17 04:29 Hct 25.5 % (30.3-42.9) L 01/08/17 04:29 MCV 85 fl (79-97) 01/08/17 04:29 MCH 29 pg (28-32) 01/08/17 04:29 MCHC 34 % (30-34) 01/08/17 04:29 RDW 17.6 % (13.2-15.2) H 01/08/17 04:29 Plt Count 238 K/mm3 (140-440) 01/08/17 04:29 Lymph % (Auto) 18.6 % (13.4-35.0) 01/08/17 04:29 [place] % (Auto) 2.7 % (0.0-7.3) 01/08/17 04:29 Eos % (Auto) 0.0 % (0.0-4.3) 01/08/17 04:29 Baso % (Auto) 0.7 % (0.0-1.8) 01/08/17 04:29 Lymph # 1.8 K/mm3 (1.2-5.4) 01/08/17 04:29 [place] # 0.3 K/mm3 (0.0-0.8) 01/08/17 04:29 Eos # 0.0 K/mm3 (0.0-0.4) 01/08/17 04:29 Baso # 0.1 K/mm3 (0.0-0.1) 01/08/17 04:29 Seg Neutrophils % 78.0 % (40.0-70.0) H 01/08/17 04:29 Seg Neutrophils # 7.5 K/mm3 (1.8-7.7) 01/08/17 04:29 Sodium 131 mmol/L (137-145) L 01/08/17 04:29 Potassium 3.5 mmol/L (3.6-5.0) L 01/08/17 04:29 Chloride 95.4 mmol/L (98-107) L 01/08/17 04:29 Carbon Dioxide 26 mmol/L (22-30) 01/08/17 04:29 Anion Gap 13 mmol/L 01/08/17 04:29 BUN 6 mg/dL (7-17) L 01/08/17 04:29 Creatinine 0.5 mg/dL (0.7-1.2) L 01/08/17 04:29 Estimated GFR > 60 ml/min 01/08/17 04:29 BUN/Creatinine Ratio 12.00 % 01/08/17 04:29 Glucose 123 mg/dL (65-100) H 01/08/17 04:29 Calcium 6.7 mg/dL (8.4-10.2) L 01/08/17 04:29 Phosphorus 2.70 mg/dL (2.5-4.5) 01/08/17 04:29 Magnesium 1.80 mg/dL (1.7-2.3) 01/08/17 04:29 Total Bilirubin 0.30 mg/dL (0.1-1.2) 01/06/17 17:32 AST 16 units/L (5-40) 01/06/17 17:32 ALT 15 units/L (7-56) 01/06/17 17:32 Alkaline Phosphatase 165 units/L (35-129) H 01/06/17 17:32 Total Protein 5.3 g/dL (6.3-8.2) L 01/06/17 17:32 Albumin 2.0 g/dL (3.9-5) L 01/06/17 17:32 Albumin/Globulin Ratio 0.6 % 01/06/17 17:32 Prealbumin 0.050 g/L (0.200-0.400) L 01/08/17 04:29
[2017-01-09] MEDS: NACL 0.45% 1000 ML 1,000 ML IV SCH ×2 (09:25→19:25)
--- NOTE | 2017-01-09 09:53 | Query- Nutrition ---
Emely Mccain Andres Date:__01/09/2017 [employer] Software Engineer/CDS:___Eleanor Phone#:[phone] Exercise your independent professional judgment when responding to query. Questions asked do not imply a particular answer is desired or expected. We greatly appreciate your clarification on this issue. Clinical Documentation States: 66 Year old female was admitted on 01/06/2017 for persistent, severe diarrhea and inability to tolerate by mouth intake. The Hospitalist progress note on 01/08/2017 states " Cachexia/malnutrition/failure to thrive Due to above conditions." Clinical Findings Show: BMI: 19.0 Albumin: 2.0 Please select the most appropriate option 3 [] Mild Malnutrition [] Mild - Moderate Malnutrition [x] Moderate - Severe Malnutrition [] Severe Malnutrition Serum Albumin 2.8 to 3.4 g/dl or Pre-albumin 5 to 17 mg/dl1,2 Inadequate nutritional intake1,2,3,4 NPO > 5 days Weight loss: 5% in 1 month or 7.5% in 3 months or 10% in 6 months1, 3,4 BMI 16 to 18.4 or Weight <90% of ideal body weight1,2,3,4 Serum Albumin < 2.8 g/ dl1,2 Lymphocytes < 1500/ L2 Inadequate nutritional intake3, high stress e.g. major trauma, sepsis,pancreatitis, mendez etc. Decubitus ulcers1,2, , skin breakdown2, easy hair pluckability2 Weight <80% standard for height2 Triceps skin fold <3 mm2 Mid-arm muscle circumference <15 cm2 Creatinine-height index <60% standard2 [ ] Cachexia [ ] Emaciated w/Malnutrition [ ] Other: [ ] Unable to determine [ ] Comment/Explanation: Present on Admission: [x ] Yes (Y) [ ] Clinically undeterminable (W) [ ] No (N) this information was already in the chart Please also document response in your Progress Notes and/or Discharge Summary and indicate if the condition was present on admission. MTDD
--- NOTE | 2017-01-09 14:40 | Progress Note ---
Assessment and Plan Assessment and plan: 66 years old female weight CVA or left-sided ulcerative colitis and multiple episodes of C. difficile colitis in the last year, the last being 3 weeks ago, significantly malnourished, admitted for persistent, severe diarrhea and inability to tolerate by mouth intake 1. Ulcerative colitis flare versus recurrent C. difficile colitis Restarted on corticosteroids IV C. difficile and stool culture negative Improving GI following 2. Cachexia/malnutrition/failure to thrive Due to above conditions Diet supplementation 3. Anemia Due to poor po intake Hgb drop due to hemodilution; low, but stable Monitor H&H 4. Hyponatremia Due to poor po intake Slightly trending up Monitor 5. Hypocalcemia Corrected Ca++ almost normal 6. Hypotension Due to significantly decreased by mouth intake/dehydration Workup to exclude sepsis/infection negative Give IV fluids 7. DVT/GI prophylaxis History Interval history: diarrhea almost resolved, appetite increased, tolerating regular food Hospitalist Physical - Constitutional Vitals: Temp Pulse Resp BP Pulse Ox 97.9 F 67 16 94/62 98 01/09/17 07:25 01/09/17 07:25 01/09/17 07:25 01/09/17 07:25 01/09/17 07:36 General appearance: Present: mild distress, cachectic, other (chronically ill- appearing, very frail) Results - Labs CBC & Chem 7: 01/08/17 04:29 01/08/17 04:29 Labs: Laboratory Last Values WBC 9.6 K/mm3 (4.5-11.0) 01/08/17 04:29 RBC 3.00 M/mm3 (3.65-5.03) L 01/08/17 04:29 Hgb 8.6 gm/dl (10.1-14.3) L 01/08/17 04:29 Hct 25.5 % (30.3-42.9) L 01/08/17 04:29 MCV 85 fl (79-97) 01/08/17 04:29 MCH 29 pg (28-32) 01/08/17 04:29 MCHC 34 % (30-34) 01/08/17 04:29 RDW 17.6 % (13.2-15.2) H 01/08/17 04:29 Plt Count 238 K/mm3 (140-440) 01/08/17 04:29 Lymph % (Auto) 18.6 % (13.4-35.0) 01/08/17 04:29 [place] % (Auto) 2.7 % (0.0-7.3) 01/08/17 04:29 Eos % (Auto) 0.0 % (0.0-4.3) 01/08/17 04:29 Baso % (Auto) 0.7 % (0.0-1.8) 01/08/17 04:29 Lymph # 1.8 K/mm3 (1.2-5.4) 01/08/17 04:29 [place] # 0.3 K/mm3 (0.0-0.8) 01/08/17 04:29 Eos # 0.0 K/mm3 (0.0-0.4) 01/08/17 04:29 Baso # 0.1 K/mm3 (0.0-0.1) 01/08/17 04:29 Seg Neutrophils % 78.0 % (40.0-70.0) H 01/08/17 04:29 Seg Neutrophils # 7.5 K/mm3 (1.8-7.7) 01/08/17 04:29 Sodium 131 mmol/L (137-145) L 01/08/17 04:29 Potassium 3.5 mmol/L (3.6-5.0) L 01/08/17 04:29 Chloride 95.4 mmol/L (98-107) L 01/08/17 04:29 Carbon Dioxide 26 mmol/L (22-30) 01/08/17 04:29 Anion Gap 13 mmol/L 01/08/17 04:29 BUN 6 mg/dL (7-17) L 01/08/17 04:29 Creatinine 0.5 mg/dL (0.7-1.2) L 01/08/17 04:29 Estimated GFR > 60 ml/min 01/08/17 04:29 BUN/Creatinine Ratio 12.00 % 01/08/17 04:29 Glucose 123 mg/dL (65-100) H 01/08/17 04:29 Calcium 6.7 mg/dL (8.4-10.2) L 01/08/17 04:29 Phosphorus 2.70 mg/dL (2.5-4.5) 01/08/17 04:29 Magnesium 1.80 mg/dL (1.7-2.3) 01/08/17 04:29 Total Bilirubin 0.30 mg/dL (0.1-1.2) 01/06/17 17:32 AST 16 units/L (5-40) 01/06/17 17:32 ALT 15 units/L (7-56) 01/06/17 17:32 Alkaline Phosphatase 165 units/L (35-129) H 01/06/17 17:32 Total Protein 5.3 g/dL (6.3-8.2) L 01/06/17 17:32 Albumin 2.0 g/dL (3.9-5) L 01/06/17 17:32 Albumin/Globulin Ratio 0.6 % 01/06/17 17:32 Prealbumin 0.050 g/L (0.200-0.400) L 01/08/17 04:29
--- NOTE | 2017-01-09 16:46 | Progress Note ---
Assessment and Plan 1. Colitis - due to UC. Doing better now. C diff PCR negative. - would change to po meds - at discharge, continue her po Vanco. - her Remicade infusion has been moved up to 01/26. May try to do sooner. If fails, will need surgery. 2. Malnutrition - states she is eating well now. - supplement nutrition Subjective Date of service: 01/09/17 Interval history: Pt states she feels much better, with only 2 small stools today. States she is eating well. Objective - Constitutional Vitals: Vital Signs - 12hr 01/09/17 01/09/17 01/09/17 07:25 07:36 15:43 Temperature 97.9 F 97.7 F Pulse Rate 67 Respiratory 16 16 Rate Blood Pressure 94/62 105/63 O2 Sat by Pulse 98 98 Oximetry General appearance: Present: no acute distress - EENT Eyes: PERRL, EOM intact ENT: hearing intact - Respiratory Respiratory effort: normal - Gastrointestinal General gastrointestinal: Present: soft, non-tender - Labs CBC & Chem 7: 01/08/17 04:29 01/08/17 04:29
[2017-01-09] MEDS: DELTASONE PO SCH (18:37)
[2017-01-09] MEDS: VANCOMYCIN PO PO SCH ×2 (20:45→23:54)
[2017-01-10 05:24] LABS: Anion Gap 12 mmol/L; Blood Urea Nitrogen 5 mg/dL (7-17); Calcium 7.1 mg/dL (8.4-10.2); Carbon Dioxide 25 mmol/L (22-30); Chloride 101.1 mmol/L (98-107); Glucose 165 mg/dL (65-100); Sodium 135 mmol/L (137-145)
[2017-01-10 05:39] LABS: Basophils % (Auto) 0.1 % (0.0-1.8); Hematocrit 21.8 % (30.3-42.9); Hemoglobin 7.4 gm/dl (10.1-14.3); Mean Corpuscular HGB Conc 34 % (30-34); Mean Corpuscular Hemoglobin 29 pg (28-32); Mean Corpuscular Volume 85 fl (79-97); Platelet Count 179 K/mm3 (140-440); Red Blood Count 2.57 M/mm3 (3.65-5.03); Red Cell Distribution Width 17.8 % (13.2-15.2); White Blood Count 6.5 K/mm3 (4.5-11.0)
[2017-01-10 05:56] LABS: Potassium 2.8 mmol/L (3.6-5.0)
[2017-01-10] MEDS ORDERED: K-DUR PO ONE ×2 (06:02→07:30)
[2017-01-10] MEDS: NACL 0.45% 1000 ML 1,000 ML IV SCH (06:39)
[2017-01-10] MEDS: VANCOMYCIN PO PO SCH ×4 (06:40→23:40)
[2017-01-10] MEDS: KCL 10MEQ/100ML 10 MEQ/100 ML BAG IV SCH ×4 (08:46→14:49)
--- NOTE | 2017-01-10 08:54 | Progress Note ---
Assessment and Plan Assessment and plan: 66 years old female weight CVA or left-sided ulcerative colitis and multiple episodes of C. difficile colitis in the last year, the last being 3 weeks ago, significantly malnourished, admitted for persistent, severe diarrhea and inability to tolerate by mouth intake 1. Ulcerative colitis flare Restarted on corticosteroids IV C. difficile negative, stool culture negative Improving GI following 2. Cachexia/malnutrition/failure to thrive Due to above conditions Diet supplementation 3. Anemia Hgb drop due to hemodilution; low, but stable. hemoglobin 7.4 today Monitor H&H Will transfuse if henoglobin less than 7 4. Hyponatremia Due to poor po intake Slightly trending up Monitor 5. Hypocalcemia Corrected Ca++ almost normal 6. Hypotension due to significantly decreased by mouth intake/dehydration Continue IV fluids 7. Hypokalemia. Potassium 2.8 today. Replace po and iv, and recheck in evening. 8.DVT prophylaxis with SCDs only. She is allergic to Lovenox History Interval history: Generalized weakness, less diarrhea, Hospitalist Physical - Physical exam Narrative exam: Gen Appearance: Not in acute distress, malnourished HEENT: normocephalic, atraumatic Neck: supple, no JVD Lungs: Clear to auscultation, bilaterally, no rales, no wheeze Heart: S1 and S2 regular, no murmurs or gallop Abdomen: Soft , non tender, non distended, normal bowel sounds Extremity: No edema, no clubbing or cyanosis Neuro : Awake,alert, oriented x 3, moves all extremities - Constitutional Vitals: Temp Pulse Resp BP Pulse Ox 97.6 F 63 20 90/56 99 01/10/17 07:23 01/10/17 07:23 01/10/17 07:23 01/10/17 07:23 01/10/17 07:23 General appearance: Present: no acute distress Results - Labs CBC & Chem 7: 01/10/17 03:41 01/10/17 03:41 Labs: Laboratory Last Values WBC 6.5 K/mm3 (4.5-11.0) 01/10/17 03:41 RBC 2.57 M/mm3 (3.65-5.03) L 01/10/17 03:41 Hgb 7.4 gm/dl (10.1-14.3) L 01/10/17 03:41 Hct 21.8 % (30.3-42.9) L 01/10/17 03:41 MCV 85 fl (79-97) 01/10/17 03:41 MCH 29 pg (28-32) 01/10/17 03:41 MCHC 34 % (30-34) 01/10/17 03:41 RDW 17.8 % (13.2-15.2) H 01/10/17 03:41 Plt Count 179 K/mm3 (140-440) 01/10/17 03:41 Lymph % (Auto) 17.2 % (13.4-35.0) 01/10/17 03:41 [place] % (Auto) 2.4 % (0.0-7.3) 01/10/17 03:41 Eos % (Auto) 0.0 % (0.0-4.3) 01/10/17 03:41 Baso % (Auto) 0.1 % (0.0-1.8) 01/10/17 03:41 Lymph # 1.1 K/mm3 (1.2-5.4) L 01/10/17 03:41 [place] # 0.2 K/mm3 (0.0-0.8) 01/10/17 03:41 Eos # 0.0 K/mm3 (0.0-0.4) 01/10/17 03:41 Baso # 0.0 K/mm3 (0.0-0.1) 01/10/17 03:41 Seg Neutrophils % 80.3 % (40.0-70.0) H 01/10/17 03:41 Seg Neutrophils # 5.2 K/mm3 (1.8-7.7) 01/10/17 03:41 Sodium 135 mmol/L (137-145) L 01/10/17 03:41 Potassium 2.8 mmol/L (3.6-5.0) L* 01/10/17 03:41 Chloride 101.1 mmol/L (98-107) 01/10/17 03:41 Carbon Dioxide 25 mmol/L (22-30) 01/10/17 03:41 Anion Gap 12 mmol/L 01/10/17 03:41 BUN 5 mg/dL (7-17) L 01/10/17 03:41 Creatinine 0.4 mg/dL (0.7-1.2) L 01/10/17 03:41 Estimated GFR > 60 ml/min 01/10/17 03:41 BUN/Creatinine Ratio 12.50 % 01/10/17 03:41 Glucose 165 mg/dL (65-100) H 01/10/17 03:41 Calcium 7.1 mg/dL (8.4-10.2) L 01/10/17 03:41 Phosphorus 2.70 mg/dL (2.5-4.5) 01/08/17 04:29 Magnesium 1.80 mg/dL (1.7-2.3) 01/10/17 03:41 Total Bilirubin 0.30 mg/dL (0.1-1.2) 01/06/17 17:32 AST 16 units/L (5-40) 01/06/17 17:32 ALT 15 units/L (7-56) 01/06/17 17:32 Alkaline Phosphatase 165 units/L (35-129) H 01/06/17 17:32 Total Protein 5.3 g/dL (6.3-8.2) L 01/06/17 17:32 Albumin 2.0 g/dL (3.9-5) L 01/06/17 17:32 Albumin/Globulin Ratio 0.6 % 01/06/17 17:32 Prealbumin 0.050 g/L (0.200-0.400) L 01/08/17 04:29
[2017-01-10] MEDS: DELTASONE PO SCH (09:58)
[2017-01-10] MEDS: VITAMIN D3 PO SCH (09:59)
[2017-01-10] MEDS: THERAGRAN-M Tab PO SCH (09:59)
[2017-01-10] MEDS: SLOW-MAG PO SCH (09:59)
[2017-01-10] MEDS: PROAMATINE PO SCH ×2 (09:59→17:23)
[2017-01-10] MEDS: MEGACE PO SCH (09:59)
[2017-01-10] MEDS ORDERED: VANCOMYCIN PO PO SCH (12:00)
--- NOTE | 2017-01-10 14:31 | Progress Note ---
Assessment and Plan 1. Colitis - due to UC. Doing better now. C diff PCR negative. - on po meds, and get mesalamine enemas at home, which she took as outpatient - at discharge, continue her po Vanco. - her Remicade infusion has been moved up to 01/26. May try to do sooner. If fails, will need surgery. 2. Malnutrition - states she is eating well now. - supplement nutrition 3. Anemia - consider transfusion prior to discharge. Subjective Date of service: 01/10/17 Interval history: Pt states she continues to feel better, with only small number of post-prandial stools today. States she is eating well. Complains of pain due to IV K+. Objective - Constitutional Vitals: Vital Signs - 12hr 01/10/17 07:23 Temperature 97.6 F Pulse Rate 63 Respiratory 20 Rate Blood Pressure 90/56 O2 Sat by Pulse 99 Oximetry General appearance: Present: no acute distress - EENT Eyes: PERRL, EOM intact ENT: hearing intact - Respiratory Respiratory effort: normal - Gastrointestinal General gastrointestinal: Present: soft, non-tender - Labs CBC & Chem 7: 01/10/17 03:41 01/10/17 03:41 Labs: Abnormal lab results 01/10/17 01/10/17 Range/Units 03:41 03:41 RBC 2.57 L (3.65-5.03) M/mm3 Hgb 7.4 L (10.1-14.3) gm/dl Hct 21.8 L (30.3-42.9) % RDW 17.8 H (13.2-15.2) % Lymph # 1.1 L (1.2-5.4) K/mm3 Seg Neutrophils % 80.3 H (40.0-70.0) % Sodium 135 L (137-145) mmol/L Potassium 2.8 L* (3.6-5.0) mmol/L BUN 5 L (7-17) mg/dL Creatinine 0.4 L (0.7-1.2) mg/dL Glucose 165 H (65-100) mg/dL Calcium 7.1 L (8.4-10.2) mg/dL
[2017-01-10] MEDS: NACL 0.9% 1000 ML 1,000 ML IV SCH (14:49)
[2017-01-10 15:34] LABS: Bilirubin,Urine NEG (Negative); Blood,Urine NEG (Negative); Ketones,Urine NEG (Negative); Leukocyte Esterase,Urine NEG (Negative); Mucus,Urine FEW /HPF; Nitrite,Urine NEG (Negative); Protein,Urine <15 mg/dL mg/dL (Negative); Urobilinogen,Urine < 2.0 mg/dL (<2.0); WBC,Urine < 1.0 /HPF (0.0-6.0)
[2017-01-10 21:23] LABS: Anion Gap 15 mmol/L; Blood Urea Nitrogen 7 mg/dL (7-17); Calcium 7.3 mg/dL (8.4-10.2); Carbon Dioxide 23 mmol/L (22-30); Chloride 99.2 mmol/L (98-107); Glucose 193 mg/dL (65-100); Potassium 3.5 mmol/L (3.6-5.0); Sodium 134 mmol/L (137-145)
[2017-01-10] MEDS: POTASSIUM CHLORIDE PO SCH (23:40)
[2017-01-11] MEDS: PROAMATINE PO SCH ×3 (00:44→19:47)
[2017-01-11] MEDS: NACL 0.9% 1000 ML 1,000 ML IV SCH (00:46)
[2017-01-11 05:42] LABS: Hematocrit 21.5 % (30.3-42.9); Hemoglobin 7.1 gm/dl (10.1-14.3); Mean Corpuscular HGB Conc 33 % (30-34); Mean Corpuscular Hemoglobin 28 pg (28-32); Mean Corpuscular Volume 85 fl (79-97); Platelet Count 186 K/mm3 (140-440); Red Blood Count 2.52 M/mm3 (3.65-5.03); Red Cell Distribution Width 18.1 % (13.2-15.2); White Blood Count 12.3 K/mm3 (4.5-11.0)
[2017-01-11 05:47] LABS: Anion Gap 12 mmol/L; BUN/Creatinine Ratio 23.33; Blood Urea Nitrogen 7 mg/dL (7-17); Calcium 7.4 mg/dL (8.4-10.2); Carbon Dioxide 25 mmol/L (22-30); Chloride 102.6 mmol/L (98-107); Glucose 112 mg/dL (65-100); Sodium 136 mmol/L (137-145)
[2017-01-11] MEDS: VANCOMYCIN PO PO SCH ×3 (06:17→19:46)
[2017-01-11] MEDS: VITAMIN D3 PO SCH (10:08)
[2017-01-11] MEDS: MEGACE PO SCH (10:09)
[2017-01-11] MEDS: THERAGRAN-M Tab PO SCH (10:09)
[2017-01-11] MEDS: DELTASONE PO SCH (10:09)
[2017-01-11] MEDS: SLOW-MAG PO SCH (10:09)
[2017-01-11] MEDS: POTASSIUM CHLORIDE PO SCH (10:19)
[2017-01-11] MEDS ORDERED: NACL 0.9% 500 ML 500 ML IV ONE (12:00)
--- NOTE | 2017-01-11 15:57 | Discharge Summary ---
Providers - Providers Date of Admission: 01/06/17 16:02 Date of discharge: 01/11/17 Attending physician: JUSTICE ALANIS 01/06/17 16:11 Consult to Physician [CONS] Routine Consulting Provider: LINDA SIMPSON Reason For Exam: colitis Place consult to:: Dr HINES Notified:: YES Phone number called:: [phone] Was contact made?: Yes If yes, spoke with:: PEPPER Time called:: 08:26 01/09/17 16:47 Consult to Dietitian/Nutrition [CONS] Routine Physician Instructions: Reason For Exam: Reason for Consult: Malnutrition Primary care physician: DIRECTOR SERVICE Hospitalization Condition: Fair Disposition: DC-01 TO HOME OR SELFCARE - Discharge Diagnoses (1) Ulcerative colitis Status: Acute Qualifiers: Ulcerative colitis location: unspecified ulcerative colitis location Digestive disease complication type: unspecified complication Qualified Code(s ): K51.919 - Ulcerative colitis, unspecified with unspecified complications Core Measure Documentation - Palliative Care Palliative Care/ Comfort Measures: Not Applicable Exam - Constitutional Vitals: Temp Pulse Resp BP Pulse Ox 97.7 F 65 16 80/48 100 01/11/17 14:53 01/11/17 14:21 01/11/17 14:53 01/11/17 14:53 01/11/17 14:21 Plan Activity: advance as tolerated Diet: low fat, low cholesterol Additional Instructions: 1.Follow up with PCP in 1 week. 2.Follow up with Dr. Simpson in 1 week Follow up with: PRIMARY CAREMD [Primary Care Provider] - 7 Days
[2017-01-11 19:42] VITALS: BP 90/50
[2017-01-11 20:02] LABS: Hematocrit 27.5 % (30.3-42.9); Hemoglobin 9.3 gm/dl (10.1-14.3)
== END 2017-01-11 20:30 | disposition home or self-care (01) | DRG 385 ==
LOC: UNDOADMIN 15:42 → 3A 15:42
PROVIDERS: ADMIT Internal Medicine; ATTEND Internal Medicine
PROC: 30233N1 Transfusion of Nonautologous Red Blood Cells into Peripheral Vein, Percutaneous Approach (ICD-10-PCS; principal; 2017-01-11)
DX: K51.90 Ulcerative colitis, unspecified, without complications (principal); E43 Unspecified severe protein-calorie malnutrition; Z68.1 Body mass index [BMI] 19.9 or less, adult; E87.1 Hypo-osmolality and hyponatremia; R62.7 Adult failure to thrive; D64.9 Anemia, unspecified; I95.9 Hypotension, unspecified; Z88.8 Allergy status to other drugs, medicaments and biological substances; E83.51 Hypocalcemia; E87.6 Hypokalemia
CPT/HCPCS: 36415; 71010; 80048; 80053; 81001; 83735; 84100; 84134; 85007; 85018; 85025; 85027; 86850; 86900; 86901; 86920; 87045; 87493; J2405; J2920; J3370; J3480; J7030; J7512; P9040

== ENCOUNTER 2017-01-26 13:31 | Outpatient (CLI) | payer BC ==
[2017-01-26 13:53] LABS: Hematocrit 30.9 % (30.3-42.9); Hemoglobin 9.9 gm/dl (10.1-14.3); Mean Corpuscular HGB Conc 32 % (30-34); Mean Corpuscular Hemoglobin 28 pg (28-32); Mean Corpuscular Volume 88 fl (79-97); Red Cell Distribution Width 18.7 % (13.2-15.2); White Blood Count 13.6 K/mm3 (4.5-11.0)
[2017-01-26 14:13] LABS: Platelet Count 268 K/mm3 (140-440)
[2017-01-26 14:21] LABS: Anion Gap 17 mmol/L; BUN/Creatinine Ratio 17; Blood Urea Nitrogen 12 mg/dL (7-17); Calcium 7.2 mg/dL (8.4-10.2); Carbon Dioxide 23 mmol/L (22-30); Chloride 89.8 mmol/L (98-107); Glucose 139 mg/dL (65-100); Sodium 127 mmol/L (137-145)
[2017-01-26 19:24] LABS: Potassium 2.9 mmol/L (3.6-5.0)
== END 2017-01-26 13:32 | disposition home or self-care (01) ==
LOC: LAB 13:31
PROVIDERS: ATTEND Internal Medicine
DX: I82.402 Acute embolism and thrombosis of unspecified deep veins of left lower extremity (principal); E87.1 Hypo-osmolality and hyponatremia; R79.1 Abnormal coagulation profile; R53.83 Other fatigue; R19.7 Diarrhea, unspecified
CPT/HCPCS: 36415; 80048; 85027; 85730

== ENCOUNTER 2017-04-05 11:14 | Outpatient (CLI) | payer BC ==
[2017-04-05 11:36] LABS: Hematocrit 30.8 % (30.3-42.9); Hemoglobin 10.5 gm/dl (10.1-14.3); Mean Corpuscular HGB Conc 34 % (30-34); Mean Corpuscular Hemoglobin 31 pg (28-32); Mean Corpuscular Volume 90 fl (79-97); Platelet Count 433 K/mm3 (140-440); Red Blood Count 3.43 M/mm3 (3.65-5.03); Red Cell Distribution Width 15.5 % (13.2-15.2); White Blood Count 10.8 K/mm3 (4.5-11.0)
[2017-04-05 12:02] LABS: Anion Gap 17 mmol/L; BUN/Creatinine Ratio 14; Blood Urea Nitrogen 7 mg/dL (7-17); Calcium 7.5 mg/dL (8.4-10.2); Carbon Dioxide 23 mmol/L (22-30); Chloride 90.3 mmol/L (98-107); Glucose 105 mg/dL (65-100); Potassium 3.4 mmol/L (3.6-5.0); Sodium 127 mmol/L (137-145)
== END 2017-04-05 11:15 | disposition home or self-care (01) ==
LOC: LAB 11:14
PROVIDERS: ATTEND Internal Medicine
DX: I82.402 Acute embolism and thrombosis of unspecified deep veins of left lower extremity (principal); E87.1 Hypo-osmolality and hyponatremia; R19.7 Diarrhea, unspecified; R79.1 Abnormal coagulation profile; R53.83 Other fatigue
CPT/HCPCS: 36415; 80048; 85027; 85730

== ENCOUNTER 2017-05-22 10:40 | Outpatient (CLI) | payer BC ==
[2017-05-22 11:01] LABS: Hematocrit 26.4 % (30.3-42.9); Hemoglobin 8.9 gm/dl (10.1-14.3); Mean Corpuscular HGB Conc 34 % (30-34); Mean Corpuscular Hemoglobin 31 pg (28-32); Mean Corpuscular Volume 92 fl (79-97); Platelet Count 414 K/mm3 (140-440); Red Blood Count 2.86 M/mm3 (3.65-5.03); Red Cell Distribution Width 15.4 % (13.2-15.2)
[2017-05-22 11:18] LABS: BUN/Creatinine Ratio 24; Blood Urea Nitrogen 12 mg/dL (7-17); Calcium 8.4 mg/dL (8.4-10.2); Hemolysis Index 1
== END 2017-05-22 10:41 | disposition home or self-care (01) ==
LOC: LAB 10:40 → NM 10:40 → LAB 10:41
PROVIDERS: ATTEND Internal Medicine
DX: I82.402 Acute embolism and thrombosis of unspecified deep veins of left lower extremity (principal); E87.1 Hypo-osmolality and hyponatremia; R79.1 Abnormal coagulation profile; R19.7 Diarrhea, unspecified; R53.83 Other fatigue
CPT/HCPCS: 36415; 80048; 85027; 85730

== ENCOUNTER 2017-05-24 09:10 | Outpatient (CLI) | payer BC | END 2017-05-24 09:11 | disposition home or self-care (01) | LOC: LAB 09:10 | PROVIDERS: ATTEND Internal Medicine | DX: R19.7 Diarrhea, unspecified (principal) | CPT/HCPCS: 87324 ==

== ENCOUNTER 2017-06-09 13:30 | Day surgery (SDC) | payer MEDICARE, BC ==
[2017-06-09 13:59] LABS: Basophils # (Auto) 0.1 K/mm3 (0.0-0.1); Basophils % (Auto) 0.7 % (0.0-1.8); Eosinophils # (Auto) 0.2 K/mm3 (0.0-0.4); Eosinophils % (Auto) 2.4 % (0.0-4.3); Hematocrit 27.9 % (30.3-42.9); Hemoglobin 9.3 gm/dl (10.1-14.3); Lymphocytes # (Auto) 4.3 K/mm3 (1.2-5.4); Mean Corpuscular HGB Conc 34 % (30-34); Mean Corpuscular Hemoglobin 30 pg (28-32); Mean Corpuscular Volume 90 fl (79-97); Monocytes # (Auto) 0.5 K/mm3 (0.0-0.8); Monocytes % (Auto) 5.9 % (0.0-7.3); Platelet Count 510 K/mm3 (140-440); Red Blood Count 3.09 M/mm3 (3.65-5.03); Red Cell Distribution Width 14.2 % (13.2-15.2)
[2017-06-09 14:17] LABS: BUN/Creatinine Ratio 17; Blood Urea Nitrogen 12 mg/dL (7-17); Calcium 8.7 mg/dL (8.4-10.2); Hemolysis Index 0
[2017-06-09] MEDS ORDERED: NACL 0.9% IV SCH (15:00)
[2017-06-09] MEDS ORDERED: REMICADE IV SCH (15:00)
[2017-06-09 17:47] VITALS: BP 106/64
== END 2017-06-09 17:30 | disposition home or self-care (01) ==
LOC: CATHLABREC 13:30 → EDSTATUS 14:00 → CATHLABREC 17:30
PROVIDERS: ATTEND Internal Medicine Gastroenterology
DX: K51.90 Ulcerative colitis, unspecified, without complications (principal)
CPT/HCPCS: 36415; 80048; 85025; 85730; J1745; J7050

== ENCOUNTER 2017-07-19 09:38 | Outpatient (CLI) | payer MEDICARE, BC ==
[2017-07-19 09:53] LABS: Basophils % (Auto) 0.3 % (0.0-1.8); Eosinophils # (Auto) 0.2 K/mm3 (0.0-0.4); Eosinophils % (Auto) 2.7 % (0.0-4.3); Hematocrit 23.4 % (30.3-42.9); Hemoglobin 7.5 gm/dl (10.1-14.3); Lymphocytes # (Auto) 3.2 K/mm3 (1.2-5.4); Lymphocytes % (Auto) 44.8 % (13.4-35.0); Mean Corpuscular HGB Conc 32 % (30-34); Mean Corpuscular Hemoglobin 26 pg (28-32); Mean Corpuscular Volume 81 fl (79-97); Monocytes # (Auto) 0.4 K/mm3 (0.0-0.8); Monocytes % (Auto) 5.9 % (0.0-7.3); Platelet Count 472 K/mm3 (140-440); Red Blood Count 2.89 M/mm3 (3.65-5.03); Red Cell Distribution Width 15.3 % (13.2-15.2)
[2017-07-19 10:12] LABS: BUN/Creatinine Ratio 28; Blood Urea Nitrogen 14 mg/dL (7-17); Calcium 8.8 mg/dL (8.4-10.2); Hemolysis Index 1
== END 2017-07-19 09:39 | disposition home or self-care (01) ==
LOC: LAB 09:38
PROVIDERS: ATTEND Internal Medicine
DX: I82.402 Acute embolism and thrombosis of unspecified deep veins of left lower extremity (principal); E87.1 Hypo-osmolality and hyponatremia; R19.7 Diarrhea, unspecified; R79.1 Abnormal coagulation profile; R53.83 Other fatigue; Z79.899 Other long term (current) drug therapy
CPT/HCPCS: 36415; 80048; 85025; 85730

== ENCOUNTER 2017-07-21 13:13 | Day surgery (SDC) | payer BC, MEDICARE ==
[2017-07-21] MEDS ORDERED: NACL 0.9% IV SCH (15:00)
[2017-07-21] MEDS ORDERED: REMICADE IV SCH (15:00)
[2017-07-21 16:05] VITALS: BP 104/56
== END 2017-07-21 17:10 | disposition home or self-care (01) ==
LOC: CATHLABREC 13:13
PROVIDERS: ATTEND Internal Medicine Gastroenterology
DX: K51.90 Ulcerative colitis, unspecified, without complications (principal)
CPT/HCPCS: 96365; 96366; J1745; J7050

== ENCOUNTER 2017-07-31 14:01 | Outpatient (CLI) | payer BC, MEDICARE ==
[2017-07-31 14:21] LABS: Hematocrit 23.4 % (30.3-42.9); Hemoglobin 7.3 gm/dl (10.1-14.3); Mean Corpuscular HGB Conc 31 % (30-34); Mean Corpuscular Volume 78 fl (79-97); Platelet Count 441 K/mm3 (140-440); Red Cell Distribution Width 16.3 % (13.2-15.2)
[2017-07-31 14:22] LABS: Mean Corpuscular Hemoglobin 24 pg (28-32)
[2017-07-31 14:40] LABS: BUN/Creatinine Ratio 32; Blood Urea Nitrogen 19 mg/dL (7-17); Calcium 8.6 mg/dL (8.4-10.2); Hemolysis Index 4
== END 2017-07-31 14:02 | disposition home or self-care (01) ==
LOC: LAB 14:01
PROVIDERS: ATTEND Internal Medicine
DX: R53.83 Other fatigue (principal); D64.9 Anemia, unspecified
CPT/HCPCS: 36415; 80048; 85027

== ENCOUNTER 2017-09-01 12:15 | Day surgery (SDC) | payer BC, MEDICARE ==
[2017-09-01] MEDS ORDERED: NACL 0.9% IV SCH (14:30)
[2017-09-01] MEDS ORDERED: REMICADE IV SCH (14:30)
[2017-09-01] MEDS ORDERED: BENADRYL ONE (15:40)
[2017-09-01 15:48] VITALS: BP 106/59
== END 2017-09-01 16:30 | disposition home or self-care (01) ==
LOC: CATHLABREC 12:15 → EDSTATUS 12:30
PROVIDERS: ATTEND Internal Medicine Gastroenterology
DX: K51.90 Ulcerative colitis, unspecified, without complications (principal)
CPT/HCPCS: 96374; J1745; J7050; J1200

== ENCOUNTER 2017-10-09 14:32 | Inpatient (IN) | payer MEDICARE, BC ==
[2017-10-09] MEDS ORDERED: PROVENTIL IH PRN (14:33)
[2017-10-09] MEDS ORDERED: ZOFRAN IV PRN (14:33)
[2017-10-09] MEDS ORDERED: TYLENOL PO PRN (14:33)
[2017-10-09] MEDS ORDERED: SODIUM CHLORIDE FLUSH SYRINGE 10 ML IV PRN (14:33)
--- NOTE | 2017-10-09 14:33 | History and Physical Report ---
History of Present Illness Chief complaint: I feel weak History of present illness: 67 YO Female with Crohn's Disease, Anemia admitted directly at the request of Dr. Luis. Pt states that she has experienced weakness over stephan past 2 weeks with worsening symptoms over the past 5 days. Pt was seen by her PCP and found to have symptomatic anemia. Pt seen and evaluated upon arrival. Pt acknowledges feeling weak, and unable to tolerate oral iron tablets. Pt denies fever, chills , CP, Palpitation, NVD, Syncope, BRBPR, productive cough, unintentional weight loss, night sweats. Past History Past Medical History: anemia, other (Crohns Disease) Past Surgical History: No surgical history Social history: , lives with family. denies: smoking, alcohol abuse, prescription drug abuse Family history: cancer Medications and Allergies Allergies Allergy/AdvReac Type Severity Reaction Status Date / Time enoxaparin Allergy Unknown Verified 12/22/16 23:34 Latex, Natural Rubber Allergy Itching Verified 03/23/16 09:55 mesalamine [From Lialda] Allergy Nausea Verified 08/08/16 20:53 nitrofurantoin Allergy Nausea Verified 01/13/15 19:27 macrocrystalline [From Macrodantin] rivaroxaban [From Xarelto] Allergy Unknown Verified 12/02/16 20:39 warfarin Allergy Rash Verified 10/17/16 10:36 Home Medications Medication Instructions Recorded Confirmed Last Taken Type Potassium Chloride [K-Dur] 20 meq PO BID 03/10/17 07/21/17 07/21/17 History 20meq inFLIXimab (NF) [Remicade (Nf)] 215 mg IV Q6W 03/10/17 07/21/17 06/09/17 History 215mg Review of Systems Constitutional: no weight loss, no weight gain, no fever, no chills Ears, nose, mouth and throat: no ear pain, no ear discharge, no tinnitis, no decreased hearing, no nose pain, no nasal congestion Cardiovascular: no chest pain, no orthopnea, no palpitations, no rapid/ irregular heart beat, no edema Respiratory: no cough, no cough with sputum, no excessive sputum, no hemoptysis , no shortness of breath Gastrointestinal: no nausea, no vomiting, no diarrhea, no constipation Genitourinary Female: no pelvic pain, no flank pain, no menorrhagia, no dysuria , no urinary frequency, no urgency Rectal: no pain, no incontinence, no bleeding Musculoskeletal: no neck pain, no shooting arm pain, no arm numbness/tingling, no low back pain, no shooting leg pain Integumentary: no rash, no pruritis, no redness, no sores, no wounds Neurological: no paralysis, no weakness, no parathesias, no numbness, no tingling, no seizures Psychiatric: no anxiety, no memory loss, no change in sleep habits, no sleep disturbances, no insomnia, no hypersomnia, no change in appetite Endocrine: no cold intolerance, no heat intolerance, no polyphagia, no excessive thirst, no polydipsia, no polyuria, no nocturia Hematologic/Lymphatic: no easy bruising, no easy bleeding, no lymphadenopathy, no lymphedema Allergic/Immunologic: no urticaria, no allergic rhinitis, no wheezing, no persistent infections, no anaphylaxis Exam - Constitutional General appearance: Present: mild distress, well-nourished - EENT Eyes: Present: PERRL ENT: hearing intact, clear oral mucosa - Neck Neck: Present: supple, normal ROM - Respiratory Respiratory effort: normal Respiratory: bilateral: CTA - Cardiovascular Heart Sounds: Present: S1 & S2. Absent: rub, click - Extremities Extremities: pulses symmetrical, No edema Peripheral Pulses: within normal limits - Abdominal General gastrointestinal: Present: soft, non-tender, non-distended, normal bowel sounds Female genitourinary: Present: normal - Integumentary Integumentary: Present: clear, warm, dry - Musculoskeletal Musculoskeletal: gait normal, strength equal bilaterally - Psychiatric Psychiatric: appropriate mood/affect, intact judgment & insight - Neurologic Neurologic: CNII-XII intact, moves all extremities Results - Labs CBC & Chem 7: 10/09/17 15:07 10/09/17 15:07 Assessment and Plan - Patient Problems (1) Anemia Current Visit: No Status: Acute Qualifiers: Anemia type: unspecified type Qualified Code(s): D64.9 - Anemia, unspecified Plan to address problem: CBC, PRBC Transfusion, supportive care. (2) Ulcerative colitis Current Visit: No Status: Acute Qualifiers: Ulcerative colitis location: unspecified ulcerative colitis location Plan to address problem: Continue Remicade, outpatient GI F/u care. (3) DVT prophylaxis Current Visit: No Status: Acute Plan to address problem: SCD to BLE while in bed.
[2017-10-09] MEDS ORDERED: INFLIXIMAB IV SCH (14:45)
[2017-10-09 15:32] LABS: Basophils % (Auto) 0.2 % (0.0-1.8); Eosinophils # (Auto) 0.1 K/mm3 (0.0-0.4); Eosinophils % (Auto) 1.1 % (0.0-4.3); Hematocrit 20.7 % (30.3-42.9); Hemoglobin 6.2 gm/dl (10.1-14.3); Lymphocytes # (Auto) 3.7 K/mm3 (1.2-5.4); Lymphocytes % (Auto) 37.8 % (13.4-35.0); Mean Corpuscular HGB Conc 30 % (30-34); Mean Corpuscular Hemoglobin 21 pg (28-32); Mean Corpuscular Volume 70 fl (79-97); Monocytes # (Auto) 0.7 K/mm3 (0.0-0.8); Monocytes % (Auto) 6.6 % (0.0-7.3); Platelet Count 378 K/mm3 (140-440); Red Blood Count 2.95 M/mm3 (3.65-5.03)
[2017-10-09 15:43] LABS: Alanine Aminotransferase 13 units/L (7-56); Albumin 3.4 g/dL (3.9-5); BUN/Creatinine Ratio 19; Blood Urea Nitrogen 13 mg/dL (7-17); Calcium 8.8 mg/dL (8.4-10.2); Hemolysis Index 1
--- NOTE | 2017-10-09 18:11 | XRay Report ---
FINAL REPORT PROCEDURE: XR CHEST 1V AP TECHNIQUE: Chest radiograph anteroposterior view. CPT 28205 HISTORY: Dyspnea. COMPARISON: No prior studies are available for comparison. FINDINGS: Heart: Normal. Mediastinum/Vessels: Slight aortic tortuosity and calcification. Lungs/Pleural space: Normal. Bony thorax: Mild degenerative changes of the spine.. Life support devices: None. IMPRESSION: No radiographic evidence of acute cardiopulmonary disease.
[2017-10-09] MEDS ORDERED: NACL 0.9% 500 ML 500 ML IV NR (19:18)
[2017-10-09] MEDS: SODIUM CHLORIDE FLUSH SYRINGE 10 ML IV SCH (22:18)
[2017-10-09] MEDS: K-DUR PO SCH (22:18)
[2017-10-10 11:33] LABS: Basophils % (Auto) 0.4 % (0.0-1.8); Eosinophils # (Auto) 0.2 K/mm3 (0.0-0.4); Eosinophils % (Auto) 3.1 % (0.0-4.3); Hemoglobin 9.2 gm/dl (10.1-14.3); Lymphocytes # (Auto) 3.1 K/mm3 (1.2-5.4); Lymphocytes % (Auto) 47.4 % (13.4-35.0); Mean Corpuscular HGB Conc 32 % (30-34); Mean Corpuscular Volume 74 fl (79-97); Monocytes # (Auto) 0.6 K/mm3 (0.0-0.8); Monocytes % (Auto) 9.6 % (0.0-7.3); Platelet Count 340 K/mm3 (140-440); Red Blood Count 3.89 M/mm3 (3.65-5.03)
[2017-10-10 11:37] LABS: Mean Corpuscular Hemoglobin 24 pg (28-32)
[2017-10-10] MEDS: K-DUR PO SCH (12:04)
[2017-10-10] MEDS: SODIUM CHLORIDE FLUSH SYRINGE 10 ML IV SCH (12:05)
--- NOTE | 2017-10-10 13:16 | Discharge Summary ---
Providers - Providers Date of Admission: 10/09/17 16:19 Date of discharge: 10/10/17 Attending physician: GM GAGE Primary care physician: CHEYANNE SLADE Hospitalization Condition: Stable Hospital course: Patient is a 67 yo with Ulcerative colitis and chronic anemia, iron deficiency and recurrent C.diffe s/p fecal implant at [facility] who was directly admitted at the request of Dr. Slade for symptomatic anemia (1) Anemia Current Visit: No Status: Acute on chronic anemia of chronic disease Qualifiers: Anemia type: unspecified type Qualified Code(s): D64.9 - Anemia, unspecified Plan to address problem: CBC, s/p 2 u nits of PRBC Transfusion, supportive care. Hgb 9.2 (2) Ulcerative colitis Current Visit: No Status: Acute Qualifiers: Ulcerative colitis location: unspecified ulcerative colitis location Plan to address problem: Continue Remicade, outpatient GI F/u care. We discuss PPD/Tb testing yearly while taking Remicade, which she had last year. (3) DVT prophylaxis Current Visit: No Status: Acute Plan to address problem: SCD to BLE while in bed. Patient was told she had iron deficienty and Dr. Stovall gave her the option of pills or iron transfusion. She chose the iron pill, FeSol which caused an allergic reaction of a rash. I have instructed her to follow up Dr. Stovall regarding iron transfusion. Pt voiced understanding. Disposition: DC-01 TO HOME OR SELFCARE Time spent for discharge: 34 minutes Core Measure Documentation - Palliative Care Palliative Care/ Comfort Measures: Not Applicable - Core Measures Any of the following diagnoses?: none - VTE Discharge Requirements Deep Vein Thrombosis/Pulmonary Embolism Present on Admission: No Has pt received <5 days of overlap therapy or INR<2.0: No Anticoagulant overlap therapy prescribed at discharge: No Contraindication No Overlap Therapy order at DC: Not Indicated Exam - Physical Exam Narrative exam: GEN: WDWN, NAD, Awake, Alert, Orientated x 3 HEENT: NCAT, EOMI, PERRL, OP Clear NECK: supple, no adenopathy, no thyromegaly, no JVD CVS/HEART: RRR, normal S1S2, pulses present bilaterally CHEST/LUNGS: CTA B, Symmetrical chest expansion, good air entry bilaterally GI/Abdomen: soft, NTND, good bowel sounds, no guarding or rebound /Bladder: no suprapubic tenderness, no CVA or paraspinal tenderness EXT/Skin: no c/c/e, no obvious rash MSK: FROM x 4 Neuro: CN 2-12 grossly intact, no new focal deficits Psych: calm - Constitutional Vitals: Temp Pulse Resp BP Pulse Ox 98.2 F 79 18 104/52 97 10/10/17 07:54 10/10/17 07:54 10/10/17 07:54 10/10/17 07:54 10/10/17 10:18 Plan Activity: other (no strenous activity until cleared by PCP) Diet: regular Follow up with: CHEYANNE SLADE MD [Primary Care Provider] - 7 Days LINDA STOVALL MD [Staff Physician] - 7 Days
[2017-10-10 13:23] VITALS: BP 107/57
== END 2017-10-10 16:15 | disposition home or self-care (01) | DRG 812 ==
LOC: ED 14:32 → 2B-ACE 16:19
PROVIDERS: ADMIT Internal Medicine; ATTEND Internal Medicine
PROC: 30233N1 Transfusion of Nonautologous Red Blood Cells into Peripheral Vein, Percutaneous Approach (ICD-10-PCS; principal; 2017-10-09)
DX: D50.9 Iron deficiency anemia, unspecified (principal); K51.90 Ulcerative colitis, unspecified, without complications; Z80.9 Family history of malignant neoplasm, unspecified; Z88.8 Allergy status to other drugs, medicaments and biological substances; Z91.040 Latex allergy status
CPT/HCPCS: 36415; 71045; 80053; 85025; 85027; 86850; 86900; 86901; 86920; 93005; 93010; J7040; P9040

== ENCOUNTER 2017-10-18 12:58 | Outpatient (CLI) | payer BC, MEDICARE ==
--- NOTE | 2017-10-20 15:30 | Mammography Report ---
BONE DEXA:10/18/17 12:58:00 CLINICAL: Postmenopausal. COMPARISON: 09/29/14 TECHNIQUE: Two site bone DEXA performed on an Hologic scanner. FINDINGS: The average BMD of the lumbar spine L1-L4 is 0.852g/cm squared with a T-score of -1.8 and a Z-score of 0. This compares to 0.791g/cm squared on the last exam and represents a +7.8% change from the previous baseline. The average BMD of the left hip is 0.785g/cm squared with a T-score of -1.3 and a Z-score of . This compares to 0.745g/cm squared on the last exam and represents a +5.4% change from the previous baseline. IMPRESSION: 1. WHO classification: Osteopenia with increased fracture risk based on both spine and left hip measurements. 2. A moderate improvement in both spine and left hip BMD compared to the previous exam. RECOMMENDATION: Clinical correlation and routine screening. DEFINITIONS: BMD = Bone Mineral Density T-score = BMD related to mean peak bone mass of young adult (mean expressed in Standard Deviation) Z-score = Age matched BMD expressed in SD World Health Organization (WHO) Diagnostic Criteria Normal T-score > -1 SD Osteopenia T-score between -1 and -2.4 SD Osteoporosis T-score -2.5 SD or below NOTE: BMD is not the only risk factor for fracture; also consider factors such as the patient's age, risk of falling, previous osteoporotic fracture, family history of osteoporotic fractures, current smoker, and low body weight. Z-scores are not calculated if >80 years of age.
--- NOTE | 2017-10-20 15:31 | Mammography Report ---
BILATERAL DIGITAL SCREENING MAMMOGRAM with CAD: 10/18/17 12:58:00 CLINICAL: Routine screening. COMPARISON:09/29/14 FINDINGS: The breasts are almost entirely fatty. No mass, architectural distortion or suspicious calcifications. IMPRESSION: No mammographic evidence of malignancy. BI-RADS CATEGORY: 1 - - Negative RECOMMENDATION: Routine mammographic screening in one year. COMMENT: Patient follow-up letters are generated by our [employer] application.
== END 2017-10-18 12:59 | disposition home or self-care (01) ==
LOC: SPVWC 12:58
DX: Z12.31 Encounter for screening mammogram for malignant neoplasm of breast (principal); M85.88 Other specified disorders of bone density and structure, other site; I10 Essential (primary) hypertension; K51.90 Ulcerative colitis, unspecified, without complications; Z28.3 Underimmunization status
CPT/HCPCS: 77067; 77080

== ENCOUNTER 2017-10-31 13:26 | Outpatient (CLI) | payer MEDICARE, BC ==
[2017-10-31 13:40] LABS: Hematocrit 30.6 % (30.3-42.9); Hemoglobin 9.8 gm/dl (10.1-14.3); Mean Corpuscular HGB Conc 32 % (30-34); Mean Corpuscular Volume 77 fl (79-97); Platelet Count 383 K/mm3 (140-440); Red Blood Count 3.98 M/mm3 (3.65-5.03)
[2017-10-31 13:41] LABS: Mean Corpuscular Hemoglobin 25 pg (28-32); Red Cell Distribution Width 26.1 % (13.2-15.2)
[2017-10-31 14:01] LABS: BUN/Creatinine Ratio 14; Blood Urea Nitrogen 10 mg/dL (7-17); Calcium 9.3 mg/dL (8.4-10.2); Hemolysis Index 2
== END 2017-10-31 13:27 | disposition home or self-care (01) ==
LOC: LAB 13:26
PROVIDERS: ATTEND Internal Medicine
DX: R53.83 Other fatigue (principal); D50.0 Iron deficiency anemia secondary to blood loss (chronic)
CPT/HCPCS: 36415; 80048; 85027

== ENCOUNTER 2017-11-13 13:53 | Outpatient (CLI) | payer MEDICARE, BC ==
[2017-11-13 14:43] LABS: Hematocrit 30.1 % (30.3-42.9); Hemoglobin 9.5 gm/dl (10.1-14.3); Mean Corpuscular HGB Conc 31 % (30-34); Mean Corpuscular Volume 78 fl (79-97); Platelet Count 368 K/mm3 (140-440); Red Blood Count 3.85 M/mm3 (3.65-5.03)
[2017-11-13 14:46] LABS: Mean Corpuscular Hemoglobin 25 pg (28-32); Red Cell Distribution Width 25.7 % (13.2-15.2)
[2017-11-13 15:00] LABS: % Iron Saturation 7.14 %
== END 2017-11-13 13:54 | disposition home or self-care (01) ==
LOC: LAB 13:53
DX: D64.9 Anemia, unspecified (principal); R53.81 Other malaise; I10 Essential (primary) hypertension; Z91.040 Latex allergy status; Z88.6 Allergy status to analgesic agent; Z88.2 Allergy status to sulfonamides; Z88.3 Allergy status to other anti-infective agents; Z88.9 Allergy status to unspecified drugs, medicaments and biological substances
CPT/HCPCS: 36415; 82607; 82728; 82747; 83516; 83550; 85027

== ENCOUNTER 2017-11-29 14:52 | Outpatient (CLI) | payer BC, MEDICARE ==
[2017-11-29 15:14] LABS: Hematocrit 28.1 % (30.3-42.9); Mean Corpuscular HGB Conc 32 % (30-34); Mean Corpuscular Volume 78 fl (79-97); Platelet Count 409 K/mm3 (140-440); Red Blood Count 3.59 M/mm3 (3.65-5.03)
[2017-11-29 15:16] LABS: Mean Corpuscular Hemoglobin 25 pg (28-32); Red Cell Distribution Width 23.7 % (13.2-15.2)
[2017-11-29 15:27] LABS: Alanine Aminotransferase 16 units/L (7-56); Albumin 3.7 g/dL (3.9-5); BUN/Creatinine Ratio 16; Blood Urea Nitrogen 11 mg/dL (7-17); Calcium 8.9 mg/dL (8.4-10.2); Hemolysis Index 0
[2017-11-29 17:26] LABS: Band Neutrophils # (Manual) 0.1 K/mm3; Basophils % (Manual) 0 % (0.0-1.8); Total Cells Counted 100
[2017-11-29 17:27] LABS: Anisocytosis 1+; Platelet Estimate Consistent w Auto
== END 2017-11-29 14:53 | disposition home or self-care (01) ==
LOC: LAB 14:52
PROVIDERS: ATTEND Internal Medicine Gastroenterology
DX: K51.00 Ulcerative (chronic) pancolitis without complications (principal)
CPT/HCPCS: 36415; 80053; 85007; 85025

== ENCOUNTER 2018-01-08 15:48 | Outpatient (CLI) | payer BC, MEDICARE ==
[2018-01-08 16:56] LABS: Hematocrit 33.4 % (30.3-42.9); Hemoglobin 11.4 gm/dl (10.1-14.3); Mean Corpuscular HGB Conc 34 % (30-34); Mean Corpuscular Hemoglobin 30 pg (28-32); Mean Corpuscular Volume 88 fl (79-97); Platelet Count 309 K/mm3 (140-440)
[2018-01-08 16:58] LABS: Red Cell Distribution Width 23.2 % (13.2-15.2)
[2018-01-08 17:21] LABS: % Iron Saturation 24.65 %; Alanine Aminotransferase 14 units/L (7-56); Albumin 4.1 g/dL (3.9-5); BUN/Creatinine Ratio 25; Blood Urea Nitrogen 15 mg/dL (7-17); Calcium 9.1 mg/dL (8.4-10.2); Hemolysis Index 2; Iron 53 ug/dL (37-170); Total Iron Binding Capacity 215 mcg/dL (250-450)
[2018-01-08 18:14] LABS: Total Cells Counted 100
[2018-01-08 18:15] LABS: Anisocytosis 1+; Basophils % (Manual) 0 % (0.0-1.8); Platelet Estimate Consistent w Auto; Poikilocytosis 1+
== END 2018-01-08 15:49 | disposition home or self-care (01) ==
LOC: LAB 15:48
PROVIDERS: ATTEND Internal Medicine Hematology & Oncology
DX: D50.9 Iron deficiency anemia, unspecified (principal); M85.88 Other specified disorders of bone density and structure, other site; Z91.040 Latex allergy status
CPT/HCPCS: 36415; 80053; 82728; 83550; 85007; 85025

== ENCOUNTER 2018-10-10 13:10 | Outpatient (CLI) | payer MEDICARE ==
[2018-10-10 13:37] LABS: Hematocrit 31.6 % (30.3-42.9); Hemoglobin 10.4 gm/dl (10.1-14.3); Mean Corpuscular HGB Conc 33 % (30-34); Mean Corpuscular Volume 83 fl (79-97); Platelet Count 371 K/mm3 (140-440); Red Cell Distribution Width 13.8 % (13.2-15.2)
[2018-10-10 14:31] LABS: Alanine Aminotransferase 15 units/L (7-56); Albumin 3.9 g/dL (3.9-5); BUN/Creatinine Ratio 19; Blood Urea Nitrogen 13 mg/dL (7-17); Chol/HDL Ratio 3.71 %; HDL Cholesterol 49 mg/dL (40-59); Hemolysis Index 2; LDL Cholesterol,Direct 123 mg/dL (50-130)
== END 2018-10-10 13:11 | disposition home or self-care (01) ==
LOC: LAB 13:10
PROVIDERS: ATTEND Internal Medicine
DX: E11.65 Type 2 diabetes mellitus with hyperglycemia (principal); E78.2 Mixed hyperlipidemia; R53.83 Other fatigue
CPT/HCPCS: 36415; 80053; 80061; 83036; 84443; 85027

== ENCOUNTER 2019-01-18 17:33 | Inpatient (IN) | payer MEDICARE ==
--- NOTE | 2019-01-18 18:01 | Event Note ---
ED Screening Note Date of service: 01/18/19 Time: 18:01 ED Screening Note: This is a 68 y.o. F. that presents to the ER for transfusion from Dr. Luis office. Patient H/H 09/07. Patient reports diarrhea for [address] Stovall suspect C.diff and currently taking steroids. This initial assessment/diagnostic orders/clinical plan/treatment(s) is/are subject to change based on patients health status, clinical progression and re- assessment by fellow clinical providers in the ED. Further treatment and workup at subsequent clinical providers discretion. Patient/guardian urged not to elope from the ED as their condition may be serious if not clinically assessed and managed. Initial orders include: Labs
[2019-01-18] MEDS ORDERED: SODIUM CHLORIDE 0.9% 1000 ML 1,000 ML IV ONE (20:18)
[2019-01-18] MEDS ORDERED: SODIUM CHLORIDE 0.9% 500 ML 500 ML IV ONE (20:23)
--- NOTE | 2019-01-18 20:24 | Emergency Department Report ---
HPI - General Chief Complaint: Medical Clearance Time Seen by Provider: 01/18/19 18:01 - HPI HPI: Room 18 The patient is a 68-year-old female presenting with a chief complaint of weakness. The patient has had diarrhea for several months occasionally has noticed blood with it. The patient states her symptoms have worsened recently over the past week she's felt fatigued with nausea and no vomiting. Patient denies history of fever. The patient's primary physician Dr. Luis, since the patient to the hospital for lab work today and she was found to be anemic with an H&H of 09/07. The patient was subsequently instructed to come to the ED for admission Location: [See above] Duration: [See above] Quality: [See above] Severity: [See above] Timing: [See above] Context: [See above] Modifying factors: [See above] Associated signs and symptoms: [see above] ED Past Medical Hx - Past Medical History Previous Medical History?: Yes Hx Headaches / Migraines: Yes Additional medical history: Left bundle branch block, ulcerative colitis. OSTEOPENIA, Taking scheduled Remicade, Low potassium and low sodium - Surgical History Past Surgical History?: Yes Additional Surgical History: COLONOSCOPY - Family History Family history: no significant - Social History Smoking Status: Never Smoker Substance Use Type: None - Medications Home Medications: Home Medications Medication Instructions Recorded Confirmed Last Taken Type Potassium Chloride [K-Dur] 20 meq PO QDAY 03/10/17 10/13/17 10/12/17 History inFLIXimab (NF) [Remicade (Nf)] 276 mg IV Q6W 03/10/17 10/13/17 07/21/17 History Butalb/Acetaminophen/Caffeine 1 cap PO Q6HR PRN #10 cap 03/23/18 Unknown Rx [Fioricet 50-300-40 mg CAP] ED Review of Systems ROS: Stated complaint: DOC ORDERED/LABS ABNORMAL Other details as noted in HPI Constitutional: weakness Eyes: denies: eye pain ENT: denies: throat pain Respiratory: no symptoms reported Cardiovascular: denies: chest pain Endocrine: no symptoms reported Gastrointestinal: nausea, hematochezia. denies: abdominal pain, vomiting, diarrhea Genitourinary: denies: dysuria Musculoskeletal: denies: back pain Neurological: denies: headache Physical Exam - Physical Exam Vital Signs: Vital Signs 01/18/19 18:04 Temperature 99.1 F Pulse Rate 118 H Respiratory 18 Rate Blood Pressure 108/62 [Left] O2 Sat by Pulse 100 Oximetry Physical Exam: GENERAL: The patient is well-developed well-nourished female lying on stretcher appearing pale. [] HEENT: Normocephalic. Atraumatic. Extraocular motions are intact. Patient has moist mucous membranes. NECK: Supple. Trachea midline CHEST/LUNGS: Clear to auscultation. There is no respiratory distress noted. HEART/CARDIOVASCULAR: Regular. There is no tachycardia. There is no gallop rub or murmur. ABDOMEN: Abdomen is soft, nontender. Patient has normal bowel sounds. There is no abdominal distention. SKIN: There is no rash. There is no edema. There is no diaphoresis. NEURO: The patient is awake, alert, and oriented. The patient is cooperative. The patient has normal speech MUSCULOSKELETAL: There is no evidence of acute injury. ED Course Vital Signs 01/18/19 18:04 Temperature 99.1 F Pulse Rate 118 H Respiratory 18 Rate Blood Pressure 108/62 [Left] O2 Sat by Pulse 100 Oximetry ED Medical Decision Making - Lab Data Labs reviewed from outpatient visit today - Differential Diagnosis dramatic anemia, dehydration, ulcerative colitis Critical care attestation.: If time is entered above; I have spent that time in minutes in the direct care of this critically ill patient, excluding procedure time. ED Disposition Clinical Impression: Symptomatic anemia, Dehydration, Ulcerative colitis Disposition: OP ADMIT IP TO THIS HOSP Is pt being admited?: Yes Does the pt Need Aspirin: No Condition: Fair Time of Disposition: 20:24 (hospitalist paged)
[2019-01-18] MEDS ORDERED: ONDANSETRON 4 MG/2 ML INJ IV PRN (21:12)
[2019-01-18] MEDS ORDERED: ACETAMINOPHEN 325 MG TAB PO PRN (21:12)
[2019-01-18] MEDS ORDERED: NON-FORMULARY EACH (Butalb/Acetaminophen/Caffeine [Fioricet 50-300-40 Mg Cap] 1 CAP) PO PRN (21:16)
[2019-01-18] MEDS ORDERED: BUTALB/ACETAMINOPHEN/CAFFEINE TAB PO PRN (21:24)
--- NOTE | 2019-01-18 23:21 | History and Physical Report ---
History of Present Illness Date of examination: 01/18/19 Date of admission: 01/18/19 21:12 Chief complaint: Weakness, diarrhea, abnormal labs History of present illness: 68-year-old female with history of ulcerative colitis and anemia presents to [facility] ED complaints of generalized weakness and diarrhea. Over the past 6 months patient has been experiencing intermittent episodes of weakness, diarrhea, and bloody stools. Over the past week her symptoms have worsened. She states that she felt extremely weak accompanied by nausea. This prompted her to go to the outpatient lab this morning. She was found with a hemoglobin of 5.0 and referred to the ED. Patient is well-known to Dr. Luis. Admits: nause, generalized weakness, diarrhea, intermittent episodes of bloody stool Denies: fever, emesis, headache, hematuria, abdominal pain, or recent sick contact Past History Past Medical History: other (migraines,Left bundle branch block, ulcerative colitis, osteopenia, hypokalemia, hyponatremia ) Past Surgical History: No surgical history Social history: Family history: no significant family history Medications and Allergies Allergies Allergy/AdvReac Type Severity Reaction Status Date / Time enoxaparin Allergy Unknown Verified 12/22/16 23:34 Latex, Natural Rubber Allergy Itching Verified 03/23/16 09:55 mesalamine [From Lialda] Allergy Nausea Verified 08/08/16 20:53 nitrofurantoin Allergy Nausea Verified 01/13/15 19:27 macrocrystalline [From Macrodantin] rivaroxaban [From Xarelto] Allergy Unknown Verified 12/02/16 20:39 warfarin Allergy Rash Verified 10/17/16 10:36 Home Medications Medication Instructions Recorded Confirmed Last Taken Type Potassium Chloride [K-Dur] 20 meq PO QDAY 03/10/17 01/18/19 10/12/17 History inFLIXimab (NF) [Remicade (Nf)] 276 mg IV Q6W 03/10/17 01/18/19 07/21/17 History Butalb/Acetaminophen/Caffeine 1 cap PO Q6HR PRN #10 cap 03/23/18 01/18/19 Unknown Rx [Fioricet 50-300-40 mg CAP] Active Meds: Active Medications Acetaminophen (Tylenol) 650 mg PO Q4H PRN PRN Reason: Pain MILD(1-3)/Fever >100.5/DANIELS Acetaminophen/Butalbital/Caffeine (Fioricet) 1 tab PO Q6H PRN PRN Reason: Headache Docusate Sodium (Colace) 100 mg PO BID TOBI Methylprednisolone Sodium Succinate (Solu-Medrol) 60 mg IV Q8HR TOBI Ondansetron HCl (Zofran) 4 mg IV Q6H PRN PRN Reason: Nausea And Vomiting Sodium Chloride (Sodium Chloride Flush Syringe 10 Ml) 10 ml IV BID TOBI Sodium Chloride (Sodium Chloride Flush Syringe 10 Ml) 10 ml IV PRN PRN PRN Reason: LINE FLUSH Review of Systems All systems: negative Constitutional: weakness Gastrointestinal: diarrhea, hematochezia Exam - Physical Exam Narrative exam: Physical exam General appearance: Present: Mild distress, alert and oriented 3, thin, anxious, adult female - EENT Eyes: Present: PERRL, EOM intact, ENT: hearing intact, normal dentition - Neck Neck: Present: supple, normal ROM - Respiratory Respiratory effort: Non-labored Respiratory: CTA - Cardiovascular Heart rate: 91 (bpm) Rhythm: SR Heart Sounds: Present: S1, S2 - Extremities Extremities: no ischemia, pulses intact - Peripheral Assessment Peripheral Pulses: within normal limits - Abdominal General gastrointestinal: Soft, non-tender, normal bowel sounds - Integumentary Integumentary: Present: warm, dry, - Musculoskeletal Musculoskeletal: Generalized weakness, Able to move all extremities -Neurological Neurological: CN II-XII grossly intact - Psychiatric Psychiatric: cooperative - Constitutional Vitals: Temp Pulse Resp BP Pulse Ox 98.2 F 91 H 18 109/80 100 01/18/19 22:45 01/18/19 22:41 01/18/19 22:45 01/18/19 22:41 01/18/19 22:41 Results - Labs Labs: Laboratory Last Values Blood Type A POSITIVE 01/18/19 18:44 Antibody Screen Negative 01/18/19 18:44 Crossmatch See Detail 01/18/19 18:44 Assessment and Plan Assessment and plan: 68-year-old female with history of ulcerative colitis and anemia presents to [facility] ED plaints of generalized weakness and diarrhea. Over the past 6 months patient complains of intermittent episodes of weakness, diarrhea, and hematochezia. Anemia of chronic disease -Hemoglobin on admission 5.0 -C/o hematochezia -Receiving 2 units PRBC -Continue to monitor hemoglobin -Transfuse as needed Ulcerative colitis flare -Complains of diarrhea with intermittent episodes of bloody stools -History of ulcerative colitis -Patient is well-known to Dr. Luis and GI service -Start IV Solu-Medrol 60 mg every 8 hours -GI consult pending Leukocytosis -WBC 19.4 -Afebrile -Normotensive -Will hold off on IV antibiotics for now -Continue to monitor CBC DVT PPX -SCDs
[2019-01-19] MEDS: DOCUSATE SODIUM 100 MG CAP PO SCH ×3 (00:23→21:52)
[2019-01-19] MEDS: methylPREDNISolone Sod Succinate 125 MG/2 ML INJ IV SCH ×3 (00:27→13:27)
[2019-01-19] MEDS ORDERED: SODIUM CHLORIDE 0.9% 250ML 250 ML ONE (02:29)
--- NOTE | 2019-01-19 09:08 | Progress Note ---
Assessment and Plan Assessment and plan: 68-year-old female with history of ulcerative colitis and anemia presents to [facility] ED plaints of generalized weakness and diarrhea. Over the past 6 months patient complains of intermittent episodes of weakness, diarrhea, and hematochezia. --Anemia of chronic disease Status post 2 units PRBC transfusion, her hemoglobin improved to 8.1 Laura to monitor H&H transfuse as needed --Ulcerative colitis flare diarrhea with intermittent episodes of bloody stools Decrease IV Solu-Medrol to 40 mg every 12 GI evaluation and recommendations noted and appreciated --Leukocytosis;,Closely monitor --DVT PPX; SCDs Monitor closely and adjust management as needed History Interval history: Patient seen and examined medical records reviewed No new events reported by the nursing patient received 2 units of PRBC with significant improvement of H&H Vital signs noted Hospitalist Physical - Constitutional Vitals: Temp Pulse Resp BP Pulse Ox 97.8 F 71 18 103/57 99 01/19/19 07:26 01/19/19 07:26 01/19/19 07:26 01/19/19 07:26 01/19/19 07:26 General appearance: Present: no acute distress, well-nourished - EENT Eyes: Present: PERRL, EOM intact - Neck Neck: Present: supple, normal ROM - Respiratory Respiratory effort: normal Respiratory: bilateral: diminished, negative: rales, rhonchi, wheezing - Cardiovascular Rhythm: regular Heart Sounds: Present: S1 & S2 - Extremities Extremities: no ischemia, No edema - Abdominal General gastrointestinal: soft, non-tender, non-distended, normal bowel sounds - Integumentary Integumentary: Present: clear, warm - Psychiatric Psychiatric: appropriate mood/affect, cooperative - Neurologic Neurologic: CNII-XII intact, moves all extremities Results - Labs CBC & Chem 7: 01/19/19 09:51 01/19/19 09:51 Labs: Laboratory Last Values Blood Type A POSITIVE 01/18/19 18:44 Antibody Screen Negative 01/18/19 18:44 Crossmatch See Detail 01/18/19 18:44 Active Medications - Current Medications Current Medications: Generic Name Dose Route Start Last Admin Trade Name Freq PRN Reason Stop Dose Admin Acetaminophen 650 mg 01/18/19 21:12 Tylenol PO Q4H PRN Pain MILD(1-3)/Fever >100.5/DANIELS Acetaminophen/Butalbital/Caffeine 1 tab 01/18/19 21:24 Fioricet PO Q6H PRN Headache Docusate Sodium 100 mg 01/18/19 22:00 01/19/19 00:23 Colace PO Not Given BID [facility] Methylprednisolone Sodium Succinate 60 mg 01/18/19 22:00 01/19/19 06:04 Solu-Medrol IV Not Given Q8HR [facility] Ondansetron HCl 4 mg 01/18/19 21:12 Zofran IV Q6H PRN Nausea And Vomiting Sodium Chloride 10 ml 01/18/19 22:00 01/19/19 00:28 Sodium Chloride Flush Syringe 10 Ml IV 10 ml BID [facility] Administration Sodium Chloride 10 ml 01/18/19 21:12 Sodium Chloride Flush Syringe 10 Ml IV PRN PRN LINE FLUSH
[2019-01-19 10:17] LABS: BUN/Creatinine Ratio 18; Blood Urea Nitrogen 11 mg/dL (7-17); Calcium 7.8 mg/dL (8.4-10.2); Hemolysis Index 1
[2019-01-19 10:40] LABS: Hematocrit 24.8 % (30.3-42.9); Hemoglobin 8.1 gm/dl (10.1-14.3); Mean Corpuscular HGB Conc 33 % (30-34); Mean Corpuscular Volume 76 fl (79-97); Platelet Count 331 K/mm3 (140-440); Red Blood Count 3.25 M/mm3 (3.65-5.03)
[2019-01-19 10:52] LABS: Monocytes # (Auto) 0.1 K/mm3 (0.0-0.8); Monocytes % (Auto) 1.2 % (0.0-7.3)
[2019-01-19] MEDS: PANTOPRAZOLE 40 MG INJ IV SCH (12:09)
--- NOTE | 2019-01-19 13:55 | Gastroenterology Consultation ---
History of Present Illness - Reason for Consult Consult date: 01/19/19 ulcerative colitis flare up Requesting physician: OG WHEELER - History of Present Illness This is a 68 yo female with pmh of UC (previously on Remicade and most recently on Xeljanz until Apr 2018), h/o C diff (fecal transplant in 2016) admitted for symptomatic anemia and UC flare up. She reports having flare up symptoms with bloody diarrhea since October this year and has been on prednisone as outpatient for the past 60 days or so. She also recently had worsening diarrhea last week and had outpatient stool study for c diff (results pending) and started empiric antibiotics with PO vancomycin this Monday. She continued to have worsening fatigue and weakness. She had labs checked showing worsening anemia with Hgb down to 5 and was admitted for blood transfusion. She was also started on IV solumedrol overnight. Today, she reports her diarrhea has improved. No abdominal pain or nausea/vomiting. Feels better after blood transfusion. Medication list reviewed Past History Past Medical History: other (migraines,Left bundle branch block, ulcerative colitis, osteopenia, hypokalemia, hyponatremia ) Past Surgical History: No surgical history Social history: Family history: no significant family history Medications and Allergies Allergies Allergy/AdvReac Type Severity Reaction Status Date / Time enoxaparin Allergy Unknown Verified 12/22/16 23:34 Latex, Natural Rubber Allergy Itching Verified 03/23/16 09:55 mesalamine [From Lialda] Allergy Nausea Verified 08/08/16 20:53 nitrofurantoin Allergy Nausea Verified 01/13/15 19:27 macrocrystalline [From Macrodantin] rivaroxaban [From Xarelto] Allergy Unknown Verified 12/02/16 20:39 warfarin Allergy Rash Verified 10/17/16 10:36 Home Medications Medication Instructions Recorded Confirmed Last Taken Type Potassium Chloride [K-Dur] 20 meq PO QDAY 03/10/17 01/18/19 10/12/17 History inFLIXimab (NF) [Remicade (Nf)] 276 mg IV Q6W 03/10/17 01/18/19 07/21/17 History Butalb/Acetaminophen/Caffeine 1 cap PO Q6HR PRN #10 cap 03/23/18 01/18/19 Unknown Rx [Fioricet 50-300-40 mg CAP] Active Meds: Active Medications Acetaminophen (Tylenol) 650 mg PO Q4H PRN PRN Reason: Pain MILD(1-3)/Fever >100.5/DANIELS Acetaminophen/Butalbital/Caffeine (Fioricet) 1 tab PO Q6H PRN PRN Reason: Headache Docusate Sodium (Colace) 100 mg PO BID [facility] Last Admin: 01/19/19 09:23 Dose: 100 mg Documented by: Methylprednisolone Sodium Succinate (Solu-Medrol) 60 mg IV Q8HR [facility] Last Admin: 01/19/19 13:27 Dose: 60 mg Documented by: Ondansetron HCl (Zofran) 4 mg IV Q6H PRN PRN Reason: Nausea And Vomiting Pantoprazole Sodium (Protonix) 40 mg IV QDAY [facility] Last Admin: 01/19/19 12:09 Dose: 40 mg Documented by: Sodium Chloride (Sodium Chloride Flush Syringe 10 Ml) 10 ml IV BID [facility] Last Admin: 01/19/19 12:09 Dose: 10 ml Documented by: Sodium Chloride (Sodium Chloride Flush Syringe 10 Ml) 10 ml IV PRN PRN PRN Reason: LINE FLUSH Review of Systems - Review of Systems All systems: negative Constitutional: fatigue, weakness Cardiovascular: no chest pain, no edema Gastrointestinal: diarrhea, hematochezia, no abdominal pain, no nausea, no vomiting Rectal: no pain Musculoskeletal: muscle pain Psychiatric: no anxiety Exam - Constitutional Vital Signs: Temp Pulse Resp BP Pulse Ox 98.1 F 96 H 20 114/62 97 01/19/19 13:31 01/19/19 13:31 01/19/19 13:31 01/19/19 13:31 01/19/19 13:31 General appearance: no acute distress, well-nourished - EENT ENT: hearing intact, clear oral mucosa - Neck Neck: supple, normal ROM, no masses or JVD - Respiratory Respiratory effort: normal Respiratory: bilateral: CTA - Breasts Breasts: deferred - Cardiovascular Rhythm: regular Heart Sounds: Present: S1 & S2. Absent: gallop, rub Extremities: pulses intact, No edema, normal color, Full ROM - Gastrointestinal General gastrointestinal: Present: soft, non-tender, non-distended, normal bowel sounds - Integumentary Integumentary: Present: clear, warm, dry - Neurologic Neurological: alert and oriented x3 - Psychiatric Psychiatric: appropriate mood/affect - Labs CBC & Chem 7: 01/19/19 09:51 01/19/19 09:51 Lab Results: Laboratory Results - last 24 hr 01/18/19 01/19/19 01/19/19 18:44 09:51 09:51 WBC 6.5 RBC 3.25 L Hgb 8.1 L D Hct 24.8 L D MCV 76 L MCH 25 L MCHC 33 RDW 29.0 H Plt Count 331 [place] % (Auto) 1.2 Eos % (Auto) 0.0 [place] # 0.1 Eos # 0.0 Baso # 0.0 Seg Neutrophils % 79.4 H Seg Neutrophils # 5.3 Sodium 134 L Potassium 4.2 Chloride 97.9 L Carbon Dioxide 22 Anion Gap 18 BUN 11 Creatinine 0.6 L Estimated GFR > 60 BUN/Creatinine Ratio 18 Glucose 160 H Calcium 7.8 L C-Reactive Protein Blood Type A POSITIVE Antibody Screen Negative Crossmatch See Detail 01/19/19 09:51 WBC RBC Hgb Hct MCV MCH MCHC RDW Plt Count [place] % (Auto) Eos % (Auto) [place] # Eos # Baso # Seg Neutrophils % Seg Neutrophils # Sodium Potassium Chloride Carbon Dioxide Anion Gap BUN Creatinine Estimated GFR BUN/Creatinine Ratio Glucose Calcium C-Reactive Protein 4.90 H Blood Type Antibody Screen Crossmatch Assessment and Plan This is a 68 yo female with pmh of UC (previously on Remicade and most recently on Xeljanz until Apr 2018), h/o C diff (fecal transplant in 2017) admitted for symptomatic anemia and UC flare up. # UC flare up - long history of UC. previously treated with Remicade but developed antibody and most recently on Xeljanz for 2 months with improvement but stopped in Apr 2018. - h/o C diff in the past. - recent outpatient stool studies for c diff (will check for results) Rec: - will order CT a/p with oral contrast. - monitor H/H. - will decrease solumedrol to 40 bid. - monitor CRP - recommend DVT ppx. - check for c diff and stool culture.
[2019-01-19 14:54] LABS: Band Neutrophils # (Manual) 0.2 K/mm3; Basophils % (Manual) 0 % (0.0-1.8); Eosinophils % (Manual) 0 % (0.0-4.3); Monocytes % (Manual) 0 % (0.0-7.3); Total Cells Counted 100
[2019-01-19 14:56] LABS: Platelet Estimate Consistent w Auto; Spherocytes Few
[2019-01-19 14:58] LABS: Hypochromasia 2+
--- NOTE | 2019-01-19 17:32 | Cat Scan Report ---
CT ABDOMEN AND PELVIS WITH CONTRAST INDICATION: ulcerative colitis flare up. COMPARISON: No relevant prior imaging study available. TECHNIQUE: Axial, coronal and sagittal CT imaging of the abdomen and pelvis was performed after inje ction of 100 mL Omnipaque [address] scans at this location are performed using CT dose re duction for ALARA by means of automated exposure control. FINDINGS: LOWER CHEST: There is bibasilar atelectasis. No additional significant abnormality. LIVER: No significant abnormality. BILIARY: No significant abnormality. PANCREAS: No significant abnormality. SPLEEN: No significant abnormality. ADRENALS: No significant abnormality. KIDNEYS AND URETERS: No significant abnormality. GI TRACT: Mild generalized thickening of the entire colon is noted without abnormal dilatation or a d istinct mass. The small bowel and stomach are unremarkable. Unremarkable appendix. PERITONEUM: No free fluid. No free air. No fluid collection. LYMPH NODES: No significant adenopathy. VASCULATURE: No significant abnormality. URINARY BLADDER: No significant abnormality. REPRODUCTIVE ORGANS: No significant abnormality. ADDITIONAL FINDINGS: None. SKELETAL SYSTEM: No significant abnormality. IMPRESSION: Pancolitis is consistent with an acute exacerbation of ulcerative colitis. No acute complication is i dentified. Signer Name: Humberto Nina MD Signed: 01/19/2019 5:28 PM Workstation Name: [id number]
[2019-01-19] MEDS: methylPREDNISolone Sod Succinate 40 MG/1 ML INJ IV SCH (21:52)
[2019-01-19] MEDS ORDERED: methylPREDNISolone Sod Succinate 125 MG/2 ML INJ IV SCH (22:00)
[2019-01-20] MEDS: DOCUSATE SODIUM 100 MG CAP PO SCH (09:15)
[2019-01-20] MEDS: methylPREDNISolone Sod Succinate 40 MG/1 ML INJ IV SCH (09:31)
[2019-01-20] MEDS: PANTOPRAZOLE 40 MG INJ IV SCH (09:31)
[2019-01-20 10:26] LABS: Hematocrit 25.3 % (30.3-42.9); Hemoglobin 7.8 gm/dl (10.1-14.3); Mean Corpuscular HGB Conc 31 % (30-34); Mean Corpuscular Volume 77 fl (79-97); Platelet Count 362 K/mm3 (140-440); Red Blood Count 3.28 M/mm3 (3.65-5.03)
[2019-01-20 10:35] LABS: Red Cell Distribution Width 28.2 % (13.2-15.2)
[2019-01-20 10:38] LABS: BUN/Creatinine Ratio 22; Blood Urea Nitrogen 13 mg/dL (7-17); Calcium 8.1 mg/dL (8.4-10.2); Hemolysis Index 0
[2019-01-20] MEDS ORDERED: POTASSIUM CHLORIDE ER 20 MEQ TAB PO NR (12:12)
--- NOTE | 2019-01-20 12:13 | Progress Note ---
Assessment and Plan Assessment and plan: 68-year-old female with history of ulcerative colitis and anemia presents to [facility] ED plaints of generalized weakness and bloody diarrhea. Over the past 6 months patient complains of intermittent episodes of weakness, diarrhea, and hematochezia. Initial hemoglobin at presentation 5.0, received 2 units of PRBC her hemoglobin today is 7.8 CT abdomen findings consistent with exacerbation of ulcerative colitis --Anemia of chronic disease Status post 2 units PRBC transfusion, her hemoglobin improved to 8.1-7.8 monitor H&H transfuse as needed --Acute exacerbation of Ulcerative colitis ; CT abdomen and pelvis findings noted diarrhea with intermittent episodes of bloody stools Continue IV Solu-Medrol to 40 mg every 12, Zosyn GI following, patient requests regular for --Leukocytosis;,Closely monitor partly due to steroid --DVT PPX; SCDs Monitor closely and adjust management as needed Disposition; continue inpatient management Discharge home when stable History Interval history: Patient seen and examined medical records reviewed Patient feels slightly better, wants to go home Alert awake oriented 3 Vital signs reviewed Hospitalist Physical - Constitutional Vitals: Temp Pulse Resp BP Pulse Ox 97.7 F 70 12 106/64 97 01/20/19 07:56 01/20/19 07:56 01/20/19 07:56 01/20/19 07:56 01/20/19 07:56 General appearance: Present: no acute distress, well-nourished - EENT Eyes: Present: PERRL, EOM intact - Neck Neck: Present: supple, normal ROM - Respiratory Respiratory effort: normal Respiratory: bilateral: diminished, negative: rales, rhonchi, wheezing - Cardiovascular Rhythm: regular Heart Sounds: Present: S1 & S2 - Extremities Extremities: no ischemia, No edema - Abdominal General gastrointestinal: soft, non-tender, non-distended, normal bowel sounds - Integumentary Integumentary: Present: clear, warm - Psychiatric Psychiatric: appropriate mood/affect, cooperative - Neurologic Neurologic: moves all extremities Results - Labs CBC & Chem 7: 01/20/19 10:02 01/20/19 10:02 Labs: Laboratory Last Values WBC 14.8 K/mm3 (4.5-11.0) H 01/20/19 10:02 RBC 3.28 M/mm3 (3.65-5.03) L 01/20/19 10:02 Hgb 7.8 gm/dl (10.1-14.3) L 01/20/19 10:02 Hct 25.3 % (30.3-42.9) L 01/20/19 10:02 MCV 77 fl (79-97) L 01/20/19 10:02 MCH 24 pg (28-32) L 01/20/19 10:02 MCHC 31 % (30-34) 01/20/19 10:02 RDW 28.2 % (13.2-15.2) H 01/20/19 10:02 Plt Count 362 K/mm3 (140-440) 01/20/19 10:02 [place] % (Auto) 1.2 % (0.0-7.3) 01/19/19 09:51 Eos % (Auto) 0.0 % (0.0-4.3) 01/19/19 09:51 Perkins # 0.1 K/mm3 (0.0-0.8) 01/19/19 09:51 Eos # 0.0 K/mm3 (0.0-0.4) 01/19/19 09:51 Baso # 0.0 K/mm3 (0.0-0.1) 01/19/19 09:51 Add Manual Diff Complete 01/19/19 09:51 Total Counted 100 01/19/19 09:51 Seg Neutrophils % 79.4 % (40.0-70.0) H 01/19/19 09:51 Seg Neuts % (Manual) 83.0 % (40.0-70.0) H 01/19/19 09:51 3.0 % 01/19/19 09:51 14.0 % (13.4-35.0) 01/19/19 09:51 Reactive Lymphs % (Man) 0 % 01/19/19 09:51 0 % (0.0-7.3) 01/19/19 09:51 0 % (0.0-4.3) 01/19/19 09:51 0 % (0.0-1.8) 01/19/19 09:51 0 % 01/19/19 09:51 0 % 01/19/19 09:51 0 % 01/19/19 09:51 0 % 01/19/19 09:51 Nucleated RBC % Not Reportable 01/19/19 09:51 Seg Neutrophils # 5.3 K/mm3 (1.8-7.7) 01/19/19 09:51 Seg Neutrophils # Man 5.4 K/mm3 (1.8-7.7) 01/19/19 09:51 Band Neutrophils # 0.2 K/mm3 01/19/19 09:51 0.9 K/mm3 (1.2-5.4) L 01/19/19 09:51 Abs React Lymphs (Man) 0.0 K/mm3 01/19/19 09:51 0.0 K/mm3 (0.0-0.8) 01/19/19 09:51 0.0 K/mm3 (0.0-0.4) 01/19/19 09:51 0.0 K/mm3 (0.0-0.1) 01/19/19 09:51 0.0 K/mm3 01/19/19 09:51 0.0 K/mm3 01/19/19 09:51 0.0 K/mm3 01/19/19 09:51 Blast Cells # 0.0 K/mm3 01/19/19 09:51 WBC Morphology Not Reportable 01/19/19 09:51 Hypersegmented Neuts Not Reportable 01/19/19 09:51 Hyposegmented Neuts Not Reportable 01/19/19 09:51 Hypogranular Neuts Not Reportable 01/19/19 09:51 Not Reportable 01/19/19 09:51 Not Reportable 01/19/19 09:51 Not Reportable 01/19/19 09:51 Not Reportable 01/19/19 09:51 Not Reportable 01/19/19 09:51 Not Reportable 01/19/19 09:51 Consistent w auto 01/19/19 09:51 Not Reportable 01/19/19 09:51 Plt Clumps, EDTA Not Reportable 01/19/19 09:51 Not Reportable 01/19/19 09:51 Not Reportable 01/19/19 09:51 Not Reportable 01/19/19 09:51 Plt Morphology Comment Not Reportable 01/19/19 09:51 RBC Morphology Not Reportable 01/19/19 09:51 Dimorphic RBCs Not Reportable 01/19/19 09:51 Few 01/19/19 09:51 2+ 01/19/19 09:51 Not Reportable 01/19/19 09:51 Not Reportable 01/19/19 09:51 Not Reportable 01/19/19 09:51 Not Reportable 01/19/19 09:51 Few 01/19/19 09:51 Not Reportable 01/19/19 09:51 Not Reportable 01/19/19 09:51 Not Reportable 01/19/19 09:51 Not Reportable 01/19/19 09:51 Not Reportable 01/19/19 09:51 Not Reportable 01/19/19 09:51 Not Reportable 01/19/19 09:51 Not Reportable 01/19/19 09:51 Not Reportable 01/19/19 09:51 Not Reportable 01/19/19 09:51 Not Reportable 01/19/19 09:51 Few 01/19/19 09:51 Acanthocytes (Spur) Not Reportable 01/19/19 09:51 Rouleaux Not Reportable 01/19/19 09:51 Not Reportable 01/19/19 09:51 Not Reportable 01/19/19 09:51 Not Reportable 01/19/19 09:51 Not Reportable 01/19/19 09:51 Hem Pathologist Commnt No 01/19/19 09:51 Sodium 134 mmol/L (137-145) L 01/20/19 10:02 Potassium 3.5 mmol/L (3.6-5.0) L 01/20/19 10:02 Chloride 96.7 mmol/L (98-107) L 01/20/19 10:02 Carbon Dioxide 20 mmol/L (22-30) L 01/20/19 10:02 21 mmol/L 01/20/19 10:02 BUN 13 mg/dL (7-17) 01/20/19 10:02 0.6 mg/dL (0.7-1.2) L 01/20/19 10:02 Estimated GFR > 60 ml/min 01/20/19 10:02 22 % 01/20/19 10:02 Glucose 223 mg/dL (65-100) H 01/20/19 10:02 Calcium 8.1 mg/dL (8.4-10.2) L 01/20/19 10:02 2.40 mg/dL (0.00-1.30) H 01/20/19 10:02 C. difficile Tox (PCR) Negative (Negative) 01/19/19 14:15 Blood Type A POSITIVE 01/18/19 18:44 Antibody Screen Negative 01/18/19 18:44 Crossmatch See Detail 01/18/19 18:44 Active Medications - Current Medications Current Medications: Generic Name Dose Route Start Last Admin Trade Name Freq PRN Reason Stop Dose Admin Acetaminophen 650 mg 01/18/19 21:12 01/19/19 15:15 Tylenol PO 650 mg Q4H PRN Administration Pain MILD(1-3)/Fever >100.5/DANIELS Acetaminophen/Butalbital/Caffeine 1 tab 01/18/19 21:24 Fioricet PO Q6H PRN Headache Docusate Sodium 100 mg 01/18/19 22:00 01/20/19 09:15 Colace PO Not Given BID TOBI Methylprednisolone Sodium Succinate 40 mg 01/19/19 22:00 01/20/19 09:31 Solu-Medrol IV 40 mg Q12HR TOBI Administration Ondansetron HCl 4 mg 01/18/19 21:12 Zofran IV Q6H PRN Nausea And Vomiting Pantoprazole Sodium 40 mg 01/19/19 10:00 01/20/19 09:31 Protonix IV 40 mg QDAY TOBI Administration Sodium Chloride 10 ml 01/18/19 22:00 01/20/19 09:31 Sodium Chloride Flush Syringe 10 Ml IV 10 ml BID TOBI Administration Sodium Chloride 10 ml 01/18/19 21:12 Sodium Chloride Flush Syringe 10 Ml IV PRN PRN LINE FLUSH Nutrition/Malnutrition Assess - Dietary Evaluation Nutrition/Malnutrition Findings: Nutrition Notes Start: 01/19/19 11:20 Freq: Status: Active Protocol: Document 01/19/19 11:20 BALDO (Rec: 01/19/19 11:40 BALDO [id number]) Nutrition Notes Need for Assessment generated from: business librarian,MST Initial or Follow up Assessment Other Pertinent Diagnosis Ulcerative Colitis, recurrent diarrhea Current Diet Cardiac Labs/Tests None recorded Pertinent Medications Reviewed Height 5 ft 2 in Weight 51 kg Usual Body Weight 58 kg [place] Body Weight (kg) 50.00 BMI 20.5 Weight change and time frame Pt has lost 12% of UBW since July 2018. Weight Status Appropriate Subjective/Other Information Pt screened for MST score. Pt was diagnosed with ulcerative colitis in 2016, and is currently in a flare up of IBD . She claims she is aware of what foods irritate her. For example, she says that when she eats pork or steak, she will have blood in her stool exactly 2 days later. Pt stated that most of her weight loss has occured since her IBD flare up began in October 2018. This is because she has not been able to consume much food. She has boost at home, but says she is not a huge fan . RD encouraged pt to try the ONS in different ways in order to consume more energy and protein (i.e. in a milkshake, in coffee). RD also encouraged pt to try to eat small, frequent meals throughout the day, and to add extra energy and protein content via consiments such as butter or gravy. Pt already consumes low fiber diet at home, but RD went through [facility] handout for IBD MNT. Burn Absent Trauma Absent GI Symptoms Nausea,Diarrhea Minimum of two criteria Yes Energy Intake (non-severe) <75% Estimated Energy Requirement >7 days Interpretation of Weight Loss (severe) >10% in 6 months Muscle Mass Mild Depletion (non-severe) #1 Nutrition Diagnosis Malnutrition Etiology poor PO intake secondary to ulcerative colitis As Evidenced by Signs and Symptoms Weight loss of 12% of body weight in the past 6 months, intakes of <75% of estimated nutritient needs for the past 7+ days, and visible signs of muscle wasting in temporal region Is patient on ventilator? No Is Patient Ambulatory and/or Out of Bed No REE-([facility]-confined to bed) 1209.624 Kcal/Kg value to use for calculation 32 Approximate Energy Requirements Using 1632 kcal/Kg Calculation Used for Recommendations Kcal/kg Additional Notes Pro needs: 64-77g/day (1.25-1. 5 g/kg BW) Fluid needs: 1 ml/kcal Nutrition Intervention Change Diet Order: Continue Cardiac Diet Add Supplement/Snack (indicate name/kcal Ensure Enlive Once Daily /protein ) Provides kCal: 350 Provides Protein (gm) 20 Teaching Recipient Patient Learning Readiness Good Teaching Methods Discussion,Handout Response to Teaching Verbalize understanding Education Handouts Provided AND's MNT for IBD Barriers to Learning Physical RD phone number provided Yes Patient aware of follow up options Yes Follow-Up By: 01/22/19 Additional Comments F/u for ONS tolerance, PO intakes
[2019-01-20 14:12] VITALS: BP 106/57
--- NOTE | 2019-01-20 14:57 | Gastroenterology Progress Note ---
Assessment and Plan This is a 68 yo female with pmh of UC (previously on Remicade and most recently on Xeljanz until Apr 2018), h/o C diff (fecal transplant in 2017) admitted for symptomatic anemia and UC flare up. # UC flare up - long history of UC. previously treated with Remicade but developed antibody and most recently on Xeljanz for 2 months with improvement but stopped in Apr 2018. - h/o C diff in the past. - recent outpatient stool studies for c diff, which was negative. - C diff study negative here. - CRP trending down. - CT a/p showing pancolitis. - clinically improving with stools nonbloody and more formed and less frequent. Rec: - ok for discharge on PO prednisone 40 mg and taper slowly. - follow up with Dr. Stovall in GI clinic in 2 weeks. Will need to discuss regarding restarting biologic therapy. - no need for PO vancomycin given negative c diff results. Subjective Date of service: 01/20/19 Interval history: Patient reports her stools are more formed throughout today and less frequent. No abdominal pain or blood in the stool. Objective - Constitutional Vitals: Temp Pulse Resp BP Pulse Ox 98.4 F 68 16 106/57 95 01/20/19 14:01/20/19 14:01/20/19 14:01/20/19 14:01/20/19 14:09 - EENT ENT: hearing intact, clear oral mucosa - Neck Neck: supple, normal ROM - Respiratory Respiratory effort: normal Respiratory: bilateral: CTA - Cardiovascular Rhythm: regular - Extremities Extremities: pulses intact, No edema, normal color, Full ROM - Gastrointestinal General gastrointestinal: Present: soft, non-tender, non-distended, normal bowel sounds - Integumentary Integumentary: Present: clear, warm, dry - Neurologic Neurological: alert and oriented x3 - Labs CBC & Chem 7: 01/20/19 10:02 01/20/19 10:02 Labs: Laboratory Results - last 24 hr 01/19/19 01/19/19 01/20/19 09:51 14:15 10:02 WBC 14.8 H RBC 3.28 L Hgb 7.8 L Hct 25.3 L MCV 77 L MCH 24 L MCHC 31 RDW 28.2 H Plt Count 362 Add Manual Diff Complete Total Counted 100 Seg Neuts % (Manual) 83.0 H Band Neutrophils % 3.0 Lymphocytes % (Manual) 14.0 Reactive Lymphs % (Man) 0 Monocytes % (Manual) 0 Eosinophils % (Manual) 0 Basophils % (Manual) 0 Metamyelocytes % 0 Myelocytes % 0 Promyelocytes % 0 Blast Cells % 0 Nucleated RBC % Not Reportable Seg Neutrophils # Man 5.4 Band Neutrophils # 0.2 Lymphocytes # (Manual) 0.9 L Abs React Lymphs (Man) 0.0 Monocytes # (Manual) 0.0 Eosinophils # (Manual) 0.0 Basophils # (Manual) 0.0 Metamyelocytes # 0.0 Myelocytes # 0.0 Promyelocytes # 0.0 Blast Cells # 0.0 WBC Morphology Not Reportable Hypersegmented Neuts Not Reportable Hyposegmented Neuts Not Reportable Hypogranular Neuts Not Reportable Smudge Cells Not Reportable Toxic Granulation Not Reportable Toxic Vacuolation Not Reportable Dohle Bodies Not Reportable Pelger-Huet Anomaly Not Reportable Sisi Rods Not Reportable Platelet Estimate Consistent w auto Clumped Platelets Not Reportable Plt Clumps, EDTA Not Reportable Large Platelets Not Reportable Giant Platelets Not Reportable Platelet Satelliting Not Reportable Plt Morphology Comment Not Reportable RBC Morphology Not Reportable Dimorphic RBCs Not Reportable Polychromasia Few Hypochromasia 2+ Poikilocytosis Not Reportable Anisocytosis Not Reportable Microcytosis Not Reportable Macrocytosis Not Reportable Spherocytes Few Pappenheimer Bodies Not Reportable Sickle Cells Not Reportable Target Cells Not Reportable Tear Drop Cells Not Reportable Ovalocytes Not Reportable Helmet Cells Not Reportable Fung-Chesnee Bodies Not Reportable Silas Rings Not Reportable [place] Cells Not Reportable Bite Cells Not Reportable Crenated Cell Not Reportable Elliptocytes Few Acanthocytes (Spur) Not Reportable Rouleaux Not Reportable Hemoglobin C Crystals Not Reportable Schistocytes Not Reportable Malaria parasites Not Reportable Renny Bodies Not Reportable Hem Pathologist Commnt No Sodium Potassium Chloride Carbon Dioxide Anion Gap BUN Creatinine Estimated GFR BUN/Creatinine Ratio Glucose Calcium C-Reactive Protein C. difficile Tox (PCR) Negative 01/20/19 01/20/19 10:02 10:02 WBC RBC Hgb Hct MCV MCH MCHC RDW Plt Count Add Manual Diff Total Counted Seg Neuts % (Manual) Band Neutrophils % Lymphocytes % (Manual) Reactive Lymphs % (Man) Monocytes % (Manual) Eosinophils % (Manual) Basophils % (Manual) Metamyelocytes % Myelocytes % Promyelocytes % Blast Cells % Nucleated RBC % Seg Neutrophils # Man Band Neutrophils # Lymphocytes # (Manual) Abs React Lymphs (Man) Monocytes # (Manual) Eosinophils # (Manual) Basophils # (Manual) Metamyelocytes # Myelocytes # Promyelocytes # Blast Cells # WBC Morphology Hypersegmented Neuts Hyposegmented Neuts Hypogranular Neuts Smudge Cells Toxic Granulation Toxic Vacuolation Dohle Bodies Pelger-Huet Anomaly Sisi Rods Platelet Estimate Clumped Platelets Plt Clumps, EDTA Large Platelets Giant Platelets Platelet Satelliting Plt Morphology Comment RBC Morphology Dimorphic RBCs Polychromasia Hypochromasia Poikilocytosis Anisocytosis Microcytosis Macrocytosis Spherocytes Pappenheimer Bodies Sickle Cells Target Cells Tear Drop Cells Ovalocytes Helmet Cells Fung-Chesnee Bodies Silas Rings [place] Cells Bite Cells Crenated Cell Elliptocytes Acanthocytes (Spur) Rouleaux Hemoglobin C Crystals Schistocytes Malaria parasites Renny Bodies Hem Pathologist Commnt Sodium 134 L Potassium 3.5 L Chloride 96.7 L Carbon Dioxide 20 L Anion Gap 21 BUN 13 Creatinine 0.6 L Estimated GFR > 60 BUN/Creatinine Ratio 22 Glucose 223 H Calcium 8.1 L C-Reactive Protein 2.40 H C. difficile Tox (PCR) - Imaging CT scan: report reviewed
[2019-01-20] MEDS ORDERED: POTASSIUM CHLORIDE 20 MEQ PACKET FEEDTUBE NR (16:00)
--- NOTE | 2019-01-20 17:45 | Discharge Summary ---
Providers - Providers Date of Admission: 01/18/19 21:12 Date of discharge: 01/20/19 Attending physician: OG WHEELER 01/18/19 21:12 Consult to Physician [CONS] Routine Comment: called answering service/ isaiah Consulting Provider: RAUL HINES Physician Instructions: Reason For Exam: ulcerative colitis Primary care physician: FRESCO ARTIST Hospitalization Reason for admission: Bloody diarrhea and severe anemia Condition: Fair Pertinent studies: CT abd and pelvis Blood transfusion Hospital course: 68-year-old female with history of ulcerative colitis and anemia presents to [facility] ED plaints of generalized weakness and bloody diarrhea. Over the past 6 months patient complains of intermittent episodes of weakness, diarrhea, and hematochezia. Initial hemoglobin at presentation 5.0, received 2 units of PRBC her hemoglobin today is 7.8,CT abdomen findings consistent with exacerbation of ulcerative colitis --Anemia of chronic disease Status post 2 units PRBC transfusion, her hemoglobin improved to 8.1-7.8 --Acute exacerbation of Ulcerative colitis ; CT abdomen and pelvis findings noted diarrhea with intermittent episodes of bloody stools s/p IV Solu-Medrol to 40 mg every 12, Zosyn DC iv antibiotics,discharge on tapering doses of steoids over 4 weeks f/u GI upon dischargr --Leukocytosis;,Closely monitor partly due to steroid. Cleared by GI for dc and f/u post discharge. Stable at discharge Disposition: DC-01 TO HOME OR SELFCARE Time spent for discharge: 32 min Core Measure Documentation - Palliative Care Palliative Care/ Comfort Measures: Not Applicable - Core Measures Any of the following diagnoses?: none Exam - Constitutional Vitals: Temp Pulse Resp BP Pulse Ox 98.4 F 68 16 106/57 95 01/20/19 14:01/20/19 14:01/20/19 14:09 01/20/19 14:01/20/19 14:09 General appearance: Present: no acute distress, well-nourished - EENT Eyes: Present: PERRL, EOM intact - Neck Neck: Present: supple, normal ROM - Respiratory Respiratory effort: normal Respiratory: bilateral: diminished, negative: rales, rhonchi, wheezing - Cardiovascular Rhythm: regular Heart Sounds: Present: S1 & S2 - Extremities Extremities: no ischemia, pulses intact, No edema - Abdominal General gastrointestinal: Present: soft, non-tender, non-distended, normal bowel sounds - Integumentary Integumentary: Present: clear, warm - Musculoskeletal Musculoskeletal: strength equal bilaterally, generalized weakness - Psychiatric Psychiatric: appropriate mood/affect, cooperative - Neurologic Neurologic: moves all extremities Plan Activity: advance as tolerated, fall precautions Diet: regular Additional Instructions: Follow with private GI in 1-2 weeks. If you have severe bloody diarrhea, contacting the "emergency room Follow up with: PRIMARY CAREMD [Primary Care Provider] - 7 Days MINOLIVIER MD [Staff Physician] - 7 Days Prescriptions: predniSONE [Deltasone] 4 tab PO DAILY 7 Days #70 tablet
== END 2019-01-20 18:20 | disposition home or self-care (01) | DRG 386 ==
LOC: EEVIPCON 17:33 → ED 17:33 → 2B-ACE 21:12
PROVIDERS: ADMIT Internal Medicine; ATTEND Internal Medicine
PROC: 30233N1 Transfusion of Nonautologous Red Blood Cells into Peripheral Vein, Percutaneous Approach (ICD-10-PCS; principal; 2019-01-19)
DX: K51.90 Ulcerative colitis, unspecified, without complications (principal); D62 Acute posthemorrhagic anemia; D63.8 Anemia in other chronic diseases classified elsewhere; E86.0 Dehydration; G43.909 Migraine, unspecified, not intractable, without status migrainosus; Z88.8 Allergy status to other drugs, medicaments and biological substances; Z91.040 Latex allergy status
CPT/HCPCS: 36415; 36430; 74177; 80048; 80053; 85007; 85025; 85027; 86140; 86850; 86900; 86901; 86920; 87045; 87493; 96361; 96374; 96375; G0378; C9113; J2920; J2930; J7030; J7050; P9040; Q9967

== ENCOUNTER 2019-02-06 15:58 | Outpatient (CLI) | payer MEDICARE ==
[2019-02-06 16:28] LABS: Hematocrit 28.8 % (30.3-42.9); Mean Corpuscular HGB Conc 31 % (30-34); Mean Corpuscular Volume 76 fl (79-97); Platelet Count 524 K/mm3 (140-440); Red Blood Count 3.77 M/mm3 (3.65-5.03)
[2019-02-06 16:31] LABS: Red Cell Distribution Width 29.7 % (13.2-15.2)
[2019-02-06 17:02] LABS: Iron 16 ug/dL (37-170); Total Iron Binding Capacity 248 mcg/dL (250-450)
== END 2019-02-06 15:59 | disposition home or self-care (01) ==
LOC: LAB 15:58
PROVIDERS: ATTEND Internal Medicine Gastroenterology
DX: D64.9 Anemia, unspecified (principal)
CPT/HCPCS: 36415; 82607; 82728; 82747; 83550; 85027

== ENCOUNTER 2019-04-10 14:23 | Outpatient (CLI) | payer MEDICARE ==
[2019-04-10 14:48] LABS: Hematocrit 23.7 % (30.3-42.9); Hemoglobin 7.3 gm/dl (10.1-14.3); Mean Corpuscular HGB Conc 31 % (30-34); Mean Corpuscular Volume 73 fl (79-97); Platelet Count 571 K/mm3 (140-440); Red Blood Count 3.24 M/mm3 (3.65-5.03); Red Cell Distribution Width 18.4 % (13.2-15.2)
[2019-04-10 15:10] LABS: Albumin 2.3 g/dL (3.9-5); BUN/Creatinine Ratio 6; Blood Urea Nitrogen 3 mg/dL (7-17); Calcium 7.7 mg/dL (8.4-10.2); Hemolysis Index 2
[2019-04-10 15:26] LABS: Alanine Aminotransferase < 5 units/L (7-56)
[2019-04-10 15:31] LABS: Erythrocyte Sedimentation Rate 76 mm/Hr (0-20)
== END 2019-04-10 14:24 | disposition home or self-care (01) ==
LOC: LAB 14:23
PROVIDERS: ATTEND Internal Medicine
DX: Z13.1 Encounter for screening for diabetes mellitus (principal); D64.9 Anemia, unspecified; R53.83 Other fatigue; R79.89 Other specified abnormal findings of blood chemistry
CPT/HCPCS: 36415; 80053; 83036; 84443; 85027; 85652

== ENCOUNTER 2019-09-26 10:02 | Inpatient (IN) | payer MEDICARE ==
[2019-09-26 10:58] LABS: Bilirubin,Urine NEG (Negative); Blood,Urine MOD (Negative); Color,Urine Amber (Yellow); Hyaline Casts,Urine 3 /LPF; Mucus,Urine 2+ /HPF; Urobilinogen,Urine < 2.0 mg/dL (<2.0)
[2019-09-26] MEDS ORDERED: SODIUM CHLORIDE 0.9% 1000 ML 1,000 ML IV ONE (11:27)
--- NOTE | 2019-09-26 11:27 | Emergency Department Report ---
ED Abdominal Pain HPI - General Chief Complaint: Urogenital-Female Stated Complaint: Fever PUI?: Yes Time Seen by Provider: 09/26/19 11:18 Source: patient Mode of arrival: Ambulatory Limitations: Other - History of Present Illness Initial Comments: Patient is a 69-year-old female that comes to the emergency room with only 1 complaint and that being fever. Patient's primary care is Dr. Slade. She called the office yesterday and the nurse told her if she had a fever today to go to the emergency room. Patient is ambulatory to the ER. She is afebrile because she took 3 Tylenol prior to arrival. However, she is ta chycardic at 116 in triage. Note the patient is a immune suppressed on medications for her ulcerative colitis. These medications include prednisone. She cannot remember the name of the other 2 medications that she takes. Patient denies chest pain or shortness of breath. Patient denies dysuria or back pain. Patient denies abdominal pain. She denies nausea vomiting or diarrhea. She states that she is not had a bowel movement in a day because she has not been eating well because she has not felt well. Patient denies loss of taste or smell. She endorses decreased appetite. Patient denies any known exposure to illness. Associated Symptoms: fever, chills - Related Data Previous Rx's Medication Instructions Recorded Last Taken Type inFLIXimab (NF) [Remicade (Nf)] 276 mg IV Q6W #10 vial 05/01/19 Unknown Rx predniSONE [Deltasone] 20 mg PO QDAY #10 tablet 05/01/19 Unknown Rx Allergies Allergy/AdvReac Type Severity Reaction Status Date / Time enoxaparin Allergy Unknown Verified 09/26/19 10:18 Latex, Natural Rubber Allergy Itching Verified 09/26/19 10:18 mesalamine [From Lialda] Allergy Nausea Verified 09/26/19 10:18 nitrofurantoin Allergy Nausea Verified 09/26/19 10:18 macrocrystalline [From Macrodantin] rivaroxaban [From Xarelto] Allergy Unknown Verified 09/26/19 10:18 warfarin Allergy Rash Verified 09/26/19 10:18 ED Review of Systems ROS: Stated complaint: FEVER/COUGH Other details as noted in HPI Comment: All other systems reviewed and negative Constitutional: fever Respiratory: no symptoms reported Endocrine: no symptoms reported Gastrointestinal: as per HPI Genitourinary: as per HPI ED Past Medical Hx - Past Medical History Previous Medical History?: Yes Hx Hypertension: No Hx CVA: No Hx Heart Attack/AMI: No Hx Congestive Heart Failure: No Hx Diabetes: No Hx Deep Vein Thrombosis: No Hx Pulmonary Embolism: No Hx GERD: No Hx Liver Disease: No Hx Renal Disease: No Hx of Cancer: No Hx Sickle Cell Disease: No Hx Arthritis: No Hx Headaches / Migraines: Yes Hx Asthma: No Hx COPD: No Additional medical history: Left bundle branch block, ulcerative colitis. OSTEOPENIA, Taking scheduled Remicade, Low potassium and low sodium, Immune system compromised, Thrush - Surgical History Past Surgical History?: Yes Additional Surgical History: COLONOSCOPY - Family History Family history: no significant - Social History Smoking Status: Never Smoker Substance Use Type: None - Medications Home Medications: Home Medications Medication Instructions Recorded Confirmed Last Taken Type inFLIXimab (NF) [Remicade (Nf)] 276 mg IV Q6W #10 vial 05/01/19 Unknown Rx predniSONE [Deltasone] 20 mg PO QDAY #10 tablet 05/01/19 Unknown Rx ED Physical Exam - General Limitations: Other General appearance: alert, in no apparent distress, other (klamath) - Head Head exam: Present: atraumatic, normocephalic - Eye Eye exam: Present: normal appearance - ENT ENT exam: Present: mucous membranes moist - Neck Neck exam: Present: normal inspection - Respiratory Respiratory exam: Present: normal lung sounds bilaterally, rales (b). Absent: respiratory distress - Cardiovascular Cardiovascular Exam: Present: regular rate, normal rhythm. Absent: systolic murmur, diastolic murmur, rubs, gallop - GI/Abdominal GI/Abdominal exam: Present: soft, normal bowel sounds - Extremities Exam Extremities exam: Present: normal inspection - Back Exam Back exam: Present: normal inspection - Neurological Exam Neurological exam: Present: alert, oriented X3 - Psychiatric Psychiatric exam: Present: normal affect, normal mood - Skin Skin exam: Present: warm, dry, intact, normal color, pallor. Absent: rash ED Course Vital Signs 09/26/19 09/26/19 10:21 12:21 Temperature 98.8 F 99.0 F Pulse Rate 116 H Respiratory 20 Rate Blood Pressure 109/73 O2 Sat by Pulse 94 Oximetry - Reevaluation(s) Reevaluation #1: 09/26/19 14:17 home rx prednisone 2 medications for her ED Medical Decision Making - Lab Data Result diagrams: 09/26/19 Unknown 09/26/19 Unknown - EKG Data -: EKG Interpreted by Me - EKG Data When compared to previous EKG there are: no significant change Interpretation: other (known lbbb) - Radiology Data Radiology results: report reviewed, image reviewed CT reviewed with davey ZAMORANO - concerning for covid see report - Medical Decision Making Lab Results 09/26/19 09/26/19 09/26/19 Range/Units 12:22 Unknown Unknown WBC 8.0 (4.5-11.0) K/mm3 RBC 3.89 (3.65-5.03) M/mm3 Hgb 12.4 (10.1-14.3) gm/dl Hct 36.2 (30.3-42.9) % MCV 93 (79-97) fl MCH 32 (28-32) pg MCHC 34 (30-34) % RDW 14.1 (13.2-15.2) % Plt Count 238 (140-440) K/mm3 Lymph % (Auto) 24.3 (13.4-35.0) % [place] % (Auto) 5.6 (0.0-7.3) % Eos % (Auto) 0.0 (0.0-4.3) % Baso % (Auto) 0.3 (0.0-1.8) % Lymph # 1.9 (1.2-5.4) K/mm3 [place] # 0.4 (0.0-0.8) K/mm3 Eos # 0.0 (0.0-0.4) K/mm3 Baso # 0.0 (0.0-0.1) K/mm3 Seg Neutrophils % 69.8 (40.0-70.0) % Seg Neutrophils # 5.6 (1.8-7.7) K/mm3 Sodium (137-145) mmol/L Potassium (3.6-5.0) mmol/L Chloride (98-107) mmol/L Carbon Dioxide (22-30) mmol/L Anion Gap mmol/L BUN (7-17) mg/dL Creatinine (0.7-1.2) mg/dL Estimated GFR ml/min BUN/Creatinine Ratio % Glucose (65-100) mg/dL Lactic Acid (0.7-2.0) mmol/L Calcium (8.4-10.2) mg/dL Total Bilirubin (0.1-1.2) mg/dL AST (5-40) units/L ALT (7-56) units/L Alkaline Phosphatase (35-129) units/L C-Reactive Protein 3.10 H (0.00-1.30) mg/dL Total Protein (6.3-8.2) g/dL Albumin (3.9-5) g/dL Albumin/Globulin Ratio % Urine Color Jud (Yellow) Urine Turbidity Clear (Clear) Urine pH 5.0 (5.0-7.0) Ur Specific Hudson 1.026 (1.003-1.030) Urine Protein 100 mg/dl (Negative) mg/dL Urine Glucose (UA) Neg (Negative) mg/dL Urine Ketones Neg (Negative) mg/dL Urine Blood Mod (Negative) Urine Nitrite Neg (Negative) Urine Bilirubin Neg (Negative) Urine Urobilinogen < 2.0 (<2.0) mg/dL Ur Leukocyte Esterase Neg (Negative) Urine WBC (Auto) 3.0 (0.0-6.0) /HPF Urine RBC (Auto) 11.0 (0.0-6.0) /HPF U Epithel Cells (Auto) 1.0 (0-13.0) /HPF Hyaline Casts 3 /LPF Urine Mucus 2+ /HPF 09/26/19 09/26/19 Range/Units Unknown Unknown WBC (4.5-11.0) K/mm3 RBC (3.65-5.03) M/mm3 Hgb (10.1-14.3) gm/dl Hct (30.3-42.9) % MCV (79-97) fl MCH (28-32) pg MCHC (30-34) % RDW (13.2-15.2) % Plt Count (140-440) K/mm3 Lymph % (Auto) (13.4-35.0) % [place] % (Auto) (0.0-7.3) % Eos % (Auto) (0.0-4.3) % Baso % (Auto) (0.0-1.8) % Lymph # (1.2-5.4) K/mm3 [place] # (0.0-0.8) K/mm3 Eos # (0.0-0.4) K/mm3 Baso # (0.0-0.1) K/mm3 Seg Neutrophils % (40.0-70.0) % Seg Neutrophils # (1.8-7.7) K/mm3 Sodium 131 L (137-145) mmol/L Potassium 2.7 L* (3.6-5.0) mmol/L Chloride 91.6 L (98-107) mmol/L Carbon Dioxide 23 (22-30) mmol/L Anion Gap 19 mmol/L BUN 15 (7-17) mg/dL Creatinine 1.0 (0.7-1.2) mg/dL Estimated GFR 55 ml/min BUN/Creatinine Ratio 15 % Glucose 121 H (65-100) mg/dL Lactic Acid 2.50 H* (0.7-2.0) mmol/L Calcium 9.0 (8.4-10.2) mg/dL Total Bilirubin 0.20 (0.1-1.2) mg/dL AST 38 (5-40) units/L ALT 26 (7-56) units/L Alkaline Phosphatase 79 (35-129) units/L C-Reactive Protein (0.00-1.30) mg/dL Total Protein 7.2 (6.3-8.2) g/dL Albumin 3.9 (3.9-5) g/dL Albumin/Globulin Ratio 1.2 % Urine Color (Yellow) Urine Turbidity (Clear) Urine pH (5.0-7.0) Ur Specific Hudson (1.003-1.030) Urine Protein (Negative) mg/dL Urine Glucose (UA) (Negative) mg/dL Urine Ketones (Negative) mg/dL Urine Blood (Negative) Urine Nitrite (Negative) Urine Bilirubin (Negative) Urine Urobilinogen (<2.0) mg/dL Ur Leukocyte Esterase (Negative) Urine WBC (Auto) (0.0-6.0) /HPF Urine RBC (Auto) (0.0-6.0) /HPF U Epithel Cells (Auto) (0-13.0) /HPF Hyaline Casts /LPF Urine Mucus /HPF Vital Signs 09/26/19 09/26/19 10:21 12:21 Temperature 98.8 F 99.0 F Pulse Rate 116 H Respiratory 20 Rate Blood Pressure 109/73 O2 Sat by Pulse 94 Oximetry ua noted labs noted lactate noted- volume resuscitation per sepsis protocol K noted- PO and IV replacement 12 lead with old LBBB- no chest pain xray chest noted- pos pna discussed CT findings with davey ZAMORANO covid labs ordered per protocol staffed with Dr Bazzi 1400 recreation instructor ID notified of patient admission and need for COVID testing medicated with IV Flagyl and azithromycin in ER Patient will be admitted to hospital medicine for additional work-up and treatment. Patient updated on plan of care - Differential Diagnosis ro pneumonia/abd source of fever/ uti Critical care attestation.: If time is entered above; I have spent that time in minutes in the direct care of this critically ill patient, excluding procedure time. ED Disposition Clinical Impression: Person under investigation for COVID-19, Lactic acidosis, Hypokalemia, Hematuria, Sepsis, Pneumonia Disposition: OP ADMIT IP TO THIS HOSP Is pt being admited?: Yes Does the pt Need Aspirin: No Condition: Stable Instructions: Bacterial Pneumonia (ED) Referrals: CHEYANNE SLADE MD [Primary Care Provider] - 3-5 Days Time of Disposition: 13:40
[2019-09-26 12:03] LABS: Basophils % (Auto) 0.3 % (0.0-1.8); Hematocrit 36.2 % (30.3-42.9); Hemoglobin 12.4 gm/dl (10.1-14.3); Lymphocytes # (Auto) 1.9 K/mm3 (1.2-5.4); Lymphocytes % (Auto) 24.3 % (13.4-35.0); Mean Corpuscular HGB Conc 34 % (30-34); Mean Corpuscular Volume 93 fl (79-97); Monocytes # (Auto) 0.4 K/mm3 (0.0-0.8); Monocytes % (Auto) 5.6 % (0.0-7.3); Platelet Count 238 K/mm3 (140-440); Red Blood Count 3.89 M/mm3 (3.65-5.03); Red Cell Distribution Width 14.1 % (13.2-15.2)
[2019-09-26] MEDS ORDERED: SODIUM CHLORIDE 0.9% 1000 ML IV SOLN IV ONE (12:17)
[2019-09-26 12:22] LABS: Albumin 3.9 g/dL (3.9-5)
[2019-09-26] MEDS ORDERED: POTASSIUM CHLORIDE ER 20 MEQ TAB PO ONE ×2 (12:24→22:52)
[2019-09-26] MEDS ORDERED: PIPERACIL/TAZOBACTA 4.5/NS 100 4.5 GM/100 ML VIAL IV ONE (12:24)
[2019-09-26] MEDS ORDERED: MAGNESIUM SULFATE 2 GM/50 ML BAG IV ONE (13:06)
[2019-09-26] MEDS ORDERED: POTASSIUM CHLORIDE 10 MEQ 10 MEQ/100 ML BAG IV ONE (13:06)
--- NOTE | 2019-09-26 13:39 | Cat Scan Report ---
CT ABDOMEN AND PELVIS WITH CONTRAST HISTORY: Abdominal pain. COMPARISON: 01/19/2019 TECHNIQUE: Routine abdominal and pelvic CT exam performed following intravenous contrast administrat ion.. All CT scans at this location are performed using CT dose reduction for ALARA by means of autom ated exposure control. FINDINGS: CT ABDOMEN: Lung Bases: New bilateral patchy irregularly shaped lung opacities with a "crazy paving" pattern. The y are predominantly peripheral and involve bilateral lower lobes, the right middle lobe and the lingu la. Liver: No significant abnormality. Biliary: New dense radiopaque calculi layer dependently in the gallbladder and a 4 mm calculus appear s to be at the junction of the gallbladder and the cystic duct. The gallbladder is partially contract ed with a normal thin wall and no pericholecystic fluid or stranding. Spleen: No significant abnormality. Unenlarged. Pancreas: Mild fatty replacement of the pancreas. No signs of pancreatitis. Adrenals: No significant abnormality. Kidneys: No significant abnormality. Lymphatics: No lymphadenopathy. Vasculature: No significant abnormality. Bowel/Peritoneum: Multifocal areas of mild wall thickening of the colon as seen on the previous exam. The greatest wall thickening is in the sigmoid. No free air. No free fluid. Normal appendix. Additional findings: A small fat-containing umbilical hernia which is unchanged. CT PELVIC: : No significant abnormality. Lymphatics: No lymphadenopathy. Osseous Structures: No aggressive appearing osseous lesions. Additional Findings: None IMPRESSION: 1. Bilateral multi lobar pneumonia with a pattern suspicious for COVID-19 pneumonia. Although this pa ttern is not specific for COVID-19 pneumonia, it is a new finding compared to the prior CT and this w ould be the first consideration. 2. Cholelithiasis with a 4 mm calculus at the cystic duct. However, no signs to suggest acute cholecy stitis. 3. Mild multifocal wall thickening of the colon which is not significantly changed compared to the la st exam and is consistent with ulcerative colitis. I spoke to Nicolette ANGEL in the emergency department regarding these findings at 13:3 3 Signer Name: Jaya Garcia MD Signed: 09/26/2019 1:35 PM Workstation Name: [id number]
[2019-09-26] MEDS ORDERED: AZITHROMYCIN 500 MG in SODIUM CHLORIDE 0.9% 250ML 250 ML IV ONE (13:41)
--- NOTE | 2019-09-26 14:11 | XRay Report ---
CHEST 1 VIEW INDICATION: FEBRILE. COMPARISON: 10/09/2017 FINDINGS: Support devices: None. Heart: Within normal limits. Lungs/Pleura: Bilateral multi lobar patchy airspace disease is new compared to the last exam. There i s also new fullness in the right hilum. No pleural effusion. Additional findings: None. IMPRESSION: 1. Acute multi-lobar pneumonia. Signer Name: Jaya Garcia MD Signed: 09/26/2019 2:06 PM Workstation Name: [id number]
[2019-09-26 15:05] LABS: C-Reactive Protein 3.7 mg/dL (0.00-1.30)
[2019-09-26] MEDS ORDERED: SODIUM CHLORIDE 0.9% 500 ML 500 ML IV ONE (17:11)
[2019-09-26] MEDS ORDERED: SODIUM CHLORIDE 0.9% 500 ML 500 ML ONE (17:17)
--- NOTE | 2019-09-26 21:55 | History and Physical Report ---
History of Present Illness Date of examination: 09/26/19 Date of admission: 09/26/19 14:28 Chief complaint: Fever 2 days History of present illness: 69-year-old female with pmh of Ulcerative colitis on Remicade and prednisone comes to the emergency room with only 1 complaint and that being fever. She is afebrile because she took 3 Tylenol prior to arrival. However, she is tachycardic at 116 in triage. Patient denies chest pain or shortness of breath. Patient denies dysuria or back pain. Patient denies abdominal pain. She denies nausea vomiting or diarrhea. She states that she is not had a bowel movement in a day because she has not been eating well because she has not felt well. Only complaint is fever Patient denies loss of taste or smell. She endorses decreased appetite. Patient denies any known exposure to illness. - Past Medical History Previous Medical History?: Yes Hx Headaches / Migraines: Yes Additional medical history: Left bundle branch block, ulcerative colitis. OSTEOPENIA, Taking scheduled Remicade, Low potassium and low sodium, Immune system compromised, Thrush - Surgical History Past Surgical History?: Yes Additional Surgical History: COLONOSCOPY - Family History Family history: no significant - Social History Smoking Status: Never Smoker Substance Use Type: None - Medications Home Medications: Home Medications Medication Instructions Recorded Confirmed Last Taken Type inFLIXimab (NF) [Remicade (Nf)] 276 mg IV Q6W #10 vial 05/01/19 Unknown Rx predniSONE [Deltasone] 20 mg PO QDAY #10 tablet 05/01/19 Unknown Rx Review of Systems ROS: Stated complaint: FEVER/COUGH Other details as noted in HPI Comment: All other systems reviewed and negative Constitutional: fever Respiratory: no symptoms reported Endocrine: no symptoms reported Gastrointestinal: as per HPI Genitourinary: as per HPI Medications and Allergies Allergies Allergy/AdvReac Type Severity Reaction Status Date / Time enoxaparin Allergy Unknown Verified 09/26/19 10:18 Latex, Natural Rubber Allergy Itching Verified 09/26/19 10:18 mesalamine [From Lialda] Allergy Nausea Verified 09/26/19 10:18 nitrofurantoin Allergy Nausea Verified 09/26/19 10:18 macrocrystalline [From Macrodantin] rivaroxaban [From Xarelto] Allergy Unknown Verified 09/26/19 10:18 warfarin Allergy Rash Verified 09/26/19 10:18 Home Medications Medication Instructions Recorded Confirmed Last Taken Type inFLIXimab (NF) [Remicade (Nf)] 276 mg IV Q6W #10 vial 05/01/19 Unknown Rx predniSONE [Deltasone] 20 mg PO QDAY #10 tablet 05/01/19 Unknown Rx Active Meds: Active Medications Ceftriaxone Sodium (Rocephin/Ns 2 Gm/100 Ml) 2 gm in 100 mls @ 200 mls/hr IV Q24HR TOBI; Protocol Exam - Constitutional Vitals: Temp Pulse Resp BP Pulse Ox 99.0 F 99 H 22 110/75 95 09/26/19 12:21 09/26/19 16:11 09/26/19 16:11 09/26/19 16:11 09/26/19 16:11 General appearance: Present: no acute distress, well-nourished - EENT Eyes: Present: PERRL ENT: hearing intact, clear oral mucosa - Neck Neck: Present: supple, normal ROM - Respiratory Respiratory effort: normal Respiratory: bilateral: CTA, rhonchi - Cardiovascular Heart rate: 98 Rhythm: regular Heart Sounds: Present: S1 & S2. Absent: rub, click - Extremities Extremities: no ischemia, pulses intact, pulses symmetrical, No edema Peripheral Pulses: within normal limits - Abdominal General gastrointestinal: Present: soft, non-tender, non-distended, normal bowel sounds Female genitourinary: Present: normal - Integumentary Integumentary: Present: clear, warm, dry - Musculoskeletal Musculoskeletal: gait normal, strength equal bilaterally - Psychiatric Psychiatric: appropriate mood/affect, intact judgment & insight - Neurologic Neurologic: CNII-XII intact, moves all extremities - Allied Health Allied health notes reviewed: nursing, case management HEART Score - HEART Score Troponin: Troponin T 0.015 ng/mL (0.00-0.029) 09/26/19 14:38 Results - Labs CBC & Chem 7: 09/27/19 05:04 09/27/19 05:04 Labs: Laboratory Last Values WBC 8.0 K/mm3 (4.5-11.0) 09/26/19 Unknown RBC 3.89 M/mm3 (3.65-5.03) 09/26/19 Unknown Hgb 12.4 gm/dl (10.1-14.3) 09/26/19 Unknown Hct 36.2 % (30.3-42.9) 09/26/19 Unknown MCV 93 fl (79-97) 09/26/19 Unknown MCH 32 pg (28-32) 09/26/19 Unknown MCHC 34 % (30-34) 09/26/19 Unknown RDW 14.1 % (13.2-15.2) 09/26/19 Unknown Plt Count 238 K/mm3 (140-440) 09/26/19 Unknown Lymph % (Auto) 24.3 % (13.4-35.0) 09/26/19 Unknown [place] % (Auto) 5.6 % (0.0-7.3) 09/26/19 Unknown Eos % (Auto) 0.0 % (0.0-4.3) 09/26/19 Unknown Baso % (Auto) 0.3 % (0.0-1.8) 09/26/19 Unknown Lymph # 1.9 K/mm3 (1.2-5.4) 09/26/19 Unknown [place] # 0.4 K/mm3 (0.0-0.8) 09/26/19 Unknown Eos # 0.0 K/mm3 (0.0-0.4) 09/26/19 Unknown Baso # 0.0 K/mm3 (0.0-0.1) 09/26/19 Unknown Seg Neutrophils % 69.8 % (40.0-70.0) 09/26/19 Unknown Seg Neutrophils # 5.6 K/mm3 (1.8-7.7) 09/26/19 Unknown D-Dimer 314.39 ng/mlDDU (0-234) H 09/26/19 14:39 Sodium 131 mmol/L (137-145) L 09/26/19 Unknown Potassium 2.7 mmol/L (3.6-5.0) L* 09/26/19 Unknown Chloride 91.6 mmol/L (98-107) L 09/26/19 Unknown Carbon Dioxide 23 mmol/L (22-30) 09/26/19 Unknown Anion Gap 19 mmol/L 09/26/19 Unknown BUN 15 mg/dL (7-17) 09/26/19 Unknown Creatinine 1.0 mg/dL (0.7-1.2) 09/26/19 Unknown Estimated GFR 55 ml/min 09/26/19 Unknown BUN/Creatinine Ratio 15 % 09/26/19 Unknown Glucose 121 mg/dL (65-100) H 09/26/19 Unknown Lactic Acid 2.50 mmol/L (0.7-2.0) H* 09/26/19 Unknown Calcium 9.0 mg/dL (8.4-10.2) 09/26/19 Unknown Phosphorus 2.50 mg/dL (2.5-4.5) 09/26/19 14:38 Magnesium 3.10 mg/dL (1.7-2.3) H 09/26/19 14:00 Ferritin 730.1 ng/mL (13.0-400.0) H 09/26/19 13:34 Total Bilirubin 0.20 mg/dL (0.1-1.2) 09/26/19 Unknown AST 38 units/L (5-40) 09/26/19 Unknown ALT 26 units/L (7-56) 09/26/19 Unknown Alkaline Phosphatase 79 units/L (35-129) 09/26/19 Unknown Lactate Dehydrogenase 339 units/L (91-180) H 09/26/19 13:34 Troponin T 0.015 ng/mL (0.00-0.029) 09/26/19 14:38 C-Reactive Protein 3.70 mg/dL (0.00-1.30) H 09/26/19 13:34 Total Protein 7.2 g/dL (6.3-8.2) 09/26/19 Unknown Albumin 3.9 g/dL (3.9-5) 09/26/19 Unknown Albumin/Globulin Ratio 1.2 % 09/26/19 Unknown Lipase 32 units/L (13-60) 09/26/19 14:38 Procalcitonin 0.21 ng/mL (<0.15) 09/26/19 14:39 Urine Color Jud (Yellow) 09/26/19 Unknown Urine Turbidity Clear (Clear) 09/26/19 Unknown Urine pH 5.0 (5.0-7.0) 09/26/19 Unknown Ur Specific [place] 1.026 (1.003-1.030) 09/26/19 Unknown Urine Protein 100 mg/dl mg/dL (Negative) 09/26/19 Unknown Urine Glucose (UA) Neg mg/dL (Negative) 09/26/19 Unknown Urine Ketones Neg mg/dL (Negative) 09/26/19 Unknown Urine Blood Mod (Negative) 09/26/19 Unknown Urine Nitrite Neg (Negative) 09/26/19 Unknown Urine Bilirubin Neg (Negative) 09/26/19 Unknown Urine Urobilinogen < 2.0 mg/dL (<2.0) 09/26/19 Unknown Ur Leukocyte Esterase Neg (Negative) 09/26/19 Unknown Urine WBC (Auto) 3.0 /HPF (0.0-6.0) 09/26/19 Unknown Urine RBC (Auto) 11.0 /HPF (0.0-6.0) 09/26/19 Unknown U Epithel Cells (Auto) 1.0 /HPF (0-13.0) 09/26/19 Unknown Hyaline Casts 3 /LPF 09/26/19 Unknown Urine Mucus 2+ /HPF 09/26/19 Unknown Short CBC 09/26/19 09/27/19 Range/Units Unknown 05:04 WBC 8.0 6.0 (4.5-11.0) K/mm3 Hgb 12.4 11.4 (10.1-14.3) gm/dl Hct 36.2 34.0 (30.3-42.9) % Plt Count 238 207 (140-440) K/mm3 BMP 09/26/19 09/26/19 09/26/19 13:34 22:38 Unknown Sodium 131 L Potassium 2.7 L* Chloride 91.6 L Carbon Dioxide 23 BUN 15 Creatinine 1.0 Glucose 98 92 121 H Calcium 9.0 09/27/19 05:04 Sodium 135 L Potassium 4.2 D Chloride 100.3 Carbon Dioxide 21 L BUN 9 Creatinine 0.7 Glucose 81 Calcium 8.1 L Cardiac Enzymes 09/26/19 Range/Units 14:38 Troponin T 0.015 (0.00-0.029) ng/mL Liver Function 09/26/19 09/27/19 Range/Units Unknown 05:04 Total Bilirubin 0.20 0.30 (0.1-1.2) mg/dL AST 38 36 (5-40) units/L ALT 26 19 (7-56) units/L Alkaline Phosphatase 79 68 (35-129) units/L Albumin 3.9 3.1 L (3.9-5) g/dL Urine 09/26/19 Range/Units Unknown Urine Color Jud (Yellow) Urine pH 5.0 (5.0-7.0) Ur Specific [place] 1.026 (1.003-1.030) Urine Protein 100 mg/dl (Negative) mg/dL Urine Glucose (UA) Neg (Negative) mg/dL Microbiology: Microbiology 09/26/19 12:16 Peripheral/Venous Blood Culture - Preliminary Culture in Progress 09/26/19 11:55 Peripheral/Venous Blood Culture - Preliminary Culture in Progress - Imaging and Cardiology Chest x-ray: report reviewed CT scan - abdomen: report reviewed Imaging and Cardiology: CT Abd/Pelvis IMPRESSION: 1. Bilateral multi lobar pneumonia with a pattern suspicious for COVID-19 pneumonia. Although this pattern is not specific for COVID-19 pneumonia, it is a new finding compared to the prior CT and this would be the first consideration. 2. Cholelithiasis with a 4 mm calculus at the cystic duct. However, no signs to suggest acute cholecystitis. 3. Mild multifocal wall thickening of the colon which is not significantly changed compared to the last exam and is consistent with ulcerative colitis. CXR Alirio pNA Franco/IV: IV Catheter Type [Right INT / Saline Lock Forearm] Assessment and Plan Advance Directives: Yes (Full code ) VTE prophylaxis?: Chemical Plan of care discussed with patient/family: Yes - Patient Problems (1) Pneumonia Current Visit: Yes Status: Acute Plan to address problem: Bilateral pneumonia IV Ceftriaxone and IV Zithromax Treat as CAP R/o Covid b/c of bilateral pneumonia ID and GI consult patient on Prednosone and Remicade Whether to withhold Prednosone? (2) Hypokalemia Current Visit: Yes Status: Acute Plan to address problem: Supplemented (3) Person under investigation for COVID-19 Current Visit: Yes Status: Acute Plan to address problem: Covid orders to be reviewed Check inflammatory markers (4) Sepsis Current Visit: Yes Status: Acute Plan to address problem: No evicdence of sepsis at this point More c/w SIRS (5) DVT prophylaxis Current Visit: No Status: Acute Plan to address problem: on heparin
[2019-09-26] MEDS ORDERED: HYDROmorphone 1 MG/1 ML INJ IV PRN (22:00)
[2019-09-26] MEDS ORDERED: ONDANSETRON 4 MG/2 ML INJ IV PRN (22:00)
[2019-09-26] MEDS: ACETAMINOPHEN 325 MG TAB PO PRN (22:23)
[2019-09-26] MEDS: SODIUM CHLORIDE 0.9% 1000 ML 1,000 ML IV SCH (22:28)
[2019-09-26 23:06] LABS: C-Reactive Protein 7.9 mg/dL (0.00-1.30)
[2019-09-26] MEDS: POTASSIUM CHLORIDE 10 MEQ 10 MEQ/100 ML BAG IV SCH (23:41)
[2019-09-27] MEDS: POTASSIUM CHLORIDE 10 MEQ 10 MEQ/100 ML BAG IV SCH ×3 (01:00→05:32)
[2019-09-27 05:39] LABS: Basophils % (Auto) 0.6 % (0.0-1.8); Hemoglobin 11.4 gm/dl (10.1-14.3); Lymphocytes # (Auto) 2.1 K/mm3 (1.2-5.4); Mean Corpuscular HGB Conc 34 % (30-34); Mean Corpuscular Volume 95 fl (79-97); Monocytes # (Auto) 0.2 K/mm3 (0.0-0.8); Monocytes % (Auto) 2.8 % (0.0-7.3); Platelet Count 207 K/mm3 (140-440); Red Blood Count 3.58 M/mm3 (3.65-5.03); Red Cell Distribution Width 14.5 % (13.2-15.2)
[2019-09-27 06:19] LABS: Alanine Aminotransferase 19 units/L (7-56); Albumin 3.1 g/dL (3.9-5); BUN/Creatinine Ratio 13; Blood Urea Nitrogen 9 mg/dL (7-17); Calcium 8.1 mg/dL (8.4-10.2); Hemolysis Index 6
[2019-09-27] MEDS: ACETAMINOPHEN 325 MG TAB PO PRN (07:15)
--- NOTE | 2019-09-27 08:19 | Gastroenterology Consultation ---
History of Present Illness - Reason for Consult Consult date: 09/27/19 Management of ulcerative colitis in the setting of COVID virus infection Requesting physician: CHEYANNE SLADE - History of Present Illness This is a 68 yo female with pmh of UC (previously on Remicade and most recently on Xeljanz, h/o C diff (fecal transplant in 2017) admitted for pna r/o COVID, GI is consulted regarding management of UC in the setting of possible covid infect ion. Her COVID test came back positive. In order to decrease risk of virus transmission and preserve PPE, telephone consultation employed Obtained/updated/reviewed patient's current medications Medications and Allergies Allergies Allergy/AdvReac Type Severity Reaction Status Date / Time Latex, Natural Rubber Allergy Itching Verified 09/26/19 10:18 rivaroxaban [From Xarelto] Allergy Unknown Verified 09/26/19 10:18 warfarin Allergy Rash Verified 09/26/19 10:18 enoxaparin AdvReac Unknown Verified 09/27/19 08:37 mesalamine [From Lialda] AdvReac Nausea Verified 09/27/19 08:27 nitrofurantoin AdvReac Nausea Verified 09/27/19 08:27 macrocrystalline [From Macrodantin] Home Medications Medication Instructions Recorded Confirmed Last Taken Type inFLIXimab (NF) [Remicade (Nf)] 276 mg IV Q6W #10 vial 05/01/19 Unknown Rx predniSONE [Deltasone] 20 mg PO QDAY #10 tablet 05/01/19 Unknown Rx Active Meds: Active Medications Acetaminophen (Tylenol) 650 mg PO Q4H PRN PRN Reason: Pain MILD(1-3)/Fever >100.5/DANIELS Last Admin: 09/27/19 07:15 Dose: 650 mg Documented by: Heparin Sodium (Porcine) (Heparin) 5,000 unit SUB-Q Q12HR TOBI Hydromorphone HCl (Dilaudid) 0.5 mg IV Q3H PRN PRN Reason: Pain , Severe (7-10) Last Admin: 09/26/19 22:24 Dose: 0.5 mg Documented by: Sodium Chloride (Nacl 0.9% 1000 Ml) 1,000 mls @ 75 mls/hr IV DIRECT TOBI Last Admin: 09/26/19 22:28 Dose: 75 mls/hr Documented by: Azithromycin 500 mg/ Sodium (Chloride) 250 mls @ 250 mls/hr IV Q24HR TOBI; Protocol Ceftriaxone Sodium (Rocephin/Ns 2 Gm/100 Ml) 2 gm in 100 mls @ 200 mls/hr IV Q24HR TOBI; Protocol Ondansetron HCl (Zofran) 4 mg IV Q8H PRN PRN Reason: Nausea And Vomiting Sodium Chloride (Sodium Chloride Flush Syringe 10 Ml) 10 ml IV BID TOBI Last Admin: 09/26/19 22:24 Dose: 10 ml Documented by: Sodium Chloride (Sodium Chloride Flush Syringe 10 Ml) 10 ml IV PRN PRN PRN Reason: LINE FLUSH Exam - Constitutional Vital Signs: Temp Pulse Resp BP Pulse Ox 100.6 F H 103 H 16 96/43 90 09/27/19 04:47 09/27/19 04:47 09/27/19 04:47 09/27/19 04:46 09/27/19 04:47 - Labs CBC & Chem 7: 09/27/19 05:04 09/27/19 05:04 Lab Results: Laboratory Results - last 24 hr 09/26/19 09/26/19 09/26/19 12:22 13:34 13:34 WBC RBC Hgb Hct MCV MCH MCHC RDW Plt Count Lymph % (Auto) [place] % (Auto) Eos % (Auto) Baso % (Auto) Lymph # [place] # Eos # Baso # Seg Neutrophils % Seg Neutrophils # D-Dimer Sodium Potassium Chloride Carbon Dioxide Anion Gap BUN Creatinine Estimated GFR BUN/Creatinine Ratio Glucose 98 Lactic Acid Calcium Phosphorus Magnesium Ferritin 730.1 H Total Bilirubin AST ALT Alkaline Phosphatase Lactate Dehydrogenase 339 H Troponin T C-Reactive Protein 3.10 H 3.70 H Total Protein Albumin Albumin/Globulin Ratio Lipase Procalcitonin Urine Color Urine Turbidity Urine pH Ur Specific [place] Urine Protein Urine Glucose (UA) Urine Ketones Urine Blood Urine Nitrite Urine Bilirubin Urine Urobilinogen Ur Leukocyte Esterase Urine WBC (Auto) Urine RBC (Auto) U Epithel Cells (Auto) Hyaline Casts Urine Mucus 09/26/19 09/26/19 09/26/19 14:00 14:25 14:38 WBC RBC Hgb Hct MCV MCH MCHC RDW Plt Count Lymph % (Auto) [place] % (Auto) Eos % (Auto) Baso % (Auto) Lymph # [place] # Eos # Baso # Seg Neutrophils % Seg Neutrophils # D-Dimer Sodium Potassium Chloride Carbon Dioxide Anion Gap BUN Creatinine Estimated GFR BUN/Creatinine Ratio Glucose Lactic Acid 1.40 Calcium Phosphorus 2.50 Magnesium 3.10 H Ferritin Total Bilirubin AST ALT Alkaline Phosphatase Lactate Dehydrogenase Troponin T C-Reactive Protein Total Protein Albumin Albumin/Globulin Ratio Lipase Procalcitonin Urine Color Urine Turbidity Urine pH Ur Specific [place] Urine Protein Urine Glucose (UA) Urine Ketones Urine Blood Urine Nitrite Urine Bilirubin Urine Urobilinogen Ur Leukocyte Esterase Urine WBC (Auto) Urine RBC (Auto) U Epithel Cells (Auto) Hyaline Casts Urine Mucus 09/26/19 09/26/19 09/26/19 14:38 14:38 14:39 WBC RBC Hgb Hct MCV MCH MCHC RDW Plt Count Lymph % (Auto) [place] % (Auto) Eos % (Auto) Baso % (Auto) Lymph # [place] # Eos # Baso # Seg Neutrophils % Seg Neutrophils # D-Dimer 314.39 H Sodium Potassium Chloride Carbon Dioxide Anion Gap BUN Creatinine Estimated GFR BUN/Creatinine Ratio Glucose Lactic Acid Calcium Phosphorus Magnesium Ferritin Total Bilirubin AST ALT Alkaline Phosphatase Lactate Dehydrogenase Troponin T 0.015 C-Reactive Protein Total Protein Albumin Albumin/Globulin Ratio Lipase 32 Procalcitonin Urine Color Urine Turbidity Urine pH Ur Specific [place] Urine Protein Urine Glucose (UA) Urine Ketones Urine Blood Urine Nitrite Urine Bilirubin Urine Urobilinogen Ur Leukocyte Esterase Urine WBC (Auto) Urine RBC (Auto) U Epithel Cells (Auto) Hyaline Casts Urine Mucus 09/26/19 09/26/19 09/26/19 14:39 22:38 22:38 WBC RBC Hgb Hct MCV MCH MCHC RDW Plt Count Lymph % (Auto) [place] % (Auto) Eos % (Auto) Baso % (Auto) Lymph # [place] # Eos # Baso # Seg Neutrophils % Seg Neutrophils # D-Dimer 614.60 H Sodium Potassium Chloride Carbon Dioxide Anion Gap BUN Creatinine Estimated GFR BUN/Creatinine Ratio Glucose 92 Lactic Acid Calcium Phosphorus Magnesium Ferritin Total Bilirubin AST ALT Alkaline Phosphatase Lactate Dehydrogenase 384 H Troponin T C-Reactive Protein 7.90 H Total Protein Albumin Albumin/Globulin Ratio Lipase Procalcitonin 0.21 Urine Color Urine Turbidity Urine pH Ur Specific [place] Urine Protein Urine Glucose (UA) Urine Ketones Urine Blood Urine Nitrite Urine Bilirubin Urine Urobilinogen Ur Leukocyte Esterase Urine WBC (Auto) Urine RBC (Auto) U Epithel Cells (Auto) Hyaline Casts Urine Mucus 09/26/19 09/26/19 09/26/19 22:38 Unknown Unknown WBC 8.0 RBC 3.89 Hgb 12.4 Hct 36.2 MCV 93 MCH 32 MCHC 34 RDW 14.1 Plt Count 238 Lymph % (Auto) 24.3 [place] % (Auto) 5.6 Eos % (Auto) 0.0 Baso % (Auto) 0.3 Lymph # 1.9 [place] # 0.4 Eos # 0.0 Baso # 0.0 Seg Neutrophils % 69.8 Seg Neutrophils # 5.6 D-Dimer Sodium Potassium Chloride Carbon Dioxide Anion Gap BUN Creatinine Estimated GFR BUN/Creatinine Ratio Glucose Lactic Acid Calcium Phosphorus Magnesium Ferritin 950.8 H Total Bilirubin AST ALT Alkaline Phosphatase Lactate Dehydrogenase Troponin T C-Reactive Protein Total Protein Albumin Albumin/Globulin Ratio Lipase Procalcitonin Urine Color Jud Urine Turbidity Clear Urine pH 5.0 Ur Specific [place] 1.026 Urine Protein 100 mg/dl Urine Glucose (UA) Neg Urine Ketones Neg Urine Blood Mod Urine Nitrite Neg Urine Bilirubin Neg Urine Urobilinogen < 2.0 Ur Leukocyte Esterase Neg Urine WBC (Auto) 3.0 Urine RBC (Auto) 11.0 U Epithel Cells (Auto) 1.0 Hyaline Casts 3 Urine Mucus 2+ 09/26/19 09/26/19 09/27/19 Unknown Unknown 05:04 WBC 6.0 RBC 3.58 L Hgb 11.4 Hct 34.0 MCV 95 MCH 32 MCHC 34 RDW 14.5 Plt Count 207 Lymph % (Auto) 35.0 [place] % (Auto) 2.8 Eos % (Auto) 0.0 Baso % (Auto) 0.6 Lymph # 2.1 [place] # 0.2 Eos # 0.0 Baso # 0.0 Seg Neutrophils % 61.6 Seg Neutrophils # 3.7 D-Dimer Sodium 131 L Potassium 2.7 L* Chloride 91.6 L Carbon Dioxide 23 Anion Gap 19 BUN 15 Creatinine 1.0 Estimated GFR 55 BUN/Creatinine Ratio 15 Glucose 121 H Lactic Acid 2.50 H* Calcium 9.0 Phosphorus Magnesium Ferritin Total Bilirubin 0.20 AST 38 ALT 26 Alkaline Phosphatase 79 Lactate Dehydrogenase Troponin T C-Reactive Protein Total Protein 7.2 Albumin 3.9 Albumin/Globulin Ratio 1.2 Lipase Procalcitonin Urine Color Urine Turbidity Urine pH Ur Specific [place] Urine Protein Urine Glucose (UA) Urine Ketones Urine Blood Urine Nitrite Urine Bilirubin Urine Urobilinogen Ur Leukocyte Esterase Urine WBC (Auto) Urine RBC (Auto) U Epithel Cells (Auto) Hyaline Casts Urine Mucus 09/27/19 05:04 WBC RBC Hgb Hct MCV MCH MCHC RDW Plt Count Lymph % (Auto) [place] % (Auto) Eos % (Auto) Baso % (Auto) Lymph # [place] # Eos # Baso # Seg Neutrophils % Seg Neutrophils # D-Dimer Sodium 135 L Potassium 4.2 D Chloride 100.3 Carbon Dioxide 21 L Anion Gap 18 BUN 9 Creatinine 0.7 Estimated GFR > 60 BUN/Creatinine Ratio 13 Glucose 81 Lactic Acid Calcium 8.1 L Phosphorus Magnesium Ferritin Total Bilirubin 0.30 AST 36 ALT 19 Alkaline Phosphatase 68 Lactate Dehydrogenase Troponin T C-Reactive Protein Total Protein 6.2 L Albumin 3.1 L Albumin/Globulin Ratio 1.0 Lipase Procalcitonin Urine Color Urine Turbidity Urine pH Ur Specific [place] Urine Protein Urine Glucose (UA) Urine Ketones Urine Blood Urine Nitrite Urine Bilirubin Urine Urobilinogen Ur Leukocyte Esterase Urine WBC (Auto) Urine RBC (Auto) U Epithel Cells (Auto) Hyaline Casts Urine Mucus Assessment and Plan Per current recommendations, for patients with IBD and COVID with documented pneumonia or low oxygen, I recommend tapering the steroids and holding her biolo gic therapy Reports she was on prednisone 20 mg daily at home. I recommend going down to 10 mg daily and continuing the taper. Regarding Xeljanz, hold for at least 2 weeks until significant improvement in symptoms and she will need to follow-up with Dr. Stovall, her regular animal husbandry worker, as an outpatient [email or web address] GI will sign off please call back for any questions or concerns - Patient Problems (1) COVID-19 in immunocompromised patient Current Visit: Yes Status: Acute (2) Ulcerative colitis Current Visit: No Status: Acute
[2019-09-27] MEDS: cefTRIAXone/NS 2 GM/100 ML 2 GM/100 ML BAG IV SCH (09:10)
[2019-09-27] MEDS: HEPARIN 5,000 UNIT/1 ML VIAL SUB-Q SCH ×2 (09:11→23:07)
[2019-09-27] MEDS ORDERED: AZITHROMYCIN 500 MG in SODIUM CHLORIDE 0.9% 250ML 250 ML IV SCH (10:00)
[2019-09-27] MEDS ORDERED: cefTRIAXone/NS 2 GM/100 ML 2 GM/100 ML BAG IV SCH (10:00)
--- NOTE | 2019-09-27 14:10 | Consultation ---
History of Present Illness - Reason for Consult Consult date: 09/27/19 COVID Requesting physician: CHEYANNE SLADE - History of Present Illness The patient is a 69-year-old female with ulcerative colitis who is currently on Xeljanz and 20 mg of prednisone daily admitted to the hospital with fever that started on Monday. She had also been feeling weak and short of breath. She also had some abdominal pain so underwent a CT scan of her abdomen and pelvis which showed findings in the lungs that were concerning for possible COVID-19. Inflammatory markers were also elevated. Infectious diseases was consulted for additional evaluation. Review of Systems: reviewed in the chart, unable to obtain directly due to PPE shortage and preservation Medications and Allergies Allergies Allergy/AdvReac Type Severity Reaction Status Date / Time Latex, Natural Rubber Allergy Itching Verified 09/26/19 10:18 rivaroxaban [From Xarelto] Allergy Unknown Verified 09/26/19 10:18 warfarin Allergy Rash Verified 09/26/19 10:18 enoxaparin AdvReac Unknown Verified 09/27/19 08:37 mesalamine [From Lialda] AdvReac Nausea Verified 09/27/19 08:27 nitrofurantoin AdvReac Nausea Verified 09/27/19 08:27 macrocrystalline [From Macrodantin] Home Medications Medication Instructions Recorded Confirmed Last Taken Type inFLIXimab (NF) [Remicade (Nf)] 276 mg IV Q6W #10 vial 05/01/19 Unknown Rx predniSONE [Deltasone] 20 mg PO QDAY #10 tablet 05/01/19 Unknown Rx Active Meds: Active Medications Acetaminophen (Tylenol) 650 mg PO Q4H PRN PRN Reason: Pain MILD(1-3)/Fever >100.5/DANIELS Last Admin: 09/27/19 07:15 Dose: 650 mg Documented by: Azithromycin (Zithromax) 500 mg PO QDAY TOBI Stop: 09/30/19 10:01 Heparin Sodium (Porcine) (Heparin) 5,000 unit SUB-Q Q12HR TOBI Last Admin: 09/27/19 09:11 Dose: Not Given Documented by: Hydromorphone HCl (Dilaudid) 0.5 mg IV Q3H PRN PRN Reason: Pain , Severe (7-10) Last Admin: 09/26/19 22:24 Dose: 0.5 mg Documented by: Sodium Chloride (Nacl 0.9% 1000 Ml) 1,000 mls @ 75 mls/hr IV DIRECT TOBI Last Admin: 09/26/19 22:28 Dose: 75 mls/hr Documented by: Ceftriaxone Sodium (Rocephin/Ns 2 Gm/100 Ml) 2 gm in 100 mls @ 200 mls/hr IV Q24HR TOBI; Protocol Last Admin: 09/27/19 09:10 Dose: 200 mls/hr Documented by: Methylprednisolone Sodium Succinate (Solu-Medrol) 40 mg IV Q12HR [facility] Stop: 10/02/19 14:59 Ondansetron HCl (Zofran) 4 mg IV Q8H PRN PRN Reason: Nausea And Vomiting Sodium Chloride (Sodium Chloride Flush Syringe 10 Ml) 10 ml IV BID [facility] Last Admin: 09/27/19 09:11 Dose: 10 ml Documented by: Sodium Chloride (Sodium Chloride Flush Syringe 10 Ml) 10 ml IV PRN PRN PRN Reason: LINE FLUSH Physical Examination - Physical Exam Narrative exam: Physical Exam (reviewed in chart due to PPE conservation) Constitutional: limited due to PPE conservation strategy Head, Ears, Nose: limited due to PPE conservation strategy Eyes: limited due to PPE conservation strategy Neck: limited due to PPE conservation strategy Oral: limited due to PPE conservation strategy Cardiovascular: limited due to PPE conservation strategy Respiratory: limited due to PPE conservation strategy GI: limited due to PPE conservation strategy Musculoskeletal: limited due to PPE conservation strategy Skin: limited due to PPE conservation strategy Hem/Lymphatic: limited due to PPE conservation strategy Psych: limited due to PPE conservation strategy Neurological: limited due to PPE conservation strategy - Constitutional Vitals: Vital Signs Temp Pulse Resp BP Pulse Ox 100.6 F H 103 H 16 96/43 90 09/27/19 04:47 09/27/19 04:47 09/27/19 04:47 09/27/19 04:46 09/27/19 04:47 Temperature -Last 24 Hours Temperature 100.6 F Temperature 100.6 F Temperature 101.2 F Temperature 100.4 F Results - Labs CBC & Chem 7: 09/27/19 05:04 09/27/19 05:04 Labs: Abnormal lab results 09/26/19 09/26/19 09/26/19 Range/Units 13:34 13:34 14:00 RBC (3.65-5.03) M/mm3 D-Dimer (0-234) ng/mlDDU Sodium (137-145) mmol/L Carbon Dioxide (22-30) mmol/L Calcium (8.4-10.2) mg/dL Magnesium 3.10 H (1.7-2.3) mg/dL Ferritin 730.1 H (13.0-400.0) ng/mL Lactate Dehydrogenase 339 H (91-180) units/L C-Reactive Protein 3.70 H (0.00-1.30) mg/dL Total Protein (6.3-8.2) g/dL Albumin (3.9-5) g/dL Coronavirus (PCR) (Negative) 09/26/19 09/26/19 09/26/19 Range/Units 14:39 22:38 22:38 RBC (3.65-5.03) M/mm3 D-Dimer 314.39 H 614.60 H (0-234) ng/mlDDU Sodium (137-145) mmol/L Carbon Dioxide (22-30) mmol/L Calcium (8.4-10.2) mg/dL Magnesium (1.7-2.3) mg/dL Ferritin (13.0-400.0) ng/mL Lactate Dehydrogenase 384 H (91-180) units/L C-Reactive Protein 7.90 H (0.00-1.30) mg/dL Total Protein (6.3-8.2) g/dL Albumin (3.9-5) g/dL Coronavirus (PCR) (Negative) 09/26/19 09/27/19 09/27/19 Range/Units 22:38 05:04 05:04 RBC 3.58 L (3.65-5.03) M/mm3 D-Dimer (0-234) ng/mlDDU Sodium 135 L (137-145) mmol/L Carbon Dioxide 21 L (22-30) mmol/L Calcium 8.1 L (8.4-10.2) mg/dL Magnesium (1.7-2.3) mg/dL Ferritin 950.8 H (13.0-400.0) ng/mL Lactate Dehydrogenase (91-180) units/L C-Reactive Protein (0.00-1.30) mg/dL Total Protein 6.2 L (6.3-8.2) g/dL Albumin 3.1 L (3.9-5) g/dL Coronavirus (PCR) (Negative) 09/27/19 Range/Units 09:19 RBC (3.65-5.03) M/mm3 D-Dimer (0-234) ng/mlDDU Sodium (137-145) mmol/L Carbon Dioxide (22-30) mmol/L Calcium (8.4-10.2) mg/dL Magnesium (1.7-2.3) mg/dL Ferritin (13.0-400.0) ng/mL Lactate Dehydrogenase (91-180) units/L C-Reactive Protein (0.00-1.30) mg/dL Total Protein (6.3-8.2) g/dL Albumin (3.9-5) g/dL Coronavirus (PCR) Positive A (Negative) - Imaging and Cardiology Chest x-ray: report reviewed, image reviewed (b/l pneumonia) Assessment and Plan Cultures: 09/26/2019 blood culture: No growth in 24 hours COVID-19 PCR: Positive per discussion with Autumn in microbiology A/P: 69-year-old female with ulcerative colitis who is currently on Xeljanz and 20 mg of prednisone daily admitted to the hospital with fever that started on Monday, now with: #Bilateral pneumonia secondary to COVID-19: D-dimer elevated at 614.6, LDH 384, CRP 7.9, ferritin 950.8. #Hypoxia, borderline SPO2. #Ulcerative colitis, immunocompromised host: on Xeljanz and 20 mg of prednisone daily at home. Recs: Discussed with patient, she is agreeable to start Remdesivir. Spoke to pharmacy to start a 5 day course. Patient is immunocompromised, at risk of decompensation. Monitor LFTs. IV Solu-Medrol 40 mg twice daily for 5 days and then can resume her home prednisone dose Procalcitonin is 0.26, borderline elevated, continue antibiotics for now (stop at 3-5 days) trend ferritin, LDH, d-dimer, CRP every 2-3 days for risk stratification and to assess disease progression overall data on continuation of biologics is limited in COVID patients, but limited experience suggests it can be continued. Patient is going to be on steroids anyway for COVID, so can hold Xeljanz for now but would defer to GI Dr. Ceballos covering the weekend. Jamie Galvan MD, FACP [facility] ([facility]) C: [phone] O: [phone] F: [phone]
[2019-09-27] MEDS ORDERED: REMDESIVIR 200 MG in SODIUM CHLORIDE 0.9% 250ML 250 ML IV ONE (16:00)
[2019-09-27] MEDS: methylPREDNISolone Sod Succinate 40 MG/1 ML INJ IV SCH (17:13)
[2019-09-27] MEDS: SODIUM CHLORIDE 0.9% 50 ML IV SCH (17:13)
--- NOTE | 2019-09-27 17:45 | Progress Note ---
Assessment and Plan - Patient Problems (1) COVID-19 in immunocompromised patient Current Visit: Yes Status: Acute Plan to address problem: Patient to be ruled out for COVID-19 in fact serology is just come back COVID positive. ID following. Continue present antibiotic coverage azithromycin and Rocephin. Discontinuation of prednisone continue methylprednisone. (2) Hypokalemia Current Visit: Yes Status: Acute Plan to address problem: Corrected p.o. (3) Pneumonia Current Visit: Yes Status: Acute Plan to address problem: Bilateral pneumonia continue supportive care oxygen Tylenol pain control if needed and empiric antibiotic coverage azithromycin Rocephin. Follow further blood culture data. (4) Sepsis Current Visit: Yes Status: Acute Plan to address problem: Empiric treatment of antibiotic fever. COVID pneumonia. (5) Anemia Current Visit: No Status: Acute Qualifiers: Iron deficiency anemia type: chronic blood loss Plan to address problem: Secondary to chronic disease. Transfuse as needed. (6) Colitis Current Visit: No Status: Chronic Plan to address problem: Colitis patient is without hematochezia at this time. No abdominal pain no rectal bleeding. Continue disease modifying agent. 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 Was being treated with Remicade and prednisone presented with fever body aches tachypnea. Work-up found to have bilateral pneumonia consistent with COVID-19 infection. Patient therefore admitted for work-up for bilateral pneumonia rule out COVID-19. At present patient is comfortable complains mostly of body aches arthralgias myalgias. Hospitalist Physical - Constitutional Vitals: Temp Pulse Resp BP Pulse Ox 100.6 F H 103 H 16 96/43 90 09/27/19 04:47 09/27/19 04:47 09/27/19 04:47 09/27/19 04:46 09/27/19 04:47 General appearance: Present: no acute distress, mild distress, well-nourished - EENT Eyes: Present: PERRL, EOM intact ENT: hearing intact, clear oral mucosa, dentition normal - Neck Neck: Present: supple, normal ROM - Respiratory Respiratory: bilateral: diminished, rales - Cardiovascular Rhythm: regular - Extremities Extremities: no ischemia, pulses intact, pulses symmetrical, No edema, normal temperature, normal color Peripheral Pulses: within normal limits - Abdominal General gastrointestinal: soft, non-tender, non-distended, normal bowel sounds, no hepatomegaly, no splenomegaly - Integumentary Integumentary: Present: clear, warm, dry - Psychiatric Psychiatric: appropriate mood/affect, intact judgment & insight, memory intact - Neurologic Neurologic: CNII-XII intact, moves all extremities HEART Score - HEART Score Troponin: Troponin T 0.015 ng/mL (0.00-0.029) 09/26/19 14:38 Results - Labs CBC & Chem 7: 09/27/19 05:04 09/27/19 05:04 Labs: Laboratory Last Values WBC 6.0 K/mm3 (4.5-11.0) 09/27/19 05:04 RBC 3.58 M/mm3 (3.65-5.03) L 09/27/19 05:04 Hgb 11.4 gm/dl (10.1-14.3) 09/27/19 05:04 Hct 34.0 % (30.3-42.9) 09/27/19 05:04 MCV 95 fl (79-97) 09/27/19 05:04 MCH 32 pg (28-32) 09/27/19 05:04 MCHC 34 % (30-34) 09/27/19 05:04 RDW 14.5 % (13.2-15.2) 09/27/19 05:04 Plt Count 207 K/mm3 (140-440) 09/27/19 05:04 Lymph % (Auto) 35.0 % (13.4-35.0) 09/27/19 05:04 [place] % (Auto) 2.8 % (0.0-7.3) 09/27/19 05:04 Eos % (Auto) 0.0 % (0.0-4.3) 09/27/19 05:04 Baso % (Auto) 0.6 % (0.0-1.8) 09/27/19 05:04 Lymph # 2.1 K/mm3 (1.2-5.4) 09/27/19 05:04 [place] # 0.2 K/mm3 (0.0-0.8) 09/27/19 05:04 Eos # 0.0 K/mm3 (0.0-0.4) 09/27/19 05:04 Baso # 0.0 K/mm3 (0.0-0.1) 09/27/19 05:04 Seg Neutrophils % 61.6 % (40.0-70.0) 09/27/19 05:04 Seg Neutrophils # 3.7 K/mm3 (1.8-7.7) 09/27/19 05:04 D-Dimer 614.60 ng/mlDDU (0-234) H 09/26/19 22:38 Sodium 135 mmol/L (137-145) L 09/27/19 05:04 Potassium 4.2 mmol/L (3.6-5.0) D 09/27/19 05:04 Chloride 100.3 mmol/L (98-107) 09/27/19 05:04 Carbon Dioxide 21 mmol/L (22-30) L 09/27/19 05:04 Anion Gap 18 mmol/L 09/27/19 05:04 BUN 9 mg/dL (7-17) 09/27/19 05:04 Creatinine 0.7 mg/dL (0.7-1.2) 09/27/19 05:04 Estimated GFR > 60 ml/min 09/27/19 05:04 BUN/Creatinine Ratio 13 % 09/27/19 05:04 Glucose 81 mg/dL (65-100) 09/27/19 05:04 Lactic Acid 2.50 mmol/L (0.7-2.0) H* 09/26/19 Unknown Calcium 8.1 mg/dL (8.4-10.2) L 09/27/19 05:04 Phosphorus 2.50 mg/dL (2.5-4.5) 09/26/19 14:38 Magnesium 3.10 mg/dL (1.7-2.3) H 09/26/19 14:00 Ferritin 950.8 ng/mL (13.0-400.0) H 09/26/19 22:38 Total Bilirubin 0.30 mg/dL (0.1-1.2) 09/27/19 05:04 AST 36 units/L (5-40) 09/27/19 05:04 ALT 19 units/L (7-56) 09/27/19 05:04 Alkaline Phosphatase 68 units/L (35-129) 09/27/19 05:04 Lactate Dehydrogenase 384 units/L (91-180) H 09/26/19 22:38 Troponin T 0.015 ng/mL (0.00-0.029) 09/26/19 14:38 C-Reactive Protein 7.90 mg/dL (0.00-1.30) H 09/26/19 22:38 Total Protein 6.2 g/dL (6.3-8.2) L 09/27/19 05:04 Albumin 3.1 g/dL (3.9-5) L 09/27/19 05:04 Albumin/Globulin Ratio 1.0 % 09/27/19 05:04 Lipase 32 units/L (13-60) 09/26/19 14:38 Procalcitonin 0.26 ng/mL (<0.15) 09/26/19 22:38 Urine Color Jud (Yellow) 09/26/19 Unknown Urine Turbidity Clear (Clear) 09/26/19 Unknown Urine pH 5.0 (5.0-7.0) 09/26/19 Unknown Ur Specific [place] 1.026 (1.003-1.030) 09/26/19 Unknown Urine Protein 100 mg/dl mg/dL (Negative) 09/26/19 Unknown Urine Glucose (UA) Neg mg/dL (Negative) 09/26/19 Unknown Urine Ketones Neg mg/dL (Negative) 09/26/19 Unknown Urine Blood Mod (Negative) 09/26/19 Unknown Urine Nitrite Neg (Negative) 09/26/19 Unknown Urine Bilirubin Neg (Negative) 09/26/19 Unknown Urine Urobilinogen < 2.0 mg/dL (<2.0) 09/26/19 Unknown Ur Leukocyte Esterase Neg (Negative) 09/26/19 Unknown Urine WBC (Auto) 3.0 /HPF (0.0-6.0) 09/26/19 Unknown Urine RBC (Auto) 11.0 /HPF (0.0-6.0) 09/26/19 Unknown U Epithel Cells (Auto) 1.0 /HPF (0-13.0) 09/26/19 Unknown Hyaline Casts 3 /LPF 09/26/19 Unknown Urine Mucus 2+ /HPF 09/26/19 Unknown Coronavirus (PCR) Positive (Negative) A 09/27/19 09:19 Microbiology: Microbiology 09/26/19 12:16 Peripheral/Venous Blood Culture - Preliminary NO GROWTH AFTER 24 HOURS 09/26/19 11:55 Peripheral/Venous Blood Culture - Preliminary NO GROWTH AFTER 24 HOURS Franco/IV: Voiding Method Toilet IV Catheter Type [Right INT / Saline Lock Forearm] Active Medications - Current Medications Current Medications: Generic Name Dose Route Start Last Admin Trade Name Freq PRN Reason Stop Dose Admin Acetaminophen 650 mg 09/26/19 22:00 09/27/19 07:15 Tylenol PO 650 mg Q4H PRN Administration Pain MILD(1-3)/Fever >100.5/DANIELS Azithromycin 500 mg 09/28/19 10:00 Zithromax PO 09/30/19 10:01 QDAY TOBI Heparin Sodium (Porcine) 5,000 unit 09/27/19 10:00 09/27/19 09:11 Heparin SUB-Q Not Given Q12HR TOBI Hydromorphone HCl 0.5 mg 09/26/19 22:00 09/26/19 22:24 Dilaudid IV 0.5 mg Q3H PRN Administration Pain , Severe (7-10) Sodium Chloride 1,000 mls @ 75 mls/hr 09/26/19 22:00 09/26/19 22:28 Nacl 0.9% 1000 Ml IV 75 mls/hr DIRECT TOBI Administration Ceftriaxone Sodium 2 gm in 100 mls @ 200 mls/hr 09/27/19 10:00 09/27/19 09:10 Rocephin/Ns 2 Gm/100 Ml IV 200 mls/hr Q24HR TOBI Administration Protocol Sodium Chloride 50 mls @ 999 mls/hr 09/27/19 17:00 09/27/19 17:13 Nacl 0.9% IV 10/01/19 17:02 999 mls/hr Q24H TOBI Administration REMDESIVIR 100 mg/ Sodium 250 mls @ 500 mls/hr 09/28/19 16:00 Chloride IV 10/01/19 16:29 Q24H TOBI Methylprednisolone Sodium Succinate 40 mg 09/27/19 15:00 09/27/19 17:13 Solu-Medrol IV 10/02/19 14:59 40 mg Q12HR TOBI Administration Ondansetron HCl 4 mg 09/26/19 22:00 Zofran IV Q8H PRN Nausea And Vomiting Sodium Chloride 10 ml 09/26/19 22:00 09/27/19 09:11 Sodium Chloride Flush Syringe 10 Ml IV 10 ml BID TOBI Administration Sodium Chloride 10 ml 09/26/19 22:00 Sodium Chloride Flush Syringe 10 Ml IV PRN PRN LINE FLUSH
[2019-09-27] MEDS ORDERED: ENOXAPARIN 40 MG/0.4 ML INJ SUB-Q SCH (22:00)
[2019-09-28] MEDS: SODIUM CHLORIDE 0.9% 1000 ML 1,000 ML IV SCH ×2 (01:06→14:37)
[2019-09-28] MEDS: methylPREDNISolone Sod Succinate 40 MG/1 ML INJ IV SCH ×2 (06:21→18:37)
[2019-09-28 06:42] LABS: Alanine Aminotransferase 18 units/L (7-56); Albumin 3.1 g/dL (3.9-5); BUN/Creatinine Ratio 18; Blood Urea Nitrogen 11 mg/dL (7-17); Calcium 8.4 mg/dL (8.4-10.2); Hemolysis Index 14
[2019-09-28] MEDS: AZITHROMYCIN 250 MG TAB PO SCH (09:35)
[2019-09-28] MEDS: cefTRIAXone/NS 2 GM/100 ML 2 GM/100 ML BAG IV SCH (09:35)
[2019-09-28] MEDS: HEPARIN 5,000 UNIT/1 ML VIAL SUB-Q SCH ×2 (10:00→22:32)
[2019-09-28] MEDS: ACETAMINOPHEN 325 MG TAB PO PRN (14:49)
--- NOTE | 2019-09-28 15:09 | Progress Note ---
Assessment and Plan - Patient Problems (1) COVID-19 in immunocompromised patient Current Visit: Yes Status: Acute Plan to address problem: Patient to be ruled out for COVID-19 in fact serology is just come back COVID positive. ID following. Continue present antibiotic coverage azithromycin and Rocephin. Patient started on Remdesvir 5 day course. Also on IV Solu-Medrol 40 twice daily x5 days. Inflammatory markers every 2 days. (2) Hypokalemia Current Visit: Yes Status: Acute Plan to address problem: Corrected p.o. (3) Pneumonia Current Visit: Yes Status: Acute Plan to address problem: Bilateral pneumonia continue supportive care oxygen Tylenol pain control if needed and empiric antibiotic coverage azithromycin Rocephin. Follow further blood culture data. Add Hydromet today for cough. (4) Sepsis Current Visit: Yes Status: Acute Plan to address problem: Fever curve is coming down. Patient appears to be defervescing well with current medications. Current treatment plan. (5) Anemia Status: Acute Qualifiers: Iron deficiency anemia type: chronic blood loss Plan to address problem: Secondary to chronic disease. Transfuse as needed. (6) Colitis Current Visit: No Status: Chronic Plan to address problem: Patient did have some diarrhea today no blood. Continue Solu-Medrol prednisone on hold. History Interval history: Patient feels better today. Hospital course complicated by cough now. Patient states she still feels weak. Still high risk for latent decompensation. Patient also has had some diarrhea today as well. Fever curve is come down since yesterday. Hospitalist Physical - Constitutional Vitals: Temp Pulse Resp BP Pulse Ox 98.1 F 74 18 92/51 97 09/28/19 04:35 09/28/19 04:35 09/28/19 04:35 09/28/19 04:35 09/28/19 04:35 General appearance: Present: no acute distress, mild distress, well-nourished - EENT Eyes: Present: PERRL, EOM intact ENT: hearing intact, clear oral mucosa, dentition normal - Neck Neck: Present: supple, normal ROM - Respiratory Respiratory: bilateral: diminished, rales - Cardiovascular Rhythm: irregularly irregular Heart Sounds: Present: S1 & S2 - Extremities Extremities: no ischemia, pulses intact, pulses symmetrical Peripheral Pulses: within normal limits - Abdominal General gastrointestinal: soft, non-tender, non-distended, no hepatomegaly, no splenomegaly - Integumentary Integumentary: Present: clear, warm, dry - Psychiatric Psychiatric: depressed, other (Patient was crying because upset that she got cold.) - Neurologic Neurologic: CNII-XII intact HEART Score - HEART Score Troponin: Troponin T 0.015 ng/mL (0.00-0.029) 09/26/19 14:38 Results - Labs CBC & Chem 7: 09/27/19 05:04 09/28/19 05:50 Labs: Laboratory Last Values WBC 6.0 K/mm3 (4.5-11.0) 09/27/19 05:04 RBC 3.58 M/mm3 (3.65-5.03) L 09/27/19 05:04 Hgb 11.4 gm/dl (10.1-14.3) 09/27/19 05:04 Hct 34.0 % (30.3-42.9) 09/27/19 05:04 MCV 95 fl (79-97) 09/27/19 05:04 MCH 32 pg (28-32) 09/27/19 05:04 MCHC 34 % (30-34) 09/27/19 05:04 RDW 14.5 % (13.2-15.2) 09/27/19 05:04 Plt Count 207 K/mm3 (140-440) 09/27/19 05:04 Lymph % (Auto) 35.0 % (13.4-35.0) 09/27/19 05:04 Person % (Auto) 2.8 % (0.0-7.3) 09/27/19 05:04 Eos % (Auto) 0.0 % (0.0-4.3) 09/27/19 05:04 Baso % (Auto) 0.6 % (0.0-1.8) 09/27/19 05:04 Lymph # 2.1 K/mm3 (1.2-5.4) 09/27/19 05:04 Person # 0.2 K/mm3 (0.0-0.8) 09/27/19 05:04 Eos # 0.0 K/mm3 (0.0-0.4) 09/27/19 05:04 Baso # 0.0 K/mm3 (0.0-0.1) 09/27/19 05:04 Seg Neutrophils % 61.6 % (40.0-70.0) 09/27/19 05:04 Seg Neutrophils # 3.7 K/mm3 (1.8-7.7) 09/27/19 05:04 D-Dimer 614.60 ng/mlDDU (0-234) H 09/26/19 22:38 Sodium 138 mmol/L (137-145) 09/28/19 05:50 Potassium 4.1 mmol/L (3.6-5.0) 09/28/19 05:50 Chloride 103.8 mmol/L (98-107) 09/28/19 05:50 Carbon Dioxide 20 mmol/L (22-30) L 09/28/19 05:50 Anion Gap 18 mmol/L 09/28/19 05:50 BUN 11 mg/dL (7-17) 09/28/19 05:50 Creatinine 0.6 mg/dL (0.7-1.2) L 09/28/19 05:50 Estimated GFR > 60 ml/min 09/28/19 05:50 BUN/Creatinine Ratio 18 % 09/28/19 05:50 Glucose 115 mg/dL (65-100) H 09/28/19 05:50 POC Glucose 137 (70-105) H 09/27/19 22:53 Lactic Acid 2.50 mmol/L (0.7-2.0) H* 09/26/19 Unknown Calcium 8.4 mg/dL (8.4-10.2) 09/28/19 05:50 Phosphorus 2.50 mg/dL (2.5-4.5) 09/26/19 14:38 Magnesium 3.10 mg/dL (1.7-2.3) H 09/26/19 14:00 Ferritin 950.8 ng/mL (13.0-400.0) H 09/26/19 22:38 Total Bilirubin 0.20 mg/dL (0.1-1.2) 09/28/19 05:50 AST 40 units/L (5-40) 09/28/19 05:50 ALT 18 units/L (7-56) 09/28/19 05:50 Alkaline Phosphatase 59 units/L (35-129) 09/28/19 05:50 Lactate Dehydrogenase 384 units/L (91-180) H 09/26/19 22:38 Troponin T 0.015 ng/mL (0.00-0.029) 09/26/19 14:38 C-Reactive Protein 7.90 mg/dL (0.00-1.30) H 09/26/19 22:38 Total Protein 6.5 g/dL (6.3-8.2) 09/28/19 05:50 Albumin 3.1 g/dL (3.9-5) L 09/28/19 05:50 Albumin/Globulin Ratio 0.9 % 09/28/19 05:50 Lipase 32 units/L (13-60) 09/26/19 14:38 Procalcitonin 0.26 ng/mL (<0.15) 09/26/19 22:38 Urine Color Jud (Yellow) 09/26/19 Unknown Urine Turbidity Clear (Clear) 09/26/19 Unknown Urine pH 5.0 (5.0-7.0) 09/26/19 Unknown Ur Specific [place] 1.026 (1.003-1.030) 09/26/19 Unknown Urine Protein 100 mg/dl mg/dL (Negative) 09/26/19 Unknown Urine Glucose (UA) Neg mg/dL (Negative) 09/26/19 Unknown Urine Ketones Neg mg/dL (Negative) 09/26/19 Unknown Urine Blood Mod (Negative) 09/26/19 Unknown Urine Nitrite Neg (Negative) 09/26/19 Unknown Urine Bilirubin Neg (Negative) 09/26/19 Unknown Urine Urobilinogen < 2.0 mg/dL (<2.0) 09/26/19 Unknown Ur Leukocyte Esterase Neg (Negative) 09/26/19 Unknown Urine WBC (Auto) 3.0 /HPF (0.0-6.0) 09/26/19 Unknown Urine RBC (Auto) 11.0 /HPF (0.0-6.0) 09/26/19 Unknown U Epithel Cells (Auto) 1.0 /HPF (0-13.0) 09/26/19 Unknown Hyaline Casts 3 /LPF 09/26/19 Unknown Urine Mucus 2+ /HPF 09/26/19 Unknown Coronavirus (PCR) Positive (Negative) A 09/27/19 09:19 Microbiology: Microbiology 09/26/19 12:16 Peripheral/Venous Blood Culture - Preliminary NO GROWTH AFTER 48 HOURS 09/26/19 11:55 Peripheral/Venous Blood Culture - Preliminary NO GROWTH AFTER 48 HOURS Franco/IV: Voiding Method Toilet IV Catheter Type [Left Forearm INT / Saline Lock ] IV Catheter Type [Right INT / Saline Lock Forearm] Active Medications - Current Medications Current Medications: Generic Name Dose Route Start Last Admin Trade Name Freq PRN Reason Stop Dose Admin Acetaminophen 650 mg 09/26/19 22:00 09/28/19 14:49 Tylenol PO 650 mg Q4H PRN Administration Pain MILD(1-3)/Fever >100.5/DANIELS Azithromycin 500 mg 09/28/19 10:00 09/28/19 09:35 Zithromax PO 09/30/19 10:01 500 mg QDAY TOBI Administration Heparin Sodium (Porcine) 5,000 unit 09/27/19 10:00 09/28/19 10:00 Heparin SUB-Q Not Given Q12HR TOBI Hydrocodone Bit/Homatropine Methylb 10 ml 09/28/19 13:08 Hydromet PO Q6H PRN Cough Hydromorphone HCl 0.5 mg 09/26/19 22:00 09/26/19 22:24 Dilaudid IV 0.5 mg Q3H PRN Administration Pain , Severe (7-10) Sodium Chloride 1,000 mls @ 75 mls/hr 09/26/19 22:00 09/28/19 14:37 Nacl 0.9% 1000 Ml IV 75 mls/hr DIRECT TOBI Administration Ceftriaxone Sodium 2 gm in 100 mls @ 200 mls/hr 09/27/19 10:00 09/28/19 09:35 Rocephin/Ns 2 Gm/100 Ml IV 200 mls/hr Q24HR TOBI Administration Protocol Sodium Chloride 50 mls @ 999 mls/hr 09/27/19 17:00 09/27/19 17:13 Nacl 0.9% IV 10/01/19 17:02 999 mls/hr Q24H TOBI Administration REMDESIVIR 100 mg/ Sodium 250 mls @ 500 mls/hr 09/28/19 16:00 Chloride IV 10/01/19 16:29 Q24H TOBI Methylprednisolone Sodium Succinate 40 mg 09/28/19 18:00 Solu-Medrol IV 10/02/19 18:59 Q12H TOBI Ondansetron HCl 4 mg 09/26/19 22:00 Zofran IV Q8H PRN Nausea And Vomiting Sodium Chloride 10 ml 09/26/19 22:00 09/28/19 09:36 Sodium Chloride Flush Syringe 10 Ml IV 10 ml BID TOBI Administration Sodium Chloride 10 ml 09/26/19 22:00 Sodium Chloride Flush Syringe 10 Ml IV PRN PRN LINE FLUSH
[2019-09-28] MEDS: REMDESIVIR 100 MG in SODIUM CHLORIDE 0.9% 250ML 250 ML IV SCH (17:38)
[2019-09-28] MEDS: SODIUM CHLORIDE 0.9% 50 ML IV SCH (18:35)
[2019-09-29] MEDS: SODIUM CHLORIDE 0.9% 1000 ML 1,000 ML IV SCH ×2 (04:20→17:36)
[2019-09-29] MEDS: methylPREDNISolone Sod Succinate 40 MG/1 ML INJ IV SCH ×2 (06:06→17:35)
[2019-09-29] MEDS: HYDROcodone/HOMATROPINE 5-1.5MG /5 ML ORAL LIQD UNIT DOSE PO PRN ×2 (06:20→19:04)
[2019-09-29 07:09] LABS: Alanine Aminotransferase 19 units/L (7-56); Albumin 3.2 g/dL (3.9-5); BUN/Creatinine Ratio 26; Blood Urea Nitrogen 13 mg/dL (7-17); Calcium 8.6 mg/dL (8.4-10.2); Hemolysis Index 1
[2019-09-29] MEDS: cefTRIAXone/NS 2 GM/100 ML 2 GM/100 ML BAG IV SCH (09:33)
[2019-09-29] MEDS: AZITHROMYCIN 250 MG TAB PO SCH (09:33)
[2019-09-29] MEDS: HEPARIN 5,000 UNIT/1 ML VIAL SUB-Q SCH ×2 (09:34→22:06)
--- NOTE | 2019-09-29 15:46 | Progress Note ---
Assessment and Plan - Patient Problems (1) COVID-19 in immunocompromised patient Current Visit: Yes Status: Acute Plan to address problem: Patient to be ruled out for COVID-19 in fact serology is just come back COVID positive. ID following. Continue present antibiotic coverage azithromycin and Rocephin. Patient started on Remdesvir 5 day course. Also on IV Solu-Medrol 40 twice daily x5 days. Inflammatory markers every 2 days. (2) Hypokalemia Current Visit: Yes Status: Acute Plan to address problem: Corrected p.o. (3) Pneumonia Current Visit: Yes Status: Acute Plan to address problem: Patient continues to improve. Will anticipate discharge 1-2 more days. Tolerating her antiretroviral. (4) Sepsis Current Visit: Yes Status: Acute Plan to address problem: Fever curve is coming down. Patient appears to be defervescing well with current medications. Current treatment plan. (5) Anemia Status: Acute Qualifiers: Iron deficiency anemia type: chronic blood loss Plan to address problem: Secondary to chronic disease. Transfuse as needed. (6) Colitis Current Visit: No Status: Chronic Plan to address problem: Patient did have some diarrhea today no blood. Continue Solu-Medrol prednisone on hold. Subjective Date of service: 09/29/19 Principal diagnosis: COVID pneumonia. Interval history: Patient clinically looks much better today. Much more calm oxygenating well. No chest pain with coughing. Patient refuses Lovenox. She understands about DVT. States did not take when she has also colitis and her GI doctor told her this should not be done. Otherwise patient had approximately 15 questions although I am asked to her satisfaction. About patient care. Objective - Constitutional Vitals: Vital Signs - 12hr 09/29/19 09/29/19 04:43 11:56 Temperature 97.3 F L 97.5 F L Pulse Rate 60 70 Respiratory 18 18 Rate Blood Pressure 110/54 99/55 O2 Sat by Pulse 96 97 Oximetry General appearance: Present: no acute distress, well-nourished - EENT Eyes: PERRL, EOM intact ENT: hearing intact, clear oral mucosa Ears: bilateral: normal - Neck Neck: supple, normal ROM - Respiratory Respiratory effort: normal Respiratory: bilateral: CTA, diminished (Minimal wheezing bilaterally.) - Breasts Breasts: normal - Cardiovascular Rhythm: regular Heart Sounds: Present: S1 & S2. Absent: gallop, rub Extremities: pulses intact, No edema, normal color, Full ROM - Gastrointestinal General gastrointestinal: Present: soft, non-tender, non-distended, normal bowel sounds - Genitourinary Female genitourinary: normal - Integumentary Integumentary: clear, warm, dry - Musculoskeletal Musculoskeletal: 1, strength equal bilaterally - Neurologic Neurologic: moves all extremities - Psychiatric Psychiatric: memory intact, appropriate mood/affect, intact judgment & insight - Labs CBC & Chem 7: 09/27/19 05:04 09/29/19 06:17 Labs: Abnormal lab results 09/29/19 Range/Units 06:17 Chloride 107.7 H (98-107) mmol/L Carbon Dioxide 19 L (22-30) mmol/L Creatinine 0.5 L (0.7-1.2) mg/dL Glucose 153 H (65-100) mg/dL Albumin 3.2 L (3.9-5) g/dL HEART Score - HEART Score Troponin: Troponin T 0.015 ng/mL (0.00-0.029) 09/26/19 14:38
[2019-09-29] MEDS: SODIUM CHLORIDE 0.9% 50 ML IV SCH (17:36)
[2019-09-29] MEDS: REMDESIVIR 100 MG in SODIUM CHLORIDE 0.9% 250ML 250 ML IV SCH (17:36)
[2019-09-30] MEDS: HYDROcodone/HOMATROPINE 5-1.5MG /5 ML ORAL LIQD UNIT DOSE PO PRN ×3 (03:11→21:43)
[2019-09-30] MEDS: methylPREDNISolone Sod Succinate 40 MG/1 ML INJ IV SCH ×2 (05:53→17:13)
[2019-09-30] MEDS: SODIUM CHLORIDE 0.9% 1000 ML 1,000 ML IV SCH ×2 (05:57→23:08)
[2019-09-30 06:11] LABS: Alanine Aminotransferase 17 units/L (7-56); Albumin 2.9 g/dL (3.9-5); BUN/Creatinine Ratio 23; Blood Urea Nitrogen 14 mg/dL (7-17); Calcium 8.4 mg/dL (8.4-10.2); Hemolysis Index 4
--- NOTE | 2019-09-30 08:08 | Progress Note ---
Assessment and Plan - Patient Problems (1) COVID-19 in immunocompromised patient Current Visit: Yes Status: Acute Plan to address problem: Patient to be ruled out for COVID-19 in fact serology is just come back COVID positive. ID following. Continue present antibiotic coverage azithromycin and Rocephin. Patient started on Remdesvir 5 day course. Also on IV Solu-Medrol 40 twice daily x5 days. Inflammatory markers every 2 days. Will discuss with ID about discharge with course of antivirals are complete. (2) Hypokalemia Current Visit: Yes Status: Acute Plan to address problem: Corrected p.o. (3) Pneumonia Current Visit: Yes Status: Acute Plan to address problem: Patient continues to improve. Will anticipate discharge 1-2 more days. Tolerating her antiretroviral. (4) Sepsis Current Visit: Yes Status: Acute Plan to address problem: Patient responding well to current antibiotic therapy. Antiviral therapy. Fever curve has come down. Less arthralgias and myalgias almost completely resolved. Able to wean O2. (5) Anemia Status: Acute Qualifiers: Iron deficiency anemia type: chronic blood loss Plan to address problem: Secondary to chronic disease. Transfuse as needed. (6) Colitis Current Visit: No Status: Chronic Plan to address problem: Patient did have some diarrhea today no blood. Continue Solu-Medrol prednisone on hold. Subjective Date of service: 09/30/19 Principal diagnosis: COVID pneumonia. Interval history: Patient clinically looks much better today. Much more calm oxygenating well. Patient has had significant improvement. All questions and concerns answered to patient satisfaction.. . Otherwise patient had approximately 15 questions although I am asked to her satisfaction. When can I go home. Objective - Constitutional Vitals: Vital Signs - 12hr 09/29/19 09/29/19 09/30/19 21:41 22:00 04:38 Temperature 97.4 F L 97.4 F L Pulse Rate 45 L 45 L 69 Respiratory 16 18 Rate Blood Pressure 97/51 115/63 O2 Sat by Pulse 94 94 Oximetry General appearance: Present: no acute distress, well-nourished - EENT Eyes: PERRL, EOM intact ENT: hearing intact, clear oral mucosa - Neck Neck: supple, normal ROM - Respiratory Respiratory: bilateral: CTA, rhonchi (few) - Cardiovascular Rhythm: regular Heart Sounds: Present: S1 & S2. Absent: gallop, rub Extremities: pulses intact, No edema, normal color, Full ROM - Gastrointestinal General gastrointestinal: Present: soft, non-tender, non-distended, normal bowel sounds - Genitourinary Female genitourinary: normal - Integumentary Integumentary: clear, warm, dry - Musculoskeletal Musculoskeletal: 1, strength equal bilaterally - Neurologic Neurologic: moves all extremities - Labs CBC & Chem 7: 09/27/19 05:04 09/30/19 05:28 Labs: Abnormal lab results 09/30/19 Range/Units 05:28 Potassium 3.4 L (3.6-5.0) mmol/L Chloride 109.4 H (98-107) mmol/L Creatinine 0.6 L (0.7-1.2) mg/dL Glucose 176 H (65-100) mg/dL Total Protein 5.6 L (6.3-8.2) g/dL Albumin 2.9 L (3.9-5) g/dL HEART Score - HEART Score Troponin: Troponin T 0.015 ng/mL (0.00-0.029) 09/26/19 14:38
[2019-09-30] MEDS: cefTRIAXone/NS 2 GM/100 ML 2 GM/100 ML BAG IV SCH (09:40)
[2019-09-30] MEDS: HEPARIN 5,000 UNIT/1 ML VIAL SUB-Q SCH ×2 (09:41→21:46)
[2019-09-30] MEDS: AZITHROMYCIN 250 MG TAB PO SCH (09:41)
--- NOTE | 2019-09-30 14:46 | Progress Note ---
Assessment and Plan Cultures: 09/26/2019 blood culture: No growth in 24 hours COVID-19 PCR: Positive per discussion with Autumn in microbiology A/P: 69-year-old female with ulcerative colitis who is currently on Xeljanz and 20 mg of prednisone daily admitted to the hospital with fever that started on Monday, now with: #Bilateral pneumonia secondary to COVID-19: D-dimer elevated at 614.6, LDH 384, CRP 7.9, ferritin 950.8. #Hypoxia, borderline SPO2. #Ulcerative colitis, immunocompromised host: on Xeljanz and 20 mg of prednisone daily at home. Recs: Discussed with patient, she is agreeable to start Remdesivir. Spoke to pharmacy to start a 5 day course. Patient is immunocompromised, at risk of decompensation. Monitor LFTs. IV Solu-Medrol 40 mg twice daily for 5 days and then can resume her home prednisone dose Procalcitonin is 0.26, borderline elevated, continue antibiotics for now (stop at 5 days) trend ferritin, LDH, d-dimer, CRP every 2-3 days for risk stratification and to assess disease progression overall data on continuation of biologics is limited in COVID patients, but limited experience suggests it can be continued. Patient is going to be on steroids anyway for COVID, so can hold Xeljanz for now but would defer to CHRISTOFER Malcolm MD [facility] ([facility] M: [phone] O: [phone] F: [phone] Subjective Date of service: 09/30/19 Principal diagnosis: COVID pneumonia. Interval history: Afebrile now, no other concerns. Objective - Exam Narrative Exam: Physical Exam (reviewed in chart due to PPE conservation) Constitutional: limited due to PPE conservation strategy Head, Ears, Nose: limited due to PPE conservation strategy Eyes: limited due to PPE conservation strategy Neck: limited due to PPE conservation strategy Oral: limited due to PPE conservation strategy Cardiovascular: limited due to PPE conservation strategy Respiratory: limited due to PPE conservation strategy GI: limited due to PPE conservation strategy Musculoskeletal: limited due to PPE conservation strategy Skin: limited due to PPE conservation strategy Hem/Lymphatic: limited due to PPE conservation strategy Psych: limited due to PPE conservation strategy Neurological: limited due to PPE conservation strategy - Constitutional Vitals: Vital Signs Temp Pulse Resp BP Pulse Ox 98.0 F 54 L 20 103/51 95 09/30/19 12:09 09/30/19 12:09 09/30/19 12:09 09/30/19 12:09 09/30/19 12:09 Temperature -Last 24 Hours Temperature 98.0 F Temperature 97.4 F Temperature 97.4 F Temperature 97.7 F - Labs CBC & Chem 7: 09/27/19 05:04 09/30/19 05:28 Labs: Abnormal lab results 09/30/19 Range/Units 05:28 Potassium 3.4 L (3.6-5.0) mmol/L Chloride 109.4 H (98-107) mmol/L Creatinine 0.6 L (0.7-1.2) mg/dL Glucose 176 H (65-100) mg/dL Total Protein 5.6 L (6.3-8.2) g/dL Albumin 2.9 L (3.9-5) g/dL
[2019-09-30] MEDS: REMDESIVIR 100 MG in SODIUM CHLORIDE 0.9% 250ML 250 ML IV SCH (17:12)
[2019-09-30] MEDS: SODIUM CHLORIDE 0.9% 50 ML IV SCH (18:42)
[2019-10-01] MEDS: methylPREDNISolone Sod Succinate 40 MG/1 ML INJ IV SCH ×2 (05:42→17:43)
[2019-10-01 06:25] LABS: Alanine Aminotransferase 18 units/L (7-56); BUN/Creatinine Ratio 32; Blood Urea Nitrogen 16 mg/dL (7-17); Calcium 8.5 mg/dL (8.4-10.2); Hemolysis Index 9
[2019-10-01] MEDS: cefTRIAXone/NS 2 GM/100 ML 2 GM/100 ML BAG IV SCH (09:13)
[2019-10-01] MEDS: HEPARIN 5,000 UNIT/1 ML VIAL SUB-Q SCH ×2 (09:13→22:40)
[2019-10-01] MEDS: HYDROcodone/HOMATROPINE 5-1.5MG /5 ML ORAL LIQD UNIT DOSE PO PRN ×2 (11:08→22:38)
--- NOTE | 2019-10-01 12:18 | Progress Note ---
Assessment and Plan - Patient Problems (1) Sepsis Current Visit: Yes Status: Acute Plan to address problem: Resolved with therapy, continue current care plan. (2) Pneumonia Current Visit: Yes Status: Acute Qualifiers: Laterality: bilateral Plan to address problem: Pneumonia protocol: IV antibiotic therapy, submental oxygen, supportive care, (3) COVID-19 in immunocompromised patient Current Visit: Yes Status: Acute Plan to address problem: Continue COVID-19 protocol. Infectious disease service consulted. Continue supportive care. Patient is unable to cooperate with prone ventilation due to low chronic lumbar pain. (4) Bradycardia Current Visit: Yes Status: Acute Plan to address problem: Asymptomatic, outpatient cardiology follow-up. (5) DVT prophylaxis Current Visit: Yes Status: Acute Plan to address problem: SCD to bilateral lower extremities while in bed, patient is ambulatory. History Interval history: 69 YO Female HD#5 with Coronovirus Infection, Sepsis which has resolved with therapy, Pneumonia. Patient convalesced well overnight. Patient denies fever, chills, chest pain, palpitations. Patient acknowledges 2 episodes of hemoptysis overnight. Patient states that she is still somewhat short of breath. Patient also reports that she is unable to sleep in the prone position. Patient instructed to sleep on alternating sides during the night and while in bed. Hospitalist Physical - Constitutional Vitals: Temp Pulse Resp BP Pulse Ox 97.5 F L 61 20 122/50 93 10/01/19 11:43 10/01/19 11:43 10/01/19 11:43 10/01/19 11:43 10/01/19 11:43 General appearance: Present: no acute distress, well-nourished - EENT Eyes: Present: PERRL ENT: hearing intact - Neck Neck: Present: supple - Respiratory Respiratory effort: normal Respiratory: bilateral: diminished - Cardiovascular Rhythm: regular Heart Sounds: Present: S1 & S2 - Extremities Extremities: no ischemia, No edema Peripheral Pulses: within normal limits - Abdominal General gastrointestinal: soft, non-tender, non-distended - Integumentary Integumentary: Present: clear, warm, dry - Psychiatric Psychiatric: appropriate mood/affect, cooperative - Neurologic Neurologic: CNII-XII intact HEART Score - HEART Score Troponin: Troponin T 0.015 ng/mL (0.00-0.029) 09/26/19 14:38 Results - Labs CBC & Chem 7: 09/27/19 05:04 10/01/19 05:26 Labs: Laboratory Last Values WBC 6.0 K/mm3 (4.5-11.0) 09/27/19 05:04 RBC 3.58 M/mm3 (3.65-5.03) L 09/27/19 05:04 Hgb 11.4 gm/dl (10.1-14.3) 09/27/19 05:04 Hct 34.0 % (30.3-42.9) 09/27/19 05:04 MCV 95 fl (79-97) 09/27/19 05:04 MCH 32 pg (28-32) 09/27/19 05:04 MCHC 34 % (30-34) 09/27/19 05:04 RDW 14.5 % (13.2-15.2) 09/27/19 05:04 Plt Count 207 K/mm3 (140-440) 09/27/19 05:04 Lymph % (Auto) 35.0 % (13.4-35.0) 09/27/19 05:04 Russell % (Auto) 2.8 % (0.0-7.3) 09/27/19 05:04 Eos % (Auto) 0.0 % (0.0-4.3) 09/27/19 05:04 Baso % (Auto) 0.6 % (0.0-1.8) 09/27/19 05:04 Lymph # 2.1 K/mm3 (1.2-5.4) 09/27/19 05:04 Russell # 0.2 K/mm3 (0.0-0.8) 09/27/19 05:04 Eos # 0.0 K/mm3 (0.0-0.4) 09/27/19 05:04 Baso # 0.0 K/mm3 (0.0-0.1) 09/27/19 05:04 Seg Neutrophils % 61.6 % (40.0-70.0) 09/27/19 05:04 Seg Neutrophils # 3.7 K/mm3 (1.8-7.7) 09/27/19 05:04 D-Dimer 614.60 ng/mlDDU (0-234) H 09/26/19 22:38 Sodium 145 mmol/L (137-145) 10/01/19 05:26 Potassium 3.3 mmol/L (3.6-5.0) L 10/01/19 05:26 Chloride 109.2 mmol/L (98-107) H 10/01/19 05:26 Carbon Dioxide 22 mmol/L (22-30) 10/01/19 05:26 Anion Gap 17 mmol/L 10/01/19 05:26 BUN 16 mg/dL (7-17) 10/01/19 05:26 Creatinine 0.5 mg/dL (0.7-1.2) L 10/01/19 05:26 Estimated GFR > 60 ml/min 10/01/19 05:26 BUN/Creatinine Ratio 32 % 10/01/19 05:26 Glucose 155 mg/dL (65-100) H 10/01/19 05:26 POC Glucose 148 (70-105) H 09/30/19 22:54 Lactic Acid 2.50 mmol/L (0.7-2.0) H* 09/26/19 Unknown Calcium 8.5 mg/dL (8.4-10.2) 10/01/19 05:26 Phosphorus 2.50 mg/dL (2.5-4.5) 09/26/19 14:38 Magnesium 3.10 mg/dL (1.7-2.3) H 09/26/19 14:00 Ferritin 950.8 ng/mL (13.0-400.0) H 09/26/19 22:38 Total Bilirubin 0.20 mg/dL (0.1-1.2) 10/01/19 05:26 AST 31 units/L (5-40) 10/01/19 05:26 ALT 18 units/L (7-56) 10/01/19 05:26 Alkaline Phosphatase 55 units/L (35-129) 10/01/19 05:26 Lactate Dehydrogenase 384 units/L (91-180) H 09/26/19 22:38 Troponin T 0.015 ng/mL (0.00-0.029) 09/26/19 14:38 C-Reactive Protein 7.90 mg/dL (0.00-1.30) H 09/26/19 22:38 Total Protein 6.1 g/dL (6.3-8.2) L 10/01/19 05:26 Albumin 3.0 g/dL (3.9-5) L 10/01/19 05:26 Albumin/Globulin Ratio 1.0 % 10/01/19 05:26 Lipase 32 units/L (13-60) 09/26/19 14:38 Procalcitonin 0.26 ng/mL (<0.15) 09/26/19 22:38 Urine Color Jud (Yellow) 09/26/19 Unknown Urine Turbidity Clear (Clear) 09/26/19 Unknown Urine pH 5.0 (5.0-7.0) 09/26/19 Unknown Ur Specific [place] 1.026 (1.003-1.030) 09/26/19 Unknown Urine Protein 100 mg/dl mg/dL (Negative) 09/26/19 Unknown Urine Glucose (UA) Neg mg/dL (Negative) 09/26/19 Unknown Urine Ketones Neg mg/dL (Negative) 09/26/19 Unknown Urine Blood Mod (Negative) 09/26/19 Unknown Urine Nitrite Neg (Negative) 09/26/19 Unknown Urine Bilirubin Neg (Negative) 09/26/19 Unknown Urine Urobilinogen < 2.0 mg/dL (<2.0) 09/26/19 Unknown Ur Leukocyte Esterase Neg (Negative) 09/26/19 Unknown Urine WBC (Auto) 3.0 /HPF (0.0-6.0) 09/26/19 Unknown Urine RBC (Auto) 11.0 /HPF (0.0-6.0) 09/26/19 Unknown U Epithel Cells (Auto) 1.0 /HPF (0-13.0) 09/26/19 Unknown Hyaline Casts 3 /LPF 09/26/19 Unknown Urine Mucus 2+ /HPF 09/26/19 Unknown Coronavirus (PCR) Positive (Negative) A 09/27/19 09:19 Microbiology: Microbiology 09/26/19 12:16 Peripheral/Venous Blood Culture - Preliminary NO GROWTH AFTER 4 DAYS 09/26/19 11:55 Peripheral/Venous Blood Culture - Preliminary NO GROWTH AFTER 4 DAYS Franco/IV: Voiding Method Toilet IV Catheter Type [Left Forearm INT / Saline Lock ] IV Catheter Type [Right INT / Saline Lock Forearm] Active Medications - Current Medications Current Medications: Generic Name Dose Route Start Last Admin Trade Name Freq PRN Reason Stop Dose Admin Acetaminophen 650 mg 09/26/19 22:00 09/28/19 14:49 Tylenol PO 650 mg Q4H PRN Administration Pain MILD(1-3)/Fever >100.5/DANIELS Heparin Sodium (Porcine) 5,000 unit 09/27/19 10:00 10/01/19 09:13 Heparin SUB-Q Not Given Q12HR TOBI Hydrocodone Bit/Homatropine Methylb 10 ml 09/28/19 13:08 10/01/19 11:08 Hydromet PO 10 ml Q6H PRN Administration Cough Hydromorphone HCl 0.5 mg 09/26/19 22:00 09/26/19 22:24 Dilaudid IV 0.5 mg Q3H PRN Administration Pain , Severe (7-10) Sodium Chloride 1,000 mls @ 75 mls/hr 09/26/19 22:00 09/30/19 23:08 Nacl 0.9% 1000 Ml IV 75 mls/hr DIRECT TOBI Administration Sodium Chloride 50 mls @ 999 mls/hr 09/27/19 17:00 09/30/19 18:42 Nacl 0.9% IV 10/01/19 17:02 999 mls/hr Q24H TOBI Administration REMDESIVIR 100 mg/ Sodium 250 mls @ 500 mls/hr 09/28/19 16:00 09/30/19 17:12 Chloride IV 10/01/19 16:29 500 mls/hr Q24H TOBI Administration Methylprednisolone Sodium Succinate 40 mg 09/28/19 18:00 10/01/19 05:42 Solu-Medrol IV 10/02/19 18:59 40 mg Q12H TOBI Administration Ondansetron HCl 4 mg 09/26/19 22:00 Zofran IV Q8H PRN Nausea And Vomiting Prednisone 20 mg 10/03/19 10:00 Deltasone PO QDAY TOBI Sodium Chloride 10 ml 09/26/19 22:00 10/01/19 09:14 Sodium Chloride Flush Syringe 10 Ml IV Not Given BID TOBI Sodium Chloride 10 ml 09/26/19 22:00 Sodium Chloride Flush Syringe 10 Ml IV PRN PRN LINE FLUSH
[2019-10-01] MEDS: SODIUM CHLORIDE 0.9% 1000 ML 1,000 ML IV SCH (12:32)
--- NOTE | 2019-10-01 14:46 | Progress Note ---
Assessment and Plan Cultures: 09/26/2019 blood culture: No growth in 24 hours COVID-19 PCR: Positive per discussion with Autumn in microbiology A/P: 69-year-old female with ulcerative colitis who is currently on Xeljanz and 20 mg of prednisone daily admitted to the hospital with fever that started on Monday, now with: #Bilateral pneumonia secondary to COVID-19: D-dimer elevated at 614.6, LDH 384, CRP 7.9, ferritin 950.8. #Hypoxia, borderline SPO2. #Ulcerative colitis, immunocompromised host: on Xeljanz and 20 mg of prednisone daily at home. Recs: Discussed with patient, she is agreeable to start Remdesivir. Spoke to pharmacy to start a 5 day course. Patient is immunocompromised, at risk of decompensation. Monitor LFTs. Patient appears stable at this time, complete 5-day course of Remdesivir and consider discharge home at that time. IV Solu-Medrol 40 mg twice daily for 5 days and then can resume her home prednisone dose Completed antibiotics trend ferritin, LDH, d-dimer, CRP every 2-3 days for risk stratification and to assess disease progression overall data on continuation of biologics is limited in COVID patients, but limited experience suggests it can be continued. Patient is going to be on steroids anyway for COVID, so can hold Xeljanz for now but would defer to CHRISTOFER Malcolm MD [facility] ([facility] M: [phone] O: [phone] F: [phone] Subjective Date of service: 10/01/19 Principal diagnosis: COVID pneumonia. Interval history: Afebrile now, no other concerns. On room air. Objective - Exam Narrative Exam: Physical Exam (reviewed in chart due to PPE conservation) Constitutional: limited due to PPE conservation strategy Head, Ears, Nose: limited due to PPE conservation strategy Eyes: limited due to PPE conservation strategy Neck: limited due to PPE conservation strategy Oral: limited due to PPE conservation strategy Cardiovascular: limited due to PPE conservation strategy Respiratory: limited due to PPE conservation strategy GI: limited due to PPE conservation strategy Musculoskeletal: limited due to PPE conservation strategy Skin: limited due to PPE conservation strategy Hem/Lymphatic: limited due to PPE conservation strategy Psych: limited due to PPE conservation strategy Neurological: limited due to PPE conservation strategy - Constitutional Vitals: Vital Signs Temp Pulse Resp BP Pulse Ox 97.5 F L 61 20 122/50 93 10/01/19 11:43 10/01/19 11:43 10/01/19 11:43 10/01/19 11:43 10/01/19 11:43 Temperature -Last 24 Hours Temperature 97.5 F Temperature 97.0 F Temperature 97.5 F Temperature 97.6 F - Labs CBC & Chem 7: 09/27/19 05:04 10/01/19 05:26 Labs: Abnormal lab results 09/30/19 10/01/19 Range/Units 22:54 05:26 Potassium 3.3 L (3.6-5.0) mmol/L Chloride 109.2 H (98-107) mmol/L Creatinine 0.5 L (0.7-1.2) mg/dL Glucose 155 H (65-100) mg/dL POC Glucose 148 H (70-105) Total Protein 6.1 L (6.3-8.2) g/dL Albumin 3.0 L (3.9-5) g/dL
[2019-10-01] MEDS: REMDESIVIR 100 MG in SODIUM CHLORIDE 0.9% 250ML 250 ML IV SCH (16:40)
[2019-10-01 17:10] LABS: C-Reactive Protein 2.2 mg/dL (0.00-1.30)
[2019-10-01] MEDS: SODIUM CHLORIDE 0.9% 50 ML IV SCH (17:43)
[2019-10-02] MEDS: SODIUM CHLORIDE 0.9% 1000 ML 1,000 ML IV SCH ×2 (04:45→17:53)
[2019-10-02] MEDS: HYDROcodone/HOMATROPINE 5-1.5MG /5 ML ORAL LIQD UNIT DOSE PO PRN ×2 (04:51→13:56)
[2019-10-02] MEDS: methylPREDNISolone Sod Succinate 40 MG/1 ML INJ IV SCH ×2 (05:28→17:12)
[2019-10-02] MEDS ORDERED: SODIUM CHLORIDE 0.9% 500 ML 500 ML IV ONE (08:00)
--- NOTE | 2019-10-02 10:32 | Consultation ---
History of Present Illness Consult date: 10/02/19 Consult reason: bradycardia History of present illness: 69-year old woman admitted six days ago with fever, tachycardia. Chest x-ray showed bilateral infiltrates. Further workup revealed patient is positive for coronavirus infection and is currently on isolation protocol. Cardiology consultation has been requested for marked sinus bradycardia. It is unclear if severe sinus bradycardia was during sleep. There are no reports of dizziness, chest pain or unusual shortness of breath. Patient remained asymptomatic, no cardiac complaints. There are no AV neetu blocking agents the patient is taking. Her presenting ECG is sinus rhythm with chronic left bundle branch block. Patient has a history of mild dilated cardiomyopathy. An echocardiogram at this hospital 3 years ago showed an left ventricular fraction 40%. She had no non- invasive ischemic cardiac workup and she has been lost to outpatient cardiac follow ups. Medications and Allergies Allergies Allergy/AdvReac Type Severity Reaction Status Date / Time Latex, Natural Rubber Allergy Itching Verified 09/26/19 10:18 rivaroxaban [From Xarelto] Allergy Unknown Verified 09/26/19 10:18 warfarin Allergy Rash Verified 09/26/19 10:18 enoxaparin AdvReac Unknown Verified 09/27/19 08:37 mesalamine [From Lialda] AdvReac Nausea Verified 09/27/19 08:27 nitrofurantoin AdvReac Nausea Verified 09/27/19 08:27 macrocrystalline [From Macrodantin] Home Medications Medication Instructions Recorded Confirmed Last Taken Type inFLIXimab (NF) [Remicade (Nf)] 276 mg IV Q6W #10 vial 05/01/19 Unknown Rx predniSONE [Deltasone] 20 mg PO QDAY #10 tablet 05/01/19 Unknown Rx Active Meds: Active Medications Acetaminophen (Tylenol) 650 mg PO Q4H PRN PRN Reason: Pain MILD(1-3)/Fever >100.5/DANIELS Last Admin: 09/28/19 14:49 Dose: 650 mg Documented by: Heparin Sodium (Porcine) (Heparin) 5,000 unit SUB-Q Q12HR TOBI Last Admin: 10/01/19 22:40 Dose: Not Given Documented by: Hydrocodone Bit/Homatropine Methylb (Hydromet) 10 ml PO Q6H PRN PRN Reason: Cough Last Admin: 10/02/19 04:51 Dose: 10 ml Documented by: Hydromorphone HCl (Dilaudid) 0.5 mg IV Q3H PRN PRN Reason: Pain , Severe (7-10) Last Admin: 09/26/19 22:24 Dose: 0.5 mg Documented by: Sodium Chloride (Nacl 0.9% 1000 Ml) 1,000 mls @ 75 mls/hr IV DIRECT TOBI Last Admin: 10/02/19 04:45 Dose: 75 mls/hr Documented by: Methylprednisolone Sodium Succinate (Solu-Medrol) 40 mg IV Q12H [facility] Stop: 10/02/19 18:59 Last Admin: 10/02/19 05:28 Dose: 40 mg Documented by: Ondansetron HCl (Zofran) 4 mg IV Q8H PRN PRN Reason: Nausea And Vomiting Prednisone (Deltasone) 20 mg PO QDAY [facility] Sodium Chloride (Sodium Chloride Flush Syringe 10 Ml) 10 ml IV BID [facility] Last Admin: 10/01/19 22:39 Dose: 10 ml Documented by: Sodium Chloride (Sodium Chloride Flush Syringe 10 Ml) 10 ml IV PRN PRN PRN Reason: LINE FLUSH Physical Examination Vital Signs Temp Pulse Resp BP Pulse Ox 98.8 F 116 H 20 109/73 94 09/26/19 10:21 09/26/19 10:21 09/26/19 10:21 09/26/19 10:21 09/26/19 10:21 physical exam deferred due to coronavirus isolation. Results 09/27/19 05:04 10/01/19 16:20 Cardiac Enzymes 10/01/19 Range/Units 16:20 Lactate Dehydrogenase 508 H (91-180) units/L Comprehensive Metabolic Panel 10/01/19 Range/Units 16:20 Glucose 155 H (65-100) mg/dL Assessment and Plan - Patient Problems (1) Bradycardia Current Visit: Yes Status: Acute Plan to address problem: Marked sinus bradycardia patient remains asymptomatic chronic LBBB on ECG Check a TSH. Avoid AV neetu blocking agents. Continue telemetry monitoring. (2) Cardiomyopathy Current Visit: No Status: Acute Plan to address problem: Mild cardiomyopathy LVEF 40% by echo 11/2016 (3) COVID-19 in immunocompromised patient Current Visit: Yes Status: Acute
[2019-10-02] MEDS: HEPARIN 5,000 UNIT/1 ML VIAL SUB-Q SCH ×2 (11:12→21:13)
--- NOTE | 2019-10-02 14:00 | Progress Note ---
Assessment and Plan Cultures: 09/26/2019 blood culture: No growth in 24 hours COVID-19 PCR: Positive per discussion with Autumn in microbiology A/P: 69-year-old female with ulcerative colitis who is currently on Xeljanz and 20 mg of prednisone daily admitted to the hospital with fever that started on Monday, now with: #Bilateral pneumonia secondary to COVID-19: D-dimer elevated at 614.6, LDH 384, CRP 7.9, ferritin 950.8. #Hypoxia, borderline SPO2. #Ulcerative colitis, immunocompromised host: on Xeljanz and 20 mg of prednisone daily at home. Recs: Patient appears stable at this time, completed Remdesivir IV Solu-Medrol 40 mg twice daily for 5 days and then can resume her home predn isone dose trend ferritin, LDH, d-dimer, CRP every 2-3 days for risk stratification and to assess disease progression overall data on continuation of biologics is limited in COVID patients, but limited experience suggests it can be continued. Patient is going to be on steroids anyway for COVID, so can hold Xeljanz for now but would defer to GI Okay for discharge from infectious disease perspective when stable from a pulmonary standpoint. Given elevated d-dimer, would continue anticoagulation at home for [address] Malcolm MD [facility] ([facility] M: [phone] O: [phone] F: [phone] Subjective Date of service: 10/02/19 Principal diagnosis: COVID pneumonia. Interval history: Afebrile, now has completed Remdesivir. Objective - Exam Narrative Exam: Physical Exam (reviewed in chart due to PPE conservation) Constitutional: limited due to PPE conservation strategy Head, Ears, Nose: limited due to PPE conservation strategy Eyes: limited due to PPE conservation strategy Neck: limited due to PPE conservation strategy Oral: limited due to PPE conservation strategy Cardiovascular: limited due to PPE conservation strategy Respiratory: limited due to PPE conservation strategy GI: limited due to PPE conservation strategy Musculoskeletal: limited due to PPE conservation strategy Skin: limited due to PPE conservation strategy Hem/Lymphatic: limited due to PPE conservation strategy Psych: limited due to PPE conservation strategy Neurological: limited due to PPE conservation strategy - Constitutional Vitals: Vital Signs Temp Pulse Resp BP Pulse Ox 97.6 F 38 L 20 115/54 96 10/02/19 11:43 10/02/19 11:43 10/02/19 11:43 10/02/19 11:43 10/02/19 11:43 Temperature -Last 24 Hours Temperature 97.6 F Temperature 97.2 F Temperature 97.5 F Temperature 98.0 F - Labs CBC & Chem 7: 09/27/19 05:04 10/01/19 16:20 Labs: Abnormal lab results 10/01/19 10/01/19 10/02/19 Range/Units 16:11 16:20 05:37 D-Dimer 1043.04 H (0-234) ng/mlDDU Glucose 155 H (65-100) mg/dL Ferritin 764.5 H (13.0-400.0) ng/mL Lactate Dehydrogenase 508 H (91-180) units/L C-Reactive Protein 2.20 H (0.00-1.30) mg/dL
--- NOTE | 2019-10-02 20:17 | Progress Note ---
Assessment and Plan - Patient Problems (1) Sepsis Current Visit: Yes Status: Acute Plan to address problem: Resolved with therapy, continue current care plan. (2) Pneumonia Current Visit: Yes Status: Acute Qualifiers: Laterality: bilateral Plan to address problem: Pneumonia protocol: IV antibiotic therapy, submental oxygen, supportive care, (3) COVID-19 in immunocompromised patient Current Visit: Yes Status: Acute Plan to address problem: Continue COVID-19 protocol. Infectious disease service consulted. Continue supportive care. Patient is unable to cooperate with prone ventilation due to low chronic lumbar pain. (4) Bradycardia Current Visit: Yes Status: Acute Plan to address problem: Asymptomatic, outpatient cardiology follow-up. (5) DVT prophylaxis Current Visit: Yes Status: Acute Plan to address problem: SCD to bilateral lower extremities while in bed, patient is ambulatory. History Interval history: 69 YO Female HD#6 with Coronovirus Infection, Sepsis which has resolved with therapy, Pneumonia. Patient convalesced well overnight. Patient denies fever, chills, chest pain, palpitations. Patient states that she is still somewhat short of breath but remains comfortable with supplemental oxygen. No reported nursing events. Discharge planning in a.m. after home oxygen evaluation. Hospitalist Physical - Constitutional Vitals: Temp Pulse Resp BP Pulse Ox 97.5 F L 55 L 18 118/48 93 10/02/19 15:58 10/02/19 15:58 10/02/19 15:58 10/02/19 15:58 10/02/19 15:58 General appearance: Present: no acute distress, well-nourished - EENT Eyes: Present: PERRL, EOM intact ENT: hearing intact - Neck Neck: Present: supple - Respiratory Respiratory: bilateral: CTA - Cardiovascular Rhythm: regular Heart Sounds: Present: S1 & S2 - Extremities Extremities: no ischemia Peripheral Pulses: within normal limits - Abdominal General gastrointestinal: soft, non-tender, non-distended - Integumentary Integumentary: Present: clear, warm, dry - Psychiatric Psychiatric: appropriate mood/affect, cooperative - Neurologic Neurologic: CNII-XII intact HEART Score - HEART Score Troponin: Troponin T 0.015 ng/mL (0.00-0.029) 09/26/19 14:38 Results - Labs CBC & Chem 7: 09/27/19 05:04 10/01/19 16:20 Labs: Laboratory Last Values WBC 6.0 K/mm3 (4.5-11.0) 09/27/19 05:04 RBC 3.58 M/mm3 (3.65-5.03) L 09/27/19 05:04 Hgb 11.4 gm/dl (10.1-14.3) 09/27/19 05:04 Hct 34.0 % (30.3-42.9) 09/27/19 05:04 MCV 95 fl (79-97) 09/27/19 05:04 MCH 32 pg (28-32) 09/27/19 05:04 MCHC 34 % (30-34) 09/27/19 05:04 RDW 14.5 % (13.2-15.2) 09/27/19 05:04 Plt Count 207 K/mm3 (140-440) 09/27/19 05:04 Lymph % (Auto) 35.0 % (13.4-35.0) 09/27/19 05:04 Bowie % (Auto) 2.8 % (0.0-7.3) 09/27/19 05:04 Eos % (Auto) 0.0 % (0.0-4.3) 09/27/19 05:04 Baso % (Auto) 0.6 % (0.0-1.8) 09/27/19 05:04 Lymph # 2.1 K/mm3 (1.2-5.4) 09/27/19 05:04 Bowie # 0.2 K/mm3 (0.0-0.8) 09/27/19 05:04 Eos # 0.0 K/mm3 (0.0-0.4) 09/27/19 05:04 Baso # 0.0 K/mm3 (0.0-0.1) 09/27/19 05:04 Seg Neutrophils % 61.6 % (40.0-70.0) 09/27/19 05:04 Seg Neutrophils # 3.7 K/mm3 (1.8-7.7) 09/27/19 05:04 D-Dimer 1043.04 ng/mlDDU (0-234) H 10/02/19 05:37 Sodium 145 mmol/L (137-145) 10/01/19 05:26 Potassium 3.3 mmol/L (3.6-5.0) L 10/01/19 05:26 Chloride 109.2 mmol/L (98-107) H 10/01/19 05:26 Carbon Dioxide 22 mmol/L (22-30) 10/01/19 05:26 Anion Gap 17 mmol/L 10/01/19 05:26 BUN 16 mg/dL (7-17) 10/01/19 05:26 Creatinine 0.5 mg/dL (0.7-1.2) L 10/01/19 05:26 Estimated GFR > 60 ml/min 10/01/19 05:26 BUN/Creatinine Ratio 32 % 10/01/19 05:26 Glucose 155 mg/dL (65-100) H 10/01/19 16:20 POC Glucose 148 (70-105) H 09/30/19 22:54 Lactic Acid 2.50 mmol/L (0.7-2.0) H* 09/26/19 Unknown Calcium 8.5 mg/dL (8.4-10.2) 10/01/19 05:26 Phosphorus 2.50 mg/dL (2.5-4.5) 09/26/19 14:38 Magnesium 2.10 mg/dL (1.7-2.3) 10/01/19 13:31 Ferritin 764.5 ng/mL (13.0-400.0) H 10/01/19 16:11 Total Bilirubin 0.20 mg/dL (0.1-1.2) 10/01/19 05:26 AST 31 units/L (5-40) 10/01/19 05:26 ALT 18 units/L (7-56) 10/01/19 05:26 Alkaline Phosphatase 55 units/L (35-129) 10/01/19 05:26 Lactate Dehydrogenase 508 units/L (91-180) H 10/01/19 16:20 Troponin T 0.015 ng/mL (0.00-0.029) 09/26/19 14:38 C-Reactive Protein 2.20 mg/dL (0.00-1.30) H 10/01/19 16:20 Total Protein 6.1 g/dL (6.3-8.2) L 10/01/19 05:26 Albumin 3.0 g/dL (3.9-5) L 10/01/19 05:26 Albumin/Globulin Ratio 1.0 % 10/01/19 05:26 Lipase 32 units/L (13-60) 09/26/19 14:38 Procalcitonin 0.26 ng/mL (<0.15) 09/26/19 22:38 TSH 0.321 mlU/mL (0.270-4.200) 10/01/19 16:11 Free T4 1.21 ng/dL (0.76-1.46) 10/01/19 16:11 Urine Color Jud (Yellow) 09/26/19 Unknown Urine Turbidity Clear (Clear) 09/26/19 Unknown Urine pH 5.0 (5.0-7.0) 09/26/19 Unknown Ur Specific [place] 1.026 (1.003-1.030) 09/26/19 Unknown Urine Protein 100 mg/dl mg/dL (Negative) 09/26/19 Unknown Urine Glucose (UA) Neg mg/dL (Negative) 09/26/19 Unknown Urine Ketones Neg mg/dL (Negative) 09/26/19 Unknown Urine Blood Mod (Negative) 09/26/19 Unknown Urine Nitrite Neg (Negative) 09/26/19 Unknown Urine Bilirubin Neg (Negative) 09/26/19 Unknown Urine Urobilinogen < 2.0 mg/dL (<2.0) 09/26/19 Unknown Ur Leukocyte Esterase Neg (Negative) 09/26/19 Unknown Urine WBC (Auto) 3.0 /HPF (0.0-6.0) 09/26/19 Unknown Urine RBC (Auto) 11.0 /HPF (0.0-6.0) 09/26/19 Unknown U Epithel Cells (Auto) 1.0 /HPF (0-13.0) 09/26/19 Unknown Hyaline Casts 3 /LPF 09/26/19 Unknown Urine Mucus 2+ /HPF 09/26/19 Unknown Coronavirus (PCR) Positive (Negative) A 09/27/19 09:19 Franco/IV: Voiding Method Toilet IV Catheter Type [Left Hand] Peripheral IV IV Catheter Type [Left Forearm INT / Saline Lock ] IV Catheter Type [Right INT / Saline Lock Forearm] Active Medications - Current Medications Current Medications: Generic Name Dose Route Start Last Admin Trade Name Freq PRN Reason Stop Dose Admin Acetaminophen 650 mg 09/26/19 22:00 09/28/19 14:49 Tylenol PO 650 mg Q4H PRN Administration Pain MILD(1-3)/Fever >100.5/DANIELS Heparin Sodium (Porcine) 5,000 unit 09/27/19 10:00 10/02/19 11:12 Heparin SUB-Q Not Given Q12HR TOBI Hydrocodone Bit/Homatropine Methylb 10 ml 09/28/19 13:08 10/02/19 13:56 Hydromet PO 10 ml Q6H PRN Administration Cough Hydromorphone HCl 0.5 mg 09/26/19 22:00 09/26/19 22:24 Dilaudid IV 0.5 mg Q3H PRN Administration Pain , Severe (7-10) Sodium Chloride 1,000 mls @ 75 mls/hr 09/26/19 22:00 10/02/19 17:53 Nacl 0.9% 1000 Ml IV 75 mls/hr DIRECT TOBI Administration Ondansetron HCl 4 mg 09/26/19 22:00 Zofran IV Q8H PRN Nausea And Vomiting Prednisone 20 mg 10/03/19 10:00 Deltasone PO QDAY TOBI Sodium Chloride 10 ml 09/26/19 22:00 10/02/19 11:13 Sodium Chloride Flush Syringe 10 Ml IV 10 ml BID TOBI Administration Sodium Chloride 10 ml 09/26/19 22:00 Sodium Chloride Flush Syringe 10 Ml IV PRN PRN LINE FLUSH
[2019-10-03 05:47] VITALS: BP 128/53
--- NOTE | 2019-10-03 09:05 | Progress Note ---
Assessment and Plan - Patient Problems (1) Bradycardia Current Visit: Yes Status: Acute Plan to address problem: Sinus bradycardia patient remains asymptomatic chronic LBBB on ECG TSH 0.321 Avoid AV neetu blocking agents. Continue telemetry monitoring. Otherwise, conservative cardiac management. (2) Cardiomyopathy Current Visit: No Status: Acute Plan to address problem: Mild cardiomyopathy LVEF 40% by echo 11/2016 (3) COVID-19 in immunocompromised patient Current Visit: Yes Status: Acute Subjective Date of service: 10/03/19 Principal diagnosis: COVID pneumonia. Interval history: Sinus bradycardia, rate 48 on telemetry. Patient has no cardiac complaints. Objective Vital Signs Temp Pulse Resp BP Pulse Ox 10/03/19 05:09 97.1 F L 18 10/03/19 05:01 97.1 F L 40 L 16 128/53 93 10/02/19 21:15 97.5 F L 43 L 18 144/56 96 10/02/19 15:58 97.5 F L 55 L 18 118/48 93 10/02/19 11:43 97.6 F 38 L 20 115/54 96 - Physical Examination Cardiac: Positive: Bradycardia
[2019-10-03] MEDS: HYDROcodone/HOMATROPINE 5-1.5MG /5 ML ORAL LIQD UNIT DOSE PO PRN (09:54)
[2019-10-03] MEDS ORDERED: predniSONE 20 MG TAB PO SCH (10:00)
--- NOTE | 2019-10-03 10:33 | Progress Note ---
Assessment and Plan Cultures: 09/26/2019 blood culture: No growth in 24 hours COVID-19 PCR: Positive per discussion with Autumn in microbiology A/P: 69-year-old female with ulcerative colitis who is currently on Xeljanz and 20 mg of prednisone daily admitted to the hospital with fever that started on Monday, now with: #Bilateral pneumonia secondary to COVID-19: D-dimer elevated at 614.6, LDH 384, CRP 7.9, ferritin 950.8. Completed 5 days of Remdesevir #Hypoxia, borderline SPO2. #Ulcerative colitis, immunocompromised host: on Xeljanz and 20 mg of prednisone daily at home. Recs: IV Solu-Medrol 40 mg twice daily for 5 days and then can resume her home prednisone dose trend ferritin, LDH, d-dimer, CRP every 2-3 days for risk stratification and to assess disease progression overall data on continuation of biologics is limited in COVID patients, but limited experience suggests it can be continued. Patient is going to be on steroids anyway for COVID, so can hold Xeljanz for now but would defer to GI Okay for discharge from infectious disease perspective when stable from a pulmonary standpoint. Given elevated d-dimer, would continue anticoagulation at home for 30 days post discharge. Will follow. Ct Malcolm MD [facility] ([facility] M: [phone] O: [phone] F: [phone] Subjective Date of service: 10/03/19 Principal diagnosis: COVID pneumonia. Interval history: Doing well, no acute change today. Objective - Exam Narrative Exam: Physical Exam (reviewed in chart due to PPE conservation) Constitutional: limited due to PPE conservation strategy Head, Ears, Nose: limited due to PPE conservation strategy Eyes: limited due to PPE conservation strategy Neck: limited due to PPE conservation strategy Oral: limited due to PPE conservation strategy Cardiovascular: limited due to PPE conservation strategy Respiratory: limited due to PPE conservation strategy GI: limited due to PPE conservation strategy Musculoskeletal: limited due to PPE conservation strategy Skin: limited due to PPE conservation strategy Hem/Lymphatic: limited due to PPE conservation strategy Psych: limited due to PPE conservation strategy Neurological: limited due to PPE conservation strategy - Constitutional Vitals: Vital Signs Temp Pulse Resp BP Pulse Ox 97.1 F L 40 L 18 128/53 93 10/03/19 05:09 10/03/19 05:01 10/03/19 05:09 10/03/19 05:01 10/03/19 05:01 Temperature -Last 24 Hours Temperature 97.1 F Temperature 97.1 F Temperature 97.5 F Temperature 97.5 F Temperature 97.6 F - Labs CBC & Chem 7: 09/27/19 05:04 10/01/19 16:20
[2019-10-03] MEDS: HEPARIN 5,000 UNIT/1 ML VIAL SUB-Q SCH (13:02)
--- NOTE | 2019-10-03 14:12 | Discharge Summary ---
Providers - Providers Date of Admission: 09/26/19 14:28 Attending physician: CYNTHIA RADER 09/26/19 13:42 Consult to Physician [CONS] Stat Comment: ADAMS MARTÍNEZ W/ DR PETERSEN @[id number] Consulting Provider: ALEJO PETERSEN Physician Instructions: Nadya MITCHELL Reason For Exam: pui 09/26/19 22:00 Consult to Physician [CONS] Routine Comment: Consulting Provider: SAIDA CORTÉS Physician Instructions: Reason For Exam: History of ulcerative colitis 10/02/19 07:42 Consult to Physician [CONS] Routine Comment: Consulting Provider: ZANE RICHMOND Physician Instructions: Reason For Exam: decreased heartrate Consult to Physician [CONS] Routine Comment: Consulting Provider: SALO REYNOLDS Physician Instructions: Reason For Exam: Urinary retention Primary care physician: CHEYANNE SLADE Hospitalization Condition: Stable Pertinent studies: Coronavirus PCR: Positive Hospital course: 69 YO Female with Ulcerative colitis on Remicade and prednisone, Migraine DANIELS, Ostopenia presented to the emergency department with fever. Pt seen and evaluated in the emergency department. Lab and imaging studies were reviewed. Patient found to have bilateral pneumonia, and was initiated on COVID-19 protocol. Patient was found to be coronavirus positive. Infectious disease consulted. GI team consulted. Patient treated in accordance with COVID-19 protocol with mild improvement of symptoms. Patient experienced incremental improvement daily during her hospital course. Patient hospital course was complicated by remote telemetry monitoring resulting in a finding of sinus bradycardia. Cardiology team consulted. Patient seen and evaluated by cardiology team with no significant findings. Patient instructed to follow-up with cardiology as outpatient for further care and evaluation and possible remote telemetry monitoring. Patient treated with full course antiretroviral therapy with resolution of his symptoms. Patient medically optimized and on day of discharge is back to usual state of health. Patient cleared for discharge as per infectious disease service. Patient seen and evaluated prior to discharge but no significant new physical exam findings. Patient discharged home and instructed to follow-up with primary care physician within 3 to 5 days. Patient also instructed to maintain social isolation for a. 14 days and to also follow both state and local guidelines regarding social distancing. Patient refused therapeutic anticoagulation during her hospital course and also refused therapeutic anticoagulation at discharge. Patient counseled regarding risks of thromboembolic disease, worsening symptoms and even . Patient knowledges understanding instructions. Patient knowledges understanding risks of thromboembolic disease but refuses therapeutic anticoagulation. Patient instructed to follow-up with gastroenterology team for further care. Patient also instructed to follow with her primary care physician for age-appropriate screening test and further outpatient management. 35 minutes dedicated gated to patient discharge and coordination of care. Disposition: DC-01 TO HOME OR SELFCARE - Discharge Diagnoses (1) Sepsis Status: Acute (2) Pneumonia Status: Acute Qualifiers: Laterality: bilateral (3) COVID-19 in immunocompromised patient Status: Acute (4) Bradycardia Status: Acute (5) DVT prophylaxis Status: Acute Core Measure Documentation - Palliative Care Palliative Care/ Comfort Measures: Not Applicable - Core Measures Any of the following diagnoses?: none Exam - Constitutional Vitals: Temp Pulse Resp BP Pulse Ox 97.1 F L 40 L 18 128/53 93 10/03/19 05:09 10/03/19 05:01 10/03/19 05:09 10/03/19 05:01 10/03/19 05:01 General appearance: Present: no acute distress, well-nourished - EENT Eyes: Present: PERRL ENT: hearing intact, clear oral mucosa - Neck Neck: Present: supple, normal ROM - Respiratory Respiratory effort: normal Respiratory: bilateral: CTA - Cardiovascular Heart Sounds: Present: S1 & S2. Absent: rub, click - Extremities Extremities: pulses symmetrical, No edema Peripheral Pulses: within normal limits - Abdominal General gastrointestinal: Present: soft, non-tender, non-distended, normal bowel sounds Female genitourinary: Present: normal - Integumentary Integumentary: Present: clear, warm, dry - Musculoskeletal Musculoskeletal: gait normal, strength equal bilaterally - Psychiatric Psychiatric: appropriate mood/affect, intact judgment & insight - Neurologic Neurologic: CNII-XII intact, moves all extremities Plan Activity: advance as tolerated Follow up with: CHEYANNE SLADE MD [Primary Care Provider] - 3-5 Days Prescriptions: predniSONE [Deltasone] 50 mg PO QDAY #5 tab Hydrocodone Bit/Homatrop Me-Br [Hydrocodone-Homatropine Syrup] 5 ml PO BID PRN #250 ml PRN Reason: Cough
== END 2019-10-03 18:20 | disposition home or self-care (01) | DRG 871 ==
LOC: ED 10:02 → IMCU 14:28 → 3A 09-27 16:22
PROVIDERS: ADMIT Internal Medicine; ATTEND Internal Medicine
DX: A41.89 Other specified sepsis (principal); U07.1 COVID-19; J12.89 Other viral pneumonia; K51.90 Ulcerative colitis, unspecified, without complications; I42.9 Cardiomyopathy, unspecified; E87.6 Hypokalemia; R09.02 Hypoxemia; D63.8 Anemia in other chronic diseases classified elsewhere; G43.909 Migraine, unspecified, not intractable, without status migrainosus; Z88.8 Allergy status to other drugs, medicaments and biological substances; Z91.040 Latex allergy status; Z79.899 Other long term (current) drug therapy
CPT/HCPCS: 36415; 71045; 74177; 80053; 81001; 82140; 82728; 82947; 82962; 83615; 83690; 83735; 84100; 84145; 84439; 84443; 84484; 85025; 85379; 86140; 87040; 93005; 96365; G0378; J0456; J0696; J1170; J1644; J2543; J2920; J3475; J3480; J7030; J7040; J7050; J7512; Q9967; U0003-CS

== ENCOUNTER 2019-11-26 06:07 | Emergency (ER) | payer MEDICARE ==
--- NOTE | 2019-11-26 08:34 | XRay Report ---
CHEST 2 VIEWS INDICATION: Chest Pain. COMPARISON: 09/26/2019 FINDINGS: Support devices: None. Heart: Within normal limits. Lungs/Pleura: No acute air space or interstitial disease. No significant pleural effusion. IMPRESSION: No acute findings. Signer Name: Bart Luna MD Signed: 11/26/2019 8:30 AM Workstation Name: [id number]
[2019-11-26 08:51] LABS: Basophils # (Auto) 0.1 K/mm3 (0.0-0.1); Basophils % (Auto) 0.8 % (0.0-1.8); Hematocrit 38.5 % (30.3-42.9); Hemoglobin 13.1 gm/dl (10.1-14.3); Lymphocytes # (Auto) 3.7 K/mm3 (1.2-5.4); Lymphocytes % (Auto) 31.9 % (13.4-35.0); Mean Corpuscular HGB Conc 34 % (30-34); Mean Corpuscular Volume 98 fl (79-97); Monocytes # (Auto) 0.9 K/mm3 (0.0-0.8); Monocytes % (Auto) 8.2 % (0.0-7.3); Platelet Count 317 K/mm3 (140-440); Red Blood Count 3.94 M/mm3 (3.65-5.03); Red Cell Distribution Width 15.1 % (13.2-15.2)
[2019-11-26 09:23] LABS: BUN/Creatinine Ratio 23; Blood Urea Nitrogen 16 mg/dL (7-17); Calcium 11.2 mg/dL (8.4-10.2); Hemolysis Index 13
--- NOTE | 2019-11-26 13:25 | Event Note ---
ED Screening Note ED Screening Note: This initial assessment/diagnostic orders/clinical plan/treatment(s) is/are subject to change based on patients health status, clinical progression and re- assessment by fellow clinical providers in the ED. Further treatment and workup at subsequent clinical providers discretion. Patient/guardian urged not to elope from the ED as their condition may be serious if not clinically assessed and managed. Initial orders include: still in wr. grupo rn aware of pt
--- NOTE | 2019-11-26 17:19 | Emergency Department Report ---
ED General Adult HPI - General Chief complaint: Chest Pain Stated complaint: CHEST PAIN PUI?: No Time Seen by Provider: 11/26/19 12:24 Source: patient Mode of arrival: Ambulatory Limitations: No Limitations - History of Present Illness Initial comments: This is a 69-year-old female with a history of ulcerative colitis, LBBB and COVID hospitalization 2 months ago who presents the ED complaining of chest tightness and with abdominal pain that began on Monday 4 days ago. Patient states that pain is localized to the mid chest and goes down to her stomach. Patient states that the stomach pain is what is worse. Patient states she has had about 3 episodes since Monday. Patient states episodes usually last about 10 to 15 minutes where she has pain and goes away. Patient states after eating some ice cream it helped relieve the pain. Patient does state that she has a history of high blood pressure which her primary care doctor Janelle started her on valsartan on Monday. Patient also states she has a card folder which she follows up with and has an appointment tomorrow at 4 PM. Patient did note that she experienced some nausea with no vomiting over the weekend. - Related Data Previous Rx's Medication Instructions Recorded Last Taken Type inFLIXimab (NF) [Remicade (Nf)] 276 mg IV Q6W #10 vial 05/01/19 Unknown Rx predniSONE [Deltasone] 20 mg PO QDAY #10 tablet 05/01/19 Unknown Rx Hydrocodone Bit/Homatrop Me-Br 5 ml PO BID PRN #250 ml 10/03/19 Unknown Rx [Hydrocodone-Homatropine Syrup] predniSONE [Deltasone] 50 mg PO QDAY #5 tab 10/03/19 Unknown Rx Allergies Allergy/AdvReac Type Severity Reaction Status Date / Time infliximab [From Remicade] Allergy Unknown Verified 11/26/19 06:13 Latex, Natural Rubber Allergy Itching Verified 09/26/19 10:18 rivaroxaban [From Xarelto] Allergy Unknown Verified 09/26/19 10:18 warfarin Allergy Rash Verified 09/26/19 10:18 enoxaparin AdvReac Unknown Verified 09/27/19 08:37 fluconazole [From Diflucan] AdvReac Unknown Verified 11/26/19 06:14 iron AdvReac Unknown Verified 11/26/19 06:14 mesalamine [From Lialda] AdvReac Nausea Verified 09/27/19 08:27 nitrofurantoin AdvReac Nausea Verified 09/27/19 08:27 macrocrystalline [From Macrodantin] ED Review of Systems ROS: Stated complaint: CHEST PAIN Other details as noted in HPI Comment: All other systems reviewed and negative ED Past Medical Hx - Past Medical History Previous Medical History?: Yes Hx Hypertension: Yes (Newly Diagnosed) Hx CVA: No Hx Heart Attack/AMI: No Hx Congestive Heart Failure: No Hx Diabetes: No Hx Deep Vein Thrombosis: No Hx Pulmonary Embolism: No Hx GERD: No Hx Liver Disease: No Hx Renal Disease: No Hx Sickle Cell Disease: No Hx Arthritis: No Hx Headaches / Migraines: Yes Hx Asthma: No Hx COPD: No Hx HIV: No Additional medical history: Left bundle branch block, ulcerative colitis. OSTEOPENIA, Taking scheduled Remicade, Low potassium and low sodium, Immune system compromised, Thrush - Surgical History Past Surgical History?: Yes Additional Surgical History: COLONOSCOPY - Social History Smoking Status: Never Smoker - Medications Home Medications: Home Medications Medication Instructions Recorded Confirmed Last Taken Type inFLIXimab (NF) [Remicade (Nf)] 276 mg IV Q6W #10 vial 05/01/19 Unknown Rx predniSONE [Deltasone] 20 mg PO QDAY #10 tablet 05/01/19 Unknown Rx Hydrocodone Bit/Homatrop Me-Br 5 ml PO BID PRN #250 ml 10/03/19 Unknown Rx [Hydrocodone-Homatropine Syrup] predniSONE [Deltasone] 50 mg PO QDAY #5 tab 10/03/19 Unknown Rx ED Physical Exam - General Limitations: No Limitations General appearance: alert, in no apparent distress - Head Head exam: Present: atraumatic, normocephalic - Eye Eye exam: Present: normal appearance, PERRL Pupils: Present: normal accommodation - ENT ENT exam: Present: mucous membranes moist - Neck Neck exam: Present: normal inspection - Respiratory Respiratory exam: Present: normal lung sounds bilaterally. Absent: respiratory distress, wheezes, chest wall tenderness, accessory muscle use - Cardiovascular Cardiovascular Exam: Present: normal rhythm, tachycardia. Absent: systolic murmur, diastolic murmur, rubs, gallop - GI/Abdominal GI/Abdominal exam: Present: soft, normal bowel sounds. Absent: distended, tenderness, guarding, rebound, mass - Extremities Exam Extremities exam: Present: normal inspection, full ROM - Back Exam Back exam: Present: normal inspection - Neurological Exam Neurological exam: Present: alert, oriented X3, normal gait, other (Ambulatory without any problems) - Psychiatric Psychiatric exam: Present: normal affect, normal mood - Skin Skin exam: Present: warm, dry, intact, normal color. Absent: rash ED Course Vital Signs 11/26/19 11/26/19 06:28 17:47 Temperature 98.2 F Pulse Rate 125 H 120 H Respiratory 20 Rate Blood Pressure 152/87 Blood Pressure 98/61 [Left] O2 Sat by Pulse 96 Oximetry ED Medical Decision Making - Lab Data Result diagrams: 11/26/19 08:25 11/26/19 08:25 Laboratory Last Values WBC 11.6 K/mm3 (4.5-11.0) H 11/26/19 08:25 RBC 3.94 M/mm3 (3.65-5.03) 11/26/19 08:25 Hgb 13.1 gm/dl (10.1-14.3) 11/26/19 08:25 Hct 38.5 % (30.3-42.9) 11/26/19 08:25 MCV 98 fl (79-97) H 11/26/19 08:25 MCH 33 pg (28-32) H 11/26/19 08:25 MCHC 34 % (30-34) 11/26/19 08:25 RDW 15.1 % (13.2-15.2) 11/26/19 08:25 Plt Count 317 K/mm3 (140-440) 11/26/19 08:25 Lymph % (Auto) 31.9 % (13.4-35.0) 11/26/19 08:25 [place] % (Auto) 8.2 % (0.0-7.3) H 11/26/19 08:25 Eos % (Auto) 0.0 % (0.0-4.3) 11/26/19 08:25 Baso % (Auto) 0.8 % (0.0-1.8) 11/26/19 08:25 Lymph # 3.7 K/mm3 (1.2-5.4) 11/26/19 08:25 [place] # 0.9 K/mm3 (0.0-0.8) H 11/26/19 08:25 Eos # 0.0 K/mm3 (0.0-0.4) 11/26/19 08:25 Baso # 0.1 K/mm3 (0.0-0.1) 11/26/19 08:25 Seg Neutrophils % 59.1 % (40.0-70.0) 11/26/19 08:25 Seg Neutrophils # 6.9 K/mm3 (1.8-7.7) 11/26/19 08:25 Sodium 140 mmol/L (137-145) 11/26/19 08:25 Potassium 4.0 mmol/L (3.6-5.0) 11/26/19 08:25 Chloride 99.8 mmol/L (98-107) 11/26/19 08:25 Carbon Dioxide 22 mmol/L (22-30) 11/26/19 08:25 Anion Gap 22 mmol/L 11/26/19 08:25 BUN 16 mg/dL (7-17) 11/26/19 08:25 Creatinine 0.7 mg/dL (0.6-1.2) 11/26/19 08:25 Estimated GFR > 60 ml/min 11/26/19 08:25 BUN/Creatinine Ratio 23 % 11/26/19 08:25 Glucose 109 mg/dL (65-100) H 11/26/19 08:25 Calcium 11.2 mg/dL (8.4-10.2) H 11/26/19 08:25 Troponin T < 0.010 ng/mL (0.00-0.029) 11/26/19 12:31 - EKG Data EKG shows normal: sinus rhythm Rate: tachycardia - EKG Data Interpretation: other (Left bundle branch block) - Radiology Data Radiology results: report reviewed, image reviewed CHEST 2 VIEWS INDICATION: Chest Pain. COMPARISON: 09/26/2019 FINDINGS: Support devices: None. Heart: Within normal limits. Lungs/Pleura: No acute air space or interstitial disease. No significant pleural effusion. IMPRESSION: No acute findings. Signer Name: Bart Luna MD Signed: 11/26/2019 8:30 AM Workstation Name: [id number] Transcribed By: ES Dictated By: Bart Luna MD Electronically Authenticated By: Bart Luna MD Signed Date/Time: 08/04/20 0830 - Medical Decision Making 69-year-old female who presented with main chest pain that began over the weekend 3 days ago and is now resolved. Labs and EKG and chest x-ray was completed. Labs within normal limits troponin negative x2, chest x-ray negative, EKG does show left bundle branch block which patient has had a history of for 15 years with this is not new. At evaluation patient or during ED stay patient did not have any persistent chest pain. Patient was recently admitted for COVID in September. Patient was tachycardic upon arrival and reduced a bit as seen on ekg Did consider pulmonary embolism but this is less likely as patient does not have chest pain or shortness of breath nor did she have any of the symptoms prior. Upon repeat vitals patient was tachycardic at [address] angiogram abdomen was ordered but patient eloped prior to CT of the chest and abdomen was con ducted Discussed case with Dr. Chris Snowden. Patient does have an appointment with the card folder tomorrow and her primary care doctor. Patient was not in any acute distress nor was she in any respiratory distress. - Differential Diagnosis Acute coronary syndrome, pulmonary embolism, anxiety, GERD Critical care attestation.: If time is entered above; I have spent that time in minutes in the direct care of this critically ill patient, excluding procedure time. ED Disposition Clinical Impression: Tachycardia, GERD (gastroesophageal reflux disease), Abnormal EKG, Ulcerative colitis, Colitis Disposition: ELOPED Is pt being admited?: No Does the pt Need Aspirin: No Condition: Stable Referrals: PRIMARY CARE, [Primary Care Provider] - 3-5 Days
[2019-11-26 17:47] VITALS: BP 98/61
[2019-11-26] MEDS ORDERED: SODIUM CHLORIDE 0.9% 1000 ML 1,000 ML IV ONE (18:02)
== END 2019-11-26 18:55 | disposition left against medical advice (07) ==
LOC: ED 06:07
DX: K21.9 Gastro-esophageal reflux disease without esophagitis (principal); K51.90 Ulcerative colitis, unspecified, without complications; R00.0 Tachycardia, unspecified; R94.31 Abnormal electrocardiogram [ECG] [EKG]; I10 Essential (primary) hypertension; G43.909 Migraine, unspecified, not intractable, without status migrainosus; Z98.890 Other specified postprocedural states; Z79.899 Other long term (current) drug therapy; Z91.040 Latex allergy status; Z88.8 Allergy status to other drugs, medicaments and biological substances
CPT/HCPCS: 36415; 71046; 80048; 84484; 85025; 93005

== ENCOUNTER 2019-12-20 09:39 | Day surgery (SDC) | payer MEDICARE ==
[2019-12-17 13:08] LABS: Hematocrit 33.7 % (30.3-42.9); Hemoglobin 11.9 gm/dl (10.1-14.3); Mean Corpuscular HGB Conc 35 % (30-34); Mean Corpuscular Volume 97 fl (79-97); Platelet Count 350 K/mm3 (140-440); Red Blood Count 3.47 M/mm3 (3.65-5.03); Red Cell Distribution Width 14.2 % (13.2-15.2)
[2019-12-17 13:29] LABS: Blood Urea Nitrogen 13 mg/dL (7-17); Hemolysis Index 5
--- NOTE | 2019-12-17 13:32 | Anesthesia Consultation ---
Anesthesia Consult and Med Hx Date of service: 12/20/19 - Airway Anesthetic Teeth Evaluation: Good ROM Head & Neck: Adequate Mental/Hyoid Distance: Adequate Mallampati Class: Class III Intubation Access Assessment: Probably Good (previous easy intubation with MAC 3 11/2019) - Pulmonary Exam CTA: Yes - Cardiac Exam Cardiac Exam: RRR - Pre-Operative Health Status ASA Pre-Surgery Classification: ASA3 Proposed Anesthetic Plan: General - Pulmonary Hx Smoking: No Hx Respiratory Symptoms: No Hx Pneumonia: Yes (COVID-19 PNA 09/2019; resolved) Hx Sleep Apnea: No (KIMMY PRE SCREEN LOW RISK) - Cardiovascular System Hx Hypertension: Yes Hx Coronary Artery Disease: No (normal coronaries on [facility] 11/2019; EF 40-45%) Hx Heart Attack/AMI: No Hx Percutaneous Transluminal Coronary Angioplasty (PTCA): No Hx Cardia Arrhythmia: No (chronic LBBB) - Central Nervous System CVA: No Hx Psychiatric Problems: No - Gastrointestinal Hx Gastroesophageal Reflux Disease: No (ulcerative colitis on immunosupressive therapy) - Endocrine Hx Renal Disease: No Hx Liver Disease: No Hx Insulin Dependent Diabetes: No Hx Non-Insulin Dependent Diabetes: No Hx Thyroid Disease: No - Hematic Hx Anemia: Yes Hx Sickle Cell Disease: No - Other Systems Hx Obesity: No - Additional Comments Anesthesia Medical History Comments: Hx PONV though none with most recent GA. COVID+ 09/2019 with symptom resolution but repeat on 12/02/2019 positive as well. Repeat test pending.
[2019-12-17 13:42] LABS: BUN/Creatinine Ratio 19
[~2019-12-20 09:39] MED LIST changes: +CELECOXIB 200 MG CAP PO NR; +GABAPENTIN 300 MG CAP PO NR; +LACTATED RINGERS 1,000 ML IV SCH; +MIDAZOLAM 2 MG/2 ML INJ IV NR; -NACL 0.9% 1000 ML 1,000 ML ONE; +SCOPOLAMINE TRANSDERMAL PATCH 72 HR TD NR
--- NOTE | 2019-12-20 10:42 | Anesthesia Day of Surgery ---
Anesthesia Day of Surgery - Day of Surgery Patient Examined: Yes Patient H&P Reviewed: Yes Patient is NPO: Yes
[2019-12-20] MEDS ORDERED: ceFAZolin/STERILE WATER 2 GM/20 ML SYRINGE IV NR (11:00)
[2019-12-20] MEDS ORDERED: fentaNYL 100 MCG/2 ML INJ ONE ×2 (11:44→12:54)
[2019-12-20] MEDS ORDERED: propofoL 200 MG/20 ML VIAL IV ONE (11:45)
[2019-12-20] MEDS ORDERED: GLYCOPYRROLATE 0.4 MG/2 ML INJ ONE (11:46)
[2019-12-20] MEDS ORDERED: LIDOCAINE MPF (2%) 20 MG/1 ML VIAL 5 ML ONE (11:46)
[2019-12-20] MEDS ORDERED: NEOSTIGMINE 10MG/10 ML INJ MDV ONE (11:46)
[2019-12-20] MEDS ORDERED: dexAMETHasone 20 MG/5 ML VIAL ONE (11:46)
[2019-12-20] MEDS ORDERED: PHENYLEPHRINE/NS 1,000 MCG/10 ML SYRINGE (OR USE) IV ONE (11:46)
[2019-12-20] MEDS ORDERED: SUCCINYLCHOLINE CHLORIDE 200 MG/10 ML INJ MDV ONE (11:46)
[2019-12-20] MEDS ORDERED: ONDANSETRON 4 MG/2 ML INJ ONE (11:46)
[2019-12-20] MEDS ORDERED: ROCURONIUM 50 MG/5 ML INJ IV ONE (11:46)
[2019-12-20] MEDS ORDERED: LIDOCAINE (1%) 10 MG/1 ML VIAL 20 ML MDV ONE (11:47)
[2019-12-20] MEDS ORDERED: BUPIVACAINE-EPINEPHRINE/PF 0.5%-1:200,000 (30 ML) VIAL INFILTRATI ONE (11:47)
[2019-12-20] MEDS ORDERED: SODIUM CHLORIDE 0.9% IRR 1,500 ML BOTTLE IR ONE (12:58)
[2019-12-20] MEDS ORDERED: BACITRACIN ZINC OINT 28.4 GM TP ONE ×2 (12:58→13:03)
[2019-12-20] MEDS ORDERED: BUPIVACAINE/PF (0.5%) 5 MG/1 ML 10 ML VIAL INFILTRATI ONE (12:59)
[2019-12-20] MEDS ORDERED: LIDOCAINE (1%) 10 MG/1 ML VIAL 20 ML MDV INFILTRATI ONE (12:59)
[2019-12-20] MEDS ORDERED: SUGAMMADEX SODIUM 200 MG/2 ML VIAL IV ONE (13:03)
--- NOTE | 2019-12-20 13:07 | Operative Report ---
Operative Report Operative Report: Date of operation: 12/20/2019 Preoperative diagnosis: Choledocholithiasis postOperative diagnoses: Same as above Procedure performed: Laparoscopic cholecystectomy Surgeon: Isela Fraser DO Associate Professor Of Library Science: MD Sara Anesthesia: Gen. endotracheal anesthesia Findings: Gallbladder with omental adhesions Specimen: Gallbladder Estimated blood loss: <10cc Complications: None Disposition: Stable to PACU HPI an indication: 69-year-old female who was hospitalized for abdominal pain earlier this month and was found to have choledocholithiasis. The patient underwent ERCP with sphincterotomy and stone extraction during that hospitalization. It was recommended that she undergo cholecystectomy however she tested positive for COVID during the hospitalization and so the cholecystectomy was deferred to the outpatient setting. All risks, benefits, alternatives to surgery were discussed with the patient at that time and questions were answered. Consent was obtained. The patient was discharged and retested for COVID 19 and was found to be negative. She was scheduled for cholecystectomy. Procedure in detail: The patient was identified in the preoperative area and taken back to the operating room, placed on the operating room table in supine position. After anesthesia was induced, the abdomen was prepped and draped in usual sterile fashion and timeout was performed. Local anesthetic was infiltrated into all of the skin incision sites. Using an 11 blade a supraumbilical incision was made and through this a Veress needle was used to insufflate the abdomen. The position of the veress needle was confirmed with the saline drop test and the abdomen was then insufflated to 15 mmHg. The veress needle was then removed and a 5 mm trocar placed using Optiview trocar. The abdomen was then inspected and there was no underlying injury to any of the abdominal contents. An additional 12 mm subxyphoid port, and 2, 5mm RUQ ports were then placed under direct visualization. The patient was then placed into reverse Trendelberg and tilted to the left. The gallbladder was visualized and there were some omental adhesions to the gallbladder. The gallbladder was grasped and lifted cephalad. The omental adhesions were taken down using combination of blunt dissection and electrocautery. The cystic duct and artery were then carefully dissected and the critical view obtained, and the cystic duct and artery were the only two structures seen entering the gallbladder. Three clips were then placed on the proximal aspect of the cystic duct and one clip distally, and 3 clips on the cystic artery proximally and one distal. The cystic duct and cystic artery were then transected in between the clips. The ga llbladder was dissected off the liver bed using hook electrocautery. The gallbladder was placed into a Endo Catch bag and removed from the abdomen via the 12mm port. The gallbladder fossa was then inspected and there was no identifiable bleeding or bile leakage. Hemostasis was ensured. The clips on the cystic duct and artery were visualized and intact. The patient was then placed into neutral position. The 12 mm port fascia was closed with 2, interrupted 0 Vicryl sutures using the Ortiz Steiner device. The remaining ports were removed under direct visualization. Skin incisions were closed with 4-0 Monocryl subcuticular stitches and skin glue. All skin incisions were once again infiltrated with local anesthetic. At the end case all sponge, instrument, sharp counts were correct 2. The patient was awoken from anesthesia, extubated, taken to PACU in stable condition.
--- NOTE | 2019-12-20 13:10 | Short Stay Summary ---
Short Stay Documentation Date of service: 12/20/19 - History Principal diagnosis: choledocolithiasis H&P: obtained from office - Allergies and Medications Current Medications: Allergies infliximab [From Remicade] Allergy (Verified 12/12/19 15:01) Anaphylaxis Latex, Natural Rubber Allergy (Verified 11/28/19 10:36) Itching rivaroxaban [From Xarelto] Allergy (Verified 12/12/19 15:01) Nausea warfarin Allergy (Verified 11/28/19 10:36) Rash fluconazole [From Diflucan] Adverse Reaction (Verified 11/28/19 10:36) fever, chills, rash iron Adverse Reaction (Verified 12/12/19 15:01) Itching HAS REACTION TO PO IRON- ABLE TO DO IV IRON INFUSIONS WITHOUT PROBLEMS. nitrofurantoin macrocrystalline [From Macrodantin] Adverse Reaction (Verified 11/28/19 10:36) Nausea Home Medications Medication Instructions Recorded Confirmed Last Taken Type Mesalamine [Mesalamine] 3 tab PO DAILY 12/03/19 12/20/19 12/19/19 09:00 Rx Tofacitinib Citrate [Xeljanz] 5 mg PO BID 12/12/19 12/20/19 12/19/19 19:00 History predniSONE [Deltasone] 5 mg PO DAILY 12/12/19 12/20/19 12/19/19 09:00 History Active Medications Cefazolin Sodium (Ancef/Sterile Water 2 Gm/20 Ml) 2 gm IV PREOP NR Stop: 12/20/19 23:59 Celecoxib (Celebrex) 200 mg PO PREOP NR Stop: 12/20/19 23:59 Last Admin: 12/20/19 10:30 Dose: 200 mg Documented by: Gabapentin (Gabapentin) 600 mg PO PREOP NR Stop: 12/20/19 23:59 Last Admin: 12/20/19 10:30 Dose: 600 mg Documented by: Lactated Ringer's (Lactated Ringers) 1,000 mls @ 100 mls/hr IV DIRECT TOBI Stop: 12/20/19 23:59 Last Admin: 12/20/19 10:30 Dose: 100 mls/hr Documented by: Midazolam HCl (Versed) 2 mg IV PREOP NR Stop: 12/20/19 23:59 Last Admin: 12/20/19 10:58 Dose: 2 mg Documented by: Scopolamine (Transderm-Scop) 1 each TD PREOP NR Stop: 12/20/19 23:59 Last Admin: 12/20/19 10:20 Dose: 1 each Documented by: - Brief post op/procedure progress note Date of procedure: 12/20/19 Pre-op diagnosis: choledocolithiasis, cholelithiasis Post-op diagnosis: same Procedure: laparoscopic cholecystectomy Anesthesia: GETA, local Findings: Gallbladder with omental adhesions Surgeon: AREN WAHL Necktie Stitcher: CULLEN BOWLES Estimated blood loss: minimal Pathology: list (gallbladder) Specimen disposition: to lab Condition: stable - Hospital course Hospital course: Pt observed in PACU and discharged to home in stable condition when criteria met - Disposition Condition at discharge: Good Disposition: DC-01 TO HOME OR SELFCARE Short Stay Discharge Plan Activity: other (no heavy lifting) Diet: regular, low fat Wound: open to air, per your surgeon's advice Additional Instructions: SEE PRINTED DISCHARGE INSTRUCTIONS Follow up with: PRIMARY CARE,MD [Primary Care Provider] - 7 Days AREN WAHL DO [Staff Physician] - 14 Days Prescriptions: HYDROcodone/APAP 5-325 [[place] 5/325] 1 each PO Q6HR PRN #20 tablet PRN Reason: Pain
[2019-12-20 14:12] VITALS: BP 121/61
--- NOTE | 2019-12-20 14:15 | Post Anesthesia Evaluation ---
- Post Anesthesia Evaluation Patient Participated: Yes Airway Patent: Yes Stable Respiratory Function: Yes Nausea/Vomiting: No Temp > 96.8F: Yes Pain Manageable: Yes Adequeate Hydration: Yes Anesthesia Complications: No
== END 2019-12-20 14:50 | disposition home or self-care (01) ==
LOC: OR 09:39
PROVIDERS: ATTEND Surgery
DX: K80.20 Calculus of gallbladder without cholecystitis without obstruction (principal); Z20.828 Contact with and (suspected) exposure to other viral communicable diseases; D64.9 Anemia, unspecified; I10 Essential (primary) hypertension; G43.909 Migraine, unspecified, not intractable, without status migrainosus; K82.8 Other specified diseases of gallbladder; K21.9 Gastro-esophageal reflux disease without esophagitis; F41.9 Anxiety disorder, unspecified; Z86.718 Personal history of other venous thrombosis and embolism; Z87.440 Personal history of urinary (tract) infections; Z79.899 Other long term (current) drug therapy; Z91.040 Latex allergy status; Z79.01 Long term (current) use of anticoagulants; Z80.8 Family history of malignant neoplasm of other organs or systems; Z88.8 Allergy status to other drugs, medicaments and biological substances; Z86.73 Personal history of transient ischemic attack (TIA), and cerebral infarction without residual deficits
CPT/HCPCS: 36415; 47562; 80048; 85027; 88304; J0330; J0690; J1100; J2250; J2370; J2405; J2704; J2710; J3010; J7120; U0003

== ENCOUNTER 2020-04-23 13:14 | Outpatient (CLI) | payer MEDICARE ==
--- NOTE | 2020-04-23 14:18 | Mammography Report ---
DEXA BONE DENSITY SCAN INDICATION / CLINICAL INFORMATION: ULCERATIVE PANCOLITIS W/ OTHER COMPLICATIONS. 69 years Female COMPARISON: 10/18/2017 LUMBAR SPINE, L1-L4: - Bone mineral density (BMD) = 0.851 g/cm2. - T-score = -1.8 - Z-score = 0.2 Change (%) since most recent prior (if available): Minimum changes compared to previous exam LEFT HIP, : - Bone mineral density (BMD) = 0.712 g/cm2. - T-score = -1.9 - Z-score = -0.5 Change (%) since most recent prior (if available): Significant decrease in bone density as compared to previous exam decreased 9.3% IMPRESSION: 1. WHO Classification: Osteopenia. Fracture Risk: Increased. BMD Reporting Guidelines (ISCD, 2015) BMD Reporting in Postmenopausal Women and in Men Age 50 and Older - T-scores are preferred. - The WHO densitometric classification is applicable. BMD Reporting in Females Prior to Menopause and in Males Younger Than Age 50 - Z-scores, not T-scores, are preferred. This is particularly important in children. - A Z-score of -2.0 or lower is defined as below the expected range for age, and a Z-score above -2.0 is within the expected range for age. - Osteoporosis cannot be diagnosed in men under age 50 on the basis of BMD alone. - The WHO diagnostic criteria may be applied to women in the menopausal transition. http://www.iscd.org/official-positions/0740-sngr-brwggsqs-positions-adult/ Signer Name: Fercho Eugene MD Signed: 04/23/2020 2:14 PM Workstation Name: [id number]
== END 2020-04-23 13:15 | disposition home or self-care (01) ==
LOC: SPVWC 13:14
PROVIDERS: ATTEND Internal Medicine Gastroenterology
DX: M81.0 Age-related osteoporosis without current pathological fracture (principal); K51.018 Ulcerative (chronic) pancolitis with other complication
CPT/HCPCS: 77080